=== PATIENT | female | born 1940 | race Caucasian/White ===

== ENCOUNTER → 2016-10-03 | Outpatient (CLI) | payer MEDICARE, OTHER ==
--- NOTE | 2016-10-03 11:47 | Diagnostic Imaging Report ---
INDICATION: Right knee pain 3 views of the right knee show no fracture, dislocation or pathologic effusion. IMPRESSION: Negative right knee. Dictated by: Dictated on workstation # [id number]
== END ==
LOC: RAD 11:24
PROVIDERS: ATTEND Nurse Practitioner Family
DX: M25.561 Pain in right knee (principal)
CPT/HCPCS: 73562

== ENCOUNTER → 2018-07-02 | Outpatient (CLI) | payer MEDICARE, OTHER ==
[~2018-07-02] MED LIST: BARIUM SUSPENSION 105% (LIQUID POLIBAR PLUS) 240 ML/DOSE PO ONE; BARIUM SUSPENSION 60% (LIQUID EZ PAQUE) 240 ML DOSE PO ONE
--- NOTE | 2018-07-02 18:10 | Diagnostic Imaging Report ---
EXAMINATION: Barium swallow. INDICATION: Difficulty swallowing. FINDINGS: There are no prior barium swallow studies available for comparison. The preliminary film of the chest fails to show any sign of an acute abnormality. There is S-type scoliosis of the spine with levoscoliosis of the lower thoracic spine and dextroscoliosis of the thoracolumbar junction. The lungs are clear but may be somewhat hyperexpanded. The heart size is within normal limits. Double contrast exam was performed. The patient swallowed the contrast material without difficulty. There was no delay or obstruction to the passage of barium through the esophagus. There is no evidence for a hiatal hernia or for gastroesophageal reflux. The stomach shows good distensibility and motility. There is no mass or ulceration evident. The duodenal bulb and proximal small bowel are unremarkable. IMPRESSION: 1. There is no evidence for obstruction of the esophagus. 2. There is no sign of a hiatal hernia nor is there any evidence for gastroesophageal reflux. 3. A cursory examination of the stomach, duodenum, and proximal small bowel is unremarkable for an acute abnormality. Dictated by: Dictated on workstation # [id number]
== END ==
LOC: RAD 09:26
PROVIDERS: ATTEND Nurse Practitioner Family
DX: R13.12 Dysphagia, oropharyngeal phase (principal)
CPT/HCPCS: 74220

== ENCOUNTER → 2019-11-03 | Outpatient (CLI) | payer MEDICARE, OTHER ==
--- NOTE | 2019-11-03 10:51 | Diagnostic Imaging Report ---
PROCEDURE: US right lower extremity venous. TECHNIQUE: Multiple real-time grayscale images were obtained over the right lower extremity in various projections. Additional spectral analysis and color Doppler duplex images were also obtained. INDICATION: Right leg pain behind the knee. There is no evidence of right lower extremity DVT. Right lower extremity deep venous system shows normal compressibility with normal response to augmentation and Valsalva. 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 IMPRESSION: 1. No evidence of right lower extremity DVT. 2. Bedolla's cyst. Dictated by: Dictated on workstation # [id number]
== END ==
LOC: RAD 08:43
PROVIDERS: ATTEND Nurse Practitioner Family
DX: M79.604 Pain in right leg (principal); M79.89 Other specified soft tissue disorders; M71.21 Synovial cyst of popliteal space [Baker], right knee

== ENCOUNTER 2019-11-17 21:17 | Emergency (ER) | payer MEDICARE, OTHER ==
[~2019-11-17] VITALS: Ht 157.4 cm; Wt 51.4 kg
[2019-11-17] MEDS ORDERED: NS IV 500 ML 500 ML IV ONE (21:49)
[2019-11-17 21:55] LABS: CLARITY,URINE SL CLOUDY; COLOR,URINE ORANGE; GLUCOSE, URINE (UA) TRACE (NEGATIVE); KETONES,URINE NEGATIVE (NEGATIVE); LEUKOCYTE ESTERASE ,URINE NEGATIVE (NEGATIVE); PROTEIN,URINE 2+ (NEGATIVE)
--- NOTE | 2019-11-17 21:56 | ED GU-Female ---
General Chief Complaint: Abdominal/GI Problems Stated Complaint: N/V, ABD PAIN Source: patient Exam Limitations: no limitations History of Present Illness Date Seen by Provider: Nov 17, 2019 Time Seen by Provider: 21:39 Initial Comments Patient arrives ER by private conveyance from home with chief complaint the past 6 days she's been having some discomfort in her lower pelvis, dysuria and pain with defecation and urinating feeling like a cramping sensation. She rates as a 5 out of 10 presently. She says is worse intermittently. She started taking cranberry caplets, AZO and some leftover Bactrim for 2 days and has not felt any significant relief. No fevers but she has had nausea without vomiting. A week ago she completed a week of antibiotics for inflammation in her right knee and has follow-up appointments with the orthopedic surgeon. She has osteoarthritis. She follows with Dr. Dalal. She's not having any malodor or discharge. Patient states she did not want come in but her children were insistent. Allergies and Home Medications Allergies Coded Allergies: codeine (Verified Adverse Reaction, Unknown, Vomiting, 11/17/19) Patient Home Medication List Home Medication List Reviewed: Yes Review of Systems Review of Systems Constitutional: No chills, No diaphoresis EENTM: No ear discharge, No ear pain Respiratory: No cough, No short of breath Cardiovascular: No edema Gastrointestinal: abdominal pain; No constipation, No diarrhea; nausea; No vomiting Genitourinary: denies discharge, denies dysuria Musculoskeletal: No back pain, No joint pain Skin: No pruritus, No rash Past Chnmrbu-Qkjvcc-Qtpquq Hx Patient Social History Alcohol Use: Rarely Uses Recreational Drug Use: No Smoking Status: Never a Smoker Recent Foreign Travel: No Contact w/Someone Who Travel: No Recent Hopitalizations: No Seasonal Allergies Seasonal Allergies: No Past Medical History Surgeries: Yes Orthopedic Respiratory: No Cardiac: No Neurological: No Genitourinary: No Gastrointestinal: No Musculoskeletal: No Endocrine: No HEENT: No Cancer: No Psychosocial: No Integumentary: No Physical Exam Vital Signs Vital Signs - First Documented 11/17/19 21:32 Temp 37.6 Pulse 109 Resp 18 B/P (MAP) 133/111 (118) O2 Delivery Room Air Capillary Refill : Height, Weight, BMI Height: '" Weight: lbs. oz. kg; BMI Method: General Appearance: WD/WN, mild distress HEENT: PERRL/EOMI, pharynx normal Neck: full range of motion, normal inspection Cardiovascular: normal peripheral pulses, regular rate, rhythm Respiratory: no respiratory distress, no accessory muscle use Gastrointestinal: normal bowel sounds (active), soft, tenderness (suprapubic but negative for pain over McBurney's point, right upper quadrant Martinez sign or psoas sign.) Back: normal inspection, no CVA tenderness, no vertebral tenderness Extremities: normal range of motion, non-tender, normal capillary refill Neurologic/Psychiatric: alert, normal mood/affect, oriented x 3 Skin: normal color, warm/dry Progress/Results/Core Measures Suspected Sepsis SIRS Temperature: Pulse: Respiratory Rate: Laboratory Tests 11/17/19 22:00: White Blood Count 11.7H Blood Pressure / Mean: Laboratory Tests 11/17/19 22:00: Creatinine 1.19, Platelet Count 286, Total Bilirubin 0.5 Results/Orders Lab Results Laboratory Tests Test 11/17/19 21:40 11/17/19 22:00 Range/Units Urine Color ORANGE Urine Clarity SL CLOUDY Urine pH 6.0 5-9 Urine Specific [place] 1.020 1.016-1.022 Urine Protein 2+ H NEGATIVE Urine Glucose (UA) TRACE H NEGATIVE Urine Ketones NEGATIVE NEGATIVE Urine Nitrite NEGATIVE NEGATIVE Urine Bilirubin 1+ H NEGATIVE Urine Urobilinogen 4.0 < = 1.0 MG/DL Urine Leukocyte Esterase NEGATIVE NEGATIVE Urine RBC (Auto) NEGATIVE NEGATIVE Urine RBC NONE /HPF Urine WBC NONE /HPF Urine Squamous Epithelial Cells 2-5 /HPF Urine Crystals PRESENT H /LPF Urine Calcium Oxalate Crystals RARE H /LPF Urine Bacteria TRACE /HPF Urine Casts PRESENT /LPF Urine Hyaline Casts 2-5 H /LPF Urine Mucus NEGATIVE /LPF Urine Culture Indicated NO White Blood Count 11.7 H 4.3-11.0 10^3/uL Red Blood Count 4.13 L 4.35-5.85 10^6/uL Hemoglobin 12.5 11.5-16.0 G/DL Hematocrit 37 35-52 % Mean Corpuscular Volume 90 80-99 FL Mean Corpuscular Hemoglobin 30 25-34 PG Mean Corpuscular Hemoglobin Concent 34 32-36 G/DL Red Cell Distribution Width 12.6 10.0-14.5 % Platelet Count 286 130-400 10^3/uL Mean Platelet Volume 10.0 7.4-10.4 FL Neutrophils (%) (Auto) 78 H 42-75 % Lymphocytes (%) (Auto) 10 L 12-44 % Monocytes (%) (Auto) 12 0-12 % Eosinophils (%) (Auto) 1 0-10 % Basophils (%) (Auto) 0 0-10 % Neutrophils # (Auto) 9.1 H 1.8-7.8 X 10^3 Lymphocytes # (Auto) 1.1 1.0-4.0 X 10^3 Monocytes # (Auto) 1.3 H 0.0-1.0 X 10^3 Eosinophils # (Auto) 0.1 0.0-0.3 10^3/uL Basophils # (Auto) 0.0 0.0-0.1 10^3/uL Sodium Level 137 135-145 MMOL/L Potassium Level 3.4 L 3.6-5.0 MMOL/L Chloride Level 104 98-107 MMOL/L Carbon Dioxide Level 19 L 21-32 MMOL/L Anion Gap 14 5-14 MMOL/L Blood Urea Nitrogen 14 7-18 MG/DL Creatinine 1.19 0.60-1.30 MG/DL Estimat Glomerular Filtration Rate 44 BUN/Creatinine Ratio 12 Glucose Level 127 H 70-105 MG/DL Calcium Level 9.6 8.5-10.1 MG/DL Corrected Calcium 9.5 8.5-10.1 MG/DL Total Bilirubin 0.5 0.1-1.0 MG/DL Aspartate Amino Transf (AST/SGOT) 25 5-34 U/L Alanine Aminotransferase (ALT/SGPT) 20 0-55 U/L Alkaline Phosphatase 78 40-136 U/L Total Protein 7.2 6.4-8.2 GM/DL Albumin 4.1 3.2-4.5 GM/DL My Orders Orders - BRADLEY PAN Ua Culture If Indicated (11/17/19 21:44) Cbc With Automated Diff (11/17/19 21:49) Comprehensive Metabolic Panel (11/17/19 21:49) Ed Iv/Invasive Line Start (11/17/19 21:49) Ns Iv 500 Ml (Sodium Chloride 0.9%) (11/17/19 21:49) Ketorolac Injection (Toradol Injection) (7/15/20 22:00) Medications Given in ED Current Medications Medications Dose Ordered Sig/Smita Route Start Time Stop Time Status Last Admin Dose Admin Ketorolac Tromethamine 30 mg ONCE ONCE IVP 11/17/19 22:00 11/17/19 22:01 DC 11/17/19 21:58 30 MG Sodium Chloride 500 ml @ 0 mls/hr Q0M ONCE IV 11/17/19 21:49 11/17/19 21:50 DC 11/17/19 21:58 0 MLS/HR Vital Signs/I&O 11/17/19 21:32 Temp 37.6 Pulse 109 Resp 18 B/P (MAP) 133/111 (118) O2 Delivery Room Air Capillary Refill : Progress Note #1: Time: 21:57 Progress Note Patient's heart rate is 110 -115. Anxiety versus infection? Plan to give her 500 cc of fluid, Toradol and check some basic labs and urinalysis. Otherwise aseptic vital signs and a very benign abdominal exam but could be consistent with a UTI. Progress Note #2: Time: 22:42 Progress Note Patient's abdominal pain is significantly improved after the Toradol. She says ibuprofen was working at home as well. We have suggested perhaps there was ur inary tract infection since her symptoms are coming from and we'll put her on ciprofloxacin for another 5 days. If she is not getting some improvement in her pain in the next 1-2 days she is to follow-up with primary care. If her pain becomes intractable or she has intractable nausea and vomiting, fever or other worrisome symptoms she is to return to the ER. Patient is in agreement with this plan. Labs are unremarkable. Urine is unrevealing after 2 days of antibiotics. Departure Impression Primary Impression: Urinary tract infection Qualified Codes: N30.00 - Acute cystitis without hematuria Disposition: HOME, SELF-CARE Condition: Stable Departure-Patient Inst. Decision time for Depature: 22:37 Referrals: MEL DALAL MD (PCP/Family) Primary Care Physician Patient Instructions: Urinary Tract Infection, Adult (DC) Add. Discharge Instructions: It's difficult to be certain what exactly is causing your discomfort however your symptoms seem to be consistent with urinary tract infection. Start ciprofloxacin one capsule twice a day for the next 5 days. If you're not having significant improvement in your pain over the next 1-2 days then you should call and follow-up with your primary care provider. If you have nausea take one tablet of Zofran under the tongue every 6 hours as necessary. If you develop fever above 100.4 or intractable pain and/or nausea then please do not hesitate to return to the ER for further evaluation. All discharge instructions reviewed with patient and/or family. Voiced understanding. Scripts Ciprofloxacin HCl (Ciprofloxacin HCl) 500 Mg Tablet 500 MG PO BID for 5 Days, #10 TAB 0 Refills Prov: BRADLEY PAN 11/17/19 Ondansetron (Ondansetron Odt) 4 Mg Tab.rapdis 4 MG PO Q6H PRN for NAUSEA/VOMITING, #8 TAB 0 Refills Prov: BRADLEY PAN 11/17/19 Copy Copies To 1: MEL DALAL MD, TITUS J Nov 17, 2019 21:56
[2019-11-17] MEDS ORDERED: KETOROLAC 30 MG/ML VIAL IVP ONE (22:00)
[2019-11-17 22:02] LABS: BILIRUBIN,URINE 1+ (NEGATIVE)
[2019-11-17 22:04] LABS: BACTERIA,URINE TRACE /HPF; CALCIUM OXALATE CRYSTALS,UR RARE /LPF
[2019-11-17 22:05] LABS: NITRITE,URINE NEGATIVE (NEGATIVE)
[2019-11-17 22:07] LABS: BASOPHILS % (AUTO) 0 % (0-10); EOSINOPHILS # (AUTO) 0.1 10^3/uL (0.0-0.3); EOSINOPHILS % (AUTO) 1 % (0-10); HEMATOCRIT 37 % (35-52); HEMOGLOBIN 12.5 G/DL (11.5-16.0); LYMPHOCYTES # (AUTO) 1.1 X 10^3 (1.0-4.0); LYMPHOCYTES % (AUTO) 10 % (12-44); MEAN CORPUSCULAR HEMOGLOBIN 30 PG (25-34); MEAN CORPUSCULAR HGB CONC 34 G/DL (32-36); MEAN CORPUSCULAR VOLUME 90 FL (80-99); MONOCYTES # (AUTO) 1.3 X 10^3 (0.0-1.0); MONOCYTES % (AUTO) 12 % (0-12); NEUTROPHILS # (AUTO) 9.1 X 10^3 (1.8-7.8); NEUTROPHILS % (AUTO) 78 % (42-75); PLATELET COUNT 286 10^3/uL (130-400); RED CELL DISTRIBUTION WIDTH 12.6 % (10.0-14.5); WHITE BLOOD COUNT 11.7 10^3/uL (4.3-11.0)
[2019-11-17 22:29] LABS: ALBUMIN 4.1 GM/DL (3.2-4.5); BILIRUBIN,TOTAL 0.5 MG/DL (0.1-1.0); CALCIUM 9.6 MG/DL (8.5-10.1); CREATININE SERUM 1.19 MG/DL (0.60-1.30); POTASSIUM 3.4 MMOL/L (3.6-5.0); TOTAL PROTEIN 7.2 GM/DL (6.4-8.2)
[2019-11-17] MEDS ORDERED: CIPR500T4 PO (22:48)
[2019-11-17] MEDS ORDERED: ONDA4TAB11 PO (22:48)
[2019-11-17 22:55] VITALS: BP 132/74
--- OUTSIDE RECORDS SUMMARY | 2019-11-18 01:25 | XMS REPORT ---
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 Stringer Assembler Name Role Phone Unavailable Unavailable [facility] PP Unavailable [facility] CCM Unavailable HEAVEN MARSHALL Unavailable Unavailable NICOLAS ALCANTARA DC Unavailable Unavailable JENNIFER ENG RAILWAY SIGNALLING ENGINEER Unavailable Unavailable JULISA CORDON APRN Unavailable Unavailable BRADLEY PAN MD Unavailable Unavailable HEAVEN DORADO Unavailable Unavailable NICOLAS ALCANTARA DC Unavailable Unavailable Unavailable Unavailable Unavailable Unavailable Unavailable Unavailable Unavailable Unavailable Unavailable Unavailable Allergies The data below is from unstructured sourcesAllergies, Adverse Reactions, Alerts data not foundAllergies, Adverse Reactions, Alerts data not foundAllergies, Adverse Reactions, Alerts data not foundAllergies, Adverse Reactions, Alerts data not foundAllergies, Adverse Reactions, Alerts data not foundAllergies, Adverse Reactions, Alerts data not foundAllergies, Adv erse Reactions, Alerts data not foundAllergies, Adverse Reactions, Alerts data n ot foundAllergies, Adverse Reactions, Alerts data not found Encounters Encounter Date Encounter Type Encounter Diagnosis Care Provider Facility Start: Emergency department BRADLEY PAN MD [facility] V ia [facility], [place] 11-17-2019 patient visit [facility] End: 11-17-2019 Start: Patient encounter JULISA CORDON APRN [facility] Vi a [facility], [place] 11-03-2019 procedure [facility] Start: Encounter for general Encounter for general NA YASMINE Dalal MD [facility] 07-02-2019 adult medical adult medical ([id number]) examination without examination without abnormal findings abnormal findings Start: Patient encounter NA YASMINE narvaez MD [facility] 06-15-2019 procedure Start: Patient encounter NA YASMINE narvaez MD [facility] 05-27-2019 procedure Start: Office outpatient Low back pain Julisa Dalal MD, 12-25-2018 [facility] Start: Office outpatient Essential (primary) Heaven Dalal MD, 11-26-2018 visit [facility] Start: Office outpatient Essential (primary) Heaven Dalal MD, 08-27-2018 visit [facility] Start: Office outpatient Essential (primary) Heaven Dalal MD, 07-23-2018 visit [facility] Start: Patient encounter HEAVEN MARSHALL Not Avail able ([id number]) 07-02-2018 procedure Start: Patient encounter HEAVEN MARSHALL VC Via [facility] [place] 07-02-2018 procedure [facility] Start: Office outpatient Essential (primary) Heaven Dalal MD, 06-25-2018 visit [facility] Start: Patient encounter HEAVEN MARSHALL Not Avail able ([id number]) 10-03-2016 procedure Start: Patient encounter HEAVEN MARSHALL VC Via [facility] [place] 10-03-2016 procedure [facility] Start: Patient encounter NICOLAS ALCANTARA DC Not Availab le ([id number]) 11-08-2015 procedure Start: Patient encounter NICOLAS ALCANTARA DC VC Via [facility] 11-08-2015 procedure [facility] Start: Patient encounter JENNIFER ENG Not Availab le ([id number]) 01-05-2014 procedure Start: Patient encounter JENNIFER ENG Not Availab le ([id number]) 07-22-2012 procedure Patient encounter NA YASMINE Dalal MD L procedure Medical Equipment No Information Goals No Information Immunizations The data below is from unstructured sourcesNo Immunization dataNo Immunization dataNo Immunization dataNo Immunization dataNo Immunization dataNo Immunization dataNo Immunization dataNo Immunization dataNo Immunization data Interventions No Information Medications Medication Drug Dates Sig Sig (Original) Class(es) (Normalized) carvedilol 12.5 mg oral alpha-Adre Start: take 2 tablets Coreg 12.5 mg tablet RxNorm: 128427 2 tablet nergic 06-25-2018 by mouth twice Tablet(s) P O BID TABLET(S) 1 TABLET(S) (20 sources) Adilene, daily, then PO BID 06/25/2018 9 Inactive beta-Adren End: take 1 tablet ergic 06-24-2018 by mouth twice Adilene daily Start: 06-25-2018 take 1 Coreg 12.5 mg End: 03-21-2019 tablet by tablet RxNorm: mouth once 072835 2 in the Tablet(s) PO morning, UD 06/25/2018 then take 07/22/2018 2 tablets Inactive 1 q by mouth am an 2 q pm once in the evening Start: 06-25-2018 take 2 Coreg 12.5 mg End: 06-24-2018 tablets by tablet RxNorm: mouth 618744 2 twice Tablet(s) PO daily, BID TABLET(S) then take 1 TABLET(S) PO 1 tablet BID 06/25/2018 by mouth 06/24/2018 twice Inactive daily Start: 06-25-2018 take 2 Coreg 12.5 mg End: 06-24-2018 tablets by tablet RxNorm: mouth 395055 2 twice Tablet(s) PO daily, BID TABLET(S) then take 1 TABLET(S) PO 1 tablet BID 06/25/2018 by mouth 06/24/2018 twice Inactive daily Start: 06-25-2018 take 2 Coreg 12.5 mg End: 06-24-2018 tablets by tablet RxNorm: mouth 412112 2 twice Tablet(s) PO daily, BID TABLET(S) then take 1 TABLET(S) PO 1 tablet BID 06/25/2018 by mouth 06/24/2018 twice Inactive daily Start: 06-25-2018 take 2 Coreg 12.5 mg End: 06-24-2018 tablets by tablet RxNorm: mouth 070343 2 twice Tablet(s) PO daily, BID TABLET(S) then take 1 TABLET(S) PO 1 tablet BID 06/25/2018 by mouth 06/24/2018 twice Inactive daily Start: 06-25-2018 take 2 Coreg 12.5 mg End: 06-24-2018 tablets by tablet RxNorm: mouth 847961 2 twice Tablet(s) PO daily, BID TABLET(S) then take 1 TABLET(S) PO 1 tablet BID 06/25/2018 by mouth 06/24/2018 twice Inactive daily Start: 06-25-2018 take 2 Coreg 12.5 mg End: 06-24-2018 tablets by tablet RxNorm: mouth 709468 2 twice Tablet(s) PO daily, BID TABLET(S) then take 1 TABLET(S) PO 1 tablet BID 06/25/2018 by mouth 06/24/2018 twice Inactive daily Start: 06-25-2018 take 2 Coreg 12.5 mg End: 06-24-2018 tablets by tablet RxNorm: mouth 841340 2 twice Tablet(s) PO daily, BID TABLET(S) then take 1 TABLET(S) PO 1 tablet BID 06/25/2018 by mouth 06/24/2018 twice Inactive daily Start: 06-25-2018 take 2 Coreg 12.5 mg End: 06-24-2018 tablets by tablet RxNorm: mouth 745529 2 twice Tablet(s) PO daily, BID TABLET(S) then take 1 TABLET(S) PO 1 tablet BID 06/25/2018 by mouth 06/24/2018 twice Inactive daily Start: 06-25-2018 take 2 Coreg 12.5 mg End: 06-24-2018 tablets by tablet RxNorm: mouth 998618 2 twice Tablet(s) PO daily, BID TABLET(S) then take 1 TABLET(S) PO 1 tablet BID 06/25/2018 by mouth 06/24/2018 twice Inactive daily Start: 01-23-2017 Coreg 12.5 mg End: 07-22-2018 tablet RxNorm: 223205 Tablet(s) 1 TABLET(S) PO BID 04/16/2017 04/16/2017 Inactive Replacing atenolol due to availability Start: 01-21-2017 take 1 Coreg 12.5 mg End: 01-20-2017 tablet by tablet RxNorm: mouth 230226 1 twice Tablet(s) PO daily BID 01/21/2017 01/20/2017 Inactive Replacing atenolol due to availability Start: 01-21-2017 take 1 Coreg 12.5 mg End: 02-18-2019 tablet by tablet RxNorm: mouth 394684 1 twice Tablet(s) PO daily BID 01/21/2017 01/22/2017 Inactive Replacing atenolol due to availability Co Q-10 oral Co Q-10 oral RxNorm: 54150 oral No Start (7 sources) Date Active cyclobenzaprine Muscle Start: take 0.5 tablet cyclob enzaprine 5 mg tablet RxNorm: hydrochloride 5 mg oral Relaxant 12-25-2018 by mouth three 294462 1/2 Tablet(s) PO TID as needed tablet times daily as muscle spasms 12/25/2018 (3 sources) End: needed for Inactive 12-29-2018 muscle spasms Fish Oil oral Fish Oil oral RxNorm: 46265 73 oral No (6 sources) Start Date Active 24 hr metoprolol beta-Adren Start: take 1 tablet metopro lol succinate ER 100 mg succinate 100 mg ergic 10-09-2018 by mouth once tablet, extended release 24 hr RxNorm: extended release oral Adilene daily 375332 TAKE ONE TABLET BY M OUTH DAILY tablet End: 01/11/2019 10/07/19 20 Active (9 sources) 10-07-2019 One A Day Vitamin oral One A Day Vitamin oral RxN orm: 88059 (3 sources) oral No Start Date Active nebivolol 10 mg oral Start: take 1 tablet Bystolic 10 mg tablet RxNorm: 573803 1 tablet 07-23-2018 by mouth once Tablet(s) PO da hayley 07/23/2018 10/08/2018 (7 sources) daily Inactive End: 10-08-2018 pravastatin sodium 10 mg HMG-CoA Start: take 1 tablet pravastatin 10 mg tablet RxNorm: 728438 oral tablet Reductase 06-04-2018 by mouth once 1 Tablet(s) PO QHS 06/04/2018 08/26/2018 (20 sources) Inhibitor daily at Inactive End: bedtime 08-26-2018 Start: 06-04-2018 take 1 pravastatin 10 End: 10-01-2018 tablet by mg tablet mouth once RxNorm: 233074 daily at 1 Tablet(s) PO bedtime QHS 06/04/2018 08/26/2018 Inactive Payers No Information Plan of Treatment Date Care Activity Detail Author Start: Patient referral Notes: Referral - Provider: Morena Dalal MD, MARILUZ 01-13-2019 VIA [facility] ([id number]) - Address:, , , Work Phone: Start: Development of care plan Low back pain- the pa tient Morena Dalal MD[facility] 12-25-2018 was instructed in (29307) appropriate posture. The pt Work Phone: is to use prn antiinflammatories to manage acute pain. The patient is to call the office if the pain is worsening or does not improve. Start: Development of care plan Hypertension - well Morena Dalal MD[facility] 11-26-2018 controlled - continue with (62680) current medications, Work Phone: continue with no added salt diet. Pt has been encouraged to exercise daily.The pt has been advised to call the office if there are any acute concerns about change in blood pressure readings at home.Left wrist pain -arthritis -recommend wrist brace to see if that helps with discomfort Start: Development of care plan Hypertension - well Morena Dalal MD[facility] 08-27-2018 controlled - continue with (38068) current medications, Work Phone: continue with no added salt diet. Pt has been encouraged to exercise daily.The pt has been advised to call the office if there are any acute concerns about change in blood pressure readings at home.WXSD-[id number]-bfbus dexilant- refer for EGD if symptoms persist Start: Development of care plan HTN-stop coreg- start Morena Dalal MD[facility] 07-23-2018 bystolic 10mg daily -monitor (36353) blood pressure and pulse and Work Phone: call in 1 week with readings -may need to increase to 20mg daily -continue amlodipine 10mg q am and take bystolic in the morning -follow up in the office in 1 month, sooner if needed .GERD-samples of dexilant provided and instructed on use Start: Development of care plan Hypertension - uncont rolled Morena Dalal MD[facility] 06-25-2018 - the patient's medications (34307) have been modified as Work Phone: documented in the visit note. The patient has been counseled to cut back on salt in diet for a no added salt diet, low fat diet, start an exercise program with low weight bearing exercises and higher aerobic activity for heart health. The patient is to check blood pressure readings as an outpatient and either fax, call, or email the readings to the office next week for practitioner to review.The pt is to call for acute concerns.Dysphagia-schedule swallow study Start: Development of care plan Morena hernández MD, LLC 05-25-2018 ([id number]) Work Phone: Patient referral Notes: Referral - Provider: Morena orozco MD, LLC [facility] ([id number]) - Address:, , , Work Phone: Referral Order Goal: Referral Order Notes: Morena orozco MD[facility] ([id number]) Work Phone: Problems Active Problems Problem Problem Date Last Documented Episodic/Chr Provider Classificati Recorded Date onic on Esophageal Gastro-esophageal reflux disease Chronic Julisa Cordon disorders without esophagitis ; Translations: Work Phone: (20 sources) [Gastro-esophageal reflux disease 1 [phone] without esophagitis] 81 Essential Essential (primary) hypertension ; Chronic Julisa Cordon hypertension Translations: [Hypertensive Work Ph one: (20 sources) disorder] Genitourinar Dysuria 11-16-2019 Episodic NA NA y symptoms and ill-defined conditions (2 sources) Other 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 disease (2 sources) Other Abnormal posture 11-17-2019 Episodic NICOLAS RIG GS connective DC tissue disease (3 sources) Other Pain in right leg 11-08-2019 Episodic JULISA LUCIO RRIS connective SEAFOOD SPECIALIST tissue disease (1 source) Other Other specified soft tissue 11-08-2019 Episodic JULISA CORDON connective disorders SEAFOOD SPECIALIST tissue disease (1 source) Other Synovial cyst of popliteal space 11-08-2019 Episod ic JULISA CORDON connective [Bedolla], right knee SEAFOOD SPECIALIST tissue disease (1 source) Other Pain in right lower leg 11-03-2019 Episodic NA NA connective tissue disease (2 sources) Other skin Localized swelling, mass and lump, 11-03-2019 Epis odic JULISA CORDON disorders lower limb, bilateral SEAFOOD SPECIALIST (3 sources) Spondylosis; Low back pain ; Translations: 11-17-2019 Episodic NICOLAS ALCANTARA intervertebr [Radiculopathy, thoracolumbar DC al disc region] disorders; other back problems (15 sources) Past or Other Problems Problem Problem Date Last Documented Episodic/Chr Provider Classificati Recorded Date onic on Nonspecific Chest pain, unspecified Episodic HEAT HER chest pain BAIMA (2 sources) Other Long-term (current) use of other Episodic JENNIFER aftercare medications BAIMA (1 source) Other Dysphagia, unspecified Episodic PATRIC ER gastrointest BAIMA inal disorders (2 sources) Other Pain in left wrist ; Translations: Episodic Julisa Cordon non-traumati [Pain in left wrist] Work Phone: c joint [phone] disorders 81 (9 sources) Procedures The data below is from unstructured sourcesNo Procedures dataNo Procedures dataNo Procedures data Results Test Name Value Interpreta Reference Facilit Date tion Range y Time laboratory on 2019-11-17 Albumin [Mass/Vol] 4.1 g/dL Negative 3.2-4.5 PENDING 07-1 5-2 g/dL [facility] N [facility] 18:00-0 (08538) 400 ALP [Catalytic 78 U/L Negative 40-136 U/L PENDING activity/Vol] [facility] N [facility] 18:00-0 (78456) 400 ALT [Catalytic 20 U/L Negative 0-55 U/L PENDING activity/Vol] [facility] N [facility] 18:00-0 (41545) 400 Anion gap 14 mmol/L Negative 5-14 PENDING [Moles/Vol] mmol/L [facility] 0[facility] N [facility] 18:00-0 (30536) 400 AST [Catalytic 25 U/L Negative 5-34 U/L PENDING activity/Vol] [facility] N [facility] 18:00-0 (37287) 400 Bacteria LM Ql TRACE Invalid PENDING (Urine sed) Interpreta [facility] 020 tion Code N [facility] 17:40-0 (09713) 400 Basophils (Bld) 0.0 10*3/uL Negative 0.0-0.1 PENDING 11-16 [#/Vol] 10*3/uL [facility] N [facility] 18:00-0 (44988) 400 Basophils/100 WBC 0 % Negative 0-10 % PENDING 11-16 (Bld) [facility] 18:00-0 (15689) 400 Bilirubin [Mass/Vol] 0.5 mg/dL Negative 0.1-1.0 PENDING - mg/dL [facility] 0[facility] N [facility] 18:00-0 (17999) 400 Bilirubin Ql (U) 1+ Abnormal NEGATIVE PENDING [facility] 17:40-0 (43199) 400 Calcium [Mass/Vol] 9.6 mg/dL Negative 8.5-10.1 PENDING - 5-2 mg/dL [facility] 0[facility] N [facility] 18:00-0 (98065) 400 Calcium [Mass/Vol] 9.5 mg/dL Negative 8.5-10.1 PENDING -1 5-2 mg/dL [facility] 020 N [facility] 18:00-0 (66522) 400 Calcium oxalate RARE Abnormal PENDING crystals LM Ql [facility] 020 (Urine sed) N S 17:40-0 (90840) 400 Casts LM Ql (Urine PRESENT Invalid PENDING sed) Interpreta [facility] 020 tion Code N [facility] 17:40-0 (55758) 400 Chloride [Moles/Vol] 104 mmol/L Negative 98-107 PENDING 0 --2 mmol/L [facility] 020 N S 18:00-0 (96351) 400 Clarity (U) SL CLOUDY Invalid PENDING Interpreta [facility] 020 tion Code N [facility] 17:40-0 (81300) 400 CO2 [Moles/Vol] 19 mmol/L Low 21-32 PENDING mmol/L [facility] 020 N S 18:00-0 (39595) 400 Color (U) ORANGE Invalid PENDING Interpreta [facility] 020 tion Code N [facility] 17:40-0 (99534) 400 Creatinine 1.19 mg/dL Negative 0.60-1.30 PENDING [Mass/Vol] mg/dL [facility] 020 N S 18:00-0 (32860) 400 Creatinine and 44 Invalid PENDING Glomerular Interpreta [facility] 020 filtration tion Code N [facility] 18:00-0 rate.predicted panel (99232) 400 - Serum, Plasma or Blood Crystals LM Ql PRESENT Abnormal PENDING (Urine sed) [facility] 020 N S 17:40-0 (36841) 400 Eosinophils (Bld) 0.1 10*3/uL Negative 0.0-0.3 PENDING [#/Vol] 10*3/uL [facility] 020 N [facility] 18:00-0 (97362) 400 Eosinophils/100 WBC 1 % Negative 0-10 % PENDING (Bld) [facility] 020 N [facility] 18:00-0 (78248) 400 Epithelial 2-5 Invalid PENDING cells.squamous LM Ql Interpreta [facility] 020 (Urine sed) tion Code N [facility] 17:40-0 (19351) 400 Erythrocyte 12.6 % Negative 10.0-14.5 PENDING distribution width % [facility] 020 (RBC) [Ratio] N [facility] 18:00-0 (55307) 400 Glucose [Mass/Vol] 127 mg/dL High 70-105 PENDING 11-02 5-2 mg/dL [facility] 020 N S 18:00-0 (34531) 400 Glucose Auto test TRACE Abnormal NEGATIVE PENDING 11-16 strip Ql (U) [facility] 020 N S 17:40-0 (39969) 400 Hematocrit (Bld) 37 % Negative 35-52 % PENDING [Volume fraction] [facility] 020 N S 18:00-0 (60583) 400 Hemoglobin (Bld) 12.5 g/dL Negative 11.5-16.0 PENDING [Mass/Vol] g/dL [facility] 020 N S 18:00-0 (48809) 400 Hyaline casts LM Ql 2-5 Abnormal PENDING (Urine sed) [facility] 020 N [facility] 17:40-0 (60970) 400 Ketones Auto test Negative Invalid NEGATIVE PENDING 11-16 strip Ql (U) Interpreta [facility] 020 tion Code N [facility] 17:40-0 (75064) 400 Leukocyte esterase Negative Invalid NEGATIVE PENDING 11-02 Test strip Ql (U) Interpreta [facility] 020 tion Code N [facility] 17:40-0 (21556) 400 Lymphocytes (Bld) 1.1 10*3/uL Negative 1.0-4.0 PENDING [#/Vol] 10*3 [facility] 0[facility] N [facility] 18:00-0 (75617) 400 Lymphocytes/100 WBC 10 % Low 12-44 % PENDING (Bld) [facility] 0[facility] N [facility] 18:00-0 (21112) 400 MCH (RBC) [Entitic 30 pg Negative 25-34 pg PENDING 07-1 5-2 mass] [facility] 020 N S 18:00-0 (42379) 400 MCHC (RBC) 34 g/dL Negative 32-36 g/dL PENDING [Mass/Vol] [facility] 020 N [facility] 18:00-0 (60403) 400 MCV (RBC) [Entitic 90 Negative 80-99 PENDING 11-02 5-2 vol] [foz_us] [facility] 020 N S 18:00-0 (63976) 400 Monocytes (Bld) 1.3 10*3/uL High 0.0-1.0 PENDING 11-16 [#/Vol] 10*3 [facility] 020 N S 18:00-0 (36083) 400 Monocytes/100 WBC 12 % Negative 0-12 % PENDING 11-16 (Bld) [facility] 020 N S 18:00-0 (86062) 400 Mucus Ql (Urine sed) Negative Invalid PENDING 11-16 Interpreta [facility] 020 tion Code N [facility] 17:40-0 (39171) 400 Neutrophils (Bld) 9.1 10*3/uL High 1.8-7.8 PENDING [#/Vol] 10*3 [facility] 020 N S 18:00-0 (65557) 400 Neutrophils/100 WBC 78 % High 42-75 % PENDING (Bld) [facility] 020 N [facility] 18:00-0 (48738) 400 Nitrite Ql (U) Negative Invalid NEGATIVE PENDING Interpreta [facility] 020 tion Code N [facility] 17:40-0 (10202) 400 pH (U) 6.0 [pH] Invalid 5-9 PENDING Interpreta [facility] 020 tion Code N [facility] 17:40-0 (37965) 400 Platelet mean volume 10.0 Negative 7.4-10.4 PENDING (Bld) [Entitic vol] [foz_us] [facility] 020 N S 18:00-0 (89588) 400 Platelets (Bld) 286 10*3/uL Negative 130-400 PENDING 11-16 [#/Vol] 10*3/uL [facility] 020 N S 18:00-0 (58711) 400 Potassium 3.4 mmol/L Low 3.6-5.0 PENDING [Moles/Vol] mmol/L [facility] 020 N S 18:00-0 (74463) 400 Protein [Mass/Vol] 7.2 g/dL Negative 6.4-8.2 PENDING - 5-2 g/dL [facility] 020 N S 18:00-0 (06302) 400 Protein Ql (U) 2+ Abnormal NEGATIVE PENDING [facility] 020 N S 17:40-0 (33074) 400 RBC (Bld) [#/Vol] 4.13 10*6/uL Low 4.35-5.85 PENDING 10*6/uL [facility] 020 N S 18:00-0 (96522) 400 RBC LM.HPF (Urine NONE Invalid PENDING sed) [#/Area] Interpreta [facility] 020 tion Code N [facility] 17:40-0 (97358) 400 RBC Ql (U) Negative Invalid NEGATIVE PENDING Interpreta [facility] 020 tion Code N [facility] 17:40-0 (82666) 400 Sodium [Moles/Vol] 137 mmol/L Negative 135-145 PENDING mmol/L [facility] 020 N [facility] 18:00-0 (27322) 400 Specific gravity (U) 1.020 Invalid 1.016-1.02 PENDING 0 [Rel density] Interpreta 2 [facility] 020 tion Code N [facility] 17:40-0 (66507) 400 Urea nitrogen 14 mg/dL Negative 7-18 mg/dL PENDING [Mass/Vol] [facility] 020 N S 18:00-0 (64539) 400 Urea 12 mg/mg Invalid PENDING nitrogen/Creatinine Interpreta [facility] 020 [Mass ratio] tion Code N [facility] 18:00-0 (94489) 400 Urinalysis complete NO Invalid PENDING W Reflex Culture Interpreta [facility] 020 panel - Urine tion Code N [facility] 17:40-0 (11837) 400 Urobilinogen (U) 4.0 mg/dL Invalid < = 1.0 PENDING [Mass/Vol] Interpreta mg/dL [facility] 020 tion Code N [facility] 17:40-0 (75694) 400 WBC (Bld) [#/Vol] 11.7 10*3/uL High 4.3-11.0 PENDING 10*3/uL [facility] 020 N S 18:00-0 (36416) 400 WBC LM.HPF (Urine NONE Invalid PENDING sed) [#/Area] Interpreta [facility] 020 tion Code N [facility] 17:40-0 (94106) 400 tsh on 2018-06-01 TSH Qn 3.50 uIU/mL Normal 0.45uIU/mL Lucas 06-01-2 -5.33uIU/m [facility] 019 L susy GUNDERSON, 13:00-0 [facility] 500 (52435) Work Phone: [phone] lipid on 2018-06-01 C/HDL 3.4 Ratio Normal 0.0Ratio-4 Lucas 06-01-2 .4Ratio [facility] Brissa jain MD, 13:00-0 [facility] 500 (91678) Work Phone: [phone] Cholesterol 245 mg/dL Normal 130mg/dL-2 Lucas [Mass/Vol] 00mg/dL [facility] 019 susy GUNDERSON, 13:00-0 [facility] 500 (12201) Work Phone: [phone] Cholesterol in HDL 73.0 mg/dL Normal 30.0mg/dl- Lucas [Mass/Vol] 90.0mg/dl [facility] 019 susy GUNDERSON, 13:00-0 [facility] 500 (75071) Work Phone: Cholesterol in LDL 156 mg/dL Normal 60mg/dL-13 Lucas [Mass/Vol] 0mg/dL [facility] 019 susy GUNDERSON, 13:00-0 [facility] 500 (54640) Work Phone: Triglyceride 79 mg/dL Normal 35mg/dL-20 Lucas [Mass/Vol] 0mg/dL [facility] Brissa jain MD, 13:00-0 [facility] 500 (22579) Work Phone: comp metabolic on 2018-06-01 Albumin [Mass/Vol] 4.3 g/dL Normal 3.5g/dL-4. Lucas 8g/dL [facility] Brissa jain MD, 13:00-0 [facility] 500 (50734) Work Phone: Albumin/Globulin 1.6 {ratio} Normal 1.1Ratio-2 Lucas [Mass ratio] .5Ratio Oksana jain MD, 13:00-0 [facility] 500 (34560) Work Phone: ALK PHOS 97 U/L Normal 30U/L-115U Lucas 2 /L Oksana jain MD, 13:00-0 [facility] 500 (34013) Work Phone: ALT [Catalytic 17 U/L Normal 9U/L-28U/L Lucas activity/Vol] Oksana jain MD, 13:00-0 [facility] 500 (20162) Work Phone: Anion gap 14 mmol/L Normal 6-14 Lucas [Moles/Vol] Reyesstbetito jain MD, 13:00-0 [facility] 500 (33818) Work Phone: AST [Catalytic 24 U/L Normal 0U/L-40U/L Lucas activity/Vol] Reyesstbetito jain MD, 13:00-0 [facility] 500 (72930) Work Phone: B/C Ratio 15.9 Ratio Normal 12.0Ratio- Lucas 20.0Ratio Oksana jain MD, 13:00-0 [facility] 500 (52993) Work Phone: BILI T 0.6 mg/dL Normal 0.1mg/dL-1 Morena 06-01-2 .4mg/dL Oksana jain MD, 13:00-0 [facility] 500 (36334) Work Phone: [phone] Calcium [Mass/Vol] 9.9 mg/dL Normal 8.5mg/dL-1 - 0.8mg/dL [facility] 019 susy GUNDERSON, 13:00-0 [facility] 500 (43230) Work Phone: [phone] Chloride [Moles/Vol] 105 mmol/L Normal 95mEq/L-11 06-01- 0mEq/L [facility] 019 susy GUNDERSON, 13:00-0 [facility] 500 (67988) Work Phone: [phone] CO2 [Moles/Vol] 27.0 mmol/L Normal 24.0mEq/L- 05-06 8-2 34.0mEq/L [facility] 019 susy GUNDERSON, 13:00-0 [facility] 500 (28449) Work Phone: [phone] Creatinine 0.9 mg/dL Normal 0.6mg/dL-1 [Mass/Vol] .5mg/dL [facility] 019 susy GUNDERSON, 13:00-0 [facility] 500 (65842) Work Phone: [phone] GFR/1.73 sq 66 mL/min/{1.73_m2} Normal >59ml/min/ Morena M.predicted among 1.73m2->59 [facility] 019 non-blacks MDRD ml/min/1.7 n , 13:00-0 (S/P/Bld) [Vol 3m2 LLC 500 rate/Area] (33348) Work Phone: [phone] Globulin (S) 2.7 g/dL Normal 1.5g/dL-4. Morena [Mass/Vol] 5g/dL [facility] 019 susy GUNDERSON, 13:00-0 LLC 500 (74149) Work Phone: [phone] Glucose [Mass/Vol] 102 mg/dL Normal 60mg/dL-12 Morena 5mg/dL [facility] 019 susy GUNDERSON, 13:00-0 LLC 500 (24756) Work Phone: Osmolality 284 mOsmo Normal 270mOsmo-3 Morena 06-01- [Osmolality] 05mOsmo Oksana jain MD, 13:00-0 LLC 500 (90149) Work Phone: Potassium 4.3 mmol/L Normal 3.5mEq/L-5 Morena 06-01- [Moles/Vol] .5mEq/L Oksana jain MD, 13:00-0 LLC 500 (93910) Work Phone: Sodium [Moles/Vol] 142 mmol/L Normal 132mEq/L-1 Morena - 45mEq/L Oksana jain MD, 13:00-0 [facility] 500 (44724) Work Phone: TPRO 7.0 g/dL Normal 6.0g/dL-8. Morena 0g/dL Oksana jain MD, 13:00-0 [facility] 500 (55854) Work Phone: Urea nitrogen 14 mg/dL Normal 9mg/dL-27m Morena [Mass/Vol] g/dL Oksana jain MD, 13:00-0 [facility] 500 (17577) Work Phone: cbc with differential on 2018-06-01 Baso ABS# 0.0 K/ul Normal 0.0K/ul-0. Morena 2K/ul Oksana jain MD, 13:00-0 [facility] 500 (81956) Work Phone: Basophils/100 WBC 0.5 % Normal 0.0%-2.5% Lucas 06-01 - (Bld) Oksana jain MD, [facility] 500 ([id number]) Work Phone: Eos ABS# 0.2 K/ul Normal 0.0K/ul-0. Morena 06-01- 7K/ul Oksana jain MD, [facility] 500 ([id number]) Work Phone: Eosinophils/100 WBC 2.4 % Normal 0.0%-7.0% Lucas (Bld) [facility] 019 susy GUNDERSON, [facility] 500 ([id number]) Work Phone: [phone] Erythrocyte 13.6 % Normal 11.6%-14.8 Lucas distribution width % [facility] 019 (RBC) [Ratio] n , [facility] 500 ([id number]) Work Phone: [phone] Hematocrit (Bld) 42.5 % Normal 36.0%-46.0 Lucas 06-01 [Volume fraction] % [facility] 019 susy GUNDERSON, [facility] 500 ([id number]) Work Phone: [phone] Hemoglobin (Bld) 13.7 g/dL Normal 13.0g/dl-1 Lucas 06-01 [Mass/Vol] 5.0g/dl [facility] 019 susy GUNDERSON, [facility] 500 ([id number]) Work Phone: [phone] Lymphocytes (Bld) 0.91 10*3/uL Normal 0.60K/ul-3 [place] [address] [#/Vol] .40K/ul [facility] 019 susy GUNDERSON, [facility] 500 ([id number]) Work Phone: Lymphocytes/100 WBC 11.3 % Normal 10.0%-50.0 Lucas (Bld) % [facility] 019 ssuy GUNDERSON, [facility] 500 ([id number]) Work Phone: [phone] MCH (RBC) [Entitic 30.2 pg Normal 27.0pg-31. Lucas mass] 0pg [facility] 019 susy GUNDERSON, [facility] 500 ([id number]) Work Phone: MCHC 32.2 pg Normal 32.0pg-36. Lucas 0pg [facility] 019 susy GUNDERSON, [facility] 500 ([id number]) Work Phone: [phone] MCV (RBC) [Entitic 93.8 fL Normal 80.0fl-97. Morena -2 vol] 0fl Oksana jain MD, [facility] 500 ([id number]) Work Phone: [place] ABS# 0.8 K/ul Normal 0.0K/ul-0. Morena 06-01-2 9K/ul Oksana jain MD, [facility] 500 ([id number]) Work Phone: Monocytes/100 WBC 9.3 % Normal 0.0%-12.0% Lucas - 8-2 (Bld) Oksana jain MD, [facility] 500 ([id number]) Work Phone: Neut ABS# 6.17 K/ul Normal 2.00K/ul-6 Morena 06-01-2 .90K/ul Oksana jain MD, [facility] 500 ([id number]) Work Phone: Neutrophils/100 WBC 76.5 % Normal 37.0%-80.0 Lucas -2 (Bld) % Oksana jain MD, [facility] 500 ([id number]) Work Phone: Platelets (Bld) 291 10*3/uL Normal 150K/ul-40 Lucas 05-06 8-2 [#/Vol] 0K/ul Oksana jain MD, [facility] 500 ([id number]) Work Phone: RBC (Bld) [#/Vol] 4.53 10*6/uL Normal 3.60M/ul-5 Morena 0 28-2 .00M/ul Oksana jain MD, [facility] 500 ([id number]) Work Phone: [phone] WBC (Bld) [#/Vol] 8.06 10*3/uL Normal 5.00K/ul-1 Morena 0 06-01-2 0.00K/ul Oksana jain MD, [facility] 500 ([id number]) Work Phone: Social History No Information Vital Signs Date Time Vital Sign Value Performing Clinician Facil ity 12-25-2018 Body height NaN cm Julisa jain MD, 02:00-0400 Work Phone: [facility] ([id number]) Work Phone: 12-25-2018 Body weight NaN kg Julisa jain MD, 02:00-0400 Work Phone: [facility] ([id number]) Work Phone: 12-25-2018 Heart rate 86 /min Julisa jain MD, 02:00-0400 Work Phone: [facility] ([id number]) Work Phone: 12-25-2018 SaO2% (BldA) [Mass 98 % Julisa Dalal MD, 02:00-0400 fraction] Work Phone: [facility] ([id number]) Work Phone: 11-26-2018 Body height 155 cm Julisa jain MD, 02:00-0400 Work Phone: [facility] ([id number]) Work Phone: 11-26-2018 Body mass index 20 kg/m2 Julisa lew MD, 02:00-0400 (BMI) [Ratio] Work Phone: [facility] ([id number]) Work Phone: 11-26-2018 Body weight 48 kg Julisa jain MD, 02:00-0400 Work Phone: [facility] ([id number]) Work Phone: 11-26-2018 Diastolic blood 80 mm[Hg] Julisa lew MD, 02:00-0400 pressure Work Phone: [facility] ([id number]) Work Phone: 11-26-2018 Diastolic blood 78 mm[Hg] Julisa lew MD, 02:00-0400 pressure Work Phone: [facility] ([id number]) Work Phone: 11-26-2018 Heart rate 81 /min Julisa jain MD, 02:00-0400 Work Phone: [facility] ([id number]) Work Phone: 11-26-2018 SaO2% (BldA) [Mass 98 % Julisa Dalal MD, 02:00-0400 fraction] Work Phone: [facility] ([id number]) Work Phone: 11-26-2018 Systolic blood 132 mm[Hg] Julisa orozco MD, 02:00-0400 pressure Work Phone: [facility] ([id number]) Work Phone: 11-26-2018 Systolic blood 150 mm[Hg] Julisa orozco MD, 02:00-0400 pressure Work Phone: [facility] ([id number]) Work Phone: 08-27-2018 Body height 155 cm Julisa jain MD, 02:000400 Work Phone: [facility] ([id number]) Work Phone: 08-27-2018 Body mass index 20.2 kg/m2 Julisa lew MD, 02:000400 (BMI) [Ratio] Work Phone: [facility] ([id number]) Work Phone: 08-27-2018 Body weight 49 kg Julisa jain MD, 02:000400 Work Phone: [facility] ([id number]) Work Phone: 08-27-2018 Blood Pressure 148/ Julisa orozco MD, 02:00-0400 74mm[Hg] Work Phone: [facility] ([id number]) Work Phone: 08-27-2018 Heart rate 77 /min Julisa jain MD, 02:00-0400 Work Phone: [facility] ([id number]) Work Phone: 08-27-2018 SaO2% (BldA) [Mass 94 % Julisa Dalal MD, 02:00-0400 fraction] Work Phone: [facility] ([id number]) Work Phone: 07-23-2018 Body height 155 cm Julisa jain MD, 02:000400 Work Phone: [facility] ([id number]) Work Phone: 07-23-2018 Body mass index 20.2 kg/m2 Julisa lew MD, 02:000400 (BMI) [Ratio] Work Phone: [facility] ([id number]) Work Phone: 07-23-2018 Body weight 49 kg Julisa jain MD, 02:000400 Work Phone: [facility] ([id number]) Work Phone: 07-23-2018 Blood Pressure 142/ Julisa orozco MD, 02:00-0400 80mm[Hg] Work Phone: [facility] ([id number]) Work Phone: 07-23-2018 Heart rate 70 /min Julisa jain MD, 02:000400 Work Phone: [facility] ([id number]) Work Phone: 07-23-2018 SaO2% (BldA) [Mass 96 % Julisa Dalal MD, 02:00-0400 fraction] Work Phone: [facility] ([id number]) Work Phone: 06-25-2018 Body height 155 cm Julisa jain MD, 13:00-0500 Work Phone: [facility] ([id number]) Work Phone: 06-25-2018 Body mass index 20.2 kg/m2 Julisa lew MD, 13:00-0500 (BMI) [Ratio] Work Phone: [facility] ([id number]) Work Phone: 06-25-2018 Body weight 49 kg Julisa jain MD, 13:00-0500 Work Phone: [facility] ([id number]) Work Phone: 06-25-2018 Blood Pressure 150/ Julisa orozco MD, 13:00-0500 80mm[Hg] Work Phone: [facility] ([id number]) Work Phone: 06-25-2018 Heart rate 84 /min Julisa jain MD, 13:00-0500 Work Phone: [facility] ([id number]) Work Phone: 06-25-2018 SaO2% (BldA) [Mass 98 % Julisa Dalal MD, 13:00-0500 fraction] Work Phone: [facility] ([id number]) Work Phone: Functional Status The data below is from unstructured sourcesNo Functional Status dataNo Functional Status dataNo Functional Status dataNo Functional Status dataNo Functional Status dataNo Functional Status dataNo Functional Status dataNo Functional Status dataNo Functional Status dataNo Functional S tatus dataNo Functional Status dataNo Functional Status dataNo Functional Status dataNo Functional Status dataNo Functional Status dataNo Functional Status data No Functional Status dataNo Functional Status dataNo Functional Status dataNo Fu nctional Status dataNo Functional Status dataNo Functional Status dataNo Functio nal Status dataNo Functional Status dataNo Functional Status dataNo Functional S tatus dataNo Functional Status dataNo Functional Status dataNo Functional Status dataNo Functional Status dataNo Functional Status dataNo Functional Status data No Functional Status dataNo Functional Status dataNo Functional Status data Mental Status No Information Clinical Notes 2018-06-25 to 2019-11-18 Note Date & Note Facility Type 11-18-2019 Evaluation note Condition Dysphagia, ICD-10: R13.12 06/25/2018 oropharyngeal ICD-9: 787.22 phase Essential ICD-10: I10 06/25/2018 (primary) ICD-9: 401.1 hypertension Mixed ICD-10: E78.2 05/25/2018 hyperlipidemia ICD-9: 272.2 Encounter for ICD-10: Z00.00 07/11/2017 general adult ICD-9: V70.0 medical examination without abnormal findings Essential ICD-10: I10 04/08/2017 (primary) ICD-9: 401.9 hypertension Otalgia, left ICD-10: H92.02 12/25/2016 ear ICD-9: 388.70 Pain in right ICD-10: M25.561 10/31/2016 knee ICD-9: 719.46 Varicose veins ICD-10: I83.813 10/03/2016 of bilateral ICD-9: 454.8 lower extremities with pain Morena Dalal MD, [facility] ([id number]) Work Phone: 11-18-2019 Evaluation note Condition Codes Effective Dates Essential (primary) hypertension ICD-10: I10 ICD-9: 401.1 06/25/2018 Dysphagia, oropharyngeal phase ICD-10: R13.12 ICD-9: 787.22 06/25/2018 Mixed hyperlipidemia ICD-1 0: E78.2 ICD-9: 272.2 05/25/2018 Encounter for general adult medical exam ination without abnormal findings ICD-10: Z00.00 ICD-9: V70.0 07/11/2017 Essential (primary) hypertension ICD-10: I10 ICD-9: 401.9 04/08/2017 Otalgia, left ear ICD-10: H92.02 ICD-9: 388.70 12/25/2016 Pain in right knee ICD-10: M25.561 ICD-9: 719.46 10/31/2016 Varicose veins of bilateral lower extrem ities with pain ICD-10: I83.813 ICD-9: 454.8 10/03/2016 Morena Dalal MD, [facility] ([id number]) Work Phone: 12-25-2018 Review of systems Narrative - Reported System Result Effective Dates Constitutional No recent i llness 12/25/2018 Constitutional No chills 12/25/2018 Constitutional No fever 12/25/2018 Eyes No eye erythema 12/25/2018 Ears/Nose/Throat/Neck No n tiana discharge 12/25/2018 Cardiovascular No chest pa in/pressure 12/25/2018 Cardiovascular No dyspnea 12/25/2018 Respiratory No cough 12/25/2018 Respiratory No dyspnea 12/25/2018 Neurologic No alteration o f consciousness 12/25/2018 Neurologic No mental statu s change 12/25/2018 Musculoskeletal back pain 12/25/2018 Genitourinary/Nephrology N o dysuria 12/25/2018 Constitutional No recent i llness 11/26/2018 Constitutional No night sw eats 11/26/2018 Constitutional No chills 11/26/2018 Eyes No eyelid pain 11/26/2018 Eyes No eye discharge 11/26/2018 Ears/Nose/Throat/Neck ceru men 11/26/2018 Ears/Nose/Throat/Neck No d izziness 11/26/2018 Ears/Nose/Throat/Neck No d ysphagia 11/26/2018 Cardiovascular No chest pa in/pressure 11/26/2018 Cardiovascular No dyspnea 11/26/2018 Respiratory No cigarette s moking 11/26/2018 Respiratory No cough 11/26/2018 Respiratory No chest conge stion 11/26/2018 Respiratory No chest tight ness 11/26/2018 Gastrointestinal No abdomi nal pain 11/26/2018 Genitourinary/Nephrology N o dysuria 11/26/2018 Genitourinary/Nephrology n octuria 11/26/2018 Musculoskeletal No swellin g 11/26/2018 Musculoskeletal No stiffne ss 11/26/2018 Musculoskeletal back pain 11/26/2018 Dermatologic No rash 11/26/2018 Dermatologic No sores 11/26/2018 Neurologic No dizziness 11/26/2018 Neurologic No headache 11/26/2018 Psychiatric No anxiety 11/26/2018 Psychiatric No depression 11/26/2018 Endocrine No polydipsia 11/26/2018 Endocrine No polyuria 11/26/2018 Endocrine No sweating 11/26/2018 Hematologic/Lymphatic No a bnormal ecchymoses 11/26/2018 Hematologic/Lymphatic No p etechiae 11/26/2018 Allergy/Immunology No food allergy 11/26/2018 Musculoskeletal arthralgia (s) 11/26/2018 Constitutional No recent i llness 08/27/2018 Constitutional No anorexia 08/27/2018 Constitutional No night sw eats 08/27/2018 Constitutional No chills 08/27/2018 Constitutional No diaphore sis 08/27/2018 Constitutional No fatigue 08/27/2018 Constitutional No fever 08/27/2018 Constitutional No insomnia 08/27/2018 Constitutional No malaise 08/27/2018 Constitutional No weight l oss 08/27/2018 Constitutional No weight g ain 08/27/2018 Eyes No eye discharge 08/27/2018 Eyes No eye erythema 08/27/2018 Ears/Nose/Throat/Neck No d izziness 08/27/2018 Ears/Nose/Throat/Neck No h eadache 08/27/2018 Cardiovascular No chest pa in/pressure 08/27/2018 Cardiovascular No dyspnea 08/27/2018 Cardiovascular No edema 08/27/2018 Respiratory No cough 08/27/2018 Gastrointestinal No abdomi nal pain 08/27/2018 Gastrointestinal No consti pation 08/27/2018 Gastrointestinal No diarrh ea 08/27/2018 Gastrointestinal dysphagia 08/27/2018 Gastrointestinal gastroeso phageal reflux 08/27/2018 Genitourinary/Nephrology N o dysuria 08/27/2018 Dermatologic No rash 08/27/2018 Neurologic No alteration o f consciousness 08/27/2018 Psychiatric No anxiety 08/27/2018 Endocrine No dry or coarse skin 08/27/2018 Musculoskeletal No joint c omplaint 08/27/2018 Constitutional No recent i llness 07/23/2018 Constitutional No anorexia 07/23/2018 Constitutional No night sw eats 07/23/2018 Constitutional No chills 07/23/2018 Constitutional No diaphore sis 07/23/2018 Constitutional No fatigue 07/23/2018 Constitutional No fever 07/23/2018 Constitutional No insomnia 07/23/2018 Constitutional No malaise 07/23/2018 Constitutional No weight l oss 07/23/2018 Constitutional No weight g ain 07/23/2018 Eyes No eye discharge 07/23/2018 Eyes No eye erythema 07/23/2018 Ears/Nose/Throat/Neck No d izziness 07/23/2018 Ears/Nose/Throat/Neck No h eadache 07/23/2018 Cardiovascular No chest pa in/pressure 07/23/2018 Cardiovascular No dyspnea 07/23/2018 Cardiovascular No edema 07/23/2018 Respiratory No cough 07/23/2018 Gastrointestinal No abdomi nal pain 07/23/2018 Gastrointestinal No consti pation 07/23/2018 Gastrointestinal No diarrh ea 07/23/2018 Gastrointestinal dysphagia 07/23/2018 Gastrointestinal gastroeso phageal reflux 07/23/2018 Genitourinary/Nephrology N o dysuria 07/23/2018 Musculoskeletal joint comp laint 07/23/2018 Dermatologic No rash 07/23/2018 Neurologic No alteration o f consciousness 07/23/2018 Psychiatric No anxiety 07/23/2018 Endocrine No dry or coarse skin 07/23/2018 Constitutional No recent i llness 06/25/2018 Constitutional No anorexia 06/25/2018 Constitutional No night sw eats 06/25/2018 Constitutional No chills 06/25/2018 Constitutional No diaphore sis 06/25/2018 Constitutional No fatigue 06/25/2018 Constitutional No fever 06/25/2018 Constitutional No insomnia 06/25/2018 Constitutional No malaise 06/25/2018 Constitutional No weight l oss 06/25/2018 Constitutional No weight g ain 06/25/2018 Eyes No eye discharge 06/25/2018 Eyes No eye erythema 06/25/2018 Ears/Nose/Throat/Neck No d izziness 06/25/2018 Ears/Nose/Throat/Neck No h eadache 06/25/2018 Cardiovascular No chest pa in/pressure 06/25/2018 Cardiovascular No dyspnea 06/25/2018 Cardiovascular No edema 06/25/2018 Respiratory No cough 06/25/2018 Gastrointestinal No abdomi nal pain 06/25/2018 Gastrointestinal No consti pation 06/25/2018 Gastrointestinal No diarrh ea 06/25/2018 Gastrointestinal dysphagia 06/25/2018 Gastrointestinal gastroeso phageal reflux 06/25/2018 Genitourinary/Nephrology N o dysuria 06/25/2018 Musculoskeletal joint comp laint 06/25/2018 Dermatologic No rash 06/25/2018 Neurologic No alteration o f consciousness 06/25/2018 Psychiatric No anxiety 06/25/2018 Endocrine No dry or coarse skin 06/25/2018 Constitutional No recent i llness 05/25/2018 Constitutional No anorexia 05/25/2018 Constitutional No night sw eats 05/25/2018 Constitutional No chills 05/25/2018 Constitutional No diaphore sis 05/25/2018 Constitutional No fatigue 05/25/2018 Constitutional No fever 05/25/2018 Constitutional No insomnia 05/25/2018 Constitutional No malaise 05/25/2018 Constitutional No weight l oss 05/25/2018 Constitutional No weight g ain 05/25/2018 Eyes No eye erythema 05/25/2018 Eyes No eye discharge 05/25/2018 Ears/Nose/Throat/Neck No d izziness 05/25/2018 Ears/Nose/Throat/Neck No h eadache 05/25/2018 Cardiovascular No chest pa in/pressure 05/25/2018 Cardiovascular No dyspnea 05/25/2018 Cardiovascular No edema 05/25/2018 Respiratory No cough 05/25/2018 Gastrointestinal No abdomi nal pain 05/25/2018 Gastrointestinal No consti pation 05/25/2018 Gastrointestinal No diarrh ea 05/25/2018 Gastrointestinal gastroeso phageal reflux 05/25/2018 Gastrointestinal dysphagia 05/25/2018 Genitourinary/Nephrology N o dysuria 05/25/2018 Musculoskeletal joint comp laint 05/25/2018 Dermatologic No rash 05/25/2018 Neurologic No alteration o f consciousness 05/25/2018 Psychiatric No anxiety 05/25/2018 Endocrine No dry or coarse skin 05/25/2018 Constitutional No recent i llness 07/11/2017 Constitutional No chills 07/11/2017 Constitutional No diaphore sis 07/11/2017 Constitutional No fever 07/11/2017 Eyes No blindness 07/11/2017 Ears/Nose/Throat/Neck No n tiana allergies 07/11/2017 Ears/Nose/Throat/Neck No n tiana discharge 07/11/2017 Cardiovascular No chest pa in/pressure 07/11/2017 Cardiovascular No dyspnea 07/11/2017 Respiratory No chest conge stion 07/11/2017 Respiratory No cough 07/11/2017 Respiratory No dyspnea 07/11/2017 Gastrointestinal No abdomi nal pain 07/11/2017 Gastrointestinal No consti pation 07/11/2017 Gastrointestinal No diarrh ea 07/11/2017 Gastrointestinal No nausea 07/11/2017 Gastrointestinal No vomiti ng 07/11/2017 Dermatologic No rash 07/11/2017 Neurologic No alteration o f consciousness 07/11/2017 Neurologic No mental statu s change 07/11/2017 Psychiatric No anxiety 07/11/2017 Psychiatric No depression 07/11/2017 Genitourinary/Nephrology N o dysuria 07/11/2017 Musculoskeletal arthralgia (s) 07/11/2017 Constitutional No recent i llness 04/08/2017 Constitutional No chills 04/08/2017 Constitutional No diaphore sis 04/08/2017 Constitutional No fever 04/08/2017 Eyes No blindness 04/08/2017 Ears/Nose/Throat/Neck No n tiana allergies 04/08/2017 Ears/Nose/Throat/Neck No n tiana discharge 04/08/2017 Cardiovascular No chest pa in/pressure 04/08/2017 Cardiovascular No dyspnea 04/08/2017 Respiratory No chest conge stion 04/08/2017 Respiratory No cough 04/08/2017 Respiratory No dyspnea 04/08/2017 Gastrointestinal No abdomi nal pain 04/08/2017 Gastrointestinal No consti pation 04/08/2017 Gastrointestinal No diarrh ea 04/08/2017 Gastrointestinal No nausea 04/08/2017 Gastrointestinal No vomiti ng 04/08/2017 Musculoskeletal joint comp laint 04/08/2017 Dermatologic No rash 04/08/2017 Neurologic No alteration o f consciousness 04/08/2017 Neurologic No mental statu s change 04/08/2017 Psychiatric No anxiety 04/08/2017 Psychiatric No depression 04/08/2017 Constitutional No recent i llness 12/25/2016 Constitutional No chills 12/25/2016 Constitutional No diaphore sis 12/25/2016 Constitutional No fever 12/25/2016 Eyes No blindness 12/25/2016 Ears/Nose/Throat/Neck No n tiana allergies 12/25/2016 Ears/Nose/Throat/Neck No n tiana discharge 12/25/2016 Cardiovascular No chest pa in/pressure 12/25/2016 Cardiovascular No dyspnea 12/25/2016 Respiratory No chest conge stion 12/25/2016 Respiratory No cough 12/25/2016 Respiratory No dyspnea 12/25/2016 Gastrointestinal No abdomi nal pain 12/25/2016 Gastrointestinal No consti pation 12/25/2016 Gastrointestinal No diarrh ea 12/25/2016 Gastrointestinal No nausea 12/25/2016 Gastrointestinal No vomiti ng 12/25/2016 Musculoskeletal joint comp laint 12/25/2016 Neurologic No alteration o f consciousness 12/25/2016 Neurologic No mental statu s change 12/25/2016 Psychiatric No anxiety 12/25/2016 Psychiatric No depression 12/25/2016 Ears/Nose/Throat/Neck otal jennyfer 12/25/2016 Constitutional No recent i llness 10/31/2016 Constitutional No chills 10/31/2016 Constitutional No diaphore sis 10/31/2016 Constitutional No fever 10/31/2016 Eyes No blindness 10/31/2016 Ears/Nose/Throat/Neck No n tiana allergies 10/31/2016 Ears/Nose/Throat/Neck No n tiana discharge 10/31/2016 Cardiovascular No chest pa in/pressure 10/31/2016 Cardiovascular No dyspnea 10/31/2016 Respiratory No chest conge stion 10/31/2016 Respiratory No cough 10/31/2016 Respiratory No dyspnea 10/31/2016 Gastrointestinal No abdomi nal pain 10/31/2016 Gastrointestinal No consti pation 10/31/2016 Gastrointestinal No diarrh ea 10/31/2016 Gastrointestinal No nausea 10/31/2016 Gastrointestinal No vomiti ng 10/31/2016 Musculoskeletal joint comp laint 10/31/2016 Dermatologic No rash 10/31/2016 Neurologic No alteration o f consciousness 10/31/2016 Neurologic No mental statu s change 10/31/2016 Musculoskeletal joint comp laint 10/11/2016 Constitutional No recent i llness 10/11/2016 Constitutional No anorexia 10/11/2016 Constitutional No night sw eats 10/11/2016 Constitutional No chills 10/11/2016 Constitutional No diaphore sis 10/11/2016 Constitutional No insomnia 10/11/2016 Constitutional No fever 10/11/2016 Constitutional No fatigue 10/11/2016 Constitutional No malaise 10/11/2016 Constitutional No weight l oss 10/11/2016 Constitutional No weight g ain 10/11/2016 Constitutional No recent i llness 10/03/2016 Constitutional No chills 10/03/2016 Constitutional No diaphore sis 10/03/2016 Constitutional No fever 10/03/2016 Eyes No blindness 10/03/2016 Ears/Nose/Throat/Neck No n tiana allergies 10/03/2016 Ears/Nose/Throat/Neck No n tiana discharge 10/03/2016 Cardiovascular No chest pa in/pressure 10/03/2016 Cardiovascular No dyspnea 10/03/2016 Respiratory No chest conge stion 10/03/2016 Respiratory No cough 10/03/2016 Respiratory No dyspnea 10/03/2016 Gastrointestinal No abdomi nal pain 10/03/2016 Gastrointestinal No consti pation 10/03/2016 Gastrointestinal No diarrh ea 10/03/2016 Gastrointestinal No nausea 10/03/2016 Gastrointestinal No vomiti ng 10/03/2016 Musculoskeletal joint comp laint 10/03/2016 Dermatologic No rash 10/03/2016 Neurologic No alteration o f consciousness 10/03/2016 Neurologic No mental statu s change 10/03/2016 Constitutional No recent i llness 06/12/2016 Constitutional No diaphore sis 06/12/2016 Constitutional No chills 06/12/2016 Constitutional No fever 06/12/2016 Eyes No eye erythema 06/12/2016 Ears/Nose/Throat/Neck No n tiana discharge 06/12/2016 Ears/Nose/Throat/Neck No n tiana allergies 06/12/2016 Cardiovascular No chest pa in/pressure 06/12/2016 Cardiovascular No dyspnea 06/12/2016 Respiratory No cough 06/12/2016 Respiratory No dyspnea 06/12/2016 Respiratory No chest conge stion 06/12/2016 Gastrointestinal No abdomi nal pain 06/12/2016 Gastrointestinal No consti pation 06/12/2016 Gastrointestinal No diarrh ea 06/12/2016 Gastrointestinal No vomiti ng 06/12/2016 Gastrointestinal No nausea 06/12/2016 Musculoskeletal joint comp laint 06/12/2016 Dermatologic No rash 06/12/2016 Neurologic No alteration o f consciousness 06/12/2016 Neurologic No mental statu s change 06/12/2016 Morena Dalal MD, [facility] ([id number]) Work Phone: 08-27-2018 Review of systems Narrative - Reported System Result Effective Dates Constitutional No recent i llness 08/27/2018 Constitutional No anorexia 08/27/2018 Constitutional No night sw eats 08/27/2018 Constitutional No chills 08/27/2018 Constitutional No diaphore sis 08/27/2018 Constitutional No fatigue 08/27/2018 Constitutional No fever 08/27/2018 Constitutional No insomnia 08/27/2018 Constitutional No malaise 08/27/2018 Constitutional No weight l oss 08/27/2018 Constitutional No weight g ain 08/27/2018 Eyes No eye discharge 08/27/2018 Eyes No eye erythema 08/27/2018 Ears/Nose/Throat/Neck No d izziness 08/27/2018 Ears/Nose/Throat/Neck No h eadache 08/27/2018 Cardiovascular No chest pa in/pressure 08/27/2018 Cardiovascular No dyspnea 08/27/2018 Cardiovascular No edema 08/27/2018 Respiratory No cough 08/27/2018 Gastrointestinal No abdomi nal pain 08/27/2018 Gastrointestinal No consti pation 08/27/2018 Gastrointestinal No diarrh ea 08/27/2018 Gastrointestinal dysphagia 08/27/2018 Gastrointestinal gastroeso phageal reflux 08/27/2018 Genitourinary/Nephrology N o dysuria 08/27/2018 Dermatologic No rash 08/27/2018 Neurologic No alteration o f consciousness 08/27/2018 Psychiatric No anxiety 08/27/2018 Endocrine No dry or coarse skin 08/27/2018 Musculoskeletal No joint c omplaint 08/27/2018 Constitutional No recent i llness 07/23/2018 Constitutional No anorexia 07/23/2018 Constitutional No night sw eats 07/23/2018 Constitutional No chills 07/23/2018 Constitutional No diaphore sis 07/23/2018 Constitutional No fatigue 07/23/2018 Constitutional No fever 07/23/2018 Constitutional No insomnia 07/23/2018 Constitutional No malaise 07/23/2018 Constitutional No weight l oss 07/23/2018 Constitutional No weight g ain 07/23/2018 Eyes No eye discharge 07/23/2018 Eyes No eye erythema 07/23/2018 Ears/Nose/Throat/Neck No d izziness 07/23/2018 Ears/Nose/Throat/Neck No h eadache 07/23/2018 Cardiovascular No chest pa in/pressure 07/23/2018 Cardiovascular No dyspnea 07/23/2018 Cardiovascular No edema 07/23/2018 Respiratory No cough 07/23/2018 Gastrointestinal No abdomi nal pain 07/23/2018 Gastrointestinal No consti pation 07/23/2018 Gastrointestinal No diarrh ea 07/23/2018 Gastrointestinal dysphagia 07/23/2018 Gastrointestinal gastroeso phageal reflux 07/23/2018 Genitourinary/Nephrology N o dysuria 07/23/2018 Musculoskeletal joint comp laint 07/23/2018 Dermatologic No rash 07/23/2018 Neurologic No alteration o f consciousness 07/23/2018 Psychiatric No anxiety 07/23/2018 Endocrine No dry or coarse skin 07/23/2018 Constitutional No recent i llness 06/25/2018 Constitutional No anorexia 06/25/2018 Constitutional No night sw eats 06/25/2018 Constitutional No chills 06/25/2018 Constitutional No diaphore sis 06/25/2018 Constitutional No fatigue 06/25/2018 Constitutional No fever 06/25/2018 Constitutional No insomnia 06/25/2018 Constitutional No malaise 06/25/2018 Constitutional No weight l oss 06/25/2018 Constitutional No weight g ain 06/25/2018 Eyes No eye discharge 06/25/2018 Eyes No eye erythema 06/25/2018 Ears/Nose/Throat/Neck No d izziness 06/25/2018 Ears/Nose/Throat/Neck No h eadache 06/25/2018 Cardiovascular No chest pa in/pressure 06/25/2018 Cardiovascular No dyspnea 06/25/2018 Cardiovascular No edema 06/25/2018 Respiratory No cough 06/25/2018 Gastrointestinal No abdomi nal pain 06/25/2018 Gastrointestinal No consti pation 06/25/2018 Gastrointestinal No diarrh ea 06/25/2018 Gastrointestinal dysphagia 06/25/2018 Gastrointestinal gastroeso phageal reflux 06/25/2018 Genitourinary/Nephrology N o dysuria 06/25/2018 Musculoskeletal joint comp laint 06/25/2018 Dermatologic No rash 06/25/2018 Neurologic No alteration o f consciousness 06/25/2018 Psychiatric No anxiety 06/25/2018 Endocrine No dry or coarse skin 06/25/2018 Constitutional No recent i llness 05/25/2018 Constitutional No anorexia 05/25/2018 Constitutional No night sw eats 05/25/2018 Constitutional No chills 05/25/2018 Constitutional No diaphore sis 05/25/2018 Constitutional No fatigue 05/25/2018 Constitutional No fever 05/25/2018 Constitutional No insomnia 05/25/2018 Constitutional No malaise 05/25/2018 Constitutional No weight l oss 05/25/2018 Constitutional No weight g ain 05/25/2018 Eyes No eye erythema 05/25/2018 Eyes No eye discharge 05/25/2018 Ears/Nose/Throat/Neck No d izziness 05/25/2018 Ears/Nose/Throat/Neck No h eadache 05/25/2018 Cardiovascular No chest pa in/pressure 05/25/2018 Cardiovascular No dyspnea 05/25/2018 Cardiovascular No edema 05/25/2018 Respiratory No cough 05/25/2018 Gastrointestinal No abdomi nal pain 05/25/2018 Gastrointestinal No consti pation 05/25/2018 Gastrointestinal No diarrh ea 05/25/2018 Gastrointestinal gastroeso phageal reflux 05/25/2018 Gastrointestinal dysphagia 05/25/2018 Genitourinary/Nephrology N o dysuria 05/25/2018 Musculoskeletal joint comp laint 05/25/2018 Dermatologic No rash 05/25/2018 Neurologic No alteration o f consciousness 05/25/2018 Psychiatric No anxiety 05/25/2018 Endocrine No dry or coarse skin 05/25/2018 Constitutional No recent i llness 07/11/2017 Constitutional No chills 07/11/2017 Constitutional No diaphore sis 07/11/2017 Constitutional No fever 07/11/2017 Eyes No blindness 07/11/2017 Ears/Nose/Throat/Neck No n tiana allergies 07/11/2017 Ears/Nose/Throat/Neck No n tiana discharge 07/11/2017 Cardiovascular No chest pa in/pressure 07/11/2017 Cardiovascular No dyspnea 07/11/2017 Respiratory No chest conge stion 07/11/2017 Respiratory No cough 07/11/2017 Respiratory No dyspnea 07/11/2017 Gastrointestinal No abdomi nal pain 07/11/2017 Gastrointestinal No consti pation 07/11/2017 Gastrointestinal No diarrh ea 07/11/2017 Gastrointestinal No nausea 07/11/2017 Gastrointestinal No vomiti ng 07/11/2017 Dermatologic No rash 07/11/2017 Neurologic No alteration o f consciousness 07/11/2017 Neurologic No mental statu s change 07/11/2017 Psychiatric No anxiety 07/11/2017 Psychiatric No depression 07/11/2017 Genitourinary/Nephrology N o dysuria 07/11/2017 Musculoskeletal arthralgia (s) 07/11/2017 Constitutional No recent i llness 04/08/2017 Constitutional No chills 04/08/2017 Constitutional No diaphore sis 04/08/2017 Constitutional No fever 04/08/2017 Eyes No blindness 04/08/2017 Ears/Nose/Throat/Neck No n tiana allergies 04/08/2017 Ears/Nose/Throat/Neck No n tiana discharge 04/08/2017 Cardiovascular No chest pa in/pressure 04/08/2017 Cardiovascular No dyspnea 04/08/2017 Respiratory No chest conge stion 04/08/2017 Respiratory No cough 04/08/2017 Respiratory No dyspnea 04/08/2017 Gastrointestinal No abdomi nal pain 04/08/2017 Gastrointestinal No consti pation 04/08/2017 Gastrointestinal No diarrh ea 04/08/2017 Gastrointestinal No nausea 04/08/2017 Gastrointestinal No vomiti ng 04/08/2017 Musculoskeletal joint comp laint 04/08/2017 Dermatologic No rash 04/08/2017 Neurologic No alteration o f consciousness 04/08/2017 Neurologic No mental statu s change 04/08/2017 Psychiatric No anxiety 04/08/2017 Psychiatric No depression 04/08/2017 Constitutional No recent i llness 12/25/2016 Constitutional No chills 12/25/2016 Constitutional No diaphore sis 12/25/2016 Constitutional No fever 12/25/2016 Eyes No blindness 12/25/2016 Ears/Nose/Throat/Neck No n tiana allergies 12/25/2016 Ears/Nose/Throat/Neck No n tiana discharge 12/25/2016 Cardiovascular No chest pa in/pressure 12/25/2016 Cardiovascular No dyspnea 12/25/2016 Respiratory No chest conge stion 12/25/2016 Respiratory No cough 12/25/2016 Respiratory No dyspnea 12/25/2016 Gastrointestinal No abdomi nal pain 12/25/2016 Gastrointestinal No consti pation 12/25/2016 Gastrointestinal No diarrh ea 12/25/2016 Gastrointestinal No nausea 12/25/2016 Gastrointestinal No vomiti ng 12/25/2016 Musculoskeletal joint comp laint 12/25/2016 Neurologic No alteration o f consciousness 12/25/2016 Neurologic No mental statu s change 12/25/2016 Psychiatric No anxiety 12/25/2016 Psychiatric No depression 12/25/2016 Ears/Nose/Throat/Neck otal jennyfer 12/25/2016 Constitutional No recent i llness 10/31/2016 Constitutional No chills 10/31/2016 Constitutional No diaphore sis 10/31/2016 Constitutional No fever 10/31/2016 Eyes No blindness 10/31/2016 Ears/Nose/Throat/Neck No n tiana allergies 10/31/2016 Ears/Nose/Throat/Neck No n tiana discharge 10/31/2016 Cardiovascular No chest pa in/pressure 10/31/2016 Cardiovascular No dyspnea 10/31/2016 Respiratory No chest conge stion 10/31/2016 Respiratory No cough 10/31/2016 Respiratory No dyspnea 10/31/2016 Gastrointestinal No abdomi nal pain 10/31/2016 Gastrointestinal No consti pation 10/31/2016 Gastrointestinal No diarrh ea 10/31/2016 Gastrointestinal No nausea 10/31/2016 Gastrointestinal No vomiti ng 10/31/2016 Musculoskeletal joint comp laint 10/31/2016 Dermatologic No rash 10/31/2016 Neurologic No alteration o f consciousness 10/31/2016 Neurologic No mental statu s change 10/31/2016 Musculoskeletal joint comp laint 10/11/2016 Constitutional No recent i llness 10/11/2016 Constitutional No anorexia 10/11/2016 Constitutional No night sw eats 10/11/2016 Constitutional No chills 10/11/2016 Constitutional No diaphore sis 10/11/2016 Constitutional No insomnia 10/11/2016 Constitutional No fever 10/11/2016 Constitutional No fatigue 10/11/2016 Constitutional No malaise 10/11/2016 Constitutional No weight l oss 10/11/2016 Constitutional No weight g ain 10/11/2016 Constitutional No recent i llness 10/03/2016 Constitutional No chills 10/03/2016 Constitutional No diaphore sis 10/03/2016 Constitutional No fever 10/03/2016 Eyes No blindness 10/03/2016 Ears/Nose/Throat/Neck No n tiana allergies 10/03/2016 Ears/Nose/Throat/Neck No n tiana discharge 10/03/2016 Cardiovascular No chest pa in/pressure 10/03/2016 Cardiovascular No dyspnea 10/03/2016 Respiratory No chest conge stion 10/03/2016 Respiratory No cough 10/03/2016 Respiratory No dyspnea 10/03/2016 Gastrointestinal No abdomi nal pain 10/03/2016 Gastrointestinal No consti pation 10/03/2016 Gastrointestinal No diarrh ea 10/03/2016 Gastrointestinal No nausea 10/03/2016 Gastrointestinal No vomiti ng 10/03/2016 Musculoskeletal joint comp laint 10/03/2016 Dermatologic No rash 10/03/2016 Neurologic No alteration o f consciousness 10/03/2016 Neurologic No mental statu s change 10/03/2016 Constitutional No recent i llness 06/12/2016 Constitutional No diaphore sis 06/12/2016 Constitutional No chills 06/12/2016 Constitutional No fever 06/12/2016 Eyes No eye erythema 06/12/2016 Ears/Nose/Throat/Neck No n tiana discharge 06/12/2016 Ears/Nose/Throat/Neck No n tiana allergies 06/12/2016 Cardiovascular No chest pa in/pressure 06/12/2016 Cardiovascular No dyspnea 06/12/2016 Respiratory No cough 06/12/2016 Respiratory No dyspnea 06/12/2016 Respiratory No chest conge stion 06/12/2016 Gastrointestinal No abdomi nal pain 06/12/2016 Gastrointestinal No consti pation 06/12/2016 Gastrointestinal No diarrh ea 06/12/2016 Gastrointestinal No vomiti ng 06/12/2016 Gastrointestinal No nausea 06/12/2016 Musculoskeletal joint comp laint 06/12/2016 Dermatologic No rash 06/12/2016 Neurologic No alteration o f consciousness 06/12/2016 Neurologic No mental statu s change 06/12/2016 Morena Dalal MD, [employer] ([id number]) Work Phone: 07-23-2018 Review of systems Narrative - Reported System Result Effective Dates Constitutional No recent i llness 07/23/2018 Constitutional No anorexia 07/23/2018 Constitutional No night sw eats 07/23/2018 Constitutional No chills 07/23/2018 Constitutional No diaphore sis 07/23/2018 Constitutional No fatigue 07/23/2018 Constitutional No fever 07/23/2018 Constitutional No insomnia 07/23/2018 Constitutional No malaise 07/23/2018 Constitutional No weight l oss 07/23/2018 Constitutional No weight g ain 07/23/2018 Eyes No eye discharge 07/23/2018 Eyes No eye erythema 07/23/2018 Ears/Nose/Throat/Neck No d izziness 07/23/2018 Ears/Nose/Throat/Neck No h eadache 07/23/2018 Cardiovascular No chest pa in/pressure 07/23/2018 Cardiovascular No dyspnea 07/23/2018 Cardiovascular No edema 07/23/2018 Respiratory No cough 07/23/2018 Gastrointestinal No abdomi nal pain 07/23/2018 Gastrointestinal No consti pation 07/23/2018 Gastrointestinal No diarrh ea 07/23/2018 Gastrointestinal dysphagia 07/23/2018 Gastrointestinal gastroeso phageal reflux 07/23/2018 Genitourinary/Nephrology N o dysuria 07/23/2018 Musculoskeletal joint comp laint 07/23/2018 Dermatologic No rash 07/23/2018 Neurologic No alteration o f consciousness 07/23/2018 Psychiatric No anxiety 07/23/2018 Endocrine No dry or coarse skin 07/23/2018 Constitutional No recent i llness 06/25/2018 Constitutional No anorexia 06/25/2018 Constitutional No night sw eats 06/25/2018 Constitutional No chills 06/25/2018 Constitutional No diaphore sis 06/25/2018 Constitutional No fatigue 06/25/2018 Constitutional No fever 06/25/2018 Constitutional No insomnia 06/25/2018 Constitutional No malaise 06/25/2018 Constitutional No weight l oss 06/25/2018 Constitutional No weight g ain 06/25/2018 Eyes No eye discharge 06/25/2018 Eyes No eye erythema 06/25/2018 Ears/Nose/Throat/Neck No d izziness 06/25/2018 Ears/Nose/Throat/Neck No h eadache 06/25/2018 Cardiovascular No chest pa in/pressure 06/25/2018 Cardiovascular No dyspnea 06/25/2018 Cardiovascular No edema 06/25/2018 Respiratory No cough 06/25/2018 Gastrointestinal No abdomi nal pain 06/25/2018 Gastrointestinal No consti pation 06/25/2018 Gastrointestinal No diarrh ea 06/25/2018 Gastrointestinal dysphagia 06/25/2018 Gastrointestinal gastroeso phageal reflux 06/25/2018 Genitourinary/Nephrology N o dysuria 06/25/2018 Musculoskeletal joint comp laint 06/25/2018 Dermatologic No rash 06/25/2018 Neurologic No alteration o f consciousness 06/25/2018 Psychiatric No anxiety 06/25/2018 Endocrine No dry or coarse skin 06/25/2018 Constitutional No recent i llness 05/25/2018 Constitutional No anorexia 05/25/2018 Constitutional No night sw eats 05/25/2018 Constitutional No chills 05/25/2018 Constitutional No diaphore sis 05/25/2018 Constitutional No fatigue 05/25/2018 Constitutional No fever 05/25/2018 Constitutional No insomnia 05/25/2018 Constitutional No malaise 05/25/2018 Constitutional No weight l oss 05/25/2018 Constitutional No weight g ain 05/25/2018 Eyes No eye erythema 05/25/2018 Eyes No eye discharge 05/25/2018 Ears/Nose/Throat/Neck No d izziness 05/25/2018 Ears/Nose/Throat/Neck No h eadache 05/25/2018 Cardiovascular No chest pa in/pressure 05/25/2018 Cardiovascular No dyspnea 05/25/2018 Cardiovascular No edema 05/25/2018 Respiratory No cough 05/25/2018 Gastrointestinal No abdomi nal pain 05/25/2018 Gastrointestinal No consti pation 05/25/2018 Gastrointestinal No diarrh ea 05/25/2018 Gastrointestinal gastroeso phageal reflux 05/25/2018 Gastrointestinal dysphagia 05/25/2018 Genitourinary/Nephrology N o dysuria 05/25/2018 Musculoskeletal joint comp laint 05/25/2018 Dermatologic No rash 05/25/2018 Neurologic No alteration o f consciousness 05/25/2018 Psychiatric No anxiety 05/25/2018 Endocrine No dry or coarse skin 05/25/2018 Constitutional No recent i llness 07/11/2017 Constitutional No chills 07/11/2017 Constitutional No diaphore sis 07/11/2017 Constitutional No fever 07/11/2017 Eyes No blindness 07/11/2017 Ears/Nose/Throat/Neck No n tiana allergies 07/11/2017 Ears/Nose/Throat/Neck No n tiana discharge 07/11/2017 Cardiovascular No chest pa in/pressure 07/11/2017 Cardiovascular No dyspnea 07/11/2017 Respiratory No chest conge stion 07/11/2017 Respiratory No cough 07/11/2017 Respiratory No dyspnea 07/11/2017 Gastrointestinal No abdomi nal pain 07/11/2017 Gastrointestinal No consti pation 07/11/2017 Gastrointestinal No diarrh ea 07/11/2017 Gastrointestinal No nausea 07/11/2017 Gastrointestinal No vomiti ng 07/11/2017 Dermatologic No rash 07/11/2017 Neurologic No alteration o f consciousness 07/11/2017 Neurologic No mental statu s change 07/11/2017 Psychiatric No anxiety 07/11/2017 Psychiatric No depression 07/11/2017 Genitourinary/Nephrology N o dysuria 07/11/2017 Musculoskeletal arthralgia (s) 07/11/2017 Constitutional No recent i llness 04/08/2017 Constitutional No chills 04/08/2017 Constitutional No diaphore sis 04/08/2017 Constitutional No fever 04/08/2017 Eyes No blindness 04/08/2017 Ears/Nose/Throat/Neck No n tiana allergies 04/08/2017 Ears/Nose/Throat/Neck No n tiana discharge 04/08/2017 Cardiovascular No chest pa in/pressure 04/08/2017 Cardiovascular No dyspnea 04/08/2017 Respiratory No chest conge stion 04/08/2017 Respiratory No cough 04/08/2017 Respiratory No dyspnea 04/08/2017 Gastrointestinal No abdomi nal pain 04/08/2017 Gastrointestinal No consti pation 04/08/2017 Gastrointestinal No diarrh ea 04/08/2017 Gastrointestinal No nausea 04/08/2017 Gastrointestinal No vomiti ng 04/08/2017 Musculoskeletal joint comp laint 04/08/2017 Dermatologic No rash 04/08/2017 Neurologic No alteration o f consciousness 04/08/2017 Neurologic No mental statu s change 04/08/2017 Psychiatric No anxiety 04/08/2017 Psychiatric No depression 04/08/2017 Constitutional No recent i llness 12/25/2016 Constitutional No chills 12/25/2016 Constitutional No diaphore sis 12/25/2016 Constitutional No fever 12/25/2016 Eyes No blindness 12/25/2016 Ears/Nose/Throat/Neck No n tiana allergies 12/25/2016 Ears/Nose/Throat/Neck No n tiana discharge 12/25/2016 Cardiovascular No chest pa in/pressure 12/25/2016 Cardiovascular No dyspnea 12/25/2016 Respiratory No chest conge stion 12/25/2016 Respiratory No cough 12/25/2016 Respiratory No dyspnea 12/25/2016 Gastrointestinal No abdomi nal pain 12/25/2016 Gastrointestinal No consti pation 12/25/2016 Gastrointestinal No diarrh ea 12/25/2016 Gastrointestinal No nausea 12/25/2016 Gastrointestinal No vomiti ng 12/25/2016 Musculoskeletal joint comp laint 12/25/2016 Neurologic No alteration o f consciousness 12/25/2016 Neurologic No mental statu s change 12/25/2016 Psychiatric No anxiety 12/25/2016 Psychiatric No depression 12/25/2016 Ears/Nose/Throat/Neck otal jennyfer 12/25/2016 Constitutional No recent i llness 10/31/2016 Constitutional No chills 10/31/2016 Constitutional No diaphore sis 10/31/2016 Constitutional No fever 10/31/2016 Eyes No blindness 10/31/2016 Ears/Nose/Throat/Neck No n tiana allergies 10/31/2016 Ears/Nose/Throat/Neck No n tiana discharge 10/31/2016 Cardiovascular No chest pa in/pressure 10/31/2016 Cardiovascular No dyspnea 10/31/2016 Respiratory No chest conge stion 10/31/2016 Respiratory No cough 10/31/2016 Respiratory No dyspnea 10/31/2016 Gastrointestinal No abdomi nal pain 10/31/2016 Gastrointestinal No consti pation 10/31/2016 Gastrointestinal No diarrh ea 10/31/2016 Gastrointestinal No nausea 10/31/2016 Gastrointestinal No vomiti ng 10/31/2016 Musculoskeletal joint comp laint 10/31/2016 Dermatologic No rash 10/31/2016 Neurologic No alteration o f consciousness 10/31/2016 Neurologic No mental statu s change 10/31/2016 Musculoskeletal joint comp laint 10/11/2016 Constitutional No recent i llness 10/11/2016 Constitutional No anorexia 10/11/2016 Constitutional No night sw eats 10/11/2016 Constitutional No chills 10/11/2016 Constitutional No diaphore sis 10/11/2016 Constitutional No insomnia 10/11/2016 Constitutional No fever 10/11/2016 Constitutional No fatigue 10/11/2016 Constitutional No malaise 10/11/2016 Constitutional No weight l oss 10/11/2016 Constitutional No weight g ain 10/11/2016 Constitutional No recent i llness 10/03/2016 Constitutional No chills 10/03/2016 Constitutional No diaphore sis 10/03/2016 Constitutional No fever 10/03/2016 Eyes No blindness 10/03/2016 Ears/Nose/Throat/Neck No n tiana allergies 10/03/2016 Ears/Nose/Throat/Neck No n tiana discharge 10/03/2016 Cardiovascular No chest pa in/pressure 10/03/2016 Cardiovascular No dyspnea 10/03/2016 Respiratory No chest conge stion 10/03/2016 Respiratory No cough 10/03/2016 Respiratory No dyspnea 10/03/2016 Gastrointestinal No abdomi nal pain 10/03/2016 Gastrointestinal No consti pation 10/03/2016 Gastrointestinal No diarrh ea 10/03/2016 Gastrointestinal No nausea 10/03/2016 Gastrointestinal No vomiti ng 10/03/2016 Musculoskeletal joint comp laint 10/03/2016 Dermatologic No rash 10/03/2016 Neurologic No alteration o f consciousness 10/03/2016 Neurologic No mental statu s change 10/03/2016 Constitutional No recent i llness 06/12/2016 Constitutional No diaphore sis 06/12/2016 Constitutional No chills 06/12/2016 Constitutional No fever 06/12/2016 Eyes No eye erythema 06/12/2016 Ears/Nose/Throat/Neck No n tiana discharge 06/12/2016 Ears/Nose/Throat/Neck No n tiana allergies 06/12/2016 Cardiovascular No chest pa in/pressure 06/12/2016 Cardiovascular No dyspnea 06/12/2016 Respiratory No cough 06/12/2016 Respiratory No dyspnea 06/12/2016 Respiratory No chest conge stion 06/12/2016 Gastrointestinal No abdomi nal pain 06/12/2016 Gastrointestinal No consti pation 06/12/2016 Gastrointestinal No diarrh ea 06/12/2016 Gastrointestinal No vomiti ng 06/12/2016 Gastrointestinal No nausea 06/12/2016 Musculoskeletal joint comp laint 06/12/2016 Dermatologic No rash 06/12/2016 Neurologic No alteration o f consciousness 06/12/2016 Neurologic No mental statu s change 06/12/2016 Morena Dalal MD, [employer] ([id number]) Work Phone: 06-25-2018 Review of systems Narrative - Reported System Result Effective Dates Constitutional No recent i llness 06/25/2018 Constitutional No anorexia 06/25/2018 Constitutional No night sw eats 06/25/2018 Constitutional No chills 06/25/2018 Constitutional No diaphore sis 06/25/2018 Constitutional No fatigue 06/25/2018 Constitutional No fever 06/25/2018 Constitutional No insomnia 06/25/2018 Constitutional No malaise 06/25/2018 Constitutional No weight l oss 06/25/2018 Constitutional No weight g ain 06/25/2018 Eyes No eye discharge 06/25/2018 Eyes No eye erythema 06/25/2018 Ears/Nose/Throat/Neck No d izziness 06/25/2018 Ears/Nose/Throat/Neck No h eadache 06/25/2018 Cardiovascular No chest pa in/pressure 06/25/2018 Cardiovascular No dyspnea 06/25/2018 Cardiovascular No edema 06/25/2018 Respiratory No cough 06/25/2018 Gastrointestinal No abdomi nal pain 06/25/2018 Gastrointestinal No consti pation 06/25/2018 Gastrointestinal No diarrh ea 06/25/2018 Gastrointestinal dysphagia 06/25/2018 Gastrointestinal gastroeso phageal reflux 06/25/2018 Genitourinary/Nephrology N o dysuria 06/25/2018 Musculoskeletal joint comp laint 06/25/2018 Dermatologic No rash 06/25/2018 Neurologic No alteration o f consciousness 06/25/2018 Psychiatric No anxiety 06/25/2018 Endocrine No dry or coarse skin 06/25/2018 Constitutional No recent i llness 05/25/2018 Constitutional No anorexia 05/25/2018 Constitutional No night sw eats 05/25/2018 Constitutional No chills 05/25/2018 Constitutional No diaphore sis 05/25/2018 Constitutional No fatigue 05/25/2018 Constitutional No fever 05/25/2018 Constitutional No insomnia 05/25/2018 Constitutional No malaise 05/25/2018 Constitutional No weight l oss 05/25/2018 Constitutional No weight g ain 05/25/2018 Eyes No eye erythema 05/25/2018 Eyes No eye discharge 05/25/2018 Ears/Nose/Throat/Neck No d izziness 05/25/2018 Ears/Nose/Throat/Neck No h eadache 05/25/2018 Cardiovascular No chest pa in/pressure 05/25/2018 Cardiovascular No dyspnea 05/25/2018 Cardiovascular No edema 05/25/2018 Respiratory No cough 05/25/2018 Gastrointestinal No abdomi nal pain 05/25/2018 Gastrointestinal No consti pation 05/25/2018 Gastrointestinal No diarrh ea 05/25/2018 Gastrointestinal gastroeso phageal reflux 05/25/2018 Gastrointestinal dysphagia 05/25/2018 Genitourinary/Nephrology N o dysuria 05/25/2018 Musculoskeletal joint comp laint 05/25/2018 Dermatologic No rash 05/25/2018 Neurologic No alteration o f consciousness 05/25/2018 Psychiatric No anxiety 05/25/2018 Endocrine No dry or coarse skin 05/25/2018 Constitutional No recent i llness 07/11/2017 Constitutional No chills 07/11/2017 Constitutional No diaphore sis 07/11/2017 Constitutional No fever 07/11/2017 Eyes No blindness 07/11/2017 Ears/Nose/Throat/Neck No n tiana allergies 07/11/2017 Ears/Nose/Throat/Neck No n tiana discharge 07/11/2017 Cardiovascular No chest pa in/pressure 07/11/2017 Cardiovascular No dyspnea 07/11/2017 Respiratory No chest conge stion 07/11/2017 Respiratory No cough 07/11/2017 Respiratory No dyspnea 07/11/2017 Gastrointestinal No abdomi nal pain 07/11/2017 Gastrointestinal No consti pation 07/11/2017 Gastrointestinal No diarrh ea 07/11/2017 Gastrointestinal No nausea 07/11/2017 Gastrointestinal No vomiti ng 07/11/2017 Dermatologic No rash 07/11/2017 Neurologic No alteration o f consciousness 07/11/2017 Neurologic No mental statu s change 07/11/2017 Psychiatric No anxiety 07/11/2017 Psychiatric No depression 07/11/2017 Genitourinary/Nephrology N o dysuria 07/11/2017 Musculoskeletal arthralgia (s) 07/11/2017 Constitutional No recent i llness 04/08/2017 Constitutional No chills 04/08/2017 Constitutional No diaphore sis 04/08/2017 Constitutional No fever 04/08/2017 Eyes No blindness 04/08/2017 Ears/Nose/Throat/Neck No n tiana allergies 04/08/2017 Ears/Nose/Throat/Neck No n tiana discharge 04/08/2017 Cardiovascular No chest pa in/pressure 04/08/2017 Cardiovascular No dyspnea 04/08/2017 Respiratory No chest conge stion 04/08/2017 Respiratory No cough 04/08/2017 Respiratory No dyspnea 04/08/2017 Gastrointestinal No abdomi nal pain 04/08/2017 Gastrointestinal No consti pation 04/08/2017 Gastrointestinal No diarrh ea 04/08/2017 Gastrointestinal No nausea 04/08/2017 Gastrointestinal No vomiti ng 04/08/2017 Musculoskeletal joint comp laint 04/08/2017 Dermatologic No rash 04/08/2017 Neurologic No alteration o f consciousness 04/08/2017 Neurologic No mental statu s change 04/08/2017 Psychiatric No anxiety 04/08/2017 Psychiatric No depression 04/08/2017 Constitutional No recent i llness 12/25/2016 Constitutional No chills 12/25/2016 Constitutional No diaphore sis 12/25/2016 Constitutional No fever 12/25/2016 Eyes No blindness 12/25/2016 Ears/Nose/Throat/Neck No n tiana allergies 12/25/2016 Ears/Nose/Throat/Neck No n tiana discharge 12/25/2016 Cardiovascular No chest pa in/pressure 12/25/2016 Cardiovascular No dyspnea 12/25/2016 Respiratory No chest conge stion 12/25/2016 Respiratory No cough 12/25/2016 Respiratory No dyspnea 12/25/2016 Gastrointestinal No abdomi nal pain 12/25/2016 Gastrointestinal No consti pation 12/25/2016 Gastrointestinal No diarrh ea 12/25/2016 Gastrointestinal No nausea 12/25/2016 Gastrointestinal No vomiti ng 12/25/2016 Musculoskeletal joint comp laint 12/25/2016 Neurologic No alteration o f consciousness 12/25/2016 Neurologic No mental statu s change 12/25/2016 Psychiatric No anxiety 12/25/2016 Psychiatric No depression 12/25/2016 Ears/Nose/Throat/Neck otal jennyfer 12/25/2016 Constitutional No recent i llness 10/31/2016 Constitutional No chills 10/31/2016 Constitutional No diaphore sis 10/31/2016 Constitutional No fever 10/31/2016 Eyes No blindness 10/31/2016 Ears/Nose/Throat/Neck No n tiana allergies 10/31/2016 Ears/Nose/Throat/Neck No n tiana discharge 10/31/2016 Cardiovascular No chest pa in/pressure 10/31/2016 Cardiovascular No dyspnea 10/31/2016 Respiratory No chest conge stion 10/31/2016 Respiratory No cough 10/31/2016 Respiratory No dyspnea 10/31/2016 Gastrointestinal No abdomi nal pain 10/31/2016 Gastrointestinal No consti pation 10/31/2016 Gastrointestinal No diarrh ea 10/31/2016 Gastrointestinal No nausea 10/31/2016 Gastrointestinal No vomiti ng 10/31/2016 Musculoskeletal joint comp laint 10/31/2016 Dermatologic No rash 10/31/2016 Neurologic No alteration o f consciousness 10/31/2016 Neurologic No mental statu s change 10/31/2016 Musculoskeletal joint comp laint 10/11/2016 Constitutional No recent i llness 10/11/2016 Constitutional No anorexia 10/11/2016 Constitutional No night sw eats 10/11/2016 Constitutional No chills 10/11/2016 Constitutional No diaphore sis 10/11/2016 Constitutional No insomnia 10/11/2016 Constitutional No fever 10/11/2016 Constitutional No fatigue 10/11/2016 Constitutional No malaise 10/11/2016 Constitutional No weight l oss 10/11/2016 Constitutional No weight g ain 10/11/2016 Constitutional No recent i llness 10/03/2016 Constitutional No chills 10/03/2016 Constitutional No diaphore sis 10/03/2016 Constitutional No fever 10/03/2016 Eyes No blindness 10/03/2016 Ears/Nose/Throat/Neck No n tiana allergies 10/03/2016 Ears/Nose/Throat/Neck No n tiana discharge 10/03/2016 Cardiovascular No chest pa in/pressure 10/03/2016 Cardiovascular No dyspnea 10/03/2016 Respiratory No chest conge stion 10/03/2016 Respiratory No cough 10/03/2016 Respiratory No dyspnea 10/03/2016 Gastrointestinal No abdomi nal pain 10/03/2016 Gastrointestinal No consti pation 10/03/2016 Gastrointestinal No diarrh ea 10/03/2016 Gastrointestinal No nausea 10/03/2016 Gastrointestinal No vomiti ng 10/03/2016 Musculoskeletal joint comp laint 10/03/2016 Dermatologic No rash 10/03/2016 Neurologic No alteration o f consciousness 10/03/2016 Neurologic No mental statu s change 10/03/2016 Constitutional No recent i llness 06/12/2016 Constitutional No diaphore sis 06/12/2016 Constitutional No chills 06/12/2016 Constitutional No fever 06/12/2016 Eyes No eye erythema 06/12/2016 Ears/Nose/Throat/Neck No n tiana discharge 06/12/2016 Ears/Nose/Throat/Neck No n tiana allergies 06/12/2016 Cardiovascular No chest pa in/pressure 06/12/2016 Cardiovascular No dyspnea 06/12/2016 Respiratory No cough 06/12/2016 Respiratory No dyspnea 06/12/2016 Respiratory No chest conge stion 06/12/2016 Gastrointestinal No abdomi nal pain 06/12/2016 Gastrointestinal No consti pation 06/12/2016 Gastrointestinal No diarrh ea 06/12/2016 Gastrointestinal No vomiti ng 06/12/2016 Gastrointestinal No nausea 06/12/2016 Musculoskeletal joint comp laint 06/12/2016 Dermatologic No rash 06/12/2016 Neurologic No alteration o f consciousness 06/12/2016 Neurologic No mental statu s change 06/12/2016 [facility] ([id number]) Work Phone: Evaluation note Condition Codes Effective Dates Gastro-esophageal reflux disease without esophagitis ICD-10: K21.9 ICD-9: 530.81 07/23/2018 Essential (primary) hypertension ICD-10: I10 ICD-9: 401.9 07/23/2018 Dysphagia, oropharyngeal phase ICD-10: R13.12 ICD-9: 787.22 06/25/2018 Essential (primary) hypertension ICD-10: I10 ICD-9: 401.1 06/25/2018 Mixed hyperlipidemia ICD-1 0: E78.2 ICD-9: 272.2 05/25/2018 Encounter for general adult medical exam ination without abnormal findings ICD-10: Z00.00 ICD-9: V70.0 07/11/2017 Otalgia, left ear ICD-10: H92.02 ICD-9: 388.70 12/25/2016 Pain in right knee ICD-10: M25.561 ICD-9: 719.46 10/31/2016 Varicose veins of bilateral lower extrem ities with pain ICD-10: I83.813 ICD-9: 454.8 10/03/2016 [facility] ([id number]) Work Phone: Evaluation note Condition Codes Effective Dates Gastro-esophageal reflux disease without esophagitis ICD-10: K21.9 ICD-9: 530.81 08/27/2018 Essential (primary) hypertension ICD-10: I10 ICD-9: 401.1 08/27/2018 Essential (primary) hypertension ICD-10: I10 ICD-9: 401.9 07/23/2018 Dysphagia, oropharyngeal phase ICD-10: R13.12 ICD-9: 787.22 06/25/2018 Mixed hyperlipidemia ICD-1 0: E78.2 ICD-9: 272.2 05/25/2018 Encounter for general adult medical exam ination without abnormal findings ICD-10: Z00.00 ICD-9: V70.0 07/11/2017 Otalgia, left ear ICD-10: H92.02 ICD-9: 388.70 12/25/2016 Pain in right knee ICD-10: M25.561 ICD-9: 719.46 10/31/2016 Varicose veins of bilateral lower extrem ities with pain ICD-10: I83.813 ICD-9: 454.8 10/03/2016 [facility] ([id number]) Work Phone: Evaluation note Condition Codes Effective Dates Low back pain ICD-10: M54. 5 ICD-9: 724.2 12/25/2018 Pain in left wrist ICD-10: M25.532 ICD-9: 719.43 11/26/2018 Essential (primary) hypertension ICD-10: I10 ICD-9: 401.1 11/26/2018 Gastro-esophageal reflux disease without esophagitis ICD-10: K21.9 ICD-9: 530.81 08/27/2018 Essential (primary) hypertension ICD-10: I10 ICD-9: 401.9 07/23/2018 Dysphagia, oropharyngeal phase ICD-10: R13.12 ICD-9: 787.22 06/25/2018 Mixed hyperlipidemia ICD-1 0: E78.2 ICD-9: 272.2 05/25/2018 Encounter for general adult medical exam ination without abnormal findings ICD-10: Z00.00 ICD-9: V70.0 07/11/2017 Otalgia, left ear ICD-10: H92.02 ICD-9: 388.70 12/25/2016 Pain in right knee ICD-10: M25.561 ICD-9: 719.46 10/31/2016 Varicose veins of bilateral lower extrem ities with pain ICD-10: I83.813 ICD-9: 454.8 10/03/2016 Morena Dalal MD, [employer] ([id number]) Work Phone: History of Present illness Narrative Symptom Name Status Result Effective Date Notes Location in the oropharyngeal area 06/25/2018 None Quality difficulty with hard solids 06/25/2018 None Quality difficulty with thin liquids 06/25/2018 None Onset and Resolution ongoing 06/25/2018 None Onset of Symptom months ago 06/25/2018 None Severity moderate 06/25/2018 None Significant Medical Cond itions acid reflux 06/25/2018 None Triggers no known associated factors 06/25/2018 None Pertinent Findings heartburn 06/25/2018 None Quality chronic 06/25/2018 None Quality primary hypertension 06/25/2018 None Onset and Resolution ongoing 06/25/2018 None Onset of Symptom during adulthood 06/25/2018 None Alleviating Factors medication 06/25/2018 None Blood Pressure Values not checking blood pressure at home 06/25/2018 None Pertinent Findings Denies dizziness 06/25/2018 None Pertinent Findings Denies dyspnea 06/25/2018 None Pertinent Findings Denies edema 06/25/2018 None Frequency of Episodes unchanged 06/25/2018 None Severity not consistently severe symptoms, the symptoms fluctuate from no symptoms to anxiety and headaches 06/25/2018 None Frequency of Episodes unchanged 06/25/2018 None Triggers no known associated factors 06/25/2018 None Additional Comments medication use 05/25/2018 None Location oral intake 05/25/2018 None Location in the oropharyngeal area 05/25/2018 None Quality difficulty with hard solids 05/25/2018 None Quality difficulty with thin liquids 05/25/2018 None Quality worsening 05/25/2018 None Onset and Resolution ongoing 05/25/2018 None Onset of Symptom _ months ago 05/25/2018 None Limitation on Activities does not limit oral intake 05/25/2018 None Severity moderate 05/25/2018 None Significant Medical Cond itions acid reflux 05/25/2018 None Triggers no known associated factors 05/25/2018 None Pertinent Findings Denies dyspnea 05/25/2018 None Pertinent Findings Denies cough 05/25/2018 None Pertinent Findings Denies edema 05/25/2018 None Pertinent Findings Denies facial pain 05/25/2018 None Pertinent Findings Denies fever 05/25/2018 None Pertinent Findings heartburn 05/25/2018 None Annual Medicare Wellness Exam Alcohol Use drinks 7 days per week 01/2018 one every night Annual Medicare Wellness Exam Aspirin Use yes 07/11/2017 None Annual Medicare Wellness Exam Blood Glucose (self reported) desireable (below 100) 07/11/2017 None Annual Medicare Wellness Exam Blood Pressure (self reported) borderline (120/80 - 139/89) 07/11/2017 None Annual Medicare Wellness Exam Cholesterol (self reported) borderline high (200-239) 07/11/2017 None Annual Medicare Wellness Exam Depression (last 6 months) almost never 07/11/2017 None Annual Medicare Wellness Exam Depression or Hopelessness almost never 07/11/2017 None Annual Medicare Wellness Exam Describe Your Health good 07/11/2017 None Annual Medicare Wellness Exam Exercise Habits exercises 7 days per week 07/11/2017 None Annual Medicare Wellness Exam Exercise Habits exercises 10 minutes per day 07/11/2017 None Annual Medicare Wellness Exam Handling Stress usually johanny effectively 07/11/2017 None Annual Medicare Wellness Exam Hemaglobin A-1C (self reported) don't know 07/11/2017 None Annual Medicare Wellness Exam Hours of Sleep 6 07/11/2017 None Annual Medicare Wellness Exam Interaction with Friends yes 07/11/2017 None Annual Medicare Wellness Exam Interests & Pleasure daily 07/11/2017 None Annual Medicare Wellness Exam Life Satisfaction very satisfied 07/11/2017 None Annual Medicare Wellness Exam Motor Vehicle Safety always fastens seat belt: y 07/11/2017 None Annual Medicare Wellness Exam Motor Vehicle Safety drives after drinking: n 07/11/2017 None Annual Medicare Wellness Exam Motor Vehicle Safety rides with someone who has been drinking : n 07/11/2017 None Annual Medicare Wellness Exam Nutrition servings of fried food / high fat foods per day: 1 07/11/2017 None Annual Medicare Wellness Exam Nutrition servings of high fiber / whole grain per day: 2 07/11/2017 None Annual Medicare Wellness Exam Nutrition servings of vegetables / fruit per day: 3 07/11/2017 None Annual Medicare Wellness Exam Smoking and Tobacco Use non smoker 07/11/2017 None Annual Medicare Wellness Exam Social & Emotional Support always 07/11/2017 None Annual Medicare Wellness Exam Stress some of the time 8 None Annual Medicare Wellness Exam Sun Exposure protects skin when outdoors: y 07/11/2017 None hypertension Onset of Symp rome during adulthood 7 None hypertension Onset and Res olution ongoing 04/08/2017 None hypertension Triggers no known associated factors 04/08/2017 None hypertension Alleviating F actors medication 04/08/2017 None hypertension Pertinent Fin dings Denies dizziness 7 None hypertension Pertinent Fin dings Denies edema 04/08/2017 None hypertension Quality chronic 04/08/2017 None hypertension Severity mild 04/08/2017 None earache Location left ear 12/25/2016 None earache Onset and Resoluti on sudden in onset 12/25/2016 None earache Onset of Symptom 1 months ago 12/25/2016 None earache Frequency of Episo marlon daily 12/25/2016 None knee pain Location on the right 12/25/2016 None knee pain Quality dull pain 12/25/2016 None knee pain Quality worsening 12/25/2016 None knee pain Location on the right 10/31/2016 None knee pain Onset of Symptom _ months ago 10/31/2016 None knee pain Pertinent Findin gs pain with movement 017 None knee pain Pertinent Findin gs Denies limping 10/31/2016 None knee pain Pertinent Findin gs Denies sensation of buckling 10/31/2016 None knee pain Pertinent Findin gs Denies inability to extend 10/31/2016 None knee pain Location on the right 10/11/2016 None knee pain Location at the medial pole 10/11/2016 None knee pain Quality dull pain 10/11/2016 None knee pain Quality throbbing 10/11/2016 None knee pain Quality constant 10/11/2016 None knee pain Onset and Resolu tion sudden in onset 10/11/2016 None knee pain Onset of Symptom 1 months ago 10/11/2016 None knee pain Frequency of Epi sodes daily 10/11/2016 None knee pain Pertinent Findin gs limping 10/11/2016 None knee pain Pertinent Findin gs pain with movement 017 None knee pain Severity mild 10/11/2016 None knee pain Location on the right 10/03/2016 None knee pain Location at the medial pole 10/03/2016 None knee pain Quality dull pain 10/03/2016 None knee pain Quality throbbing 10/03/2016 None knee pain Quality constant 10/03/2016 None knee pain Onset and Resolu tion sudden in onset 10/03/2016 None knee pain Onset of Symptom 1 months ago 10/03/2016 None knee pain Frequency of Epi sodes daily 10/03/2016 None knee pain Pertinent Findin gs limping 10/03/2016 None knee pain Pertinent Findin gs pain with movement 017 None hypertension Onset and Res olution ongoing 10/03/2016 None hypertension Onset of Symp rome during adulthood 7 None hypertension Pertinent Fin dings Denies dizziness 7 None hypertension Pertinent Fin dings Denies dyspnea 10/03/2016 None hypertension Pertinent Fin dings Denies edema 10/03/2016 None hypertension Triggers no known associated factors 10/03/2016 None hypertension Alleviating F actors medication 10/03/2016 None knee pain Location on the right 06/12/2016 None knee pain Location at the medial pole 06/12/2016 None knee pain Quality dull pain 06/12/2016 None knee pain Quality throbbing 06/12/2016 None knee pain Quality constant 06/12/2016 None knee pain Onset and Resolu tion sudden in onset 06/12/2016 None knee pain Onset of Symptom 1 months ago 06/12/2016 None knee pain Frequency of Epi sodes daily 06/12/2016 None knee pain Pertinent Findin gs pain with movement 017 None knee pain Pertinent Findin gs limping 06/12/2016 None [facility] ([id number]) Work Phone: History of Present illness Narrative Symptom Name Status Result Effective Date Notes Location in the oropharyngeal area 07/23/2018 None Quality difficulty with hard solids 07/23/2018 None Quality difficulty with thin liquids 07/23/2018 None Onset and Resolution ongoing 07/23/2018 None Onset of Symptom months ago 07/23/2018 None Severity moderate 07/23/2018 None Frequency of Episodes unchanged 07/23/2018 None Significant Medical Cond itions acid reflux 07/23/2018 None Triggers no known associated factors 07/23/2018 None Pertinent Findings heartburn 07/23/2018 None Quality chronic 07/23/2018 None Quality primary hypertension 07/23/2018 None Onset and Resolution ongoing 07/23/2018 None Onset of Symptom during adulthood 07/23/2018 None Blood Pressure Values not checking blood pressure at home 07/23/2018 None Severity not consistently severe symptoms, the symptoms fluctuate from no symptoms to anxiety and headaches 07/23/2018 None Triggers no known associated factors 07/23/2018 None Alleviating Factors medication 07/23/2018 None Pertinent Findings dizziness 07/23/2018 after she takes coreg Pertinent Findings Denies dyspnea 07/23/2018 None Pertinent Findings Denies edema 07/23/2018 None Location in the oropharyngeal area 06/25/2018 None Quality difficulty with hard solids 06/25/2018 None Quality difficulty with thin liquids 06/25/2018 None Onset and Resolution ongoing 06/25/2018 None Onset of Symptom months ago 06/25/2018 None Severity moderate 06/25/2018 None Significant Medical Cond itions acid reflux 06/25/2018 None Triggers no known associated factors 06/25/2018 None Pertinent Findings heartburn 06/25/2018 None Quality chronic 06/25/2018 None Quality primary hypertension 06/25/2018 None Onset and Resolution ongoing 06/25/2018 None Onset of Symptom during adulthood 06/25/2018 None Alleviating Factors medication 06/25/2018 None Blood Pressure Values not checking blood pressure at home 06/25/2018 None Pertinent Findings Denies dizziness 06/25/2018 None Pertinent Findings Denies dyspnea 06/25/2018 None Pertinent Findings Denies edema 06/25/2018 None Frequency of Episodes unchanged 06/25/2018 None Severity not consistently severe symptoms, the symptoms fluctuate from no symptoms to anxiety and headaches 06/25/2018 None Frequency of Episodes unchanged 06/25/2018 None Triggers no known associated factors 06/25/2018 None Additional Comments medication use 05/25/2018 None Location oral intake 05/25/2018 None Location in the oropharyngeal area 05/25/2018 None Quality difficulty with hard solids 05/25/2018 None Quality difficulty with thin liquids 05/25/2018 None Quality worsening 05/25/2018 None Onset and Resolution ongoing 05/25/2018 None Onset of Symptom _ months ago 05/25/2018 None Limitation on Activities does not limit oral intake 05/25/2018 None Severity moderate 05/25/2018 None Significant Medical Cond itions acid reflux 05/25/2018 None Triggers no known associated factors 05/25/2018 None Pertinent Findings Denies dyspnea 05/25/2018 None Pertinent Findings Denies cough 05/25/2018 None Pertinent Findings Denies edema 05/25/2018 None Pertinent Findings Denies facial pain 05/25/2018 None Pertinent Findings Denies fever 05/25/2018 None Pertinent Findings heartburn 05/25/2018 None Annual Medicare Wellness Exam Alcohol Use drinks 7 days per week 01/2018 one every night Annual Medicare Wellness Exam Aspirin Use yes 07/11/2017 None Annual Medicare Wellness Exam Blood Glucose (self reported) desireable (below 100) 07/11/2017 None Annual Medicare Wellness Exam Blood Pressure (self reported) borderline (120/80 - 139/89) 07/11/2017 None Annual Medicare Wellness Exam Cholesterol (self reported) borderline high (200-239) 07/11/2017 None Annual Medicare Wellness Exam Depression (last 6 months) almost never 07/11/2017 None Annual Medicare Wellness Exam Depression or Hopelessness almost never 07/11/2017 None Annual Medicare Wellness Exam Describe Your Health good 07/11/2017 None Annual Medicare Wellness Exam Exercise Habits exercises 7 days per week 07/11/2017 None Annual Medicare Wellness Exam Exercise Habits exercises 10 minutes per day 07/11/2017 None Annual Medicare Wellness Exam Handling Stress usually johanny effectively 07/11/2017 None Annual Medicare Wellness Exam Hemaglobin A-1C (self reported) don't know 07/11/2017 None Annual Medicare Wellness Exam Hours of Sleep 6 07/11/2017 None Annual Medicare Wellness Exam Interaction with Friends yes 07/11/2017 None Annual Medicare Wellness Exam Interests & Pleasure daily 07/11/2017 None Annual Medicare Wellness Exam Life Satisfaction very satisfied 07/11/2017 None Annual Medicare Wellness Exam Motor Vehicle Safety always fastens seat belt: y 07/11/2017 None Annual Medicare Wellness Exam Motor Vehicle Safety drives after drinking: n 07/11/2017 None Annual Medicare Wellness Exam Motor Vehicle Safety rides with someone who has been drinking : n 07/11/2017 None Annual Medicare Wellness Exam Nutrition servings of fried food / high fat foods per day: 1 07/11/2017 None Annual Medicare Wellness Exam Nutrition servings of high fiber / whole grain per day: 2 07/11/2017 None Annual Medicare Wellness Exam Nutrition servings of vegetables / fruit per day: 3 07/11/2017 None Annual Medicare Wellness Exam Smoking and Tobacco Use non smoker 07/11/2017 None Annual Medicare Wellness Exam Social & Emotional Support always 07/11/2017 None Annual Medicare Wellness Exam Stress some of the time 8 None Annual Medicare Wellness Exam Sun Exposure protects skin when outdoors: y 07/11/2017 None hypertension Onset of Symp rome during adulthood 7 None hypertension Onset and Res olution ongoing 04/08/2017 None hypertension Triggers no known associated factors 04/08/2017 None hypertension Alleviating F actors medication 04/08/2017 None hypertension Pertinent Fin dings Denies dizziness 7 None hypertension Pertinent Fin dings Denies edema 04/08/2017 None hypertension Quality chronic 04/08/2017 None hypertension Severity mild 04/08/2017 None earache Location left ear 12/25/2016 None earache Onset and Resoluti on sudden in onset 12/25/2016 None earache Onset of Symptom 1 months ago 12/25/2016 None earache Frequency of Episo marlon daily 12/25/2016 None knee pain Location on the right 12/25/2016 None knee pain Quality dull pain 12/25/2016 None knee pain Quality worsening 12/25/2016 None knee pain Location on the right 10/31/2016 None knee pain Onset of Symptom _ months ago 10/31/2016 None knee pain Pertinent Findin gs pain with movement 017 None knee pain Pertinent Findin gs Denies limping 10/31/2016 None knee pain Pertinent Findin gs Denies sensation of buckling 10/31/2016 None knee pain Pertinent Findin gs Denies inability to extend 10/31/2016 None knee pain Location on the right 10/11/2016 None knee pain Location at the medial pole 10/11/2016 None knee pain Quality dull pain 10/11/2016 None knee pain Quality throbbing 10/11/2016 None knee pain Quality constant 10/11/2016 None knee pain Onset and Resolu tion sudden in onset 10/11/2016 None knee pain Onset of Symptom 1 months ago 10/11/2016 None knee pain Frequency of Epi sodes daily 10/11/2016 None knee pain Pertinent Findin gs limping 10/11/2016 None knee pain Pertinent Findin gs pain with movement 017 None knee pain Severity mild 10/11/2016 None knee pain Location on the right 10/03/2016 None knee pain Location at the medial pole 10/03/2016 None knee pain Quality dull pain 10/03/2016 None knee pain Quality throbbing 10/03/2016 None knee pain Quality constant 10/03/2016 None knee pain Onset and Resolu tion sudden in onset 10/03/2016 None knee pain Onset of Symptom 1 months ago 10/03/2016 None knee pain Frequency of Epi sodes daily 10/03/2016 None knee pain Pertinent Findin gs limping 10/03/2016 None knee pain Pertinent Findin gs pain with movement 017 None hypertension Onset and Res olution ongoing 10/03/2016 None hypertension Onset of Symp rome during adulthood 7 None hypertension Pertinent Fin dings Denies dizziness 7 None hypertension Pertinent Fin dings Denies dyspnea 10/03/2016 None hypertension Pertinent Fin dings Denies edema 10/03/2016 None hypertension Triggers no known associated factors 10/03/2016 None hypertension Alleviating F actors medication 10/03/2016 None knee pain Location on the right 06/12/2016 None knee pain Location at the medial pole 06/12/2016 None knee pain Quality dull pain 06/12/2016 None knee pain Quality throbbing 06/12/2016 None knee pain Quality constant 06/12/2016 None knee pain Onset and Resolu tion sudden in onset 06/12/2016 None knee pain Onset of Symptom 1 months ago 06/12/2016 None knee pain Frequency of Epi sodes daily 06/12/2016 None knee pain Pertinent Findin gs pain with movement 017 None knee pain Pertinent Findin gs limping 06/12/2016 None [facility] ([id number]) Work Phone: History of Present illness Narrative Symptom Name Status Result Effective Date Notes Location in the oropharyngeal area 08/27/2018 None Quality difficulty with hard solids 08/27/2018 None Quality difficulty with thin liquids 08/27/2018 None Onset and Resolution ongoing 08/27/2018 None Onset of Symptom months ago 08/27/2018 None Severity moderate 08/27/2018 None Frequency of Episodes unchanged 08/27/2018 None Triggers no known associated factors 08/27/2018 None Quality chronic 08/27/2018 None Quality primary hypertension 08/27/2018 None Onset and Resolution ongoing 08/27/2018 None Onset of Symptom during adulthood 08/27/2018 None Severity not consistently severe symptoms, the symptoms fluctuate from no symptoms to anxiety and headaches 08/27/2018 None Triggers no known associated factors 08/27/2018 None Alleviating Factors medication 08/27/2018 None Pertinent Findings Denies dizziness 08/27/2018 None Pertinent Findings Denies dyspnea 08/27/2018 None Pertinent Findings Denies edema 08/27/2018 None Blood Pressure Values pt checking blood pressure - see scanned document 08/27/2018 None Pertinent Findings Denies heartburn 08/27/2018 None Location in the oropharyngeal area 07/23/2018 None Quality difficulty with hard solids 07/23/2018 None Quality difficulty with thin liquids 07/23/2018 None Onset and Resolution ongoing 07/23/2018 None Onset of Symptom months ago 07/23/2018 None Severity moderate 07/23/2018 None Frequency of Episodes unchanged 07/23/2018 None Significant Medical Cond itions acid reflux 07/23/2018 None Triggers no known associated factors 07/23/2018 None Pertinent Findings heartburn 07/23/2018 None Quality chronic 07/23/2018 None Quality primary hypertension 07/23/2018 None Onset and Resolution ongoing 07/23/2018 None Onset of Symptom during adulthood 07/23/2018 None Blood Pressure Values not checking blood pressure at home 07/23/2018 None Severity not consistently severe symptoms, the symptoms fluctuate from no symptoms to anxiety and headaches 07/23/2018 None Triggers no known associated factors 07/23/2018 None Alleviating Factors medication 07/23/2018 None Pertinent Findings dizziness 07/23/2018 after she takes coreg Pertinent Findings Denies dyspnea 07/23/2018 None Pertinent Findings Denies edema 07/23/2018 None Location in the oropharyngeal area 06/25/2018 None Quality difficulty with hard solids 06/25/2018 None Quality difficulty with thin liquids 06/25/2018 None Onset and Resolution ongoing 06/25/2018 None Onset of Symptom months ago 06/25/2018 None Severity moderate 06/25/2018 None Significant Medical Cond itions acid reflux 06/25/2018 None Triggers no known associated factors 06/25/2018 None Pertinent Findings heartburn 06/25/2018 None Quality chronic 06/25/2018 None Quality primary hypertension 06/25/2018 None Onset and Resolution ongoing 06/25/2018 None Onset of Symptom during adulthood 06/25/2018 None Alleviating Factors medication 06/25/2018 None Blood Pressure Values not checking blood pressure at home 06/25/2018 None Pertinent Findings Denies dizziness 06/25/2018 None Pertinent Findings Denies dyspnea 06/25/2018 None Pertinent Findings Denies edema 06/25/2018 None Frequency of Episodes unchanged 06/25/2018 None Severity not consistently severe symptoms, the symptoms fluctuate from no symptoms to anxiety and headaches 06/25/2018 None Frequency of Episodes unchanged 06/25/2018 None Triggers no known associated factors 06/25/2018 None Additional Comments medication use 05/25/2018 None Location oral intake 05/25/2018 None Location in the oropharyngeal area 05/25/2018 None Quality difficulty with hard solids 05/25/2018 None Quality difficulty with thin liquids 05/25/2018 None Quality worsening 05/25/2018 None Onset and Resolution ongoing 05/25/2018 None Onset of Symptom _ months ago 05/25/2018 None Limitation on Activities does not limit oral intake 05/25/2018 None Severity moderate 05/25/2018 None Significant Medical Cond itions acid reflux 05/25/2018 None Triggers no known associated factors 05/25/2018 None Pertinent Findings Denies dyspnea 05/25/2018 None Pertinent Findings Denies cough 05/25/2018 None Pertinent Findings Denies edema 05/25/2018 None Pertinent Findings Denies facial pain 05/25/2018 None Pertinent Findings Denies fever 05/25/2018 None Pertinent Findings heartburn 05/25/2018 None Annual Medicare Wellness Exam Alcohol Use drinks 7 days per week 01/2018 one every night Annual Medicare Wellness Exam Aspirin Use yes 07/11/2017 None Annual Medicare Wellness Exam Blood Glucose (self reported) desireable (below 100) 07/11/2017 None Annual Medicare Wellness Exam Blood Pressure (self reported) borderline (120/80 - 139/89) 07/11/2017 None Annual Medicare Wellness Exam Cholesterol (self reported) borderline high (200-239) 07/11/2017 None Annual Medicare Wellness Exam Depression (last 6 months) almost never 07/11/2017 None Annual Medicare Wellness Exam Depression or Hopelessness almost never 07/11/2017 None Annual Medicare Wellness Exam Describe Your Health good 07/11/2017 None Annual Medicare Wellness Exam Exercise Habits exercises 7 days per week 07/11/2017 None Annual Medicare Wellness Exam Exercise Habits exercises 10 minutes per day 07/11/2017 None Annual Medicare Wellness Exam Handling Stress usually johanny effectively 07/11/2017 None Annual Medicare Wellness Exam Hemaglobin A-1C (self reported) don't know 07/11/2017 None Annual Medicare Wellness Exam Hours of Sleep 6 07/11/2017 None Annual Medicare Wellness Exam Interaction with Friends yes 07/11/2017 None Annual Medicare Wellness Exam Interests & Pleasure daily 07/11/2017 None Annual Medicare Wellness Exam Life Satisfaction very satisfied 07/11/2017 None Annual Medicare Wellness Exam Motor Vehicle Safety always fastens seat belt: y 07/11/2017 None Annual Medicare Wellness Exam Motor Vehicle Safety drives after drinking: n 07/11/2017 None Annual Medicare Wellness Exam Motor Vehicle Safety rides with someone who has been drinking : n 07/11/2017 None Annual Medicare Wellness Exam Nutrition servings of fried food / high fat foods per day: 1 07/11/2017 None Annual Medicare Wellness Exam Nutrition servings of high fiber / whole grain per day: 2 07/11/2017 None Annual Medicare Wellness Exam Nutrition servings of vegetables / fruit per day: 3 07/11/2017 None Annual Medicare Wellness Exam Smoking and Tobacco Use non smoker 07/11/2017 None Annual Medicare Wellness Exam Social & Emotional Support always 07/11/2017 None Annual Medicare Wellness Exam Stress some of the time 8 None Annual Medicare Wellness Exam Sun Exposure protects skin when outdoors: y 07/11/2017 None hypertension Onset of Symp rome during adulthood 7 None hypertension Onset and Res olution ongoing 04/08/2017 None hypertension Triggers no known associated factors 04/08/2017 None hypertension Alleviating F actors medication 04/08/2017 None hypertension Pertinent Suman hercules Denies dizziness 7 None hypertension Pertinent Fin dings Denies edema 04/08/2017 None hypertension Quality chronic 04/08/2017 None hypertension Severity mild 04/08/2017 None earache Location left ear 12/25/2016 None earache Onset and Resoluti on sudden in onset 12/25/2016 None earache Onset of Symptom 1 months ago 12/25/2016 None earache Frequency of Episo marlon daily 12/25/2016 None knee pain Location on the right 12/25/2016 None knee pain Quality dull pain 12/25/2016 None knee pain Quality worsening 12/25/2016 None knee pain Location on the right 10/31/2016 None knee pain Onset of Symptom _ months ago 10/31/2016 None knee pain Pertinent Findin gs pain with movement 017 None knee pain Pertinent Findin gs Denies limping 10/31/2016 None knee pain Pertinent Findin gs Denies sensation of buckling 10/31/2016 None knee pain Pertinent Findin gs Denies inability to extend 10/31/2016 None knee pain Location on the right 10/11/2016 None knee pain Location at the medial pole 10/11/2016 None knee pain Quality dull pain 10/11/2016 None knee pain Quality throbbing 10/11/2016 None knee pain Quality constant 10/11/2016 None knee pain Onset and Resolu tion sudden in onset 10/11/2016 None knee pain Onset of Symptom 1 months ago 10/11/2016 None knee pain Frequency of Epi sodes daily 10/11/2016 None knee pain Pertinent Findin gs limping 10/11/2016 None knee pain Pertinent Findin gs pain with movement 017 None knee pain Severity mild 10/11/2016 None knee pain Location on the right 10/03/2016 None knee pain Location at the medial pole 10/03/2016 None knee pain Quality dull pain 10/03/2016 None knee pain Quality throbbing 10/03/2016 None knee pain Quality constant 10/03/2016 None knee pain Onset and Resolu tion sudden in onset 10/03/2016 None knee pain Onset of Symptom 1 months ago 10/03/2016 None knee pain Frequency of Epi sodes daily 10/03/2016 None knee pain Pertinent Findin gs limping 10/03/2016 None knee pain Pertinent Findin gs pain with movement 017 None hypertension Onset and Res olution ongoing 10/03/2016 None hypertension Onset of Symp rome during adulthood 7 None hypertension Pertinent Fin dings Denies dizziness 7 None hypertension Pertinent Fin dings Denies dyspnea 10/03/2016 None hypertension Pertinent Suman dings Denies edema 10/03/2016 None hypertension Triggers no known associated factors 10/03/2016 None hypertension Alleviating F actors medication 10/03/2016 None knee pain Location on the right 06/12/2016 None knee pain Location at the medial pole 06/12/2016 None knee pain Quality dull pain 06/12/2016 None knee pain Quality throbbing 06/12/2016 None knee pain Quality constant 06/12/2016 None knee pain Onset and Resolu tion sudden in onset 06/12/2016 None knee pain Onset of Symptom 1 months ago 06/12/2016 None knee pain Frequency of Epi sodes daily 06/12/2016 None knee pain Pertinent Findin gs pain with movement 017 None knee pain Pertinent Findin gs limping 06/12/2016 None [facility] ([id number]) Work Phone: History of Present illness Narrative Symptom Name Status Result Effective Date Notes Location lumbar-sacral spine 12/25/2018 None Quality acute 12/25/2018 None Onset and Resolution gradual in onset 12/25/2018 None Pertinent Findings Denies fever 12/25/2018 None Location in the oropharyngeal area 11/26/2018 None Quality difficulty with hard solids 11/26/2018 None Quality difficulty with thin liquids 11/26/2018 None Onset and Resolution ongoing 11/26/2018 None Onset of Symptom months ago 11/26/2018 None Severity moderate 11/26/2018 None Frequency of Episodes unchanged 11/26/2018 None Triggers no known associated factors 11/26/2018 None Pertinent Findings Denies heartburn 11/26/2018 None Quality chronic 11/26/2018 None Quality primary hypertension 11/26/2018 None Onset and Resolution ongoing 11/26/2018 None Onset of Symptom during adulthood 11/26/2018 None Severity not consistently severe symptoms, the symptoms fluctuate from no symptoms to anxiety and headaches 11/26/2018 None Triggers no known associated factors 11/26/2018 None Alleviating Factors medication 11/26/2018 None Pertinent Findings dizziness 11/26/2018 "sometimes" Pertinent Findings Denies dyspnea 11/26/2018 None Pertinent Findings Denies edema 11/26/2018 None Blood Pressure Values patient checking blood pressure at home - did not bring in readings 11/26/2018 None Location in the oropharyngeal area 08/27/2018 None Quality difficulty with hard solids 08/27/2018 None Quality difficulty with thin liquids 08/27/2018 None Onset and Resolution ongoing 08/27/2018 None Onset of Symptom months ago 08/27/2018 None Severity moderate 08/27/2018 None Frequency of Episodes unchanged 08/27/2018 None Triggers no known associated factors 08/27/2018 None Quality chronic 08/27/2018 None Quality primary hypertension 08/27/2018 None Onset and Resolution ongoing 08/27/2018 None Onset of Symptom during adulthood 08/27/2018 None Severity not consistently severe symptoms, the symptoms fluctuate from no symptoms to anxiety and headaches 08/27/2018 None Triggers no known associated factors 08/27/2018 None Alleviating Factors medication 08/27/2018 None Pertinent Findings Denies dizziness 08/27/2018 None Pertinent Findings Denies dyspnea 08/27/2018 None Pertinent Findings Denies edema 08/27/2018 None Blood Pressure Values pt checking blood pressure - see scanned document 08/27/2018 None Pertinent Findings Denies heartburn 08/27/2018 None Location in the oropharyngeal area 07/23/2018 None Quality difficulty with hard solids 07/23/2018 None Quality difficulty with thin liquids 07/23/2018 None Onset and Resolution ongoing 07/23/2018 None Onset of Symptom months ago 07/23/2018 None Severity moderate 07/23/2018 None Frequency of Episodes unchanged 07/23/2018 None Significant Medical Cond itions acid reflux 07/23/2018 None Triggers no known associated factors 07/23/2018 None Pertinent Findings heartburn 07/23/2018 None Quality chronic 07/23/2018 None Quality primary hypertension 07/23/2018 None Onset and Resolution ongoing 07/23/2018 None Onset of Symptom during adulthood 07/23/2018 None Blood Pressure Values not checking blood pressure at home 07/23/2018 None Severity not consistently severe symptoms, the symptoms fluctuate from no symptoms to anxiety and headaches 07/23/2018 None Triggers no known associated factors 07/23/2018 None Alleviating Factors medication 07/23/2018 None Pertinent Findings dizziness 07/23/2018 after she takes coreg Pertinent Findings Denies dyspnea 07/23/2018 None Pertinent Findings Denies edema 07/23/2018 None Location in the oropharyngeal area 06/25/2018 None Quality difficulty with hard solids 06/25/2018 None Quality difficulty with thin liquids 06/25/2018 None Onset and Resolution ongoing 06/25/2018 None Onset of Symptom months ago 06/25/2018 None Severity moderate 06/25/2018 None Significant Medical Cond itions acid reflux 06/25/2018 None Triggers no known associated factors 06/25/2018 None Pertinent Findings heartburn 06/25/2018 None Quality chronic 06/25/2018 None Quality primary hypertension 06/25/2018 None Onset and Resolution ongoing 06/25/2018 None Onset of Symptom during adulthood 06/25/2018 None Alleviating Factors medication 06/25/2018 None Blood Pressure Values not checking blood pressure at home 06/25/2018 None Pertinent Findings Denies dizziness 06/25/2018 None Pertinent Findings Denies dyspnea 06/25/2018 None Pertinent Findings Denies edema 06/25/2018 None Frequency of Episodes unchanged 06/25/2018 None Severity not consistently severe symptoms, the symptoms fluctuate from no symptoms to anxiety and headaches 06/25/2018 None Frequency of Episodes unchanged 06/25/2018 None Triggers no known associated factors 06/25/2018 None Additional Comments medication use 05/25/2018 None Location oral intake 05/25/2018 None Location in the oropharyngeal area 05/25/2018 None Quality difficulty with hard solids 05/25/2018 None Quality difficulty with thin liquids 05/25/2018 None Quality worsening 05/25/2018 None Onset and Resolution ongoing 05/25/2018 None Onset of Symptom _ months ago 05/25/2018 None Limitation on Activities does not limit oral intake 05/25/2018 None Severity moderate 05/25/2018 None Significant Medical Cond itions acid reflux 05/25/2018 None Triggers no known associated factors 05/25/2018 None Pertinent Findings Denies dyspnea 05/25/2018 None Pertinent Findings Denies cough 05/25/2018 None Pertinent Findings Denies edema 05/25/2018 None Pertinent Findings Denies facial pain 05/25/2018 None Pertinent Findings Denies fever 05/25/2018 None Pertinent Findings heartburn 05/25/2018 None Annual Medicare Wellness Exam Alcohol Use drinks 7 days per week 01/2018 one every night Annual Medicare Wellness Exam Aspirin Use yes 07/11/2017 None Annual Medicare Wellness Exam Blood Glucose (self reported) desireable (below 100) 07/11/2017 None Annual Medicare Wellness Exam Blood Pressure (self reported) borderline (120/80 - 139/89) 07/11/2017 None Annual Medicare Wellness Exam Cholesterol (self reported) borderline high (200-239) 07/11/2017 None Annual Medicare Wellness Exam Depression (last 6 months) almost never 07/11/2017 None Annual Medicare Wellness Exam Depression or Hopelessness almost never 07/11/2017 None Annual Medicare Wellness Exam Describe Your Health good 07/11/2017 None Annual Medicare Wellness Exam Exercise Habits exercises 7 days per week 07/11/2017 None Annual Medicare Wellness Exam Exercise Habits exercises 10 minutes per day 07/11/2017 None Annual Medicare Wellness Exam Handling Stress usually johanny effectively 07/11/2017 None Annual Medicare Wellness Exam Hemaglobin A-1C (self reported) don't know 07/11/2017 None Annual Medicare Wellness Exam Hours of Sleep 6 07/11/2017 None Annual Medicare Wellness Exam Interaction with Friends yes 07/11/2017 None Annual Medicare Wellness Exam Interests & Pleasure daily 07/11/2017 None Annual Medicare Wellness Exam Life Satisfaction very satisfied 07/11/2017 None Annual Medicare Wellness Exam Motor Vehicle Safety always fastens seat belt: y 07/11/2017 None Annual Medicare Wellness Exam Motor Vehicle Safety drives after drinking: n 07/11/2017 None Annual Medicare Wellness Exam Motor Vehicle Safety rides with someone who has been drinking : n 07/11/2017 None Annual Medicare Wellness Exam Nutrition servings of fried food / high fat foods per day: 1 07/11/2017 None Annual Medicare Wellness Exam Nutrition servings of high fiber / whole grain per day: 2 07/11/2017 None Annual Medicare Wellness Exam Nutrition servings of vegetables / fruit per day: 3 07/11/2017 None Annual Medicare Wellness Exam Smoking and Tobacco Use non smoker 07/11/2017 None Annual Medicare Wellness Exam Social & Emotional Support always 07/11/2017 None Annual Medicare Wellness Exam Stress some of the time 8 None Annual Medicare Wellness Exam Sun Exposure protects skin when outdoors: y 07/11/2017 None hypertension Onset of Symp rome during adulthood 7 None hypertension Onset and Res olution ongoing 04/08/2017 None hypertension Triggers no known associated factors 04/08/2017 None hypertension Alleviating F actors medication 04/08/2017 None hypertension Pertinent Fin dings Denies dizziness 7 None hypertension Pertinent Fin dings Denies edema 04/08/2017 None hypertension Quality chronic 04/08/2017 None hypertension Severity mild 04/08/2017 None earache Location left ear 12/25/2016 None earache Onset and Resoluti on sudden in onset 12/25/2016 None earache Onset of Symptom 1 months ago 12/25/2016 None earache Frequency of Episo marlon daily 12/25/2016 None knee pain Location on the right 12/25/2016 None knee pain Quality dull pain 12/25/2016 None knee pain Quality worsening 12/25/2016 None knee pain Location on the right 10/31/2016 None knee pain Onset of Symptom _ months ago 10/31/2016 None knee pain Pertinent Findin gs pain with movement 017 None knee pain Pertinent Findin gs Denies limping 10/31/2016 None knee pain Pertinent Findin gs Denies sensation of buckling 10/31/2016 None knee pain Pertinent Findin gs Denies inability to extend 10/31/2016 None knee pain Location on the right 10/11/2016 None knee pain Location at the medial pole 10/11/2016 None knee pain Quality dull pain 10/11/2016 None knee pain Quality throbbing 10/11/2016 None knee pain Quality constant 10/11/2016 None knee pain Onset and Resolu tion sudden in onset 10/11/2016 None knee pain Onset of Symptom 1 months ago 10/11/2016 None knee pain Frequency of Epi sodes daily 10/11/2016 None knee pain Pertinent Findin gs limping 10/11/2016 None knee pain Pertinent Findin gs pain with movement 017 None knee pain Severity mild 10/11/2016 None knee pain Location on the right 10/03/2016 None knee pain Location at the medial pole 10/03/2016 None knee pain Quality dull pain 10/03/2016 None knee pain Quality throbbing 10/03/2016 None knee pain Quality constant 10/03/2016 None knee pain Onset and Resolu tion sudden in onset 10/03/2016 None knee pain Onset of Symptom 1 months ago 10/03/2016 None knee pain Frequency of Epi sodes daily 10/03/2016 None knee pain Pertinent Findin gs limping 10/03/2016 None knee pain Pertinent Findin gs pain with movement 017 None hypertension Onset and Res olution ongoing 10/03/2016 None hypertension Onset of Symp rome during adulthood 10/03/ 7 None hypertension Pertinent Fin dings Denies dizziness 7 None hypertension Pertinent Fin dings Denies dyspnea 10/03/2016 None hypertension Pertinent Fin dings Denies edema 10/03/2016 None hypertension Triggers no known associated factors 10/03/2016 None hypertension Alleviating F actors medication 10/03/2016 None knee pain Location on the right 06/12/2016 None knee pain Location at the medial pole 06/12/2016 None knee pain Quality dull pain 06/12/2016 None knee pain Quality throbbing 06/12/2016 None knee pain Quality constant 06/12/2016 None knee pain Onset and Resolu tion sudden in onset 06/12/2016 None knee pain Onset of Symptom 1 months ago 06/12/2016 None knee pain Frequency of Epi sodes daily 06/12/2016 None knee pain Pertinent Findin gs pain with movement 017 None knee pain Pertinent Findin gs limping 06/12/2016 None [facility] ([id number]) Work Phone: Summary Purpose Interface ExchangeInterface ExchangeInterface ExchangeInterface ExchangeInterface ExchangeInterface ExchangeInterface ExchangeInterface ExchangeInterface ExchangeInterface ExchangeInterface ExchangeInterface ExchangeInterface ExchangeInterface ExchangeInterface ExchangeInterface ExchangeInterface ExchangeInterface Exchange Family History Diagnosis Age At Onset Cancer Unknown Diagnosis Age At Onset Depression Unknown Arthritis Unknown Alcoholism Unknown Hyperlipidemia Unknown Hypertension Unknown Liver Failure Unknown Chief Complaint Reason For Visit Effective Dates Notes medication follow up 05/25/2018 Annual Medicare Wellness Exam 07/11/2017 hypertension 04/08/2017 earache 12/25/2016 knee pain 10/31/2016 knee pain 10/11/2016 knee pain 10/03/2016 knee pain 06/12/2016 Reason For Visit Effective Dates Notes dysphagia 06/25/2018 medication follow up 05/25/2018 Annual Medicare Wellness Exam 07/11/2017 hypertension 04/08/2017 earache 12/25/2016 knee pain 10/31/2016 knee pain 10/11/2016 knee pain 10/03/2016 knee pain 06/12/2016 Reason For Visit Effective Dates Notes dysphagia 07/23/2018 dysphagia 06/25/2018 medication follow up 05/25/2018 Annual Medicare Wellness Exam 07/11/2017 hypertension 04/08/2017 earache 12/25/2016 knee pain 10/31/2016 knee pain 10/11/2016 knee pain 10/03/2016 knee pain 06/12/2016 Reason For Visit Effective Dates Notes dysphagia 08/27/2018 dysphagia 07/23/2018 dysphagia 06/25/2018 medication follow up 05/25/2018 Annual Medicare Wellness Exam 07/11/2017 hypertension 04/08/2017 earache 12/25/2016 knee pain 10/31/2016 knee pain 10/11/2016 knee pain 10/03/2016 knee pain 06/12/2016 Reason For Visit Effective Dates Notes knee pain 10/03/2016 knee pain 06/12/2016 Reason For Visit Effective Dates Notes knee pain 10/11/2016 knee pain 10/03/2016 knee pain 06/12/2016 Reason For Visit Effective Dates Notes knee pain 10/31/2016 knee pain 10/11/2016 knee pain 10/03/2016 knee pain 06/12/2016 Reason For Visit Effective Dates Notes back pain 12/25/2018 dysphagia 11/26/2018 dysphagia 08/27/2018 dysphagia 07/23/2018 dysphagia 06/25/2018 medication follow up 05/25/2018 Annual Medicare Wellness Exam 07/11/2017 hypertension 04/08/2017 earache 12/25/2016 knee pain 10/31/2016 knee pain 10/11/2016 knee pain 10/03/2016 knee pain 06/12/2016 Physical Exam Exam Name System Name It em Name Status Result Effective Dates Notes Full Exam - General 1994 Constitutional general appearance Overall: well developed 05/25/2018 None Full Exam - General 1994 Constitutional general appearance Overall: in no acute distress 05/25/2018 None Full Exam - General 1994 Constitutional general appearance Overall: well nourished 05/25/2018 None Full Exam - General 1994 Eyes conjunctiva/eyelids Overall: conjunctiva clear 05/25/2018 None Full Exam - General 1994 Eyes conjunctiva/eyelids Overall: eyelids normal 05/25/2018 None Full Exam - General 1994 Eyes pupils and irises Overall: pupils equal, round, reactive to light and accomodation 05/25/2018 None Full Exam - General 1994 Ears/Nose/Throat otoscopic exam Overall: external auditory canals clear 05/25/2018 None Full Exam - General 1994 Ears/Nose/Throat otoscopic exam Overall: tympanic membranes clear 05/25/2018 None Full Exam - General 1994 Ears/Nose/Throat lips/teeth/gingiva Overall: benign lips 05/25/2018 None Full Exam - General 1994 Ears/Nose/Throat oral cavity/pharynx/larynx Overall: oral mucosa clear 05/25/2018 None Full Exam - General 1994 Ears/Nose/Throat oral cavity/pharynx/larynx Overall: oropharyngeal mucosa clear 05/25/2018 None Full Exam - General 1994 Ears/Nose/Throat oral cavity/pharynx/larynx Overall: no masses 05/25/2018 None Full Exam - General 1994 Respiratory auscultation Overall: breath sounds clear bilaterally 05/25/2018 None Full Exam - General 1994 Respiratory respiratory effort/rhythm Overall: no retractions 05/25/2018 None Full Exam - General 1994 Respiratory respiratory effort/rhythm Overall: normal rate 05/25/2018 None Full Exam - General 1994 Cardiovascular extremities Other findings: varicose veins 05/25/2018 None Full Exam - General 1994 Cardiovascular auscultation of heart Overall: regular rate 05/25/2018 None Full Exam - General 1994 Cardiovascular auscultation of heart Overall: normal heart sounds 05/25/2018 None Full Exam - General 1994 Abdomen abdominal exam Overall: no tenderness 05/25/2018 None Full Exam - General 1994 Abdomen abdominal exam Overall: normal bowel sounds 05/25/2018 None Full Exam - General 1994 Lymphatic neck nodes Overall: anterior cervical chain benign 05/25/2018 None Full Exam - General 1994 Lymphatic neck nodes Overall: posterior cervical chain benign 05/25/2018 None Full Exam - General 1994 Musculoskeletal head and neck Overall: head atraumatic 05/25/2018 None Full Exam - General 1994 Neurologic cranial nerves Overall: crainial nerves 2 - 12 grossly intact 05/25/2018 None Full Exam - General 1994 Psychiatric orientation/consciousness Overall: oriented to person, place and time 05/25/2018 None Full Exam - General 1994 Psychiatric mood and affect Overall: normal mood and affect 05/25/2018 None Full Exam - General 1994 Psychiatric appearance Overall: well-groomed, good eye contact 05/25/2018 None Full Exam - Cardiology Abdomen abdominal exam Epigastric: tender to palpation 05/25/2018 None Full Exam - General 1994 Constitutional general appearance Overall: well developed 07/11/2017 None Full Exam - General 1994 Constitutional general appearance Overall: in no acute distress 07/11/2017 None Full Exam - General 1994 Constitutional general appearance Overall: well nourished 07/11/2017 None Full Exam - General 1994 Eyes conjunctiva/eyelids Overall: conjunctiva clear 07/11/2017 None Full Exam - General 1994 Eyes conjunctiva/eyelids Overall: eyelids normal 07/11/2017 None Full Exam - General 1994 Eyes pupils and irises Overall: pupils equal, round, reactive to light and accomodation 07/11/2017 None Full Exam - General 1995 Ears/Nose/Throat otoscopic exam Overall: external auditory canals clear 07/11/2017 None Full Exam - General 1994 Ears/Nose/Throat otoscopic exam Overall: tympanic membranes clear 07/11/2017 None Full Exam - General 1994 Ears/Nose/Throat lips/teeth/gingiva Overall: benign lips 07/11/2017 None Full Exam - General 1994 Ears/Nose/Throat oral cavity/pharynx/larynx Overall: oral mucosa clear 07/11/2017 None Full Exam - General 1994 Ears/Nose/Throat oral cavity/pharynx/larynx Overall: oropharyngeal mucosa clear 07/11/2017 None Full Exam - General 1994 Ears/Nose/Throat oral cavity/pharynx/larynx Overall: no masses 07/11/2017 None Full Exam - General 1994 Respiratory auscultation Overall: breath sounds clear bilaterally 07/11/2017 None Full Exam - General 1994 Respiratory respiratory effort/rhythm Overall: no retractions 07/11/2017 None Full Exam - General 1994 Respiratory respiratory effort/rhythm Overall: normal rate 07/11/2017 None Full Exam - General 1994 Cardiovascular extremities Other findings: varicose veins 07/11/2017 None Full Exam - General 1994 Cardiovascular auscultation of heart Overall: regular rate 07/11/2017 None Full Exam - General 1994 Cardiovascular auscultation of heart Overall: normal heart sounds 07/11/2017 None Full Exam - General 1994 Abdomen abdominal exam Overall: no tenderness 07/11/2017 None Full Exam - General 1994 Abdomen abdominal exam Overall: normal bowel sounds 07/11/2017 None Full Exam - General 1994 Lymphatic neck nodes Overall: anterior cervical chain benign 07/11/2017 None Full Exam - General 1994 Lymphatic neck nodes Overall: posterior cervical chain benign 07/11/2017 None Full Exam - General 1994 Musculoskeletal head and neck Overall: head atraumatic 07/11/2017 None Full Exam - General 1994 Neurologic cranial nerves Overall: crainial nerves 2 - 12 grossly intact 07/11/2017 None Full Exam - General 1994 Psychiatric orientation/consciousness Overall: oriented to person, place and time 07/11/2017 None Full Exam - General 1994 Psychiatric mood and affect Overall: normal mood and affect 07/11/2017 None Full Exam - General 1994 Psychiatric appearance Overall: well-groomed, good eye contact 07/11/2017 None Full Exam - General 1994 Constitutional general appearance Overall: well developed 04/08/2017 None Full Exam - General 1994 Constitutional general appearance Overall: in no acute distress 04/08/2017 None Full Exam - General 1994 Constitutional general appearance Overall: well nourished 04/08/2017 None Full Exam - General 1994 Eyes conjunctiva/eyelids Overall: conjunctiva clear 04/08/2017 None Full Exam - General 1994 Eyes conjunctiva/eyelids Overall: eyelids normal 04/08/2017 None Full Exam - General 1994 Eyes pupils and irises Overall: pupils equal, round, reactive to light and accomodation 04/08/2017 None Full Exam - General 1994 Ears/Nose/Throat otoscopic exam Overall: external auditory canals clear 04/08/2017 None Full Exam - General 1994 Ears/Nose/Throat otoscopic exam Overall: tympanic membranes clear 04/08/2017 None Full Exam - General 1994 Ears/Nose/Throat lips/teeth/gingiva Overall: benign lips 04/08/2017 None Full Exam - General 1994 Ears/Nose/Throat oral cavity/pharynx/larynx Overall: oral mucosa clear 04/08/2017 None Full Exam - General 1994 Ears/Nose/Throat oral cavity/pharynx/larynx Overall: oropharyngeal mucosa clear 04/08/2017 None Full Exam - General 1994 Ears/Nose/Throat oral cavity/pharynx/larynx Overall: no masses 04/08/2017 None Full Exam - General 1994 Respiratory auscultation Overall: breath sounds clear bilaterally 04/08/2017 None Full Exam - General 1994 Respiratory respiratory effort/rhythm Overall: no retractions 04/08/2017 None Full Exam - General 1994 Respiratory respiratory effort/rhythm Overall: normal rate 04/08/2017 None Full Exam - General 1994 Cardiovascular extremities Other findings: varicose veins 04/08/2017 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 Full Exam - General 1994 Cardiovascular auscultation of heart Overall: regular rate 04/08/2017 None Full Exam - General 1994 Cardiovascular auscultation of heart Overall: normal heart sounds 04/08/2017 None Full Exam - General 1994 Abdomen abdominal exam Overall: no tenderness 04/08/2017 None Full Exam - General 1994 Abdomen abdominal exam Overall: normal bowel sounds 04/08/2017 None Full Exam - General 1994 Lymphatic neck nodes Overall: anterior cervical chain benign 04/08/2017 None Full Exam - General 1994 Lymphatic neck nodes Overall: posterior cervical chain benign 04/08/2017 None Full Exam - General 1994 Musculoskeletal lower extremity Palpation - knee: bedolla's cyst 04/08/2017 None Full Exam - General 1994 Musculoskeletal lower extremity Palpation - knee: tender joint line 04/08/2017 None Full Exam - General 1994 Musculoskeletal lower extremity ROM - knee: pain with flexion 04/08/2017 None Full Exam - General 1994 Musculoskeletal head and neck Overall: head atraumatic 04/08/2017 None Full Exam - General 1994 Neurologic cranial nerves Overall: crainial nerves 2 - 12 grossly intact 04/08/2017 None Full Exam - General 1994 Psychiatric orientation/consciousness Overall: oriented to person, place and time 04/08/2017 None Full Exam - General 1994 Psychiatric mood and affect Overall: normal mood and affect 04/08/2017 None Full Exam - General 1994 Psychiatric appearance Overall: well-groomed, good eye contact 04/08/2017 None Full Exam - General 1994 Constitutional general appearance Overall: well developed 12/25/2016 None Full Exam - General 1994 Constitutional general appearance Overall: in no acute distress 12/25/2016 None Full Exam - General 1994 Constitutional general appearance Overall: well nourished 12/25/2016 None Full Exam - General 1994 Eyes conjunctiva/eyelids Overall: conjunctiva clear 12/25/2016 None Full Exam - General 1994 Eyes conjunctiva/eyelids Overall: eyelids normal 12/25/2016 None Full Exam - General 1994 Eyes pupils and irises Overall: pupils equal, round, reactive to light and accomodation 12/25/2016 None Full Exam - General 1994 Ears/Nose/Throat otoscopic exam Overall: tympanic membranes clear 12/25/2016 None Full Exam - General 1994 Ears/Nose/Throat lips/teeth/gingiva Overall: benign lips 12/25/2016 None Full Exam - General 1994 Ears/Nose/Throat oral cavity/pharynx/larynx Overall: oral mucosa clear 12/25/2016 None Full Exam - General 1994 Ears/Nose/Throat oral cavity/pharynx/larynx Overall: oropharyngeal mucosa clear 12/25/2016 None Full Exam - General 1994 Ears/Nose/Throat oral cavity/pharynx/larynx Overall: no masses 12/25/2016 None Full Exam - General 1994 Respiratory auscultation Overall: breath sounds clear bilaterally 12/25/2016 None Full Exam - General 1994 Respiratory respiratory effort/rhythm Overall: no retractions 12/25/2016 None Full Exam - General 1994 Respiratory respiratory effort/rhythm Overall: normal rate 12/25/2016 None Full Exam - General 1994 Cardiovascular extremities Other findings: varicose veins 12/25/2016 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 Full Exam - General 1994 Cardiovascular auscultation of heart Overall: regular rate 12/25/2016 None Full Exam - General 1994 Cardiovascular auscultation of heart Overall: normal heart sounds 12/25/2016 None Full Exam - General 1994 Lymphatic neck nodes Overall: anterior cervical chain benign 12/25/2016 None Full Exam - General 1994 Lymphatic neck nodes Overall: posterior cervical chain benign 12/25/2016 None Full Exam - General 1994 Musculoskeletal lower extremity Palpation - knee: bedolla's cyst 12/25/2016 None Full Exam - General 1994 Musculoskeletal lower extremity Palpation - knee: tender joint line 12/25/2016 None Full Exam - General 1994 Musculoskeletal lower extremity ROM - knee: pain with flexion 12/25/2016 None Full Exam - General 1994 Musculoskeletal head and neck Overall: head atraumatic 12/25/2016 None Full Exam - General 1994 Psychiatric orientation/consciousness Overall: oriented to person, place and time 12/25/2016 None Full Exam - General 1994 Psychiatric mood and affect Overall: normal mood and affect 12/25/2016 None Full Exam - General 1994 Psychiatric appearance Overall: well-groomed, good eye contact 12/25/2016 None Full Exam - General 1994 Ears/Nose/Throat otoscopic exam External auditory canal: tender 12/25/2016 None Full Exam - General 1994 Ears/Nose/Throat otoscopic exam External auditory canal: erythematous 12/25/2016 around irritated skin lesion in lower part of ear canal Full Exam - General 1994 Constitutional general appearance Overall: well developed 10/31/2016 None Full Exam - General 1994 Constitutional general appearance Overall: in no acute distress 10/31/2016 None Full Exam - General 1994 Constitutional general appearance Overall: well nourished 10/31/2016 None Full Exam - General 1994 Eyes conjunctiva/eyelids Overall: conjunctiva clear 10/31/2016 None Full Exam - General 1994 Eyes conjunctiva/eyelids Overall: eyelids normal 10/31/2016 None Full Exam - General 1994 Eyes pupils and irises Overall: pupils equal, round, reactive to light and accomodation 10/31/2016 None Full Exam - General 1994 Ears/Nose/Throat otoscopic exam Overall: external auditory canals clear 10/31/2016 None Full Exam - General 1994 Ears/Nose/Throat otoscopic exam Overall: tympanic membranes clear 10/31/2016 None Full Exam - General 1994 Ears/Nose/Throat lips/teeth/gingiva Overall: benign lips 10/31/2016 None Full Exam - General 1994 Ears/Nose/Throat oral cavity/pharynx/larynx Overall: oral mucosa clear 10/31/2016 None Full Exam - General 1994 Ears/Nose/Throat oral cavity/pharynx/larynx Overall: oropharyngeal mucosa clear 10/31/2016 None Full Exam - General 1994 Ears/Nose/Throat oral cavity/pharynx/larynx Overall: no masses 10/31/2016 None Full Exam - General 1994 Respiratory auscultation Overall: breath sounds clear bilaterally 10/31/2016 None Full Exam - General 1994 Respiratory respiratory effort/rhythm Overall: no retractions 10/31/2016 None Full Exam - General 1994 Respiratory respiratory effort/rhythm Overall: normal rate 10/31/2016 None Full Exam - General 1994 Cardiovascular auscultation of heart Overall: regular rate 10/31/2016 None Full Exam - General 1994 Cardiovascular auscultation of heart Overall: normal heart sounds 10/31/2016 None Full Exam - General 1994 Musculoskeletal lower extremity ROM - knee: pain with flexion 10/31/2016 None Full Exam - General 1994 Musculoskeletal head and neck Overall: head atraumatic 10/31/2016 None Full Exam - General 1994 Psychiatric orientation/consciousness Overall: oriented to person, place and time 10/31/2016 None Full Exam - General 1994 Psychiatric mood and affect Overall: normal mood and affect 10/31/2016 None Full Exam - General 1994 Psychiatric appearance Overall: well-groomed, good eye contact 10/31/2016 None Full Exam - General 1994 Cardiovascular extremities Other findings: varicose veins 10/11/2016 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 Full Exam - General 1994 Musculoskeletal lower extremity Palpation - knee: bedolla's cyst 10/11/2016 None Full Exam - General 1994 Musculoskeletal lower extremity Palpation - knee: tender joint line 10/11/2016 None Full Exam - General 1994 Musculoskeletal lower extremity ROM - knee: pain with flexion 10/11/2016 None Full Exam - General 1994 Constitutional general appearance Overall: well developed 10/11/2016 None Full Exam - General 1994 Constitutional general appearance Overall: in no acute distress 10/11/2016 None Full Exam - General 1994 Constitutional general appearance Overall: well nourished 10/11/2016 None Full Exam - General 1994 Psychiatric orientation/consciousness Overall: oriented to person, place and time 10/11/2016 None Full Exam - General 1994 Constitutional general appearance Overall: well developed 10/03/2016 None Full Exam - General 1994 Constitutional general appearance Overall: in no acute distress 10/03/2016 None Full Exam - General 1994 Constitutional general appearance Overall: well nourished 10/03/2016 None Full Exam - General 1994 Eyes conjunctiva/eyelids Overall: conjunctiva clear 10/03/2016 None Full Exam - General 1994 Eyes conjunctiva/eyelids Overall: eyelids normal 10/03/2016 None Full Exam - General 1994 Eyes pupils and irises Overall: pupils equal, round, reactive to light and accomodation 10/03/2016 None Full Exam - General 1994 Ears/Nose/Throat otoscopic exam Overall: external auditory canals clear 10/03/2016 None Full Exam - General 1994 Ears/Nose/Throat otoscopic exam Overall: tympanic membranes clear 10/03/2016 None Full Exam - General 1994 Ears/Nose/Throat lips/teeth/gingiva Overall: benign lips 10/03/2016 None Full Exam - General 1994 Ears/Nose/Throat oral cavity/pharynx/larynx Overall: oral mucosa clear 10/03/2016 None Full Exam - General 1994 Ears/Nose/Throat oral cavity/pharynx/larynx Overall: oropharyngeal mucosa clear 10/03/2016 None Full Exam - General 1994 Ears/Nose/Throat oral cavity/pharynx/larynx Overall: no masses 10/03/2016 None Full Exam - General 1994 Respiratory auscultation Overall: breath sounds clear bilaterally 10/03/2016 None Full Exam - General 1994 Respiratory respiratory effort/rhythm Overall: no retractions 10/03/2016 None Full Exam - General 1994 Respiratory respiratory effort/rhythm Overall: normal rate 10/03/2016 None Full Exam - General 1994 Cardiovascular auscultation of heart Overall: regular rate 10/03/2016 None Full Exam - General 1994 Cardiovascular auscultation of heart Overall: normal heart sounds 10/03/2016 None Full Exam - General 1994 Abdomen abdominal exam Overall: no tenderness 10/03/2016 None Full Exam - General 1995 Abdomen abdominal exam Overall: normal bowel sounds 10/03/2016 None Full Exam - General 1995 Lymphatic neck nodes Overall: anterior cervical chain benign 10/03/2016 None Full Exam - General 1995 Lymphatic neck nodes Overall: posterior cervical chain benign 10/03/2016 None Full Exam - General 1995 Musculoskeletal lower extremity ROM - knee: pain with flexion 10/03/2016 None Full Exam - General 1994 Musculoskeletal head and neck Overall: head atraumatic 10/03/2016 None Full Exam - General 1994 Neurologic cranial nerves Overall: crainial nerves 2 - 12 grossly intact 10/03/2016 None Full Exam - General 1994 Psychiatric orientation/consciousness Overall: oriented to person, place and time 10/03/2016 None Full Exam - General 1994 Psychiatric mood and affect Overall: normal mood and affect 10/03/2016 None Full Exam - General 1994 Psychiatric appearance Overall: well-groomed, good eye contact 10/03/2016 None Full Exam - General 1994 Musculoskeletal lower extremity Palpation - knee: bedolla's cyst 10/03/2016 None Full Exam - General 1994 Musculoskeletal lower extremity Palpation - knee: tender joint line 10/03/2016 None Full Exam - General 1994 Cardiovascular extremities Other findings: varicose veins 10/03/2016 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 Full Exam - General 1994 Constitutional general appearance Overall: well developed 06/12/2016 None Full Exam - General 1994 Constitutional general appearance Overall: in no acute distress 06/12/2016 None Full Exam - General 1994 Constitutional general appearance Overall: well nourished 06/12/2016 None Full Exam - General 1994 Eyes conjunctiva/eyelids Overall: conjunctiva clear 06/12/2016 None Full Exam - General 1994 Eyes conjunctiva/eyelids Overall: eyelids normal 06/12/2016 None Full Exam - General 1994 Eyes pupils and irises Overall: pupils equal, round, reactive to light and accomodation 06/12/2016 None Full Exam - General 1994 Ears/Nose/Throat otoscopic exam Overall: tympanic membranes clear 06/12/2016 None Full Exam - General 1994 Ears/Nose/Throat otoscopic exam Overall: external auditory canals clear 06/12/2016 None Full Exam - General 1994 Ears/Nose/Throat lips/teeth/gingiva Overall: benign lips 06/12/2016 None Full Exam - General 1994 Ears/Nose/Throat oral cavity/pharynx/larynx Overall: oral mucosa clear 06/12/2016 None Full Exam - General 1994 Ears/Nose/Throat oral cavity/pharynx/larynx Overall: oropharyngeal mucosa clear 06/12/2016 None Full Exam - General 1994 Ears/Nose/Throat oral cavity/pharynx/larynx Overall: no masses 06/12/2016 None Full Exam - General 1994 Respiratory auscultation Overall: breath sounds clear bilaterally 06/12/2016 None Full Exam - General 1994 Respiratory respiratory effort/rhythm Overall: no retractions 06/12/2016 None Full Exam - General 1994 Respiratory respiratory effort/rhythm Overall: normal rate 06/12/2016 None Full Exam - General 1994 Cardiovascular auscultation of heart Overall: regular rate 06/12/2016 None Full Exam - General 1994 Cardiovascular auscultation of heart Overall: normal heart sounds 06/12/2016 None Full Exam - General 1994 Abdomen abdominal exam Overall: no tenderness 06/12/2016 None Full Exam - General 1994 Abdomen abdominal exam Overall: normal bowel sounds 06/12/2016 None Full Exam - General 1994 Lymphatic neck nodes Overall: anterior cervical chain benign 06/12/2016 None Full Exam - General 1994 Lymphatic neck nodes Overall: posterior cervical chain benign 06/12/2016 None Full Exam - General 1994 Musculoskeletal head and neck Overall: head atraumatic 06/12/2016 None Full Exam - General 1994 Neurologic cranial nerves Overall: crainial nerves 2 - 12 grossly intact 06/12/2016 None Full Exam - General 1994 Psychiatric orientation/consciousness Overall: oriented to person, place and time 06/12/2016 None Full Exam - General 1994 Psychiatric mood and affect Overall: normal mood and affect 06/12/2016 None Full Exam - General 1994 Psychiatric appearance Overall: well-groomed, good eye contact 06/12/2016 None Full Exam - General 1994 Musculoskeletal lower extremity ROM - knee: pain with flexion 06/12/2016 None Exam Name System Name It em Name Status Result Effective Dates Notes Full Exam - General 1994 Constitutional general appearance Overall: well developed 06/25/2018 None Full Exam - General 1994 Constitutional general appearance Overall: in no acute distress 06/25/2018 None Full Exam - General 1994 Constitutional general appearance Overall: well nourished 06/25/2018 None Full Exam - General 1994 Eyes conjunctiva/eyelids Overall: conjunctiva clear 06/25/2018 None Full Exam - General 1994 Eyes conjunctiva/eyelids Overall: eyelids normal 06/25/2018 None Full Exam - General 1994 Eyes pupils and irises Overall: pupils equal, round, reactive to light and accomodation 06/25/2018 None Full Exam - General 1994 Ears/Nose/Throat otoscopic exam Overall: external auditory canals clear 06/25/2018 None Full Exam - General 1994 Ears/Nose/Throat otoscopic exam Overall: tympanic membranes clear 06/25/2018 None Full Exam - General 1994 Ears/Nose/Throat lips/teeth/gingiva Overall: benign lips 06/25/2018 None Full Exam - General 1994 Ears/Nose/Throat oral cavity/pharynx/larynx Overall: oral mucosa clear 06/25/2018 None Full Exam - General 1994 Ears/Nose/Throat oral cavity/pharynx/larynx Overall: oropharyngeal mucosa clear 06/25/2018 None Full Exam - General 1994 Ears/Nose/Throat oral cavity/pharynx/larynx Overall: no masses 06/25/2018 None Full Exam - General 1994 Respiratory auscultation Overall: breath sounds clear bilaterally 06/25/2018 None Full Exam - General 1994 Respiratory respiratory effort/rhythm Overall: no retractions 06/25/2018 None Full Exam - General 1994 Respiratory respiratory effort/rhythm Overall: normal rate 06/25/2018 None Full Exam - Cardiology Abdomen abdominal exam Epigastric: tender to palpation 06/25/2018 None Full Exam - General 1994 Cardiovascular extremities Other findings: varicose veins 06/25/2018 None Full Exam - General 1994 Cardiovascular auscultation of heart Overall: regular rate 06/25/2018 None Full Exam - General 1994 Cardiovascular auscultation of heart Overall: normal heart sounds 06/25/2018 None Full Exam - General 1994 Abdomen abdominal exam Overall: no tenderness 06/25/2018 None Full Exam - General 1994 Abdomen abdominal exam Overall: normal bowel sounds 06/25/2018 None Full Exam - General 1994 Lymphatic neck nodes Overall: anterior cervical chain benign 06/25/2018 None Full Exam - General 1994 Lymphatic neck nodes Overall: posterior cervical chain benign 06/25/2018 None Full Exam - General 1994 Musculoskeletal head and neck Overall: head atraumatic 06/25/2018 None Full Exam - General 1994 Neurologic cranial nerves Overall: crainial nerves 2 - 12 grossly intact 06/25/2018 None Full Exam - General 1994 Psychiatric orientation/consciousness Overall: oriented to person, place and time 06/25/2018 None Full Exam - General 1994 Psychiatric mood and affect Overall: normal mood and affect 06/25/2018 None Full Exam - General 1994 Psychiatric appearance Overall: well-groomed, good eye contact 06/25/2018 None Full Exam - General 1994 Constitutional general appearance Overall: well developed 05/25/2018 None Full Exam - General 1994 Constitutional general appearance Overall: in no acute distress 05/25/2018 None Full Exam - General 1994 Constitutional general appearance Overall: well nourished 05/25/2018 None Full Exam - General 1994 Eyes conjunctiva/eyelids Overall: conjunctiva clear 05/25/2018 None Full Exam - General 1994 Eyes conjunctiva/eyelids Overall: eyelids normal 05/25/2018 None Full Exam - General 1994 Eyes pupils and irises Overall: pupils equal, round, reactive to light and accomodation 05/25/2018 None Full Exam - General 1994 Ears/Nose/Throat otoscopic exam Overall: external auditory canals clear 05/25/2018 None Full Exam - General 1994 Ears/Nose/Throat otoscopic exam Overall: tympanic membranes clear 05/25/2018 None Full Exam - General 1994 Ears/Nose/Throat lips/teeth/gingiva Overall: benign lips 05/25/2018 None Full Exam - General 1994 Ears/Nose/Throat oral cavity/pharynx/larynx Overall: oral mucosa clear 05/25/2018 None Full Exam - General 1994 Ears/Nose/Throat oral cavity/pharynx/larynx Overall: oropharyngeal mucosa clear 05/25/2018 None Full Exam - General 1994 Ears/Nose/Throat oral cavity/pharynx/larynx Overall: no masses 05/25/2018 None Full Exam - General 1994 Respiratory auscultation Overall: breath sounds clear bilaterally 05/25/2018 None Full Exam - General 1994 Respiratory respiratory effort/rhythm Overall: no retractions 05/25/2018 None Full Exam - General 1994 Respiratory respiratory effort/rhythm Overall: normal rate 05/25/2018 None Full Exam - General 1994 Cardiovascular extremities Other findings: varicose veins 05/25/2018 None Full Exam - General 1994 Cardiovascular auscultation of heart Overall: regular rate 05/25/2018 None Full Exam - General 1994 Cardiovascular auscultation of heart Overall: normal heart sounds 05/25/2018 None Full Exam - General 1994 Abdomen abdominal exam Overall: no tenderness 05/25/2018 None Full Exam - General 1994 Abdomen abdominal exam Overall: normal bowel sounds 05/25/2018 None Full Exam - General 1994 Lymphatic neck nodes Overall: anterior cervical chain benign 05/25/2018 None Full Exam - General 1994 Lymphatic neck nodes Overall: posterior cervical chain benign 05/25/2018 None Full Exam - General 1994 Musculoskeletal head and neck Overall: head atraumatic 05/25/2018 None Full Exam - General 1994 Neurologic cranial nerves Overall: crainial nerves 2 - 12 grossly intact 05/25/2018 None Full Exam - General 1994 Psychiatric orientation/consciousness Overall: oriented to person, place and time 05/25/2018 None Full Exam - General 1994 Psychiatric mood and affect Overall: normal mood and affect 05/25/2018 None Full Exam - General 1994 Psychiatric appearance Overall: well-groomed, good eye contact 05/25/2018 None Full Exam - Cardiology Abdomen abdominal exam Epigastric: tender to palpation 05/25/2018 None Full Exam - General 1994 Constitutional general appearance Overall: well developed 07/11/2017 None Full Exam - General 1994 Constitutional general appearance Overall: in no acute distress 07/11/2017 None Full Exam - General 1994 Constitutional general appearance Overall: well nourished 07/11/2017 None Full Exam - General 1994 Eyes conjunctiva/eyelids Overall: conjunctiva clear 07/11/2017 None Full Exam - General 1994 Eyes conjunctiva/eyelids Overall: eyelids normal 07/11/2017 None Full Exam - General 1994 Eyes pupils and irises Overall: pupils equal, round, reactive to light and accomodation 07/11/2017 None Full Exam - General 1994 Ears/Nose/Throat otoscopic exam Overall: external auditory canals clear 07/11/2017 None Full Exam - General 1994 Ears/Nose/Throat otoscopic exam Overall: tympanic membranes clear 07/11/2017 None Full Exam - General 1994 Ears/Nose/Throat lips/teeth/gingiva Overall: benign lips 07/11/2017 None Full Exam - General 1994 Ears/Nose/Throat oral cavity/pharynx/larynx Overall: oral mucosa clear 07/11/2017 None Full Exam - General 1995 Ears/Nose/Throat oral cavity/pharynx/larynx Overall: oropharyngeal mucosa clear 07/11/2017 None Full Exam - General 1994 Ears/Nose/Throat oral cavity/pharynx/larynx Overall: no masses 07/11/2017 None Full Exam - General 1994 Respiratory auscultation Overall: breath sounds clear bilaterally 07/11/2017 None Full Exam - General 1994 Respiratory respiratory effort/rhythm Overall: no retractions 07/11/2017 None Full Exam - General 1994 Respiratory respiratory effort/rhythm Overall: normal rate 07/11/2017 None Full Exam - General 1994 Cardiovascular extremities Other findings: varicose veins 07/11/2017 None Full Exam - General 1994 Cardiovascular auscultation of heart Overall: regular rate 07/11/2017 None Full Exam - General 1994 Cardiovascular auscultation of heart Overall: normal heart sounds 07/11/2017 None Full Exam - General 1994 Abdomen abdominal exam Overall: no tenderness 07/11/2017 None Full Exam - General 1994 Abdomen abdominal exam Overall: normal bowel sounds 07/11/2017 None Full Exam - General 1994 Lymphatic neck nodes Overall: anterior cervical chain benign 07/11/2017 None Full Exam - General 1994 Lymphatic neck nodes Overall: posterior cervical chain benign 07/11/2017 None Full Exam - General 1994 Musculoskeletal head and neck Overall: head atraumatic 07/11/2017 None Full Exam - General 1994 Neurologic cranial nerves Overall: crainial nerves 2 - 12 grossly intact 07/11/2017 None Full Exam - General 1994 Psychiatric orientation/consciousness Overall: oriented to person, place and time 07/11/2017 None Full Exam - General 1994 Psychiatric mood and affect Overall: normal mood and affect 07/11/2017 None Full Exam - General 1994 Psychiatric appearance Overall: well-groomed, good eye contact 07/11/2017 None Full Exam - General 1994 Constitutional general appearance Overall: well developed 04/08/2017 None Full Exam - General 1994 Constitutional general appearance Overall: in no acute distress 04/08/2017 None Full Exam - General 1994 Constitutional general appearance Overall: well nourished 04/08/2017 None Full Exam - General 1994 Eyes conjunctiva/eyelids Overall: conjunctiva clear 04/08/2017 None Full Exam - General 1994 Eyes conjunctiva/eyelids Overall: eyelids normal 04/08/2017 None Full Exam - General 1994 Eyes pupils and irises Overall: pupils equal, round, reactive to light and accomodation 04/08/2017 None Full Exam - General 1994 Ears/Nose/Throat otoscopic exam Overall: external auditory canals clear 04/08/2017 None Full Exam - General 1994 Ears/Nose/Throat otoscopic exam Overall: tympanic membranes clear 04/08/2017 None Full Exam - General 1994 Ears/Nose/Throat lips/teeth/gingiva Overall: benign lips 04/08/2017 None Full Exam - General 1994 Ears/Nose/Throat oral cavity/pharynx/larynx Overall: oral mucosa clear 04/08/2017 None Full Exam - General 1994 Ears/Nose/Throat oral cavity/pharynx/larynx Overall: oropharyngeal mucosa clear 04/08/2017 None Full Exam - General 1994 Ears/Nose/Throat oral cavity/pharynx/larynx Overall: no masses 04/08/2017 None Full Exam - General 1994 Respiratory auscultation Overall: breath sounds clear bilaterally 04/08/2017 None Full Exam - General 1994 Respiratory respiratory effort/rhythm Overall: no retractions 04/08/2017 None Full Exam - General 1994 Respiratory respiratory effort/rhythm Overall: normal rate 04/08/2017 None Full Exam - General 1994 Cardiovascular extremities Other findings: varicose veins 04/08/2017 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 Full Exam - General 1994 Cardiovascular auscultation of heart Overall: regular rate 04/08/2017 None Full Exam - General 1994 Cardiovascular auscultation of heart Overall: normal heart sounds 04/08/2017 None Full Exam - General 1994 Abdomen abdominal exam Overall: no tenderness 04/08/2017 None Full Exam - General 1994 Abdomen abdominal exam Overall: normal bowel sounds 04/08/2017 None Full Exam - General 1994 Lymphatic neck nodes Overall: anterior cervical chain benign 04/08/2017 None Full Exam - General 1994 Lymphatic neck nodes Overall: posterior cervical chain benign 04/08/2017 None Full Exam - General 1994 Musculoskeletal lower extremity Palpation - knee: bedolla's cyst 04/08/2017 None Full Exam - General 1994 Musculoskeletal lower extremity Palpation - knee: tender joint line 04/08/2017 None Full Exam - General 1994 Musculoskeletal lower extremity ROM - knee: pain with flexion 04/08/2017 None Full Exam - General 1994 Musculoskeletal head and neck Overall: head atraumatic 04/08/2017 None Full Exam - General 1994 Neurologic cranial nerves Overall: crainial nerves 2 - 12 grossly intact 04/08/2017 None Full Exam - General 1994 Psychiatric orientation/consciousness Overall: oriented to person, place and time 04/08/2017 None Full Exam - General 1994 Psychiatric mood and affect Overall: normal mood and affect 04/08/2017 None Full Exam - General 1994 Psychiatric appearance Overall: well-groomed, good eye contact 04/08/2017 None Full Exam - General 1994 Constitutional general appearance Overall: well developed 12/25/2016 None Full Exam - General 1994 Constitutional general appearance Overall: in no acute distress 12/25/2016 None Full Exam - General 1994 Constitutional general appearance Overall: well nourished 12/25/2016 None Full Exam - General 1994 Eyes conjunctiva/eyelids Overall: conjunctiva clear 12/25/2016 None Full Exam - General 1994 Eyes conjunctiva/eyelids Overall: eyelids normal 12/25/2016 None Full Exam - General 1994 Eyes pupils and irises Overall: pupils equal, round, reactive to light and accomodation 12/25/2016 None Full Exam - General 1994 Ears/Nose/Throat otoscopic exam Overall: tympanic membranes clear 12/25/2016 None Full Exam - General 1994 Ears/Nose/Throat lips/teeth/gingiva Overall: benign lips 12/25/2016 None Full Exam - General 1994 Ears/Nose/Throat oral cavity/pharynx/larynx Overall: oral mucosa clear 12/25/2016 None Full Exam - General 1994 Ears/Nose/Throat oral cavity/pharynx/larynx Overall: oropharyngeal mucosa clear 12/25/2016 None Full Exam - General 1994 Ears/Nose/Throat oral cavity/pharynx/larynx Overall: no masses 12/25/2016 None Full Exam - General 1994 Respiratory auscultation Overall: breath sounds clear bilaterally 12/25/2016 None Full Exam - General 1994 Respiratory respiratory effort/rhythm Overall: no retractions 12/25/2016 None Full Exam - General 1994 Respiratory respiratory effort/rhythm Overall: normal rate 12/25/2016 None Full Exam - General 1994 Cardiovascular extremities Other findings: varicose veins 12/25/2016 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 Full Exam - General 1994 Cardiovascular auscultation of heart Overall: regular rate 12/25/2016 None Full Exam - General 1994 Cardiovascular auscultation of heart Overall: normal heart sounds 12/25/2016 None Full Exam - General 1994 Lymphatic neck nodes Overall: anterior cervical chain benign 12/25/2016 None Full Exam - General 1994 Lymphatic neck nodes Overall: posterior cervical chain benign 12/25/2016 None Full Exam - General 1994 Musculoskeletal lower extremity Palpation - knee: bedolla's cyst 12/25/2016 None Full Exam - General 1994 Musculoskeletal lower extremity Palpation - knee: tender joint line 12/25/2016 None Full Exam - General 1994 Musculoskeletal lower extremity ROM - knee: pain with flexion 12/25/2016 None Full Exam - General 1994 Musculoskeletal head and neck Overall: head atraumatic 12/25/2016 None Full Exam - General 1994 Psychiatric orientation/consciousness Overall: oriented to person, place and time 12/25/2016 None Full Exam - General 1994 Psychiatric mood and affect Overall: normal mood and affect 12/25/2016 None Full Exam - General 1994 Psychiatric appearance Overall: well-groomed, good eye contact 12/25/2016 None Full Exam - General 1994 Ears/Nose/Throat otoscopic exam External auditory canal: tender 12/25/2016 None Full Exam - General 1994 Ears/Nose/Throat otoscopic exam External auditory canal: erythematous 12/25/2016 around irritated skin lesion in lower part of ear canal Full Exam - General 1994 Constitutional general appearance Overall: well developed 10/31/2016 None Full Exam - General 1994 Constitutional general appearance Overall: in no acute distress 10/31/2016 None Full Exam - General 1994 Constitutional general appearance Overall: well nourished 10/31/2016 None Full Exam - General 1994 Eyes conjunctiva/eyelids Overall: conjunctiva clear 10/31/2016 None Full Exam - General 1994 Eyes conjunctiva/eyelids Overall: eyelids normal 10/31/2016 None Full Exam - General 1994 Eyes pupils and irises Overall: pupils equal, round, reactive to light and accomodation 10/31/2016 None Full Exam - General 1994 Ears/Nose/Throat otoscopic exam Overall: external auditory canals clear 10/31/2016 None Full Exam - General 1994 Ears/Nose/Throat otoscopic exam Overall: tympanic membranes clear 10/31/2016 None Full Exam - General 1994 Ears/Nose/Throat lips/teeth/gingiva Overall: benign lips 10/31/2016 None Full Exam - General 1994 Ears/Nose/Throat oral cavity/pharynx/larynx Overall: oral mucosa clear 10/31/2016 None Full Exam - General 1994 Ears/Nose/Throat oral cavity/pharynx/larynx Overall: oropharyngeal mucosa clear 10/31/2016 None Full Exam - General 1994 Ears/Nose/Throat oral cavity/pharynx/larynx Overall: no masses 10/31/2016 None Full Exam - General 1994 Respiratory auscultation Overall: breath sounds clear bilaterally 10/31/2016 None Full Exam - General 1994 Respiratory respiratory effort/rhythm Overall: no retractions 10/31/2016 None Full Exam - General 1994 Respiratory respiratory effort/rhythm Overall: normal rate 10/31/2016 None Full Exam - General 1994 Cardiovascular auscultation of heart Overall: regular rate 10/31/2016 None Full Exam - General 1994 Cardiovascular auscultation of heart Overall: normal heart sounds 10/31/2016 None Full Exam - General 1994 Musculoskeletal lower extremity ROM - knee: pain with flexion 10/31/2016 None Full Exam - General 1994 Musculoskeletal head and neck Overall: head atraumatic 10/31/2016 None Full Exam - General 1994 Psychiatric orientation/consciousness Overall: oriented to person, place and time 10/31/2016 None Full Exam - General 1994 Psychiatric mood and affect Overall: normal mood and affect 10/31/2016 None Full Exam - General 1994 Psychiatric appearance Overall: well-groomed, good eye contact 10/31/2016 None Full Exam - General 1994 Cardiovascular extremities Other findings: varicose veins 10/11/2016 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 Full Exam - General 1994 Musculoskeletal lower extremity Palpation - knee: bedolla's cyst 10/11/2016 None Full Exam - General 1994 Musculoskeletal lower extremity Palpation - knee: tender joint line 10/11/2016 None Full Exam - General 1994 Musculoskeletal lower extremity ROM - knee: pain with flexion 10/11/2016 None Full Exam - General 1994 Constitutional general appearance Overall: well developed 10/11/2016 None Full Exam - General 1994 Constitutional general appearance Overall: in no acute distress 10/11/2016 None Full Exam - General 1994 Constitutional general appearance Overall: well nourished 10/11/2016 None Full Exam - General 1994 Psychiatric orientation/consciousness Overall: oriented to person, place and time 10/11/2016 None Full Exam - General 1994 Constitutional general appearance Overall: well developed 10/03/2016 None Full Exam - General 1994 Constitutional general appearance Overall: in no acute distress 10/03/2016 None Full Exam - General 1994 Constitutional general appearance Overall: well nourished 10/03/2016 None Full Exam - General 1994 Eyes conjunctiva/eyelids Overall: conjunctiva clear 10/03/2016 None Full Exam - General 1994 Eyes conjunctiva/eyelids Overall: eyelids normal 10/03/2016 None Full Exam - General 1994 Eyes pupils and irises Overall: pupils equal, round, reactive to light and accomodation 10/03/2016 None Full Exam - General 1994 Ears/Nose/Throat otoscopic exam Overall: external auditory canals clear 10/03/2016 None Full Exam - General 1994 Ears/Nose/Throat otoscopic exam Overall: tympanic membranes clear 10/03/2016 None Full Exam - General 1994 Ears/Nose/Throat lips/teeth/gingiva Overall: benign lips 10/03/2016 None Full Exam - General 1994 Ears/Nose/Throat oral cavity/pharynx/larynx Overall: oral mucosa clear 10/03/2016 None Full Exam - General 1994 Ears/Nose/Throat oral cavity/pharynx/larynx Overall: oropharyngeal mucosa clear 10/03/2016 None Full Exam - General 1994 Ears/Nose/Throat oral cavity/pharynx/larynx Overall: no masses 10/03/2016 None Full Exam - General 1994 Respiratory auscultation Overall: breath sounds clear bilaterally 10/03/2016 None Full Exam - General 1994 Respiratory respiratory effort/rhythm Overall: no retractions 10/03/2016 None Full Exam - General 1994 Respiratory respiratory effort/rhythm Overall: normal rate 10/03/2016 None Full Exam - General 1994 Cardiovascular auscultation of heart Overall: regular rate 10/03/2016 None Full Exam - General 1994 Cardiovascular auscultation of heart Overall: normal heart sounds 10/03/2016 None Full Exam - General 1994 Abdomen abdominal exam Overall: no tenderness 10/03/2016 None Full Exam - General 1994 Abdomen abdominal exam Overall: normal bowel sounds 10/03/2016 None Full Exam - General 1994 Lymphatic neck nodes Overall: anterior cervical chain benign 10/03/2016 None Full Exam - General 1994 Lymphatic neck nodes Overall: posterior cervical chain benign 10/03/2016 None Full Exam - General 1994 Musculoskeletal lower extremity ROM - knee: pain with flexion 10/03/2016 None Full Exam - General 1994 Musculoskeletal head and neck Overall: head atraumatic 10/03/2016 None Full Exam - General 1994 Neurologic cranial nerves Overall: crainial nerves 2 - 12 grossly intact 10/03/2016 None Full Exam - General 1994 Psychiatric orientation/consciousness Overall: oriented to person, place and time 10/03/2016 None Full Exam - General 1994 Psychiatric mood and affect Overall: normal mood and affect 10/03/2016 None Full Exam - General 1994 Psychiatric appearance Overall: well-groomed, good eye contact 10/03/2016 None Full Exam - General 1994 Musculoskeletal lower extremity Palpation - knee: bedolla's cyst 10/03/2016 None Full Exam - General 1994 Musculoskeletal lower extremity Palpation - knee: tender joint line 10/03/2016 None Full Exam - General 1994 Cardiovascular extremities Other findings: varicose veins 10/03/2016 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 Full Exam - General 1994 Constitutional general appearance Overall: well developed 06/12/2016 None Full Exam - General 1994 Constitutional general appearance Overall: in no acute distress 06/12/2016 None Full Exam - General 1994 Constitutional general appearance Overall: well nourished 06/12/2016 None Full Exam - General 1994 Eyes conjunctiva/eyelids Overall: conjunctiva clear 06/12/2016 None Full Exam - General 1994 Eyes conjunctiva/eyelids Overall: eyelids normal 06/12/2016 None Full Exam - General 1994 Eyes pupils and irises Overall: pupils equal, round, reactive to light and accomodation 06/12/2016 None Full Exam - General 1994 Ears/Nose/Throat otoscopic exam Overall: tympanic membranes clear 06/12/2016 None Full Exam - General 1994 Ears/Nose/Throat otoscopic exam Overall: external auditory canals clear 06/12/2016 None Full Exam - General 1994 Ears/Nose/Throat lips/teeth/gingiva Overall: benign lips 06/12/2016 None Full Exam - General 1994 Ears/Nose/Throat oral cavity/pharynx/larynx Overall: oral mucosa clear 06/12/2016 None Full Exam - General 1994 Ears/Nose/Throat oral cavity/pharynx/larynx Overall: oropharyngeal mucosa clear 06/12/2016 None Full Exam - General 1994 Ears/Nose/Throat oral cavity/pharynx/larynx Overall: no masses 06/12/2016 None Full Exam - General 1994 Respiratory auscultation Overall: breath sounds clear bilaterally 06/12/2016 None Full Exam - General 1994 Respiratory respiratory effort/rhythm Overall: no retractions 06/12/2016 None Full Exam - General 1994 Respiratory respiratory effort/rhythm Overall: normal rate 06/12/2016 None Full Exam - General 1994 Cardiovascular auscultation of heart Overall: regular rate 06/12/2016 None Full Exam - General 1994 Cardiovascular auscultation of heart Overall: normal heart sounds 06/12/2016 None Full Exam - General 1994 Abdomen abdominal exam Overall: no tenderness 06/12/2016 None Full Exam - General 1994 Abdomen abdominal exam Overall: normal bowel sounds 06/12/2016 None Full Exam - General 1994 Lymphatic neck nodes Overall: anterior cervical chain benign 06/12/2016 None Full Exam - General 1994 Lymphatic neck nodes Overall: posterior cervical chain benign 06/12/2016 None Full Exam - General 1994 Musculoskeletal head and neck Overall: head atraumatic 06/12/2016 None Full Exam - General 1994 Neurologic cranial nerves Overall: crainial nerves 2 - 12 grossly intact 06/12/2016 None Full Exam - General 1994 Psychiatric orientation/consciousness Overall: oriented to person, place and time 06/12/2016 None Full Exam - General 1994 Psychiatric mood and affect Overall: normal mood and affect 06/12/2016 None Full Exam - General 1994 Psychiatric appearance Overall: well-groomed, good eye contact 06/12/2016 None Full Exam - General 1994 Musculoskeletal lower extremity ROM - knee: pain with flexion 06/12/2016 None Exam Name System Name It em Name Status Result Effective Dates Notes Full Exam - General 1994 Constitutional general appearance Overall: well developed 07/23/2018 None Full Exam - General 1994 Constitutional general appearance Overall: in no acute distress 07/23/2018 None Full Exam - General 1994 Constitutional general appearance Overall: well nourished 07/23/2018 None Full Exam - General 1994 Eyes conjunctiva/eyelids Overall: conjunctiva clear 07/23/2018 None Full Exam - General 1994 Eyes conjunctiva/eyelids Overall: eyelids normal 07/23/2018 None Full Exam - General 1994 Eyes pupils and irises Overall: pupils equal, round, reactive to light and accomodation 07/23/2018 None Full Exam - General 1994 Ears/Nose/Throat otoscopic exam Overall: external auditory canals clear 07/23/2018 None Full Exam - General 1994 Ears/Nose/Throat otoscopic exam Overall: tympanic membranes clear 07/23/2018 None Full Exam - General 1994 Ears/Nose/Throat lips/teeth/gingiva Overall: benign lips 07/23/2018 None Full Exam - General 1994 Ears/Nose/Throat oral cavity/pharynx/larynx Overall: oral mucosa clear 07/23/2018 None Full Exam - General 1994 Ears/Nose/Throat oral cavity/pharynx/larynx Overall: oropharyngeal mucosa clear 07/23/2018 None Full Exam - General 1994 Ears/Nose/Throat oral cavity/pharynx/larynx Overall: no masses 07/23/2018 None Full Exam - General 1994 Respiratory auscultation Overall: breath sounds clear bilaterally 07/23/2018 None Full Exam - General 1994 Respiratory respiratory effort/rhythm Overall: no retractions 07/23/2018 None Full Exam - General 1994 Respiratory respiratory effort/rhythm Overall: normal rate 07/23/2018 None Full Exam - Cardiology Abdomen abdominal exam Epigastric: tender to palpation 07/23/2018 None Full Exam - General 1994 Cardiovascular extremities Other findings: varicose veins 07/23/2018 None Full Exam - General 1994 Cardiovascular auscultation of heart Overall: regular rate 07/23/2018 None Full Exam - General 1994 Cardiovascular auscultation of heart Overall: normal heart sounds 07/23/2018 None Full Exam - General 1994 Abdomen abdominal exam Overall: no tenderness 07/23/2018 None Full Exam - General 1994 Abdomen abdominal exam Overall: normal bowel sounds 07/23/2018 None Full Exam - General 1994 Lymphatic neck nodes Overall: anterior cervical chain benign 07/23/2018 None Full Exam - General 1994 Lymphatic neck nodes Overall: posterior cervical chain benign 07/23/2018 None Full Exam - General 1994 Musculoskeletal head and neck Overall: head atraumatic 07/23/2018 None Full Exam - General 1994 Neurologic cranial nerves Overall: crainial nerves 2 - 12 grossly intact 07/23/2018 None Full Exam - General 1994 Psychiatric orientation/consciousness Overall: oriented to person, place and time 07/23/2018 None Full Exam - General 1994 Psychiatric mood and affect Overall: normal mood and affect 07/23/2018 None Full Exam - General 1994 Psychiatric appearance Overall: well-groomed, good eye contact 07/23/2018 None Full Exam - General 1994 Constitutional general appearance Overall: well developed 06/25/2018 None Full Exam - General 1994 Constitutional general appearance Overall: in no acute distress 06/25/2018 None Full Exam - General 1994 Constitutional general appearance Overall: well nourished 06/25/2018 None Full Exam - General 1994 Eyes conjunctiva/eyelids Overall: conjunctiva clear 06/25/2018 None Full Exam - General 1994 Eyes conjunctiva/eyelids Overall: eyelids normal 06/25/2018 None Full Exam - General 1994 Eyes pupils and irises Overall: pupils equal, round, reactive to light and accomodation 06/25/2018 None Full Exam - General 1994 Ears/Nose/Throat otoscopic exam Overall: external auditory canals clear 06/25/2018 None Full Exam - General 1994 Ears/Nose/Throat otoscopic exam Overall: tympanic membranes clear 06/25/2018 None Full Exam - General 1994 Ears/Nose/Throat lips/teeth/gingiva Overall: benign lips 06/25/2018 None Full Exam - General 1994 Ears/Nose/Throat oral cavity/pharynx/larynx Overall: oral mucosa clear 06/25/2018 None Full Exam - General 1994 Ears/Nose/Throat oral cavity/pharynx/larynx Overall: oropharyngeal mucosa clear 06/25/2018 None Full Exam - General 1995 Ears/Nose/Throat oral cavity/pharynx/larynx Overall: no masses 06/25/2018 None Full Exam - General 1994 Respiratory auscultation Overall: breath sounds clear bilaterally 06/25/2018 None Full Exam - General 1994 Respiratory respiratory effort/rhythm Overall: no retractions 06/25/2018 None Full Exam - General 1994 Respiratory respiratory effort/rhythm Overall: normal rate 06/25/2018 None Full Exam - Cardiology Abdomen abdominal exam Epigastric: tender to palpation 06/25/2018 None Full Exam - General 1994 Cardiovascular extremities Other findings: varicose veins 06/25/2018 None Full Exam - General 1994 Cardiovascular auscultation of heart Overall: regular rate 06/25/2018 None Full Exam - General 1994 Cardiovascular auscultation of heart Overall: normal heart sounds 06/25/2018 None Full Exam - General 1994 Abdomen abdominal exam Overall: no tenderness 06/25/2018 None Full Exam - General 1994 Abdomen abdominal exam Overall: normal bowel sounds 06/25/2018 None Full Exam - General 1994 Lymphatic neck nodes Overall: anterior cervical chain benign 06/25/2018 None Full Exam - General 1994 Lymphatic neck nodes Overall: posterior cervical chain benign 06/25/2018 None Full Exam - General 1994 Musculoskeletal head and neck Overall: head atraumatic 06/25/2018 None Full Exam - General 1994 Neurologic cranial nerves Overall: crainial nerves 2 - 12 grossly intact 06/25/2018 None Full Exam - General 1994 Psychiatric orientation/consciousness Overall: oriented to person, place and time 06/25/2018 None Full Exam - General 1994 Psychiatric mood and affect Overall: normal mood and affect 06/25/2018 None Full Exam - General 1994 Psychiatric appearance Overall: well-groomed, good eye contact 06/25/2018 None Full Exam - General 1994 Constitutional general appearance Overall: well developed 05/25/2018 None Full Exam - General 1994 Constitutional general appearance Overall: in no acute distress 05/25/2018 None Full Exam - General 1994 Constitutional general appearance Overall: well nourished 05/25/2018 None Full Exam - General 1994 Eyes conjunctiva/eyelids Overall: conjunctiva clear 05/25/2018 None Full Exam - General 1994 Eyes conjunctiva/eyelids Overall: eyelids normal 05/25/2018 None Full Exam - General 1994 Eyes pupils and irises Overall: pupils equal, round, reactive to light and accomodation 05/25/2018 None Full Exam - General 1995 Ears/Nose/Throat otoscopic exam Overall: external auditory canals clear 05/25/2018 None Full Exam - General 1994 Ears/Nose/Throat otoscopic exam Overall: tympanic membranes clear 05/25/2018 None Full Exam - General 1994 Ears/Nose/Throat lips/teeth/gingiva Overall: benign lips 05/25/2018 None Full Exam - General 1994 Ears/Nose/Throat oral cavity/pharynx/larynx Overall: oral mucosa clear 05/25/2018 None Full Exam - General 1994 Ears/Nose/Throat oral cavity/pharynx/larynx Overall: oropharyngeal mucosa clear 05/25/2018 None Full Exam - General 1995 Ears/Nose/Throat oral cavity/pharynx/larynx Overall: no masses 05/25/2018 None Full Exam - General 1994 Respiratory auscultation Overall: breath sounds clear bilaterally 05/25/2018 None Full Exam - General 1994 Respiratory respiratory effort/rhythm Overall: no retractions 05/25/2018 None Full Exam - General 1994 Respiratory respiratory effort/rhythm Overall: normal rate 05/25/2018 None Full Exam - General 1994 Cardiovascular extremities Other findings: varicose veins 05/25/2018 None Full Exam - General 1994 Cardiovascular auscultation of heart Overall: regular rate 05/25/2018 None Full Exam - General 1994 Cardiovascular auscultation of heart Overall: normal heart sounds 05/25/2018 None Full Exam - General 1994 Abdomen abdominal exam Overall: no tenderness 05/25/2018 None Full Exam - General 1994 Abdomen abdominal exam Overall: normal bowel sounds 05/25/2018 None Full Exam - General 1994 Lymphatic neck nodes Overall: anterior cervical chain benign 05/25/2018 None Full Exam - General 1994 Lymphatic neck nodes Overall: posterior cervical chain benign 05/25/2018 None Full Exam - General 1994 Musculoskeletal head and neck Overall: head atraumatic 05/25/2018 None Full Exam - General 1994 Neurologic cranial nerves Overall: crainial nerves 2 - 12 grossly intact 05/25/2018 None Full Exam - General 1994 Psychiatric orientation/consciousness Overall: oriented to person, place and time 05/25/2018 None Full Exam - General 1994 Psychiatric mood and affect Overall: normal mood and affect 05/25/2018 None Full Exam - General 1994 Psychiatric appearance Overall: well-groomed, good eye contact 05/25/2018 None Full Exam - Cardiology Abdomen abdominal exam Epigastric: tender to palpation 05/25/2018 None Full Exam - General 1994 Constitutional general appearance Overall: well developed 07/11/2017 None Full Exam - General 1994 Constitutional general appearance Overall: in no acute distress 07/11/2017 None Full Exam - General 1994 Constitutional general appearance Overall: well nourished 07/11/2017 None Full Exam - General 1994 Eyes conjunctiva/eyelids Overall: conjunctiva clear 07/11/2017 None Full Exam - General 1994 Eyes conjunctiva/eyelids Overall: eyelids normal 07/11/2017 None Full Exam - General 1994 Eyes pupils and irises Overall: pupils equal, round, reactive to light and accomodation 07/11/2017 None Full Exam - General 1994 Ears/Nose/Throat otoscopic exam Overall: external auditory canals clear 07/11/2017 None Full Exam - General 1994 Ears/Nose/Throat otoscopic exam Overall: tympanic membranes clear 07/11/2017 None Full Exam - General 1994 Ears/Nose/Throat lips/teeth/gingiva Overall: benign lips 07/11/2017 None Full Exam - General 1994 Ears/Nose/Throat oral cavity/pharynx/larynx Overall: oral mucosa clear 07/11/2017 None Full Exam - General 1995 Ears/Nose/Throat oral cavity/pharynx/larynx Overall: oropharyngeal mucosa clear 07/11/2017 None Full Exam - General 1994 Ears/Nose/Throat oral cavity/pharynx/larynx Overall: no masses 07/11/2017 None Full Exam - General 1994 Respiratory auscultation Overall: breath sounds clear bilaterally 07/11/2017 None Full Exam - General 1994 Respiratory respiratory effort/rhythm Overall: no retractions 07/11/2017 None Full Exam - General 1994 Respiratory respiratory effort/rhythm Overall: normal rate 07/11/2017 None Full Exam - General 1994 Cardiovascular extremities Other findings: varicose veins 07/11/2017 None Full Exam - General 1994 Cardiovascular auscultation of heart Overall: regular rate 07/11/2017 None Full Exam - General 1994 Cardiovascular auscultation of heart Overall: normal heart sounds 07/11/2017 None Full Exam - General 1994 Abdomen abdominal exam Overall: no tenderness 07/11/2017 None Full Exam - General 1994 Abdomen abdominal exam Overall: normal bowel sounds 07/11/2017 None Full Exam - General 1994 Lymphatic neck nodes Overall: anterior cervical chain benign 07/11/2017 None Full Exam - General 1994 Lymphatic neck nodes Overall: posterior cervical chain benign 07/11/2017 None Full Exam - General 1994 Musculoskeletal head and neck Overall: head atraumatic 07/11/2017 None Full Exam - General 1994 Neurologic cranial nerves Overall: crainial nerves 2 - 12 grossly intact 07/11/2017 None Full Exam - General 1994 Psychiatric orientation/consciousness Overall: oriented to person, place and time 07/11/2017 None Full Exam - General 1994 Psychiatric mood and affect Overall: normal mood and affect 07/11/2017 None Full Exam - General 1994 Psychiatric appearance Overall: well-groomed, good eye contact 07/11/2017 None Full Exam - General 1994 Constitutional general appearance Overall: well developed 04/08/2017 None Full Exam - General 1994 Constitutional general appearance Overall: in no acute distress 04/08/2017 None Full Exam - General 1994 Constitutional general appearance Overall: well nourished 04/08/2017 None Full Exam - General 1994 Eyes conjunctiva/eyelids Overall: conjunctiva clear 04/08/2017 None Full Exam - General 1994 Eyes conjunctiva/eyelids Overall: eyelids normal 04/08/2017 None Full Exam - General 1994 Eyes pupils and irises Overall: pupils equal, round, reactive to light and accomodation 04/08/2017 None Full Exam - General 1994 Ears/Nose/Throat otoscopic exam Overall: external auditory canals clear 04/08/2017 None Full Exam - General 1994 Ears/Nose/Throat otoscopic exam Overall: tympanic membranes clear 04/08/2017 None Full Exam - General 1994 Ears/Nose/Throat lips/teeth/gingiva Overall: benign lips 04/08/2017 None Full Exam - General 1994 Ears/Nose/Throat oral cavity/pharynx/larynx Overall: oral mucosa clear 04/08/2017 None Full Exam - General 1994 Ears/Nose/Throat oral cavity/pharynx/larynx Overall: oropharyngeal mucosa clear 04/08/2017 None Full Exam - General 1994 Ears/Nose/Throat oral cavity/pharynx/larynx Overall: no masses 04/08/2017 None Full Exam - General 1994 Respiratory auscultation Overall: breath sounds clear bilaterally 04/08/2017 None Full Exam - General 1994 Respiratory respiratory effort/rhythm Overall: no retractions 04/08/2017 None Full Exam - General 1994 Respiratory respiratory effort/rhythm Overall: normal rate 04/08/2017 None Full Exam - General 1994 Cardiovascular extremities Other findings: varicose veins 04/08/2017 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 Full Exam - General 1994 Cardiovascular auscultation of heart Overall: regular rate 04/08/2017 None Full Exam - General 1994 Cardiovascular auscultation of heart Overall: normal heart sounds 04/08/2017 None Full Exam - General 1994 Abdomen abdominal exam Overall: no tenderness 04/08/2017 None Full Exam - General 1994 Abdomen abdominal exam Overall: normal bowel sounds 04/08/2017 None Full Exam - General 1994 Lymphatic neck nodes Overall: anterior cervical chain benign 04/08/2017 None Full Exam - General 1994 Lymphatic neck nodes Overall: posterior cervical chain benign 04/08/2017 None Full Exam - General 1994 Musculoskeletal lower extremity Palpation - knee: bedolla's cyst 04/08/2017 None Full Exam - General 1994 Musculoskeletal lower extremity Palpation - knee: tender joint line 04/08/2017 None Full Exam - General 1994 Musculoskeletal lower extremity ROM - knee: pain with flexion 04/08/2017 None Full Exam - General 1994 Musculoskeletal head and neck Overall: head atraumatic 04/08/2017 None Full Exam - General 1994 Neurologic cranial nerves Overall: crainial nerves 2 - 12 grossly intact 04/08/2017 None Full Exam - General 1994 Psychiatric orientation/consciousness Overall: oriented to person, place and time 04/08/2017 None Full Exam - General 1994 Psychiatric mood and affect Overall: normal mood and affect 04/08/2017 None Full Exam - General 1994 Psychiatric appearance Overall: well-groomed, good eye contact 04/08/2017 None Full Exam - General 1994 Constitutional general appearance Overall: well developed 12/25/2016 None Full Exam - General 1994 Constitutional general appearance Overall: in no acute distress 12/25/2016 None Full Exam - General 1994 Constitutional general appearance Overall: well nourished 12/25/2016 None Full Exam - General 1994 Eyes conjunctiva/eyelids Overall: conjunctiva clear 12/25/2016 None Full Exam - General 1994 Eyes conjunctiva/eyelids Overall: eyelids normal 12/25/2016 None Full Exam - General 1994 Eyes pupils and irises Overall: pupils equal, round, reactive to light and accomodation 12/25/2016 None Full Exam - General 1994 Ears/Nose/Throat otoscopic exam Overall: tympanic membranes clear 12/25/2016 None Full Exam - General 1994 Ears/Nose/Throat lips/teeth/gingiva Overall: benign lips 12/25/2016 None Full Exam - General 1994 Ears/Nose/Throat oral cavity/pharynx/larynx Overall: oral mucosa clear 12/25/2016 None Full Exam - General 1994 Ears/Nose/Throat oral cavity/pharynx/larynx Overall: oropharyngeal mucosa clear 12/25/2016 None Full Exam - General 1994 Ears/Nose/Throat oral cavity/pharynx/larynx Overall: no masses 12/25/2016 None Full Exam - General 1994 Respiratory auscultation Overall: breath sounds clear bilaterally 12/25/2016 None Full Exam - General 1994 Respiratory respiratory effort/rhythm Overall: no retractions 12/25/2016 None Full Exam - General 1994 Respiratory respiratory effort/rhythm Overall: normal rate 12/25/2016 None Full Exam - General 1994 Cardiovascular extremities Other findings: varicose veins 12/25/2016 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 Full Exam - General 1994 Cardiovascular auscultation of heart Overall: regular rate 12/25/2016 None Full Exam - General 1994 Cardiovascular auscultation of heart Overall: normal heart sounds 12/25/2016 None Full Exam - General 1994 Lymphatic neck nodes Overall: anterior cervical chain benign 12/25/2016 None Full Exam - General 1994 Lymphatic neck nodes Overall: posterior cervical chain benign 12/25/2016 None Full Exam - General 1994 Musculoskeletal lower extremity Palpation - knee: bedolla's cyst 12/25/2016 None Full Exam - General 1994 Musculoskeletal lower extremity Palpation - knee: tender joint line 12/25/2016 None Full Exam - General 1994 Musculoskeletal lower extremity ROM - knee: pain with flexion 12/25/2016 None Full Exam - General 1994 Musculoskeletal head and neck Overall: head atraumatic 12/25/2016 None Full Exam - General 1994 Psychiatric orientation/consciousness Overall: oriented to person, place and time 12/25/2016 None Full Exam - General 1994 Psychiatric mood and affect Overall: normal mood and affect 12/25/2016 None Full Exam - General 1994 Psychiatric appearance Overall: well-groomed, good eye contact 12/25/2016 None Full Exam - General 1994 Ears/Nose/Throat otoscopic exam External auditory canal: tender 12/25/2016 None Full Exam - General 1994 Ears/Nose/Throat otoscopic exam External auditory canal: erythematous 12/25/2016 around irritated skin lesion in lower part of ear canal Full Exam - General 1994 Constitutional general appearance Overall: well developed 10/31/2016 None Full Exam - General 1994 Constitutional general appearance Overall: in no acute distress 10/31/2016 None Full Exam - General 1994 Constitutional general appearance Overall: well nourished 10/31/2016 None Full Exam - General 1994 Eyes conjunctiva/eyelids Overall: conjunctiva clear 10/31/2016 None Full Exam - General 1994 Eyes conjunctiva/eyelids Overall: eyelids normal 10/31/2016 None Full Exam - General 1994 Eyes pupils and irises Overall: pupils equal, round, reactive to light and accomodation 10/31/2016 None Full Exam - General 1994 Ears/Nose/Throat otoscopic exam Overall: external auditory canals clear 10/31/2016 None Full Exam - General 1994 Ears/Nose/Throat otoscopic exam Overall: tympanic membranes clear 10/31/2016 None Full Exam - General 1994 Ears/Nose/Throat lips/teeth/gingiva Overall: benign lips 10/31/2016 None Full Exam - General 1994 Ears/Nose/Throat oral cavity/pharynx/larynx Overall: oral mucosa clear 10/31/2016 None Full Exam - General 1994 Ears/Nose/Throat oral cavity/pharynx/larynx Overall: oropharyngeal mucosa clear 10/31/2016 None Full Exam - General 1994 Ears/Nose/Throat oral cavity/pharynx/larynx Overall: no masses 10/31/2016 None Full Exam - General 1994 Respiratory auscultation Overall: breath sounds clear bilaterally 10/31/2016 None Full Exam - General 1994 Respiratory respiratory effort/rhythm Overall: no retractions 10/31/2016 None Full Exam - General 1994 Respiratory respiratory effort/rhythm Overall: normal rate 10/31/2016 None Full Exam - General 1994 Cardiovascular auscultation of heart Overall: regular rate 10/31/2016 None Full Exam - General 1994 Cardiovascular auscultation of heart Overall: normal heart sounds 10/31/2016 None Full Exam - General 1994 Musculoskeletal lower extremity ROM - knee: pain with flexion 10/31/2016 None Full Exam - General 1994 Musculoskeletal head and neck Overall: head atraumatic 10/31/2016 None Full Exam - General 1994 Psychiatric orientation/consciousness Overall: oriented to person, place and time 10/31/2016 None Full Exam - General 1994 Psychiatric mood and affect Overall: normal mood and affect 10/31/2016 None Full Exam - General 1994 Psychiatric appearance Overall: well-groomed, good eye contact 10/31/2016 None Full Exam - General 1994 Cardiovascular extremities Other findings: varicose veins 10/11/2016 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 Full Exam - General 1994 Musculoskeletal lower extremity Palpation - knee: bedolla's cyst 10/11/2016 None Full Exam - General 1994 Musculoskeletal lower extremity Palpation - knee: tender joint line 10/11/2016 None Full Exam - General 1994 Musculoskeletal lower extremity ROM - knee: pain with flexion 10/11/2016 None Full Exam - General 1994 Constitutional general appearance Overall: well developed 10/11/2016 None Full Exam - General 1994 Constitutional general appearance Overall: in no acute distress 10/11/2016 None Full Exam - General 1994 Constitutional general appearance Overall: well nourished 10/11/2016 None Full Exam - General 1994 Psychiatric orientation/consciousness Overall: oriented to person, place and time 10/11/2016 None Full Exam - General 1994 Constitutional general appearance Overall: well developed 10/03/2016 None Full Exam - General 1994 Constitutional general appearance Overall: in no acute distress 10/03/2016 None Full Exam - General 1994 Constitutional general appearance Overall: well nourished 10/03/2016 None Full Exam - General 1994 Eyes conjunctiva/eyelids Overall: conjunctiva clear 10/03/2016 None Full Exam - General 1994 Eyes conjunctiva/eyelids Overall: eyelids normal 10/03/2016 None Full Exam - General 1994 Eyes pupils and irises Overall: pupils equal, round, reactive to light and accomodation 10/03/2016 None Full Exam - General 1994 Ears/Nose/Throat otoscopic exam Overall: external auditory canals clear 10/03/2016 None Full Exam - General 1994 Ears/Nose/Throat otoscopic exam Overall: tympanic membranes clear 10/03/2016 None Full Exam - General 1994 Ears/Nose/Throat lips/teeth/gingiva Overall: benign lips 10/03/2016 None Full Exam - General 1995 Ears/Nose/Throat oral cavity/pharynx/larynx Overall: oral mucosa clear 10/03/2016 None Full Exam - General 1995 Ears/Nose/Throat oral cavity/pharynx/larynx Overall: oropharyngeal mucosa clear 10/03/2016 None Full Exam - General 1994 Ears/Nose/Throat oral cavity/pharynx/larynx Overall: no masses 10/03/2016 None Full Exam - General 1994 Respiratory auscultation Overall: breath sounds clear bilaterally 10/03/2016 None Full Exam - General 1994 Respiratory respiratory effort/rhythm Overall: no retractions 10/03/2016 None Full Exam - General 1994 Respiratory respiratory effort/rhythm Overall: normal rate 10/03/2016 None Full Exam - General 1994 Cardiovascular auscultation of heart Overall: regular rate 10/03/2016 None Full Exam - General 1994 Cardiovascular auscultation of heart Overall: normal heart sounds 10/03/2016 None Full Exam - General 1994 Abdomen abdominal exam Overall: no tenderness 10/03/2016 None Full Exam - General 1994 Abdomen abdominal exam Overall: normal bowel sounds 10/03/2016 None Full Exam - General 1994 Lymphatic neck nodes Overall: anterior cervical chain benign 10/03/2016 None Full Exam - General 1994 Lymphatic neck nodes Overall: posterior cervical chain benign 10/03/2016 None Full Exam - General 1994 Musculoskeletal lower extremity ROM - knee: pain with flexion 10/03/2016 None Full Exam - General 1994 Musculoskeletal head and neck Overall: head atraumatic 10/03/2016 None Full Exam - General 1994 Neurologic cranial nerves Overall: crainial nerves 2 - 12 grossly intact 10/03/2016 None Full Exam - General 1994 Psychiatric orientation/consciousness Overall: oriented to person, place and time 10/03/2016 None Full Exam - General 1994 Psychiatric mood and affect Overall: normal mood and affect 10/03/2016 None Full Exam - General 1994 Psychiatric appearance Overall: well-groomed, good eye contact 10/03/2016 None Full Exam - General 1994 Musculoskeletal lower extremity Palpation - knee: bedolla's cyst 10/03/2016 None Full Exam - General 1994 Musculoskeletal lower extremity Palpation - knee: tender joint line 10/03/2016 None Full Exam - General 1994 Cardiovascular extremities Other findings: varicose veins 10/03/2016 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 Full Exam - General 1994 Constitutional general appearance Overall: well developed 06/12/2016 None Full Exam - General 1994 Constitutional general appearance Overall: in no acute distress 06/12/2016 None Full Exam - General 1994 Constitutional general appearance Overall: well nourished 06/12/2016 None Full Exam - General 1994 Eyes conjunctiva/eyelids Overall: conjunctiva clear 06/12/2016 None Full Exam - General 1994 Eyes conjunctiva/eyelids Overall: eyelids normal 06/12/2016 None Full Exam - General 1994 Eyes pupils and irises Overall: pupils equal, round, reactive to light and accomodation 06/12/2016 None Full Exam - General 1994 Ears/Nose/Throat otoscopic exam Overall: tympanic membranes clear 06/12/2016 None Full Exam - General 1994 Ears/Nose/Throat otoscopic exam Overall: external auditory canals clear 06/12/2016 None Full Exam - General 1994 Ears/Nose/Throat lips/teeth/gingiva Overall: benign lips 06/12/2016 None Full Exam - General 1994 Ears/Nose/Throat oral cavity/pharynx/larynx Overall: oral mucosa clear 06/12/2016 None Full Exam - General 1994 Ears/Nose/Throat oral cavity/pharynx/larynx Overall: oropharyngeal mucosa clear 06/12/2016 None Full Exam - General 1995 Ears/Nose/Throat oral cavity/pharynx/larynx Overall: no masses 06/12/2016 None Full Exam - General 1994 Respiratory auscultation Overall: breath sounds clear bilaterally 06/12/2016 None Full Exam - General 1994 Respiratory respiratory effort/rhythm Overall: no retractions 06/12/2016 None Full Exam - General 1994 Respiratory respiratory effort/rhythm Overall: normal rate 06/12/2016 None Full Exam - General 1994 Cardiovascular auscultation of heart Overall: regular rate 06/12/2016 None Full Exam - General 1994 Cardiovascular auscultation of heart Overall: normal heart sounds 06/12/2016 None Full Exam - General 1994 Abdomen abdominal exam Overall: no tenderness 06/12/2016 None Full Exam - General 1994 Abdomen abdominal exam Overall: normal bowel sounds 06/12/2016 None Full Exam - General 1994 Lymphatic neck nodes Overall: anterior cervical chain benign 06/12/2016 None Full Exam - General 1994 Lymphatic neck nodes Overall: posterior cervical chain benign 06/12/2016 None Full Exam - General 1994 Musculoskeletal head and neck Overall: head atraumatic 06/12/2016 None Full Exam - General 1994 Neurologic cranial nerves Overall: crainial nerves 2 - 12 grossly intact 06/12/2016 None Full Exam - General 1994 Psychiatric orientation/consciousness Overall: oriented to person, place and time 06/12/2016 None Full Exam - General 1994 Psychiatric mood and affect Overall: normal mood and affect 06/12/2016 None Full Exam - General 1994 Psychiatric appearance Overall: well-groomed, good eye contact 06/12/2016 None Full Exam - General 1994 Musculoskeletal lower extremity ROM - knee: pain with flexion 06/12/2016 None Exam Name System Name It em Name Status Result Effective Dates Notes Full Exam - General 1994 Constitutional general appearance Overall: well developed 08/27/2018 None Full Exam - General 1994 Constitutional general appearance Overall: in no acute distress 08/27/2018 None Full Exam - General 1994 Constitutional general appearance Overall: well nourished 08/27/2018 None Full Exam - General 1994 Eyes conjunctiva/eyelids Overall: conjunctiva clear 08/27/2018 None Full Exam - General 1994 Eyes conjunctiva/eyelids Overall: eyelids normal 08/27/2018 None Full Exam - General 1994 Eyes pupils and irises Overall: pupils equal, round, reactive to light and accomodation 08/27/2018 None Full Exam - General 1994 Ears/Nose/Throat otoscopic exam Overall: external auditory canals clear 08/27/2018 None Full Exam - General 1994 Ears/Nose/Throat otoscopic exam Overall: tympanic membranes clear 08/27/2018 None Full Exam - General 1994 Ears/Nose/Throat lips/teeth/gingiva Overall: benign lips 08/27/2018 None Full Exam - General 1994 Ears/Nose/Throat oral cavity/pharynx/larynx Overall: oral mucosa clear 08/27/2018 None Full Exam - General 1994 Ears/Nose/Throat oral cavity/pharynx/larynx Overall: oropharyngeal mucosa clear 08/27/2018 None Full Exam - General 1994 Ears/Nose/Throat oral cavity/pharynx/larynx Overall: no masses 08/27/2018 None Full Exam - General 1994 Respiratory auscultation Overall: breath sounds clear bilaterally 08/27/2018 None Full Exam - General 1994 Respiratory respiratory effort/rhythm Overall: no retractions 08/27/2018 None Full Exam - General 1994 Respiratory respiratory effort/rhythm Overall: normal rate 08/27/2018 None Full Exam - Cardiology Abdomen abdominal exam Epigastric: tender to palpation 08/27/2018 None Full Exam - General 1994 Cardiovascular extremities Other findings: varicose veins 08/27/2018 None Full Exam - General 1994 Cardiovascular auscultation of heart Overall: regular rate 08/27/2018 None Full Exam - General 1994 Cardiovascular auscultation of heart Overall: normal heart sounds 08/27/2018 None Full Exam - General 1994 Abdomen abdominal exam Overall: no tenderness 08/27/2018 None Full Exam - General 1994 Abdomen abdominal exam Overall: normal bowel sounds 08/27/2018 None Full Exam - General 1994 Lymphatic neck nodes Overall: anterior cervical chain benign 08/27/2018 None Full Exam - General 1994 Lymphatic neck nodes Overall: posterior cervical chain benign 08/27/2018 None Full Exam - General 1994 Musculoskeletal head and neck Overall: head atraumatic 08/27/2018 None Full Exam - General 1994 Neurologic cranial nerves Overall: crainial nerves 2 - 12 grossly intact 08/27/2018 None Full Exam - General 1994 Psychiatric orientation/consciousness Overall: oriented to person, place and time 08/27/2018 None Full Exam - General 1994 Psychiatric mood and affect Overall: normal mood and affect 08/27/2018 None Full Exam - General 1994 Psychiatric appearance Overall: well-groomed, good eye contact 08/27/2018 None Full Exam - General 1994 Constitutional general appearance Overall: well developed 07/23/2018 None Full Exam - General 1994 Constitutional general appearance Overall: in no acute distress 07/23/2018 None Full Exam - General 1994 Constitutional general appearance Overall: well nourished 07/23/2018 None Full Exam - General 1994 Eyes conjunctiva/eyelids Overall: conjunctiva clear 07/23/2018 None Full Exam - General 1994 Eyes conjunctiva/eyelids Overall: eyelids normal 07/23/2018 None Full Exam - General 1994 Eyes pupils and irises Overall: pupils equal, round, reactive to light and accomodation 07/23/2018 None Full Exam - General 1994 Ears/Nose/Throat otoscopic exam Overall: external auditory canals clear 07/23/2018 None Full Exam - General 1994 Ears/Nose/Throat otoscopic exam Overall: tympanic membranes clear 07/23/2018 None Full Exam - General 1994 Ears/Nose/Throat lips/teeth/gingiva Overall: benign lips 07/23/2018 None Full Exam - General 1994 Ears/Nose/Throat oral cavity/pharynx/larynx Overall: oral mucosa clear 07/23/2018 None Full Exam - General 1995 Ears/Nose/Throat oral cavity/pharynx/larynx Overall: oropharyngeal mucosa clear 07/23/2018 None Full Exam - General 1995 Ears/Nose/Throat oral cavity/pharynx/larynx Overall: no masses 07/23/2018 None Full Exam - General 1994 Respiratory auscultation Overall: breath sounds clear bilaterally 07/23/2018 None Full Exam - General 1994 Respiratory respiratory effort/rhythm Overall: no retractions 07/23/2018 None Full Exam - General 1994 Respiratory respiratory effort/rhythm Overall: normal rate 07/23/2018 None Full Exam - Cardiology Abdomen abdominal exam Epigastric: tender to palpation 07/23/2018 None Full Exam - General 1994 Cardiovascular extremities Other findings: varicose veins 07/23/2018 None Full Exam - General 1994 Cardiovascular auscultation of heart Overall: regular rate 07/23/2018 None Full Exam - General 1994 Cardiovascular auscultation of heart Overall: normal heart sounds 07/23/2018 None Full Exam - General 1994 Abdomen abdominal exam Overall: no tenderness 07/23/2018 None Full Exam - General 1994 Abdomen abdominal exam Overall: normal bowel sounds 07/23/2018 None Full Exam - General 1994 Lymphatic neck nodes Overall: anterior cervical chain benign 07/23/2018 None Full Exam - General 1994 Lymphatic neck nodes Overall: posterior cervical chain benign 07/23/2018 None Full Exam - General 1994 Musculoskeletal head and neck Overall: head atraumatic 07/23/2018 None Full Exam - General 1994 Neurologic cranial nerves Overall: crainial nerves 2 - 12 grossly intact 07/23/2018 None Full Exam - General 1994 Psychiatric orientation/consciousness Overall: oriented to person, place and time 07/23/2018 None Full Exam - General 1994 Psychiatric mood and affect Overall: normal mood and affect 07/23/2018 None Full Exam - General 1994 Psychiatric appearance Overall: well-groomed, good eye contact 07/23/2018 None Full Exam - General 1994 Constitutional general appearance Overall: well developed 06/25/2018 None Full Exam - General 1994 Constitutional general appearance Overall: in no acute distress 06/25/2018 None Full Exam - General 1994 Constitutional general appearance Overall: well nourished 06/25/2018 None Full Exam - General 1994 Eyes conjunctiva/eyelids Overall: conjunctiva clear 06/25/2018 None Full Exam - General 1994 Eyes conjunctiva/eyelids Overall: eyelids normal 06/25/2018 None Full Exam - General 1994 Eyes pupils and irises Overall: pupils equal, round, reactive to light and accomodation 06/25/2018 None Full Exam - General 1994 Ears/Nose/Throat otoscopic exam Overall: external auditory canals clear 06/25/2018 None Full Exam - General 1994 Ears/Nose/Throat otoscopic exam Overall: tympanic membranes clear 06/25/2018 None Full Exam - General 1994 Ears/Nose/Throat lips/teeth/gingiva Overall: benign lips 06/25/2018 None Full Exam - General 1994 Ears/Nose/Throat oral cavity/pharynx/larynx Overall: oral mucosa clear 06/25/2018 None Full Exam - General 1994 Ears/Nose/Throat oral cavity/pharynx/larynx Overall: oropharyngeal mucosa clear 06/25/2018 None Full Exam - General 1994 Ears/Nose/Throat oral cavity/pharynx/larynx Overall: no masses 06/25/2018 None Full Exam - General 1994 Respiratory auscultation Overall: breath sounds clear bilaterally 06/25/2018 None Full Exam - General 1994 Respiratory respiratory effort/rhythm Overall: no retractions 06/25/2018 None Full Exam - General 1994 Respiratory respiratory effort/rhythm Overall: normal rate 06/25/2018 None Full Exam - Cardiology Abdomen abdominal exam Epigastric: tender to palpation 06/25/2018 None Full Exam - General 1994 Cardiovascular extremities Other findings: varicose veins 06/25/2018 None Full Exam - General 1994 Cardiovascular auscultation of heart Overall: regular rate 06/25/2018 None Full Exam - General 1994 Cardiovascular auscultation of heart Overall: normal heart sounds 06/25/2018 None Full Exam - General 1994 Abdomen abdominal exam Overall: no tenderness 06/25/2018 None Full Exam - General 1994 Abdomen abdominal exam Overall: normal bowel sounds 06/25/2018 None Full Exam - General 1994 Lymphatic neck nodes Overall: anterior cervical chain benign 06/25/2018 None Full Exam - General 1994 Lymphatic neck nodes Overall: posterior cervical chain benign 06/25/2018 None Full Exam - General 1994 Musculoskeletal head and neck Overall: head atraumatic 06/25/2018 None Full Exam - General 1994 Neurologic cranial nerves Overall: crainial nerves 2 - 12 grossly intact 06/25/2018 None Full Exam - General 1994 Psychiatric orientation/consciousness Overall: oriented to person, place and time 06/25/2018 None Full Exam - General 1994 Psychiatric mood and affect Overall: normal mood and affect 06/25/2018 None Full Exam - General 1994 Psychiatric appearance Overall: well-groomed, good eye contact 06/25/2018 None Full Exam - General 1994 Constitutional general appearance Overall: well developed 05/25/2018 None Full Exam - General 1994 Constitutional general appearance Overall: in no acute distress 05/25/2018 None Full Exam - General 1994 Constitutional general appearance Overall: well nourished 05/25/2018 None Full Exam - General 1994 Eyes conjunctiva/eyelids Overall: conjunctiva clear 05/25/2018 None Full Exam - General 1994 Eyes conjunctiva/eyelids Overall: eyelids normal 05/25/2018 None Full Exam - General 1994 Eyes pupils and irises Overall: pupils equal, round, reactive to light and accomodation 05/25/2018 None Full Exam - General 1994 Ears/Nose/Throat otoscopic exam Overall: external auditory canals clear 05/25/2018 None Full Exam - General 1994 Ears/Nose/Throat otoscopic exam Overall: tympanic membranes clear 05/25/2018 None Full Exam - General 1994 Ears/Nose/Throat lips/teeth/gingiva Overall: benign lips 05/25/2018 None Full Exam - General 1994 Ears/Nose/Throat oral cavity/pharynx/larynx Overall: oral mucosa clear 05/25/2018 None Full Exam - General 1994 Ears/Nose/Throat oral cavity/pharynx/larynx Overall: oropharyngeal mucosa clear 05/25/2018 None Full Exam - General 1994 Ears/Nose/Throat oral cavity/pharynx/larynx Overall: no masses 05/25/2018 None Full Exam - General 1994 Respiratory auscultation Overall: breath sounds clear bilaterally 05/25/2018 None Full Exam - General 1994 Respiratory respiratory effort/rhythm Overall: no retractions 05/25/2018 None Full Exam - General 1994 Respiratory respiratory effort/rhythm Overall: normal rate 05/25/2018 None Full Exam - General 1994 Cardiovascular extremities Other findings: varicose veins 05/25/2018 None Full Exam - General 1994 Cardiovascular auscultation of heart Overall: regular rate 05/25/2018 None Full Exam - General 1994 Cardiovascular auscultation of heart Overall: normal heart sounds 05/25/2018 None Full Exam - General 1994 Abdomen abdominal exam Overall: no tenderness 05/25/2018 None Full Exam - General 1994 Abdomen abdominal exam Overall: normal bowel sounds 05/25/2018 None Full Exam - General 1994 Lymphatic neck nodes Overall: anterior cervical chain benign 05/25/2018 None Full Exam - General 1994 Lymphatic neck nodes Overall: posterior cervical chain benign 05/25/2018 None Full Exam - General 1994 Musculoskeletal head and neck Overall: head atraumatic 05/25/2018 None Full Exam - General 1994 Neurologic cranial nerves Overall: crainial nerves 2 - 12 grossly intact 05/25/2018 None Full Exam - General 1994 Psychiatric orientation/consciousness Overall: oriented to person, place and time 05/25/2018 None Full Exam - General 1994 Psychiatric mood and affect Overall: normal mood and affect 05/25/2018 None Full Exam - General 1994 Psychiatric appearance Overall: well-groomed, good eye contact 05/25/2018 None Full Exam - Cardiology Abdomen abdominal exam Epigastric: tender to palpation 05/25/2018 None Full Exam - General 1994 Constitutional general appearance Overall: well developed 07/11/2017 None Full Exam - General 1994 Constitutional general appearance Overall: in no acute distress 07/11/2017 None Full Exam - General 1994 Constitutional general appearance Overall: well nourished 07/11/2017 None Full Exam - General 1994 Eyes conjunctiva/eyelids Overall: conjunctiva clear 07/11/2017 None Full Exam - General 1994 Eyes conjunctiva/eyelids Overall: eyelids normal 07/11/2017 None Full Exam - General 1994 Eyes pupils and irises Overall: pupils equal, round, reactive to light and accomodation 07/11/2017 None Full Exam - General 1994 Ears/Nose/Throat otoscopic exam Overall: external auditory canals clear 07/11/2017 None Full Exam - General 1994 Ears/Nose/Throat otoscopic exam Overall: tympanic membranes clear 07/11/2017 None Full Exam - General 1994 Ears/Nose/Throat lips/teeth/gingiva Overall: benign lips 07/11/2017 None Full Exam - General 1994 Ears/Nose/Throat oral cavity/pharynx/larynx Overall: oral mucosa clear 07/11/2017 None Full Exam - General 1994 Ears/Nose/Throat oral cavity/pharynx/larynx Overall: oropharyngeal mucosa clear 07/11/2017 None Full Exam - General 1994 Ears/Nose/Throat oral cavity/pharynx/larynx Overall: no masses 07/11/2017 None Full Exam - General 1994 Respiratory auscultation Overall: breath sounds clear bilaterally 07/11/2017 None Full Exam - General 1994 Respiratory respiratory effort/rhythm Overall: no retractions 07/11/2017 None Full Exam - General 1994 Respiratory respiratory effort/rhythm Overall: normal rate 07/11/2017 None Full Exam - General 1994 Cardiovascular extremities Other findings: varicose veins 07/11/2017 None Full Exam - General 1994 Cardiovascular auscultation of heart Overall: regular rate 07/11/2017 None Full Exam - General 1994 Cardiovascular auscultation of heart Overall: normal heart sounds 07/11/2017 None Full Exam - General 1994 Abdomen abdominal exam Overall: no tenderness 07/11/2017 None Full Exam - General 1994 Abdomen abdominal exam Overall: normal bowel sounds 07/11/2017 None Full Exam - General 1994 Lymphatic neck nodes Overall: anterior cervical chain benign 07/11/2017 None Full Exam - General 1994 Lymphatic neck nodes Overall: posterior cervical chain benign 07/11/2017 None Full Exam - General 1994 Musculoskeletal head and neck Overall: head atraumatic 07/11/2017 None Full Exam - General 1994 Neurologic cranial nerves Overall: crainial nerves 2 - 12 grossly intact 07/11/2017 None Full Exam - General 1994 Psychiatric orientation/consciousness Overall: oriented to person, place and time 07/11/2017 None Full Exam - General 1994 Psychiatric mood and affect Overall: normal mood and affect 07/11/2017 None Full Exam - General 1994 Psychiatric appearance Overall: well-groomed, good eye contact 07/11/2017 None Full Exam - General 1994 Constitutional general appearance Overall: well developed 04/08/2017 None Full Exam - General 1994 Constitutional general appearance Overall: in no acute distress 04/08/2017 None Full Exam - General 1994 Constitutional general appearance Overall: well nourished 04/08/2017 None Full Exam - General 1994 Eyes conjunctiva/eyelids Overall: conjunctiva clear 04/08/2017 None Full Exam - General 1994 Eyes conjunctiva/eyelids Overall: eyelids normal 04/08/2017 None Full Exam - General 1994 Eyes pupils and irises Overall: pupils equal, round, reactive to light and accomodation 04/08/2017 None Full Exam - General 1994 Ears/Nose/Throat otoscopic exam Overall: external auditory canals clear 04/08/2017 None Full Exam - General 1994 Ears/Nose/Throat otoscopic exam Overall: tympanic membranes clear 04/08/2017 None Full Exam - General 1994 Ears/Nose/Throat lips/teeth/gingiva Overall: benign lips 04/08/2017 None Full Exam - General 1994 Ears/Nose/Throat oral cavity/pharynx/larynx Overall: oral mucosa clear 04/08/2017 None Full Exam - General 1994 Ears/Nose/Throat oral cavity/pharynx/larynx Overall: oropharyngeal mucosa clear 04/08/2017 None Full Exam - General 1994 Ears/Nose/Throat oral cavity/pharynx/larynx Overall: no masses 04/08/2017 None Full Exam - General 1994 Respiratory auscultation Overall: breath sounds clear bilaterally 04/08/2017 None Full Exam - General 1994 Respiratory respiratory effort/rhythm Overall: no retractions 04/08/2017 None Full Exam - General 1994 Respiratory respiratory effort/rhythm Overall: normal rate 04/08/2017 None Full Exam - General 1994 Cardiovascular extremities Other findings: varicose veins 04/08/2017 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 Full Exam - General 1994 Cardiovascular auscultation of heart Overall: regular rate 04/08/2017 None Full Exam - General 1994 Cardiovascular auscultation of heart Overall: normal heart sounds 04/08/2017 None Full Exam - General 1994 Abdomen abdominal exam Overall: no tenderness 04/08/2017 None Full Exam - General 1994 Abdomen abdominal exam Overall: normal bowel sounds 04/08/2017 None Full Exam - General 1994 Lymphatic neck nodes Overall: anterior cervical chain benign 04/08/2017 None Full Exam - General 1994 Lymphatic neck nodes Overall: posterior cervical chain benign 04/08/2017 None Full Exam - General 1994 Musculoskeletal lower extremity Palpation - knee: bedolla's cyst 04/08/2017 None Full Exam - General 1994 Musculoskeletal lower extremity Palpation - knee: tender joint line 04/08/2017 None Full Exam - General 1994 Musculoskeletal lower extremity ROM - knee: pain with flexion 04/08/2017 None Full Exam - General 1994 Musculoskeletal head and neck Overall: head atraumatic 04/08/2017 None Full Exam - General 1994 Neurologic cranial nerves Overall: crainial nerves 2 - 12 grossly intact 04/08/2017 None Full Exam - General 1994 Psychiatric orientation/consciousness Overall: oriented to person, place and time 04/08/2017 None Full Exam - General 1994 Psychiatric mood and affect Overall: normal mood and affect 04/08/2017 None Full Exam - General 1994 Psychiatric appearance Overall: well-groomed, good eye contact 04/08/2017 None Full Exam - General 1994 Constitutional general appearance Overall: well developed 12/25/2016 None Full Exam - General 1994 Constitutional general appearance Overall: in no acute distress 12/25/2016 None Full Exam - General 1994 Constitutional general appearance Overall: well nourished 12/25/2016 None Full Exam - General 1994 Eyes conjunctiva/eyelids Overall: conjunctiva clear 12/25/2016 None Full Exam - General 1994 Eyes conjunctiva/eyelids Overall: eyelids normal 12/25/2016 None Full Exam - General 1994 Eyes pupils and irises Overall: pupils equal, round, reactive to light and accomodation 12/25/2016 None Full Exam - General 1994 Ears/Nose/Throat otoscopic exam Overall: tympanic membranes clear 12/25/2016 None Full Exam - General 1994 Ears/Nose/Throat lips/teeth/gingiva Overall: benign lips 12/25/2016 None Full Exam - General 1994 Ears/Nose/Throat oral cavity/pharynx/larynx Overall: oral mucosa clear 12/25/2016 None Full Exam - General 1994 Ears/Nose/Throat oral cavity/pharynx/larynx Overall: oropharyngeal mucosa clear 12/25/2016 None Full Exam - General 1994 Ears/Nose/Throat oral cavity/pharynx/larynx Overall: no masses 12/25/2016 None Full Exam - General 1994 Respiratory auscultation Overall: breath sounds clear bilaterally 12/25/2016 None Full Exam - General 1994 Respiratory respiratory effort/rhythm Overall: no retractions 12/25/2016 None Full Exam - General 1994 Respiratory respiratory effort/rhythm Overall: normal rate 12/25/2016 None Full Exam - General 1994 Cardiovascular extremities Other findings: varicose veins 12/25/2016 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 Full Exam - General 1994 Cardiovascular auscultation of heart Overall: regular rate 12/25/2016 None Full Exam - General 1994 Cardiovascular auscultation of heart Overall: normal heart sounds 12/25/2016 None Full Exam - General 1994 Lymphatic neck nodes Overall: anterior cervical chain benign 12/25/2016 None Full Exam - General 1994 Lymphatic neck nodes Overall: posterior cervical chain benign 12/25/2016 None Full Exam - General 1994 Musculoskeletal lower extremity Palpation - knee: bedolla's cyst 12/25/2016 None Full Exam - General 1994 Musculoskeletal lower extremity Palpation - knee: tender joint line 12/25/2016 None Full Exam - General 1994 Musculoskeletal lower extremity ROM - knee: pain with flexion 12/25/2016 None Full Exam - General 1994 Musculoskeletal head and neck Overall: head atraumatic 12/25/2016 None Full Exam - General 1994 Psychiatric orientation/consciousness Overall: oriented to person, place and time 12/25/2016 None Full Exam - General 1994 Psychiatric mood and affect Overall: normal mood and affect 12/25/2016 None Full Exam - General 1994 Psychiatric appearance Overall: well-groomed, good eye contact 12/25/2016 None Full Exam - General 1994 Ears/Nose/Throat otoscopic exam External auditory canal: tender 12/25/2016 None Full Exam - General 1994 Ears/Nose/Throat otoscopic exam External auditory canal: erythematous 12/25/2016 around irritated skin lesion in lower part of ear canal Full Exam - General 1994 Constitutional general appearance Overall: well developed 10/31/2016 None Full Exam - General 1994 Constitutional general appearance Overall: in no acute distress 10/31/2016 None Full Exam - General 1994 Constitutional general appearance Overall: well nourished 10/31/2016 None Full Exam - General 1994 Eyes conjunctiva/eyelids Overall: conjunctiva clear 10/31/2016 None Full Exam - General 1994 Eyes conjunctiva/eyelids Overall: eyelids normal 10/31/2016 None Full Exam - General 1994 Eyes pupils and irises Overall: pupils equal, round, reactive to light and accomodation 10/31/2016 None Full Exam - General 1994 Ears/Nose/Throat otoscopic exam Overall: external auditory canals clear 10/31/2016 None Full Exam - General 1994 Ears/Nose/Throat otoscopic exam Overall: tympanic membranes clear 10/31/2016 None Full Exam - General 1994 Ears/Nose/Throat lips/teeth/gingiva Overall: benign lips 10/31/2016 None Full Exam - General 1994 Ears/Nose/Throat oral cavity/pharynx/larynx Overall: oral mucosa clear 10/31/2016 None Full Exam - General 1994 Ears/Nose/Throat oral cavity/pharynx/larynx Overall: oropharyngeal mucosa clear 10/31/2016 None Full Exam - General 1994 Ears/Nose/Throat oral cavity/pharynx/larynx Overall: no masses 10/31/2016 None Full Exam - General 1994 Respiratory auscultation Overall: breath sounds clear bilaterally 10/31/2016 None Full Exam - General 1994 Respiratory respiratory effort/rhythm Overall: no retractions 10/31/2016 None Full Exam - General 1994 Respiratory respiratory effort/rhythm Overall: normal rate 10/31/2016 None Full Exam - General 1994 Cardiovascular auscultation of heart Overall: regular rate 10/31/2016 None Full Exam - General 1994 Cardiovascular auscultation of heart Overall: normal heart sounds 10/31/2016 None Full Exam - General 1994 Musculoskeletal lower extremity ROM - knee: pain with flexion 10/31/2016 None Full Exam - General 1994 Musculoskeletal head and neck Overall: head atraumatic 10/31/2016 None Full Exam - General 1994 Psychiatric orientation/consciousness Overall: oriented to person, place and time 10/31/2016 None Full Exam - General 1994 Psychiatric mood and affect Overall: normal mood and affect 10/31/2016 None Full Exam - General 1994 Psychiatric appearance Overall: well-groomed, good eye contact 10/31/2016 None Full Exam - General 1994 Cardiovascular extremities Other findings: varicose veins 10/11/2016 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 Full Exam - General 1994 Musculoskeletal lower extremity Palpation - knee: bedolla's cyst 10/11/2016 None Full Exam - General 1994 Musculoskeletal lower extremity Palpation - knee: tender joint line 10/11/2016 None Full Exam - General 1994 Musculoskeletal lower extremity ROM - knee: pain with flexion 10/11/2016 None Full Exam - General 1994 Constitutional general appearance Overall: well developed 10/11/2016 None Full Exam - General 1994 Constitutional general appearance Overall: in no acute distress 10/11/2016 None Full Exam - General 1994 Constitutional general appearance Overall: well nourished 10/11/2016 None Full Exam - General 1994 Psychiatric orientation/consciousness Overall: oriented to person, place and time 10/11/2016 None Full Exam - General 1994 Constitutional general appearance Overall: well developed 10/03/2016 None Full Exam - General 1994 Constitutional general appearance Overall: in no acute distress 10/03/2016 None Full Exam - General 1994 Constitutional general appearance Overall: well nourished 10/03/2016 None Full Exam - General 1994 Eyes conjunctiva/eyelids Overall: conjunctiva clear 10/03/2016 None Full Exam - General 1994 Eyes conjunctiva/eyelids Overall: eyelids normal 10/03/2016 None Full Exam - General 1994 Eyes pupils and irises Overall: pupils equal, round, reactive to light and accomodation 10/03/2016 None Full Exam - General 1994 Ears/Nose/Throat otoscopic exam Overall: external auditory canals clear 10/03/2016 None Full Exam - General 1994 Ears/Nose/Throat otoscopic exam Overall: tympanic membranes clear 10/03/2016 None Full Exam - General 1994 Ears/Nose/Throat lips/teeth/gingiva Overall: benign lips 10/03/2016 None Full Exam - General 1994 Ears/Nose/Throat oral cavity/pharynx/larynx Overall: oral mucosa clear 10/03/2016 None Full Exam - General 1994 Ears/Nose/Throat oral cavity/pharynx/larynx Overall: oropharyngeal mucosa clear 10/03/2016 None Full Exam - General 1994 Ears/Nose/Throat oral cavity/pharynx/larynx Overall: no masses 10/03/2016 None Full Exam - General 1994 Respiratory auscultation Overall: breath sounds clear bilaterally 10/03/2016 None Full Exam - General 1994 Respiratory respiratory effort/rhythm Overall: no retractions 10/03/2016 None Full Exam - General 1994 Respiratory respiratory effort/rhythm Overall: normal rate 10/03/2016 None Full Exam - General 1994 Cardiovascular auscultation of heart Overall: regular rate 10/03/2016 None Full Exam - General 1994 Cardiovascular auscultation of heart Overall: normal heart sounds 10/03/2016 None Full Exam - General 1994 Abdomen abdominal exam Overall: no tenderness 10/03/2016 None Full Exam - General 1994 Abdomen abdominal exam Overall: normal bowel sounds 10/03/2016 None Full Exam - General 1994 Lymphatic neck nodes Overall: anterior cervical chain benign 10/03/2016 None Full Exam - General 1994 Lymphatic neck nodes Overall: posterior cervical chain benign 10/03/2016 None Full Exam - General 1994 Musculoskeletal lower extremity ROM - knee: pain with flexion 10/03/2016 None Full Exam - General 1994 Musculoskeletal head and neck Overall: head atraumatic 10/03/2016 None Full Exam - General 1994 Neurologic cranial nerves Overall: crainial nerves 2 - 12 grossly intact 10/03/2016 None Full Exam - General 1994 Psychiatric orientation/consciousness Overall: oriented to person, place and time 10/03/2016 None Full Exam - General 1994 Psychiatric mood and affect Overall: normal mood and affect 10/03/2016 None Full Exam - General 1994 Psychiatric appearance Overall: well-groomed, good eye contact 10/03/2016 None Full Exam - General 1994 Musculoskeletal lower extremity Palpation - knee: bedolla's cyst 10/03/2016 None Full Exam - General 1994 Musculoskeletal lower extremity Palpation - knee: tender joint line 10/03/2016 None Full Exam - General 1994 Cardiovascular extremities Other findings: varicose veins 10/03/2016 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 Full Exam - General 1994 Constitutional general appearance Overall: well developed 06/12/2016 None Full Exam - General 1994 Constitutional general appearance Overall: in no acute distress 06/12/2016 None Full Exam - General 1994 Constitutional general appearance Overall: well nourished 06/12/2016 None Full Exam - General 1994 Eyes conjunctiva/eyelids Overall: conjunctiva clear 06/12/2016 None Full Exam - General 1994 Eyes conjunctiva/eyelids Overall: eyelids normal 06/12/2016 None Full Exam - General 1994 Eyes pupils and irises Overall: pupils equal, round, reactive to light and accomodation 06/12/2016 None Full Exam - General 1994 Ears/Nose/Throat otoscopic exam Overall: tympanic membranes clear 06/12/2016 None Full Exam - General 1994 Ears/Nose/Throat otoscopic exam Overall: external auditory canals clear 06/12/2016 None Full Exam - General 1994 Ears/Nose/Throat lips/teeth/gingiva Overall: benign lips 06/12/2016 None Full Exam - General 1994 Ears/Nose/Throat oral cavity/pharynx/larynx Overall: oral mucosa clear 06/12/2016 None Full Exam - General 1994 Ears/Nose/Throat oral cavity/pharynx/larynx Overall: oropharyngeal mucosa clear 06/12/2016 None Full Exam - General 1994 Ears/Nose/Throat oral cavity/pharynx/larynx Overall: no masses 06/12/2016 None Full Exam - General 1994 Respiratory auscultation Overall: breath sounds clear bilaterally 06/12/2016 None Full Exam - General 1994 Respiratory respiratory effort/rhythm Overall: no retractions 06/12/2016 None Full Exam - General 1994 Respiratory respiratory effort/rhythm Overall: normal rate 06/12/2016 None Full Exam - General 1994 Cardiovascular auscultation of heart Overall: regular rate 06/12/2016 None Full Exam - General 1994 Cardiovascular auscultation of heart Overall: normal heart sounds 06/12/2016 None Full Exam - General 1994 Abdomen abdominal exam Overall: no tenderness 06/12/2016 None Full Exam - General 1994 Abdomen abdominal exam Overall: normal bowel sounds 06/12/2016 None Full Exam - General 1994 Lymphatic neck nodes Overall: anterior cervical chain benign 06/12/2016 None Full Exam - General 1994 Lymphatic neck nodes Overall: posterior cervical chain benign 06/12/2016 None Full Exam - General 1994 Musculoskeletal head and neck Overall: head atraumatic 06/12/2016 None Full Exam - General 1994 Neurologic cranial nerves Overall: crainial nerves 2 - 12 grossly intact 06/12/2016 None Full Exam - General 1994 Psychiatric orientation/consciousness Overall: oriented to person, place and time 06/12/2016 None Full Exam - General 1994 Psychiatric mood and affect Overall: normal mood and affect 06/12/2016 None Full Exam - General 1994 Psychiatric appearance Overall: well-groomed, good eye contact 06/12/2016 None Full Exam - General 1994 Musculoskeletal lower extremity ROM - knee: pain with flexion 06/12/2016 None Exam Name System Name It em Name Status Result Effective Dates Notes Full Exam - General 1994 Constitutional general appearance Overall: well developed 10/03/2016 None Full Exam - General 1994 Constitutional general appearance Overall: in no acute distress 10/03/2016 None Full Exam - General 1994 Constitutional general appearance Overall: well nourished 10/03/2016 None Full Exam - General 1994 Eyes conjunctiva/eyelids Overall: conjunctiva clear 10/03/2016 None Full Exam - General 1994 Eyes conjunctiva/eyelids Overall: eyelids normal 10/03/2016 None Full Exam - General 1994 Eyes pupils and irises Overall: pupils equal, round, reactive to light and accomodation 10/03/2016 None Full Exam - General 1994 Ears/Nose/Throat otoscopic exam Overall: external auditory canals clear 10/03/2016 None Full Exam - General 1994 Ears/Nose/Throat otoscopic exam Overall: tympanic membranes clear 10/03/2016 None Full Exam - General 1994 Ears/Nose/Throat lips/teeth/gingiva Overall: benign lips 10/03/2016 None Full Exam - General 1994 Ears/Nose/Throat oral cavity/pharynx/larynx Overall: oral mucosa clear 10/03/2016 None Full Exam - General 1994 Ears/Nose/Throat oral cavity/pharynx/larynx Overall: oropharyngeal mucosa clear 10/03/2016 None Full Exam - General 1994 Ears/Nose/Throat oral cavity/pharynx/larynx Overall: no masses 10/03/2016 None Full Exam - General 1994 Respiratory auscultation Overall: breath sounds clear bilaterally 10/03/2016 None Full Exam - General 1994 Respiratory respiratory effort/rhythm Overall: no retractions 10/03/2016 None Full Exam - General 1995 Respiratory respiratory effort/rhythm Overall: normal rate 10/03/2016 None Full Exam - General 1994 Cardiovascular auscultation of heart Overall: regular rate 10/03/2016 None Full Exam - General 1994 Cardiovascular auscultation of heart Overall: normal heart sounds 10/03/2016 None Full Exam - General 1995 Abdomen abdominal exam Overall: no tenderness 10/03/2016 None Full Exam - General 1994 Abdomen abdominal exam Overall: normal bowel sounds 10/03/2016 None Full Exam - General 1995 Lymphatic neck nodes Overall: anterior cervical chain benign 10/03/2016 None Full Exam - General 1995 Lymphatic neck nodes Overall: posterior cervical chain benign 10/03/2016 None Full Exam - General 1994 Musculoskeletal lower extremity ROM - knee: pain with flexion 10/03/2016 None Full Exam - General 1994 Musculoskeletal head and neck Overall: head atraumatic 10/03/2016 None Full Exam - General 1994 Neurologic cranial nerves Overall: crainial nerves 2 - 12 grossly intact 10/03/2016 None Full Exam - General 1994 Psychiatric orientation/consciousness Overall: oriented to person, place and time 10/03/2016 None Full Exam - General 1994 Psychiatric mood and affect Overall: normal mood and affect 10/03/2016 None Full Exam - General 1994 Psychiatric appearance Overall: well-groomed, good eye contact 10/03/2016 None Full Exam - General 1994 Musculoskeletal lower extremity Palpation - knee: bedolla's cyst 10/03/2016 None Full Exam - General 1994 Musculoskeletal lower extremity Palpation - knee: tender joint line 10/03/2016 None Full Exam - General 1994 Cardiovascular extremities Other findings: varicose veins 10/03/2016 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 Full Exam - General 1994 Constitutional general appearance Overall: well developed 06/12/2016 None Full Exam - General 1994 Constitutional general appearance Overall: in no acute distress 06/12/2016 None Full Exam - General 1994 Constitutional general appearance Overall: well nourished 06/12/2016 None Full Exam - General 1994 Eyes conjunctiva/eyelids Overall: conjunctiva clear 06/12/2016 None Full Exam - General 1994 Eyes conjunctiva/eyelids Overall: eyelids normal 06/12/2016 None Full Exam - General 1994 Eyes pupils and irises Overall: pupils equal, round, reactive to light and accomodation 06/12/2016 None Full Exam - General 1994 Ears/Nose/Throat otoscopic exam Overall: tympanic membranes clear 06/12/2016 None Full Exam - General 1994 Ears/Nose/Throat otoscopic exam Overall: external auditory canals clear 06/12/2016 None Full Exam - General 1994 Ears/Nose/Throat lips/teeth/gingiva Overall: benign lips 06/12/2016 None Full Exam - General 1994 Ears/Nose/Throat oral cavity/pharynx/larynx Overall: oral mucosa clear 06/12/2016 None Full Exam - General 1994 Ears/Nose/Throat oral cavity/pharynx/larynx Overall: oropharyngeal mucosa clear 06/12/2016 None Full Exam - General 1994 Ears/Nose/Throat oral cavity/pharynx/larynx Overall: no masses 06/12/2016 None Full Exam - General 1994 Respiratory auscultation Overall: breath sounds clear bilaterally 06/12/2016 None Full Exam - General 1994 Respiratory respiratory effort/rhythm Overall: no retractions 06/12/2016 None Full Exam - General 1994 Respiratory respiratory effort/rhythm Overall: normal rate 06/12/2016 None Full Exam - General 1994 Cardiovascular auscultation of heart Overall: regular rate 06/12/2016 None Full Exam - General 1994 Cardiovascular auscultation of heart Overall: normal heart sounds 06/12/2016 None Full Exam - General 1994 Abdomen abdominal exam Overall: no tenderness 06/12/2016 None Full Exam - General 1994 Abdomen abdominal exam Overall: normal bowel sounds 06/12/2016 None Full Exam - General 1994 Lymphatic neck nodes Overall: anterior cervical chain benign 06/12/2016 None Full Exam - General 1994 Lymphatic neck nodes Overall: posterior cervical chain benign 06/12/2016 None Full Exam - General 1994 Musculoskeletal head and neck Overall: head atraumatic 06/12/2016 None Full Exam - General 1994 Neurologic cranial nerves Overall: crainial nerves 2 - 12 grossly intact 06/12/2016 None Full Exam - General 1994 Psychiatric orientation/consciousness Overall: oriented to person, place and time 06/12/2016 None Full Exam - General 1994 Psychiatric mood and affect Overall: normal mood and affect 06/12/2016 None Full Exam - General 1994 Psychiatric appearance Overall: well-groomed, good eye contact 06/12/2016 None Full Exam - General 1994 Musculoskeletal lower extremity ROM - knee: pain with flexion 06/12/2016 None Exam Name System Name It em Name Status Result Effective Dates Notes Full Exam - General 1994 Cardiovascular extremities Other findings: varicose veins 10/11/2016 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 Full Exam - General 1994 Musculoskeletal lower extremity Palpation - knee: bedolla's cyst 10/11/2016 None Full Exam - General 1994 Musculoskeletal lower extremity Palpation - knee: tender joint line 10/11/2016 None Full Exam - General 1994 Musculoskeletal lower extremity ROM - knee: pain with flexion 10/11/2016 None Full Exam - General 1994 Constitutional general appearance Overall: well developed 10/11/2016 None Full Exam - General 1994 Constitutional general appearance Overall: in no acute distress 10/11/2016 None Full Exam - General 1994 Constitutional general appearance Overall: well nourished 10/11/2016 None Full Exam - General 1994 Psychiatric orientation/consciousness Overall: oriented to person, place and time 10/11/2016 None Full Exam - General 1994 Constitutional general appearance Overall: well developed 10/03/2016 None Full Exam - General 1994 Constitutional general appearance Overall: in no acute distress 10/03/2016 None Full Exam - General 1994 Constitutional general appearance Overall: well nourished 10/03/2016 None Full Exam - General 1994 Eyes conjunctiva/eyelids Overall: conjunctiva clear 10/03/2016 None Full Exam - General 1994 Eyes conjunctiva/eyelids Overall: eyelids normal 10/03/2016 None Full Exam - General 1994 Eyes pupils and irises Overall: pupils equal, round, reactive to light and accomodation 10/03/2016 None Full Exam - General 1994 Ears/Nose/Throat otoscopic exam Overall: external auditory canals clear 10/03/2016 None Full Exam - General 1994 Ears/Nose/Throat otoscopic exam Overall: tympanic membranes clear 10/03/2016 None Full Exam - General 1994 Ears/Nose/Throat lips/teeth/gingiva Overall: benign lips 10/03/2016 None Full Exam - General 1994 Ears/Nose/Throat oral cavity/pharynx/larynx Overall: oral mucosa clear 10/03/2016 None Full Exam - General 1994 Ears/Nose/Throat oral cavity/pharynx/larynx Overall: oropharyngeal mucosa clear 10/03/2016 None Full Exam - General 1994 Ears/Nose/Throat oral cavity/pharynx/larynx Overall: no masses 10/03/2016 None Full Exam - General 1994 Respiratory auscultation Overall: breath sounds clear bilaterally 10/03/2016 None Full Exam - General 1995 Respiratory respiratory effort/rhythm Overall: no retractions 10/03/2016 None Full Exam - General 1994 Respiratory respiratory effort/rhythm Overall: normal rate 10/03/2016 None Full Exam - General 1994 Cardiovascular auscultation of heart Overall: regular rate 10/03/2016 None Full Exam - General 1994 Cardiovascular auscultation of heart Overall: normal heart sounds 10/03/2016 None Full Exam - General 1994 Abdomen abdominal exam Overall: no tenderness 10/03/2016 None Full Exam - General 1994 Abdomen abdominal exam Overall: normal bowel sounds 10/03/2016 None Full Exam - General 1995 Lymphatic neck nodes Overall: anterior cervical chain benign 10/03/2016 None Full Exam - General 1994 Lymphatic neck nodes Overall: posterior cervical chain benign 10/03/2016 None Full Exam - General 1994 Musculoskeletal lower extremity ROM - knee: pain with flexion 10/03/2016 None Full Exam - General 1994 Musculoskeletal head and neck Overall: head atraumatic 10/03/2016 None Full Exam - General 1994 Neurologic cranial nerves Overall: crainial nerves 2 - 12 grossly intact 10/03/2016 None Full Exam - General 1994 Psychiatric orientation/consciousness Overall: oriented to person, place and time 10/03/2016 None Full Exam - General 1994 Psychiatric mood and affect Overall: normal mood and affect 10/03/2016 None Full Exam - General 1994 Psychiatric appearance Overall: well-groomed, good eye contact 10/03/2016 None Full Exam - General 1994 Musculoskeletal lower extremity Palpation - knee: bedolla's cyst 10/03/2016 None Full Exam - General 1994 Musculoskeletal lower extremity Palpation - knee: tender joint line 10/03/2016 None Full Exam - General 1994 Cardiovascular extremities Other findings: varicose veins 10/03/2016 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 Full Exam - General 1994 Constitutional general appearance Overall: well developed 06/12/2016 None Full Exam - General 1994 Constitutional general appearance Overall: in no acute distress 06/12/2016 None Full Exam - General 1994 Constitutional general appearance Overall: well nourished 06/12/2016 None Full Exam - General 1994 Eyes conjunctiva/eyelids Overall: conjunctiva clear 06/12/2016 None Full Exam - General 1994 Eyes conjunctiva/eyelids Overall: eyelids normal 06/12/2016 None Full Exam - General 1994 Eyes pupils and irises Overall: pupils equal, round, reactive to light and accomodation 06/12/2016 None Full Exam - General 1994 Ears/Nose/Throat otoscopic exam Overall: tympanic membranes clear 06/12/2016 None Full Exam - General 1994 Ears/Nose/Throat otoscopic exam Overall: external auditory canals clear 06/12/2016 None Full Exam - General 1994 Ears/Nose/Throat lips/teeth/gingiva Overall: benign lips 06/12/2016 None Full Exam - General 1994 Ears/Nose/Throat oral cavity/pharynx/larynx Overall: oral mucosa clear 06/12/2016 None Full Exam - General 1994 Ears/Nose/Throat oral cavity/pharynx/larynx Overall: oropharyngeal mucosa clear 06/12/2016 None Full Exam - General 1994 Ears/Nose/Throat oral cavity/pharynx/larynx Overall: no masses 06/12/2016 None Full Exam - General 1994 Respiratory auscultation Overall: breath sounds clear bilaterally 06/12/2016 None Full Exam - General 1994 Respiratory respiratory effort/rhythm Overall: no retractions 06/12/2016 None Full Exam - General 1994 Respiratory respiratory effort/rhythm Overall: normal rate 06/12/2016 None Full Exam - General 1994 Cardiovascular auscultation of heart Overall: regular rate 06/12/2016 None Full Exam - General 1994 Cardiovascular auscultation of heart Overall: normal heart sounds 06/12/2016 None Full Exam - General 1994 Abdomen abdominal exam Overall: no tenderness 06/12/2016 None Full Exam - General 1994 Abdomen abdominal exam Overall: normal bowel sounds 06/12/2016 None Full Exam - General 1994 Lymphatic neck nodes Overall: anterior cervical chain benign 06/12/2016 None Full Exam - General 1994 Lymphatic neck nodes Overall: posterior cervical chain benign 06/12/2016 None Full Exam - General 1994 Musculoskeletal head and neck Overall: head atraumatic 06/12/2016 None Full Exam - General 1994 Neurologic cranial nerves Overall: crainial nerves 2 - 12 grossly intact 06/12/2016 None Full Exam - General 1994 Psychiatric orientation/consciousness Overall: oriented to person, place and time 06/12/2016 None Full Exam - General 1994 Psychiatric mood and affect Overall: normal mood and affect 06/12/2016 None Full Exam - General 1994 Psychiatric appearance Overall: well-groomed, good eye contact 06/12/2016 None Full Exam - General 1994 Musculoskeletal lower extremity ROM - knee: pain with flexion 06/12/2016 None Exam Name System Name It em Name Status Result Effective Dates Notes Full Exam - General 1994 Constitutional general appearance Overall: well developed 10/31/2016 None Full Exam - General 1994 Constitutional general appearance Overall: in no acute distress 10/31/2016 None Full Exam - General 1994 Constitutional general appearance Overall: well nourished 10/31/2016 None Full Exam - General 1994 Eyes conjunctiva/eyelids Overall: conjunctiva clear 10/31/2016 None Full Exam - General 1994 Eyes conjunctiva/eyelids Overall: eyelids normal 10/31/2016 None Full Exam - General 1994 Eyes pupils and irises Overall: pupils equal, round, reactive to light and accomodation 10/31/2016 None Full Exam - General 1994 Ears/Nose/Throat otoscopic exam Overall: external auditory canals clear 10/31/2016 None Full Exam - General 1994 Ears/Nose/Throat otoscopic exam Overall: tympanic membranes clear 10/31/2016 None Full Exam - General 1994 Ears/Nose/Throat lips/teeth/gingiva Overall: benign lips 10/31/2016 None Full Exam - General 1994 Ears/Nose/Throat oral cavity/pharynx/larynx Overall: oral mucosa clear 10/31/2016 None Full Exam - General 1994 Ears/Nose/Throat oral cavity/pharynx/larynx Overall: oropharyngeal mucosa clear 10/31/2016 None Full Exam - General 1994 Ears/Nose/Throat oral cavity/pharynx/larynx Overall: no masses 10/31/2016 None Full Exam - General 1994 Respiratory auscultation Overall: breath sounds clear bilaterally 10/31/2016 None Full Exam - General 1994 Respiratory respiratory effort/rhythm Overall: no retractions 10/31/2016 None Full Exam - General 1994 Respiratory respiratory effort/rhythm Overall: normal rate 10/31/2016 None Full Exam - General 1994 Cardiovascular auscultation of heart Overall: regular rate 10/31/2016 None Full Exam - General 1994 Cardiovascular auscultation of heart Overall: normal heart sounds 10/31/2016 None Full Exam - General 1994 Musculoskeletal lower extremity ROM - knee: pain with flexion 10/31/2016 None Full Exam - General 1994 Musculoskeletal head and neck Overall: head atraumatic 10/31/2016 None Full Exam - General 1994 Psychiatric orientation/consciousness Overall: oriented to person, place and time 10/31/2016 None Full Exam - General 1994 Psychiatric mood and affect Overall: normal mood and affect 10/31/2016 None Full Exam - General 1994 Psychiatric appearance Overall: well-groomed, good eye contact 10/31/2016 None Full Exam - General 1994 Cardiovascular extremities Other findings: varicose veins 10/11/2016 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 Full Exam - General 1994 Musculoskeletal lower extremity Palpation - knee: bedolla's cyst 10/11/2016 None Full Exam - General 1994 Musculoskeletal lower extremity Palpation - knee: tender joint line 10/11/2016 None Full Exam - General 1994 Musculoskeletal lower extremity ROM - knee: pain with flexion 10/11/2016 None Full Exam - General 1994 Constitutional general appearance Overall: well developed 10/11/2016 None Full Exam - General 1994 Constitutional general appearance Overall: in no acute distress 10/11/2016 None Full Exam - General 1994 Constitutional general appearance Overall: well nourished 10/11/2016 None Full Exam - General 1994 Psychiatric orientation/consciousness Overall: oriented to person, place and time 10/11/2016 None Full Exam - General 1994 Constitutional general appearance Overall: well developed 10/03/2016 None Full Exam - General 1994 Constitutional general appearance Overall: in no acute distress 10/03/2016 None Full Exam - General 1994 Constitutional general appearance Overall: well nourished 10/03/2016 None Full Exam - General 1994 Eyes conjunctiva/eyelids Overall: conjunctiva clear 10/03/2016 None Full Exam - General 1994 Eyes conjunctiva/eyelids Overall: eyelids normal 10/03/2016 None Full Exam - General 1994 Eyes pupils and irises Overall: pupils equal, round, reactive to light and accomodation 10/03/2016 None Full Exam - General 1994 Ears/Nose/Throat otoscopic exam Overall: external auditory canals clear 10/03/2016 None Full Exam - General 1994 Ears/Nose/Throat otoscopic exam Overall: tympanic membranes clear 10/03/2016 None Full Exam - General 1994 Ears/Nose/Throat lips/teeth/gingiva Overall: benign lips 10/03/2016 None Full Exam - General 1994 Ears/Nose/Throat oral cavity/pharynx/larynx Overall: oral mucosa clear 10/03/2016 None Full Exam - General 1994 Ears/Nose/Throat oral cavity/pharynx/larynx Overall: oropharyngeal mucosa clear 10/03/2016 None Full Exam - General 1994 Ears/Nose/Throat oral cavity/pharynx/larynx Overall: no masses 10/03/2016 None Full Exam - General 1994 Respiratory auscultation Overall: breath sounds clear bilaterally 10/03/2016 None Full Exam - General 1994 Respiratory respiratory effort/rhythm Overall: no retractions 10/03/2016 None Full Exam - General 1994 Respiratory respiratory effort/rhythm Overall: normal rate 10/03/2016 None Full Exam - General 1994 Cardiovascular auscultation of heart Overall: regular rate 10/03/2016 None Full Exam - General 1994 Cardiovascular auscultation of heart Overall: normal heart sounds 10/03/2016 None Full Exam - General 1994 Abdomen abdominal exam Overall: no tenderness 10/03/2016 None Full Exam - General 1994 Abdomen abdominal exam Overall: normal bowel sounds 10/03/2016 None Full Exam - General 1994 Lymphatic neck nodes Overall: anterior cervical chain benign 10/03/2016 None Full Exam - General 1994 Lymphatic neck nodes Overall: posterior cervical chain benign 10/03/2016 None Full Exam - General 1994 Musculoskeletal lower extremity ROM - knee: pain with flexion 10/03/2016 None Full Exam - General 1994 Musculoskeletal head and neck Overall: head atraumatic 10/03/2016 None Full Exam - General 1994 Neurologic cranial nerves Overall: crainial nerves 2 - 12 grossly intact 10/03/2016 None Full Exam - General 1994 Psychiatric orientation/consciousness Overall: oriented to person, place and time 10/03/2016 None Full Exam - General 1994 Psychiatric mood and affect Overall: normal mood and affect 10/03/2016 None Full Exam - General 1994 Psychiatric appearance Overall: well-groomed, good eye contact 10/03/2016 None Full Exam - General 1994 Musculoskeletal lower extremity Palpation - knee: bedolla's cyst 10/03/2016 None Full Exam - General 1994 Musculoskeletal lower extremity Palpation - knee: tender joint line 10/03/2016 None Full Exam - General 1994 Cardiovascular extremities Other findings: varicose veins 10/03/2016 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 Full Exam - General 1994 Constitutional general appearance Overall: well developed 06/12/2016 None Full Exam - General 1994 Constitutional general appearance Overall: in no acute distress 06/12/2016 None Full Exam - General 1994 Constitutional general appearance Overall: well nourished 06/12/2016 None Full Exam - General 1994 Eyes conjunctiva/eyelids Overall: conjunctiva clear 06/12/2016 None Full Exam - General 1994 Eyes conjunctiva/eyelids Overall: eyelids normal 06/12/2016 None Full Exam - General 1994 Eyes pupils and irises Overall: pupils equal, round, reactive to light and accomodation 06/12/2016 None Full Exam - General 1994 Ears/Nose/Throat otoscopic exam Overall: tympanic membranes clear 06/12/2016 None Full Exam - General 1994 Ears/Nose/Throat otoscopic exam Overall: external auditory canals clear 06/12/2016 None Full Exam - General 1994 Ears/Nose/Throat lips/teeth/gingiva Overall: benign lips 06/12/2016 None Full Exam - General 1994 Ears/Nose/Throat oral cavity/pharynx/larynx Overall: oral mucosa clear 06/12/2016 None Full Exam - General 1994 Ears/Nose/Throat oral cavity/pharynx/larynx Overall: oropharyngeal mucosa clear 06/12/2016 None Full Exam - General 1994 Ears/Nose/Throat oral cavity/pharynx/larynx Overall: no masses 06/12/2016 None Full Exam - General 1994 Respiratory auscultation Overall: breath sounds clear bilaterally 06/12/2016 None Full Exam - General 1994 Respiratory respiratory effort/rhythm Overall: no retractions 06/12/2016 None Full Exam - General 1994 Respiratory respiratory effort/rhythm Overall: normal rate 06/12/2016 None Full Exam - General 1994 Cardiovascular auscultation of heart Overall: regular rate 06/12/2016 None Full Exam - General 1994 Cardiovascular auscultation of heart Overall: normal heart sounds 06/12/2016 None Full Exam - General 1994 Abdomen abdominal exam Overall: no tenderness 06/12/2016 None Full Exam - General 1994 Abdomen abdominal exam Overall: normal bowel sounds 06/12/2016 None Full Exam - General 1994 Lymphatic neck nodes Overall: anterior cervical chain benign 06/12/2016 None Full Exam - General 1994 Lymphatic neck nodes Overall: posterior cervical chain benign 06/12/2016 None Full Exam - General 1994 Musculoskeletal head and neck Overall: head atraumatic 06/12/2016 None Full Exam - General 1994 Neurologic cranial nerves Overall: crainial nerves 2 - 12 grossly intact 06/12/2016 None Full Exam - General 1994 Psychiatric orientation/consciousness Overall: oriented to person, place and time 06/12/2016 None Full Exam - General 1994 Psychiatric mood and affect Overall: normal mood and affect 06/12/2016 None Full Exam - General 1994 Psychiatric appearance Overall: well-groomed, good eye contact 06/12/2016 None Full Exam - General 1994 Musculoskeletal lower extremity ROM - knee: pain with flexion 06/12/2016 None Exam Name System Name It em Name Status Result Effective Dates Notes Full Exam - Orthopedics Constitutional general appearance Overall: well nourished 12/25/2018 None Full Exam - Orthopedics Constitutional general appearance Overall: well developed 12/25/2018 None Full Exam - Orthopedics Constitutional general appearance Overall: in no acute distress 12/25/2018 None Full Exam - Orthopedics Eyes conjunctiva/eyelids Overall: conjunctiva clear 12/25/2018 None Full Exam - Orthopedics Eyes conjunctiva/eyelids Overall: eyelids normal 12/25/2018 None Full Exam - Orthopedics Ears/Nose/Throat lips/teeth/gingiva Overall: benign lips 12/25/2018 None Full Exam - Orthopedics Ears/Nose/Throat oral cavity/pharynx/larynx Overall: oral mucosa clear 12/25/2018 None Full Exam - Orthopedics Respiratory respiratory effort/rhythm Overall: no retractions 12/25/2018 None Full Exam - Orthopedics Respiratory respiratory effort/rhythm Overall: normal rate 12/25/2018 None Full Exam - Orthopedics Psychiatric orientation/consciousness Overall: oriented to person, place and time 12/25/2018 None Full Exam - Orthopedics Psychiatric mood and affect Overall: normal mood and affect 12/25/2018 None Full Exam - Orthopedics Psychiatric appearance Overall: well-groomed, good eye contact 12/25/2018 None Full Exam - Orthopedics MS: head/neck insp & palp - H/N Overall: head atraumatic 12/25/2018 None Full Exam - Orthopedics MS: spine/ri b/pelvis insp & palp - S/R/P Thoracic spine p alpation: tender thoracic spinous processes None Full Exam - Orthopedics MS: spine/ri b/pelvis insp & palp - S/R/P Lumbar spine palpation : tender lumbar spinous processes 12/25/2018 None Full Exam - Orthopedics MS: spine/ri b/pelvis insp & palp - S/R/P Sacroiliac palpation: left sacroiliac joint tenderness 12/25/2018 None Full Exam - Orthopedics MS: spine/ri b/pelvis insp & palp - S/R/P Sacroiliac palpation: right sacroiliac joint tenderness 12/25/2018 None Full Exam - Orthopedics MS: spine/ri b/pelvis insp & palp - S/R/P Thoracic/lumbar muscles palpation: tender left parathoracic 12/25/2018 None Full Exam - Orthopedics MS: spine/ri b/pelvis insp & palp - S/R/P Thoracic/lumbar muscles palpation: tender right parathoracic 12/25/2018 None Full Exam - Orthopedics MS: spine/ri b/pelvis insp & palp - S/R/P Thoracic/lumbar muscles palpation: tender left paralumbar 12/25/2018 None Full Exam - Orthopedics MS: spine/ri b/pelvis insp & palp - S/R/P Thoracic/lumbar muscles palpation: tender right paralumbar 12/25/2018 None Full Exam - General 1994 Constitutional general appearance Overall: well developed 11/26/2018 None Full Exam - General 1994 Constitutional general appearance Overall: in no acute distress 11/26/2018 None Full Exam - General 1994 Constitutional general appearance Overall: well nourished 11/26/2018 None Full Exam - General 1994 Eyes conjunctiva/eyelids Overall: conjunctiva clear 11/26/2018 None Full Exam - General 1994 Eyes conjunctiva/eyelids Overall: eyelids normal 11/26/2018 None Full Exam - General 1994 Eyes pupils and irises Overall: pupils equal, round, reactive to light and accomodation 11/26/2018 None Full Exam - General 1994 Ears/Nose/Throat otoscopic exam Overall: external auditory canals clear 11/26/2018 None Full Exam - General 1994 Ears/Nose/Throat otoscopic exam Overall: tympanic membranes clear 11/26/2018 None Full Exam - General 1994 Ears/Nose/Throat lips/teeth/gingiva Overall: benign lips 11/26/2018 None Full Exam - General 1994 Ears/Nose/Throat oral cavity/pharynx/larynx Overall: oral mucosa clear 11/26/2018 None Full Exam - General 1994 Ears/Nose/Throat oral cavity/pharynx/larynx Overall: oropharyngeal mucosa clear 11/26/2018 None Full Exam - General 1994 Ears/Nose/Throat oral cavity/pharynx/larynx Overall: no masses 11/26/2018 None Full Exam - General 1994 Respiratory auscultation Overall: breath sounds clear bilaterally 11/26/2018 None Full Exam - General 1994 Respiratory respiratory effort/rhythm Overall: no retractions 11/26/2018 None Full Exam - General 1994 Respiratory respiratory effort/rhythm Overall: normal rate 11/26/2018 None Full Exam - Cardiology Abdomen abdominal exam Epigastric: tender to palpation 11/26/2018 None Full Exam - General 1994 Cardiovascular extremities Other findings: varicose veins 11/26/2018 None Full Exam - General 1994 Cardiovascular auscultation of heart Overall: regular rate 11/26/2018 None Full Exam - General 1994 Cardiovascular auscultation of heart Overall: normal heart sounds 11/26/2018 None Full Exam - General 1994 Abdomen abdominal exam Overall: no tenderness 11/26/2018 None Full Exam - General 1994 Abdomen abdominal exam Overall: normal bowel sounds 11/26/2018 None Full Exam - General 1994 Lymphatic neck nodes Overall: anterior cervical chain benign 11/26/2018 None Full Exam - General 1994 Lymphatic neck nodes Overall: posterior cervical chain benign 11/26/2018 None Full Exam - General 1994 Musculoskeletal head and neck Overall: head atraumatic 11/26/2018 None Full Exam - General 1994 Neurologic cranial nerves Overall: crainial nerves 2 - 12 grossly intact 11/26/2018 None Full Exam - General 1994 Psychiatric orientation/consciousness Overall: oriented to person, place and time 11/26/2018 None Full Exam - General 1994 Psychiatric mood and affect Overall: normal mood and affect 11/26/2018 None Full Exam - General 1994 Psychiatric appearance Overall: well-groomed, good eye contact 11/26/2018 None Full Exam - General 1994 Constitutional general appearance Overall: well developed 08/27/2018 None Full Exam - General 1994 Constitutional general appearance Overall: in no acute distress 08/27/2018 None Full Exam - General 1994 Constitutional general appearance Overall: well nourished 08/27/2018 None Full Exam - General 1994 Eyes conjunctiva/eyelids Overall: conjunctiva clear 08/27/2018 None Full Exam - General 1994 Eyes conjunctiva/eyelids Overall: eyelids normal 08/27/2018 None Full Exam - General 1994 Eyes pupils and irises Overall: pupils equal, round, reactive to light and accomodation 08/27/2018 None Full Exam - General 1994 Ears/Nose/Throat otoscopic exam Overall: external auditory canals clear 08/27/2018 None Full Exam - General 1994 Ears/Nose/Throat otoscopic exam Overall: tympanic membranes clear 08/27/2018 None Full Exam - General 1994 Ears/Nose/Throat lips/teeth/gingiva Overall: benign lips 08/27/2018 None Full Exam - General 1994 Ears/Nose/Throat oral cavity/pharynx/larynx Overall: oral mucosa clear 08/27/2018 None Full Exam - General 1994 Ears/Nose/Throat oral cavity/pharynx/larynx Overall: oropharyngeal mucosa clear 08/27/2018 None Full Exam - General 1994 Ears/Nose/Throat oral cavity/pharynx/larynx Overall: no masses 08/27/2018 None Full Exam - General 1994 Respiratory auscultation Overall: breath sounds clear bilaterally 08/27/2018 None Full Exam - General 1994 Respiratory respiratory effort/rhythm Overall: no retractions 08/27/2018 None Full Exam - General 1994 Respiratory respiratory effort/rhythm Overall: normal rate 08/27/2018 None Full Exam - Cardiology Abdomen abdominal exam Epigastric: tender to palpation 08/27/2018 None Full Exam - General 1994 Cardiovascular extremities Other findings: varicose veins 08/27/2018 None Full Exam - General 1994 Cardiovascular auscultation of heart Overall: regular rate 08/27/2018 None Full Exam - General 1994 Cardiovascular auscultation of heart Overall: normal heart sounds 08/27/2018 None Full Exam - General 1994 Abdomen abdominal exam Overall: no tenderness 08/27/2018 None Full Exam - General 1994 Abdomen abdominal exam Overall: normal bowel sounds 08/27/2018 None Full Exam - General 1994 Lymphatic neck nodes Overall: anterior cervical chain benign 08/27/2018 None Full Exam - General 1994 Lymphatic neck nodes Overall: posterior cervical chain benign 08/27/2018 None Full Exam - General 1994 Musculoskeletal head and neck Overall: head atraumatic 08/27/2018 None Full Exam - General 1994 Neurologic cranial nerves Overall: crainial nerves 2 - 12 grossly intact 08/27/2018 None Full Exam - General 1994 Psychiatric orientation/consciousness Overall: oriented to person, place and time 08/27/2018 None Full Exam - General 1994 Psychiatric mood and affect Overall: normal mood and affect 08/27/2018 None Full Exam - General 1994 Psychiatric appearance Overall: well-groomed, good eye contact 08/27/2018 None Full Exam - General 1994 Constitutional general appearance Overall: well developed 07/23/2018 None Full Exam - General 1994 Constitutional general appearance Overall: in no acute distress 07/23/2018 None Full Exam - General 1994 Constitutional general appearance Overall: well nourished 07/23/2018 None Full Exam - General 1994 Eyes conjunctiva/eyelids Overall: conjunctiva clear 07/23/2018 None Full Exam - General 1994 Eyes conjunctiva/eyelids Overall: eyelids normal 07/23/2018 None Full Exam - General 1994 Eyes pupils and irises Overall: pupils equal, round, reactive to light and accomodation 07/23/2018 None Full Exam - General 1994 Ears/Nose/Throat otoscopic exam Overall: external auditory canals clear 07/23/2018 None Full Exam - General 1994 Ears/Nose/Throat otoscopic exam Overall: tympanic membranes clear 07/23/2018 None Full Exam - General 1994 Ears/Nose/Throat lips/teeth/gingiva Overall: benign lips 07/23/2018 None Full Exam - General 1994 Ears/Nose/Throat oral cavity/pharynx/larynx Overall: oral mucosa clear 07/23/2018 None Full Exam - General 1994 Ears/Nose/Throat oral cavity/pharynx/larynx Overall: oropharyngeal mucosa clear 07/23/2018 None Full Exam - General 1994 Ears/Nose/Throat oral cavity/pharynx/larynx Overall: no masses 07/23/2018 None Full Exam - General 1994 Respiratory auscultation Overall: breath sounds clear bilaterally 07/23/2018 None Full Exam - General 1994 Respiratory respiratory effort/rhythm Overall: no retractions 07/23/2018 None Full Exam - General 1994 Respiratory respiratory effort/rhythm Overall: normal rate 07/23/2018 None Full Exam - Cardiology Abdomen abdominal exam Epigastric: tender to palpation 07/23/2018 None Full Exam - General 1994 Cardiovascular extremities Other findings: varicose veins 07/23/2018 None Full Exam - General 1994 Cardiovascular auscultation of heart Overall: regular rate 07/23/2018 None Full Exam - General 1994 Cardiovascular auscultation of heart Overall: normal heart sounds 07/23/2018 None Full Exam - General 1994 Abdomen abdominal exam Overall: no tenderness 07/23/2018 None Full Exam - General 1994 Abdomen abdominal exam Overall: normal bowel sounds 07/23/2018 None Full Exam - General 1994 Lymphatic neck nodes Overall: anterior cervical chain benign 07/23/2018 None Full Exam - General 1994 Lymphatic neck nodes Overall: posterior cervical chain benign 07/23/2018 None Full Exam - General 1994 Musculoskeletal head and neck Overall: head atraumatic 07/23/2018 None Full Exam - General 1994 Neurologic cranial nerves Overall: crainial nerves 2 - 12 grossly intact 07/23/2018 None Full Exam - General 1994 Psychiatric orientation/consciousness Overall: oriented to person, place and time 07/23/2018 None Full Exam - General 1994 Psychiatric mood and affect Overall: normal mood and affect 07/23/2018 None Full Exam - General 1994 Psychiatric appearance Overall: well-groomed, good eye contact 07/23/2018 None Full Exam - General 1994 Constitutional general appearance Overall: well developed 06/25/2018 None Full Exam - General 1994 Constitutional general appearance Overall: in no acute distress 06/25/2018 None Full Exam - General 1994 Constitutional general appearance Overall: well nourished 06/25/2018 None Full Exam - General 1994 Eyes conjunctiva/eyelids Overall: conjunctiva clear 06/25/2018 None Full Exam - General 1994 Eyes conjunctiva/eyelids Overall: eyelids normal 06/25/2018 None Full Exam - General 1994 Eyes pupils and irises Overall: pupils equal, round, reactive to light and accomodation 06/25/2018 None Full Exam - General 1994 Ears/Nose/Throat otoscopic exam Overall: external auditory canals clear 06/25/2018 None Full Exam - General 1994 Ears/Nose/Throat otoscopic exam Overall: tympanic membranes clear 06/25/2018 None Full Exam - General 1994 Ears/Nose/Throat lips/teeth/gingiva Overall: benign lips 06/25/2018 None Full Exam - General 1994 Ears/Nose/Throat oral cavity/pharynx/larynx Overall: oral mucosa clear 06/25/2018 None Full Exam - General 1994 Ears/Nose/Throat oral cavity/pharynx/larynx Overall: oropharyngeal mucosa clear 06/25/2018 None Full Exam - General 1994 Ears/Nose/Throat oral cavity/pharynx/larynx Overall: no masses 06/25/2018 None Full Exam - General 1994 Respiratory auscultation Overall: breath sounds clear bilaterally 06/25/2018 None Full Exam - General 1994 Respiratory respiratory effort/rhythm Overall: no retractions 06/25/2018 None Full Exam - General 1994 Respiratory respiratory effort/rhythm Overall: normal rate 06/25/2018 None Full Exam - Cardiology Abdomen abdominal exam Epigastric: tender to palpation 06/25/2018 None Full Exam - General 1994 Cardiovascular extremities Other findings: varicose veins 06/25/2018 None Full Exam - General 1994 Cardiovascular auscultation of heart Overall: regular rate 06/25/2018 None Full Exam - General 1994 Cardiovascular auscultation of heart Overall: normal heart sounds 06/25/2018 None Full Exam - General 1994 Abdomen abdominal exam Overall: no tenderness 06/25/2018 None Full Exam - General 1994 Abdomen abdominal exam Overall: normal bowel sounds 06/25/2018 None Full Exam - General 1994 Lymphatic neck nodes Overall: anterior cervical chain benign 06/25/2018 None Full Exam - General 1994 Lymphatic neck nodes Overall: posterior cervical chain benign 06/25/2018 None Full Exam - General 1994 Musculoskeletal head and neck Overall: head atraumatic 06/25/2018 None Full Exam - General 1994 Neurologic cranial nerves Overall: crainial nerves 2 - 12 grossly intact 06/25/2018 None Full Exam - General 1994 Psychiatric orientation/consciousness Overall: oriented to person, place and time 06/25/2018 None Full Exam - General 1994 Psychiatric mood and affect Overall: normal mood and affect 06/25/2018 None Full Exam - General 1994 Psychiatric appearance Overall: well-groomed, good eye contact 06/25/2018 None Full Exam - General 1994 Constitutional general appearance Overall: well developed 05/25/2018 None Full Exam - General 1994 Constitutional general appearance Overall: in no acute distress 05/25/2018 None Full Exam - General 1994 Constitutional general appearance Overall: well nourished 05/25/2018 None Full Exam - General 1994 Eyes conjunctiva/eyelids Overall: conjunctiva clear 05/25/2018 None Full Exam - General 1994 Eyes conjunctiva/eyelids Overall: eyelids normal 05/25/2018 None Full Exam - General 1994 Eyes pupils and irises Overall: pupils equal, round, reactive to light and accomodation 05/25/2018 None Full Exam - General 1994 Ears/Nose/Throat otoscopic exam Overall: external auditory canals clear 05/25/2018 None Full Exam - General 1994 Ears/Nose/Throat otoscopic exam Overall: tympanic membranes clear 05/25/2018 None Full Exam - General 1994 Ears/Nose/Throat lips/teeth/gingiva Overall: benign lips 05/25/2018 None Full Exam - General 1994 Ears/Nose/Throat oral cavity/pharynx/larynx Overall: oral mucosa clear 05/25/2018 None Full Exam - General 1994 Ears/Nose/Throat oral cavity/pharynx/larynx Overall: oropharyngeal mucosa clear 05/25/2018 None Full Exam - General 1994 Ears/Nose/Throat oral cavity/pharynx/larynx Overall: no masses 05/25/2018 None Full Exam - General 1994 Respiratory auscultation Overall: breath sounds clear bilaterally 05/25/2018 None Full Exam - General 1994 Respiratory respiratory effort/rhythm Overall: no retractions 05/25/2018 None Full Exam - General 1994 Respiratory respiratory effort/rhythm Overall: normal rate 05/25/2018 None Full Exam - General 1994 Cardiovascular extremities Other findings: varicose veins 05/25/2018 None Full Exam - General 1994 Cardiovascular auscultation of heart Overall: regular rate 05/25/2018 None Full Exam - General 1994 Cardiovascular auscultation of heart Overall: normal heart sounds 05/25/2018 None Full Exam - General 1994 Abdomen abdominal exam Overall: no tenderness 05/25/2018 None Full Exam - General 1994 Abdomen abdominal exam Overall: normal bowel sounds 05/25/2018 None Full Exam - General 1994 Lymphatic neck nodes Overall: anterior cervical chain benign 05/25/2018 None Full Exam - General 1994 Lymphatic neck nodes Overall: posterior cervical chain benign 05/25/2018 None Full Exam - General 1994 Musculoskeletal head and neck Overall: head atraumatic 05/25/2018 None Full Exam - General 1994 Neurologic cranial nerves Overall: crainial nerves 2 - 12 grossly intact 05/25/2018 None Full Exam - General 1994 Psychiatric orientation/consciousness Overall: oriented to person, place and time 05/25/2018 None Full Exam - General 1994 Psychiatric mood and affect Overall: normal mood and affect 05/25/2018 None Full Exam - General 1994 Psychiatric appearance Overall: well-groomed, good eye contact 05/25/2018 None Full Exam - Cardiology Abdomen abdominal exam Epigastric: tender to palpation 05/25/2018 None Full Exam - General 1994 Constitutional general appearance Overall: well developed 07/11/2017 None Full Exam - General 1994 Constitutional general appearance Overall: in no acute distress 07/11/2017 None Full Exam - General 1994 Constitutional general appearance Overall: well nourished 07/11/2017 None Full Exam - General 1994 Eyes conjunctiva/eyelids Overall: conjunctiva clear 07/11/2017 None Full Exam - General 1994 Eyes conjunctiva/eyelids Overall: eyelids normal 07/11/2017 None Full Exam - General 1994 Eyes pupils and irises Overall: pupils equal, round, reactive to light and accomodation 07/11/2017 None Full Exam - General 1994 Ears/Nose/Throat otoscopic exam Overall: external auditory canals clear 07/11/2017 None Full Exam - General 1994 Ears/Nose/Throat otoscopic exam Overall: tympanic membranes clear 07/11/2017 None Full Exam - General 1995 Ears/Nose/Throat lips/teeth/gingiva Overall: benign lips 07/11/2017 None Full Exam - General 1994 Ears/Nose/Throat oral cavity/pharynx/larynx Overall: oral mucosa clear 07/11/2017 None Full Exam - General 1995 Ears/Nose/Throat oral cavity/pharynx/larynx Overall: oropharyngeal mucosa clear 07/11/2017 None Full Exam - General 1994 Ears/Nose/Throat oral cavity/pharynx/larynx Overall: no masses 07/11/2017 None Full Exam - General 1994 Respiratory auscultation Overall: breath sounds clear bilaterally 07/11/2017 None Full Exam - General 1994 Respiratory respiratory effort/rhythm Overall: no retractions 07/11/2017 None Full Exam - General 1994 Respiratory respiratory effort/rhythm Overall: normal rate 07/11/2017 None Full Exam - General 1994 Cardiovascular extremities Other findings: varicose veins 07/11/2017 None Full Exam - General 1994 Cardiovascular auscultation of heart Overall: regular rate 07/11/2017 None Full Exam - General 1994 Cardiovascular auscultation of heart Overall: normal heart sounds 07/11/2017 None Full Exam - General 1994 Abdomen abdominal exam Overall: no tenderness 07/11/2017 None Full Exam - General 1994 Abdomen abdominal exam Overall: normal bowel sounds 07/11/2017 None Full Exam - General 1994 Lymphatic neck nodes Overall: anterior cervical chain benign 07/11/2017 None Full Exam - General 1994 Lymphatic neck nodes Overall: posterior cervical chain benign 07/11/2017 None Full Exam - General 1994 Musculoskeletal head and neck Overall: head atraumatic 07/11/2017 None Full Exam - General 1994 Neurologic cranial nerves Overall: crainial nerves 2 - 12 grossly intact 07/11/2017 None Full Exam - General 1994 Psychiatric orientation/consciousness Overall: oriented to person, place and time 07/11/2017 None Full Exam - General 1994 Psychiatric mood and affect Overall: normal mood and affect 07/11/2017 None Full Exam - General 1994 Psychiatric appearance Overall: well-groomed, good eye contact 07/11/2017 None Full Exam - General 1994 Constitutional general appearance Overall: well developed 04/08/2017 None Full Exam - General 1994 Constitutional general appearance Overall: in no acute distress 04/08/2017 None Full Exam - General 1994 Constitutional general appearance Overall: well nourished 04/08/2017 None Full Exam - General 1994 Eyes conjunctiva/eyelids Overall: conjunctiva clear 04/08/2017 None Full Exam - General 1994 Eyes conjunctiva/eyelids Overall: eyelids normal 04/08/2017 None Full Exam - General 1994 Eyes pupils and irises Overall: pupils equal, round, reactive to light and accomodation 04/08/2017 None Full Exam - General 1994 Ears/Nose/Throat otoscopic exam Overall: external auditory canals clear 04/08/2017 None Full Exam - General 1994 Ears/Nose/Throat otoscopic exam Overall: tympanic membranes clear 04/08/2017 None Full Exam - General 1994 Ears/Nose/Throat lips/teeth/gingiva Overall: benign lips 04/08/2017 None Full Exam - General 1994 Ears/Nose/Throat oral cavity/pharynx/larynx Overall: oral mucosa clear 04/08/2017 None Full Exam - General 1994 Ears/Nose/Throat oral cavity/pharynx/larynx Overall: oropharyngeal mucosa clear 04/08/2017 None Full Exam - General 1994 Ears/Nose/Throat oral cavity/pharynx/larynx Overall: no masses 04/08/2017 None Full Exam - General 1994 Respiratory auscultation Overall: breath sounds clear bilaterally 04/08/2017 None Full Exam - General 1994 Respiratory respiratory effort/rhythm Overall: no retractions 04/08/2017 None Full Exam - General 1994 Respiratory respiratory effort/rhythm Overall: normal rate 04/08/2017 None Full Exam - General 1994 Cardiovascular extremities Other findings: varicose veins 04/08/2017 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 Full Exam - General 1994 Cardiovascular auscultation of heart Overall: regular rate 04/08/2017 None Full Exam - General 1994 Cardiovascular auscultation of heart Overall: normal heart sounds 04/08/2017 None Full Exam - General 1994 Abdomen abdominal exam Overall: no tenderness 04/08/2017 None Full Exam - General 1994 Abdomen abdominal exam Overall: normal bowel sounds 04/08/2017 None Full Exam - General 1994 Lymphatic neck nodes Overall: anterior cervical chain benign 04/08/2017 None Full Exam - General 1994 Lymphatic neck nodes Overall: posterior cervical chain benign 04/08/2017 None Full Exam - General 1994 Musculoskeletal lower extremity Palpation - knee: bedolla's cyst 04/08/2017 None Full Exam - General 1994 Musculoskeletal lower extremity Palpation - knee: tender joint line 04/08/2017 None Full Exam - General 1994 Musculoskeletal lower extremity ROM - knee: pain with flexion 04/08/2017 None Full Exam - General 1994 Musculoskeletal head and neck Overall: head atraumatic 04/08/2017 None Full Exam - General 1994 Neurologic cranial nerves Overall: crainial nerves 2 - 12 grossly intact 04/08/2017 None Full Exam - General 1994 Psychiatric orientation/consciousness Overall: oriented to person, place and time 04/08/2017 None Full Exam - General 1994 Psychiatric mood and affect Overall: normal mood and affect 04/08/2017 None Full Exam - General 1994 Psychiatric appearance Overall: well-groomed, good eye contact 04/08/2017 None Full Exam - General 1994 Constitutional general appearance Overall: well developed 12/25/2016 None Full Exam - General 1994 Constitutional general appearance Overall: in no acute distress 12/25/2016 None Full Exam - General 1994 Constitutional general appearance Overall: well nourished 12/25/2016 None Full Exam - General 1994 Eyes conjunctiva/eyelids Overall: conjunctiva clear 12/25/2016 None Full Exam - General 1994 Eyes conjunctiva/eyelids Overall: eyelids normal 12/25/2016 None Full Exam - General 1994 Eyes pupils and irises Overall: pupils equal, round, reactive to light and accomodation 12/25/2016 None Full Exam - General 1994 Ears/Nose/Throat otoscopic exam Overall: tympanic membranes clear 12/25/2016 None Full Exam - General 1994 Ears/Nose/Throat lips/teeth/gingiva Overall: benign lips 12/25/2016 None Full Exam - General 1994 Ears/Nose/Throat oral cavity/pharynx/larynx Overall: oral mucosa clear 12/25/2016 None Full Exam - General 1994 Ears/Nose/Throat oral cavity/pharynx/larynx Overall: oropharyngeal mucosa clear 12/25/2016 None Full Exam - General 1994 Ears/Nose/Throat oral cavity/pharynx/larynx Overall: no masses 12/25/2016 None Full Exam - General 1994 Respiratory auscultation Overall: breath sounds clear bilaterally 12/25/2016 None Full Exam - General 1994 Respiratory respiratory effort/rhythm Overall: no retractions 12/25/2016 None Full Exam - General 1994 Respiratory respiratory effort/rhythm Overall: normal rate 12/25/2016 None Full Exam - General 1994 Cardiovascular extremities Other findings: varicose veins 12/25/2016 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 Full Exam - General 1994 Cardiovascular auscultation of heart Overall: regular rate 12/25/2016 None Full Exam - General 1994 Cardiovascular auscultation of heart Overall: normal heart sounds 12/25/2016 None Full Exam - General 1994 Lymphatic neck nodes Overall: anterior cervical chain benign 12/25/2016 None Full Exam - General 1994 Lymphatic neck nodes Overall: posterior cervical chain benign 12/25/2016 None Full Exam - General 1994 Musculoskeletal lower extremity Palpation - knee: bedolla's cyst 12/25/2016 None Full Exam - General 1994 Musculoskeletal lower extremity Palpation - knee: tender joint line 12/25/2016 None Full Exam - General 1994 Musculoskeletal lower extremity ROM - knee: pain with flexion 12/25/2016 None Full Exam - General 1994 Musculoskeletal head and neck Overall: head atraumatic 12/25/2016 None Full Exam - General 1994 Psychiatric orientation/consciousness Overall: oriented to person, place and time 12/25/2016 None Full Exam - General 1994 Psychiatric mood and affect Overall: normal mood and affect 12/25/2016 None Full Exam - General 1994 Psychiatric appearance Overall: well-groomed, good eye contact 12/25/2016 None Full Exam - General 1994 Ears/Nose/Throat otoscopic exam External auditory canal: tender 12/25/2016 None Full Exam - General 1994 Ears/Nose/Throat otoscopic exam External auditory canal: erythematous 12/25/2016 around irritated skin lesion in lower part of ear canal Full Exam - General 1994 Constitutional general appearance Overall: well developed 10/31/2016 None Full Exam - General 1994 Constitutional general appearance Overall: in no acute distress 10/31/2016 None Full Exam - General 1994 Constitutional general appearance Overall: well nourished 10/31/2016 None Full Exam - General 1994 Eyes conjunctiva/eyelids Overall: conjunctiva clear 10/31/2016 None Full Exam - General 1994 Eyes conjunctiva/eyelids Overall: eyelids normal 10/31/2016 None Full Exam - General 1994 Eyes pupils and irises Overall: pupils equal, round, reactive to light and accomodation 10/31/2016 None Full Exam - General 1994 Ears/Nose/Throat otoscopic exam Overall: external auditory canals clear 10/31/2016 None Full Exam - General 1994 Ears/Nose/Throat otoscopic exam Overall: tympanic membranes clear 10/31/2016 None Full Exam - General 1994 Ears/Nose/Throat lips/teeth/gingiva Overall: benign lips 10/31/2016 None Full Exam - General 1994 Ears/Nose/Throat oral cavity/pharynx/larynx Overall: oral mucosa clear 10/31/2016 None Full Exam - General 1994 Ears/Nose/Throat oral cavity/pharynx/larynx Overall: oropharyngeal mucosa clear 10/31/2016 None Full Exam - General 1994 Ears/Nose/Throat oral cavity/pharynx/larynx Overall: no masses 10/31/2016 None Full Exam - General 1994 Respiratory auscultation Overall: breath sounds clear bilaterally 10/31/2016 None Full Exam - General 1994 Respiratory respiratory effort/rhythm Overall: no retractions 10/31/2016 None Full Exam - General 1994 Respiratory respiratory effort/rhythm Overall: normal rate 10/31/2016 None Full Exam - General 1994 Cardiovascular auscultation of heart Overall: regular rate 10/31/2016 None Full Exam - General 1994 Cardiovascular auscultation of heart Overall: normal heart sounds 10/31/2016 None Full Exam - General 1994 Musculoskeletal lower extremity ROM - knee: pain with flexion 10/31/2016 None Full Exam - General 1994 Musculoskeletal head and neck Overall: head atraumatic 10/31/2016 None Full Exam - General 1994 Psychiatric orientation/consciousness Overall: oriented to person, place and time 10/31/2016 None Full Exam - General 1994 Psychiatric mood and affect Overall: normal mood and affect 10/31/2016 None Full Exam - General 1994 Psychiatric appearance Overall: well-groomed, good eye contact 10/31/2016 None Full Exam - General 1994 Cardiovascular extremities Other findings: varicose veins 10/11/2016 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 Full Exam - General 1994 Musculoskeletal lower extremity Palpation - knee: bedolla's cyst 10/11/2016 None Full Exam - General 1994 Musculoskeletal lower extremity Palpation - knee: tender joint line 10/11/2016 None Full Exam - General 1994 Musculoskeletal lower extremity ROM - knee: pain with flexion 10/11/2016 None Full Exam - General 1994 Constitutional general appearance Overall: well developed 10/11/2016 None Full Exam - General 1994 Constitutional general appearance Overall: in no acute distress 10/11/2016 None Full Exam - General 1994 Constitutional general appearance Overall: well nourished 10/11/2016 None Full Exam - General 1994 Psychiatric orientation/consciousness Overall: oriented to person, place and time 10/11/2016 None Full Exam - General 1994 Constitutional general appearance Overall: well developed 10/03/2016 None Full Exam - General 1994 Constitutional general appearance Overall: in no acute distress 10/03/2016 None Full Exam - General 1994 Constitutional general appearance Overall: well nourished 10/03/2016 None Full Exam - General 1994 Eyes conjunctiva/eyelids Overall: conjunctiva clear 10/03/2016 None Full Exam - General 1994 Eyes conjunctiva/eyelids Overall: eyelids normal 10/03/2016 None Full Exam - General 1994 Eyes pupils and irises Overall: pupils equal, round, reactive to light and accomodation 10/03/2016 None Full Exam - General 1994 Ears/Nose/Throat otoscopic exam Overall: external auditory canals clear 10/03/2016 None Full Exam - General 1994 Ears/Nose/Throat otoscopic exam Overall: tympanic membranes clear 10/03/2016 None Full Exam - General 1994 Ears/Nose/Throat lips/teeth/gingiva Overall: benign lips 10/03/2016 None Full Exam - General 1994 Ears/Nose/Throat oral cavity/pharynx/larynx Overall: oral mucosa clear 10/03/2016 None Full Exam - General 1994 Ears/Nose/Throat oral cavity/pharynx/larynx Overall: oropharyngeal mucosa clear 10/03/2016 None Full Exam - General 1994 Ears/Nose/Throat oral cavity/pharynx/larynx Overall: no masses 10/03/2016 None Full Exam - General 1994 Respiratory auscultation Overall: breath sounds clear bilaterally 10/03/2016 None Full Exam - General 1994 Respiratory respiratory effort/rhythm Overall: no retractions 10/03/2016 None Full Exam - General 1994 Respiratory respiratory effort/rhythm Overall: normal rate 10/03/2016 None Full Exam - General 1994 Cardiovascular auscultation of heart Overall: regular rate 10/03/2016 None Full Exam - General 1994 Cardiovascular auscultation of heart Overall: normal heart sounds 10/03/2016 None Full Exam - General 1994 Abdomen abdominal exam Overall: no tenderness 10/03/2016 None Full Exam - General 1994 Abdomen abdominal exam Overall: normal bowel sounds 10/03/2016 None Full Exam - General 1994 Lymphatic neck nodes Overall: anterior cervical chain benign 10/03/2016 None Full Exam - General 1994 Lymphatic neck nodes Overall: posterior cervical chain benign 10/03/2016 None Full Exam - General 1994 Musculoskeletal lower extremity ROM - knee: pain with flexion 10/03/2016 None Full Exam - General 1994 Musculoskeletal head and neck Overall: head atraumatic 10/03/2016 None Full Exam - General 1994 Neurologic cranial nerves Overall: crainial nerves 2 - 12 grossly intact 10/03/2016 None Full Exam - General 1994 Psychiatric orientation/consciousness Overall: oriented to person, place and time 10/03/2016 None Full Exam - General 1994 Psychiatric mood and affect Overall: normal mood and affect 10/03/2016 None Full Exam - General 1994 Psychiatric appearance Overall: well-groomed, good eye contact 10/03/2016 None Full Exam - General 1994 Musculoskeletal lower extremity Palpation - knee: bedolla's cyst 10/03/2016 None Full Exam - General 1994 Musculoskeletal lower extremity Palpation - knee: tender joint line 10/03/2016 None Full Exam - General 1994 Cardiovascular extremities Other findings: varicose veins 10/03/2016 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 Full Exam - General 1994 Constitutional general appearance Overall: well developed 06/12/2016 None Full Exam - General 1994 Constitutional general appearance Overall: in no acute distress 06/12/2016 None Full Exam - General 1994 Constitutional general appearance Overall: well nourished 06/12/2016 None Full Exam - General 1994 Eyes conjunctiva/eyelids Overall: conjunctiva clear 06/12/2016 None Full Exam - General 1994 Eyes conjunctiva/eyelids Overall: eyelids normal 06/12/2016 None Full Exam - General 1994 Eyes pupils and irises Overall: pupils equal, round, reactive to light and accomodation 06/12/2016 None Full Exam - General 1994 Ears/Nose/Throat otoscopic exam Overall: tympanic membranes clear 06/12/2016 None Full Exam - General 1994 Ears/Nose/Throat otoscopic exam Overall: external auditory canals clear 06/12/2016 None Full Exam - General 1994 Ears/Nose/Throat lips/teeth/gingiva Overall: benign lips 06/12/2016 None Full Exam - General 1994 Ears/Nose/Throat oral cavity/pharynx/larynx Overall: oral mucosa clear 06/12/2016 None Full Exam - General 1994 Ears/Nose/Throat oral cavity/pharynx/larynx Overall: oropharyngeal mucosa clear 06/12/2016 None Full Exam - General 1994 Ears/Nose/Throat oral cavity/pharynx/larynx Overall: no masses 06/12/2016 None Full Exam - General 1994 Respiratory auscultation Overall: breath sounds clear bilaterally 06/12/2016 None Full Exam - General 1995 Respiratory respiratory effort/rhythm Overall: no retractions 06/12/2016 None Full Exam - General 1994 Respiratory respiratory effort/rhythm Overall: normal rate 06/12/2016 None Full Exam - General 1994 Cardiovascular auscultation of heart Overall: regular rate 06/12/2016 None Full Exam - General 1994 Cardiovascular auscultation of heart Overall: normal heart sounds 06/12/2016 None Full Exam - General 1994 Abdomen abdominal exam Overall: no tenderness 06/12/2016 None Full Exam - General 1994 Abdomen abdominal exam Overall: normal bowel sounds 06/12/2016 None Full Exam - General 1994 Lymphatic neck nodes Overall: anterior cervical chain benign 06/12/2016 None Full Exam - General 1994 Lymphatic neck nodes Overall: posterior cervical chain benign 06/12/2016 None Full Exam - General 1994 Musculoskeletal head and neck Overall: head atraumatic 06/12/2016 None Full Exam - General 1994 Neurologic cranial nerves Overall: crainial nerves 2 - 12 grossly intact 06/12/2016 None Full Exam - General 1994 Psychiatric orientation/consciousness Overall: oriented to person, place and time 06/12/2016 None Full Exam - General 1994 Psychiatric mood and affect Overall: normal mood and affect 06/12/2016 None Full Exam - General 1994 Psychiatric appearance Overall: well-groomed, good eye contact 06/12/2016 None Full Exam - General 1994 Musculoskeletal lower extremity ROM - knee: pain with flexion 06/12/2016 None Advance Directives No Advance Directive dataNo Advance Directive dataNo Advance Directive dataNo Advance Directive dataNo Advance Directive dataNo Advance Directive dataNo Advance Directive dataNo Advance Directive dataNo Advance Directive dataNo Advance Directive dataNo Advance Directive dataNo Advance Directive dataNo Advance Directive dataNo Advance Directive dataNo Advance Directive dataNo Advance Directive dataNo Advance Directive dataNo Advance Directive data Instructions Comment FASTING LABS OMEPRAZOLE DAILY -CONSIDER SWALLOW STUDY IF NOT GETTING BETTER FOLLOW UP BLOOD PRESSURE IN 1 MONTH . Hypertension - not well controlled - c ontinue with current medications, continue with no added salt diet. Pt has been encouraged to exercise daily. Follow up in 1 month The pt has been advised to call the office if there are any acute concerns about change in blood pressure readings at home. Esophageal Reflux - the patient has been counseled against excessive intake of caffeine, spicy foods, peppermint, and cinnamon - all of which can exacerbate esophageal reflux. The patient is to take medications as prescribed and call the office if the symptoms are not improving. Dysphagia- start ppi -consider swallow study if symptoms do not improve . Bursitis of knee - Recommended voltaren gel on knee - RX sent to pharmacy - also recommended pt to do stretching exercise. . Well Adult - pt wa s counseled about diet, exercise, and encouraged to follow a heart healthy diet and increase activity level. The patient was instructed to RTC yearly for well adult exams and PRN for acute illnesses. The pt was also instructed to have yearly labs for check of cholesterol, thyroid, chem panel, CBC, and renal functioning. right knee pain - The pt is to use RICE - rest, ice, compression, elevation - The pt is to use prn antiinflammatories to manage acute pain. The patient is to call the office if the pain is worsening or does not improve. INCREASE AMLODIPINE TO 10MG DAILY XRAY RIGHT KNEE-CONTINUE ANTI INFLAMMATORIES CONSIDER REFERRAL TO VASCULAR SURGEON FOR EVALUATION OF VARICOSE VEINS . Hypertension - uncontrolled - the nohemy ent's medications have been modified as documented in the visit note. The patient has been counseled to cut back on salt in diet for a no added salt diet, low fat diet, start an exercise program with low weight bearing exercises and higher aerobic activity for heart health. The patient is to check blood pressure readings as an outpatient and either fax, call, or email the readings to the office next week for practitioner to review. The pt is to call for acute concerns. Right knee pain-bedolla's cyst-xray knee-consider joint injection if symptoms persist Varicose veins-recommend appt with vein specialist/vascular surgeon for evaluation-patient will consider RECOMMEND MAMMOGRAM- PATIENT WILL CONSIDER RECOMMEND COLONOSCOPY-PATIENT REFUSES -ALSO DISCUSSED COLOGUARD-PATIENT WILL CONSIDER RECOMMEND FASTING LABS-PATIENT WILL COME BACK FASTING OR CALL FOR ORDERS TO MAG LAB . Medicare Exam - today we discussed the patients past history, immunizations, preventative exams/evaluations - colonoscopy, fecal occult blood testing, routine labs for renal function, glucose, cholesterol, osteoporosis evaluations, cardiovascular testing and cancer screenings. We have also discussed mental health and the signs/symptoms of depression. The patient was advised of home safety evaluations and the need to make sure that as the aging process continues, we need to be aware of different ways to make the home a safer place to reside. The patient has also been counseled that exercise is necessary - and of utmost importance as we age to help decrease fall risk and to maintain independence in the home. Today we discussed the need for the patient to create paperwork for Advanced directives as well as for the patient to provide this office with a copy of 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 . Hypertension - wel l controlled - continue with current medications, continue with no added salt diet. Pt has been encouraged to exercise daily. The pt has been advised to call the office if there are any acute concerns about change in blood pressure readings at home. Skin lesion of ear - rx for mupirocin cream, call if not improving. Knee pain - continue with voltaren gel. . Joint Injection - Pt was given post - injection instructions. The pt has been advised to use anti-inflammatories post injection today, ice to the injected site, call if redness, warmth, or increased pain occurs at the site of injection. . Hypertension - wel l controlled - continue with current medications, continue with no added salt diet. Pt has been encouraged to exercise daily. The pt has been advised to call the office if there are any acute concerns about change in blood pressure readings at home. Comment FASTING LABS OMEPRAZOLE DAILY -CONSIDER SWALLOW STUDY IF NOT GETTING BETTER FOLLOW UP BLOOD PRESSURE IN 1 MONTH . Hypertension - not well controlled - c ontinue with current medications, continue with no added salt diet. Pt has been encouraged to exercise daily. Follow up in 1 month The pt has been advised to call the office if there are any acute concerns about change in blood pressure readings at home. Esophageal Reflux - the patient has been counseled against excessive intake of caffeine, spicy foods, peppermint, and cinnamon - all of which can exacerbate esophageal reflux. The patient is to take medications as prescribed and call the office if the symptoms are not improving. Dysphagia- start ppi -consider swallow study if symptoms do not improve . Bursitis of knee - Recommended voltaren gel on knee - RX sent to pharmacy - also recommended pt to do stretching exercise. . Well Adult - pt wa s counseled about diet, exercise, and encouraged to follow a heart healthy diet and increase activity level. The patient was instructed to RTC yearly for well adult exams and PRN for acute illnesses. The pt was also instructed to have yearly labs for check of cholesterol, thyroid, chem panel, CBC, and renal functioning. right knee pain - The pt is to use RICE - rest, ice, compression, elevation - The pt is to use prn antiinflammatories to manage acute pain. The patient is to call the office if the pain is worsening or does not improve. INCREASE AMLODIPINE TO 10MG DAILY XRAY RIGHT KNEE-CONTINUE ANTI INFLAMMATORIES CONSIDER REFERRAL TO VASCULAR SURGEON FOR EVALUATION OF VARICOSE VEINS . Hypertension - uncontrolled - the nohemy ent's medications have been modified as documented in the visit note. The patient has been counseled to cut back on salt in diet for a no added salt diet, low fat diet, start an exercise program with low weight bearing exercises and higher aerobic activity for heart health. The patient is to check blood pressure readings as an outpatient and either fax, call, or email the readings to the office next week for practitioner to review. The pt is to call for acute concerns. Right knee pain-bedolla's cyst-xray knee-consider joint injection if symptoms persist Varicose veins-recommend appt with vein specialist/vascular surgeon for evaluation-patient will consider RECOMMEND MAMMOGRAM- PATIENT WILL CONSIDER RECOMMEND COLONOSCOPY-PATIENT REFUSES -ALSO DISCUSSED COLOGUARD-PATIENT WILL CONSIDER RECOMMEND FASTING LABS-PATIENT WILL COME BACK FASTING OR CALL FOR ORDERS TO MAG LAB . Medicare Exam - today we discussed the patients past history, immunizations, preventative exams/evaluations - colonoscopy, fecal occult blood testing, routine labs for renal function, glucose, cholesterol, osteoporosis evaluations, cardiovascular testing and cancer screenings. We have also discussed mental health and the signs/symptoms of depression. The patient was advised of home safety evaluations and the need to make sure that as the aging process continues, we need to be aware of different ways to make the home a safer place to reside. The patient has also been counseled that exercise is necessary - and of utmost importance as we age to help decrease fall risk and to maintain independence in the home. Today we discussed the need for the patient to create paperwork for Advanced directives as well as for the patient to provide this office with a copy of 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 INCREASE COREG TO 2 PILLS AT NIGHT AND 1 PILL IN THE MORNING SWALLOW STUDY -THURSDAYS ARE BEST . Hypertension - uncontrolled - the nohemy ent's medications have been modified as documented in the visit note. The patient has been counseled to cut back on salt in diet for a no added salt diet, low fat diet, start an exercise program with low weight bearing exercises and higher aerobic activity for heart health. The patient is to check blood pressure readings as an outpatient and either fax, call, or email the readings to the office next week for practitioner to review. The pt is to call for acute concerns. Dysphagia-schedule swallow study . Hypertension - wel l controlled - continue with current medications, continue with no added salt diet. Pt has been encouraged to exercise daily. The pt has been advised to call the office if there are any acute concerns about change in blood pressure readings at home. Skin lesion of ear - rx for mupirocin cream, call if not improving. Knee pain - continue with voltaren gel. . Joint Injection - Pt was given post - injection instructions. The pt has been advised to use anti-inflammatories post injection today, ice to the injected site, call if redness, warmth, or increased pain occurs at the site of injection. . Hypertension - wel l controlled - continue with current medications, continue with no added salt diet. Pt has been encouraged to exercise daily. The pt has been advised to call the office if there are any acute concerns about change in blood pressure readings at home. Comment FASTING LABS OMEPRAZOLE DAILY -CONSIDER SWALLOW STUDY IF NOT GETTING BETTER FOLLOW UP BLOOD PRESSURE IN 1 MONTH . Hypertension - not well controlled - c ontinue with current medications, continue with no added salt diet. Pt has been encouraged to exercise daily. Follow up in 1 month The pt has been advised to call the office if there are any acute concerns about change in blood pressure readings at home. Esophageal Reflux - the patient has been counseled against excessive intake of caffeine, spicy foods, peppermint, and cinnamon - all of which can exacerbate esophageal reflux. The patient is to take medications as prescribed and call the office if the symptoms are not improving. Dysphagia- start ppi -consider swallow study if symptoms do not improve STOP COREG START BYSTOLIC 10MG DAILY CALL IN 1 WEEK WITH BLOOD PRESSURE . HTN-stop coreg- start bystolic 10mg da hayley -monitor blood pressure and pulse and call in 1 week with readings -may need to increase to 20mg daily -continue amlodipine 10mg q am and take bystolic in the morning -follow up in the office in 1 month, sooner if needed . GERD-samples of dexilant provided and instructed on use . Bursitis of knee - Recommended voltaren gel on knee - RX sent to pharmacy - also recommended pt to do stretching exercise. . Well Adult - pt wa s counseled about diet, exercise, and encouraged to follow a heart healthy diet and increase activity level. The patient was instructed to RTC yearly for well adult exams and PRN for acute illnesses. The pt was also instructed to have yearly labs for check of cholesterol, thyroid, chem panel, CBC, and renal functioning. right knee pain - The pt is to use RICE - rest, ice, compression, elevation - The pt is to use prn antiinflammatories to manage acute pain. The patient is to call the office if the pain is worsening or does not improve. INCREASE AMLODIPINE TO 10MG DAILY XRAY RIGHT KNEE-CONTINUE ANTI INFLAMMATORIES CONSIDER REFERRAL TO VASCULAR SURGEON FOR EVALUATION OF VARICOSE VEINS . Hypertension - uncontrolled - the nohemy ent's medications have been modified as documented in the visit note. The patient has been counseled to cut back on salt in diet for a no added salt diet, low fat diet, start an exercise program with low weight bearing exercises and higher aerobic activity for heart health. The patient is to check blood pressure readings as an outpatient and either fax, call, or email the readings to the office next week for practitioner to review. The pt is to call for acute concerns. Right knee pain-bedolla's cyst-xray knee-consider joint injection if symptoms persist Varicose veins-recommend appt with vein specialist/vascular surgeon for evaluation-patient will consider RECOMMEND MAMMOGRAM- PATIENT WILL CONSIDER RECOMMEND COLONOSCOPY-PATIENT REFUSES -ALSO DISCUSSED COLOGUARD-PATIENT WILL CONSIDER RECOMMEND FASTING LABS-PATIENT WILL COME BACK FASTING OR CALL FOR ORDERS TO MAG LAB . Medicare Exam - today we discussed the patients past history, immunizations, preventative exams/evaluations - colonoscopy, fecal occult blood testing, routine labs for renal function, glucose, cholesterol, osteoporosis evaluations, cardiovascular testing and cancer screenings. We have also discussed mental health and the signs/symptoms of depression. The patient was advised of home safety evaluations and the need to make sure that as the aging process continues, we need to be aware of different ways to make the home a safer place to reside. The patient has also been counseled that exercise is necessary - and of utmost importance as we age to help decrease fall risk and to maintain independence in the home. Today we discussed the need for the patient to create paperwork for Advanced directives as well as for the patient to provide this office with a copy of 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 INCREASE COREG TO 2 PILLS AT NIGHT AND 1 PILL IN THE MORNING SWALLOW STUDY -THURSDAYS ARE BEST . Hypertension - uncontrolled - the nohemy ent's medications have been modified as documented in the visit note. The patient has been counseled to cut back on salt in diet for a no added salt diet, low fat diet, start an exercise program with low weight bearing exercises and higher aerobic activity for heart health. The patient is to check blood pressure readings as an outpatient and either fax, call, or email the readings to the office next week for practitioner to review. The pt is to call for acute concerns. Dysphagia-schedule swallow study . Hypertension - wel l controlled - continue with current medications, continue with no added salt diet. Pt has been encouraged to exercise daily. The pt has been advised to call the office if there are any acute concerns about change in blood pressure readings at home. Skin lesion of ear - rx for mupirocin cream, call if not improving. Knee pain - continue with voltaren gel. . Joint Injection - Pt was given post - injection instructions. The pt has been advised to use anti-inflammatories post injection today, ice to the injected site, call if redness, warmth, or increased pain occurs at the site of injection. . Hypertension - wel l controlled - continue with current medications, continue with no added salt diet. Pt has been encouraged to exercise daily. The pt has been advised to call the office if there are any acute concerns about change in blood pressure readings at home. Comment CONTINUE BYSTOLIC AN D AMLODIPINE . Hypertension - well controlled - continue with current medications, continue with no added salt diet. Pt has been encouraged to exercise daily. The pt has been advised to call the office if there are any acute concerns about change in blood pressure readings at home. NYKK-gvqegpkjj-ncqca dexilant- refer for EGD if symptoms persist FASTING LABS OMEPRAZOLE DAILY -CONSIDER SWALLOW STUDY IF NOT GETTING BETTER FOLLOW UP BLOOD PRESSURE IN 1 MONTH . Hypertension - not well controlled - c ontinue with current medications, continue with no added salt diet. Pt has been encouraged to exercise daily. Follow up in 1 month The pt has been advised to call the office if there are any acute concerns about change in blood pressure readings at home. Esophageal Reflux - the patient has been counseled against excessive intake of caffeine, spicy foods, peppermint, and cinnamon - all of which can exacerbate esophageal reflux. The patient is to take medications as prescribed and call the office if the symptoms are not improving. Dysphagia- start ppi -consider swallow study if symptoms do not improve STOP COREG START BYSTOLIC 10MG DAILY CALL IN 1 WEEK WITH BLOOD PRESSURE . HTN-stop coreg- start bystolic 10mg da hayley -monitor blood pressure and pulse and call in 1 week with readings -may need to increase to 20mg daily -continue amlodipine 10mg q am and take bystolic in the morning -follow up in the office in 1 month, sooner if needed . GERD-samples of dexilant provided and instructed on use . Bursitis of knee - Recommended voltaren gel on knee - RX sent to pharmacy - also recommended pt to do stretching exercise. . Well Adult - pt wa s counseled about diet, exercise, and encouraged to follow a heart healthy diet and increase activity level. The patient was instructed to RTC yearly for well adult exams and PRN for acute illnesses. The pt was also instructed to have yearly labs for check of cholesterol, thyroid, chem panel, CBC, and renal functioning. right knee pain - The pt is to use RICE - rest, ice, compression, elevation - The pt is to use prn antiinflammatories to manage acute pain. The patient is to call the office if the pain is worsening or does not improve. INCREASE AMLODIPINE TO 10MG DAILY XRAY RIGHT KNEE-CONTINUE ANTI INFLAMMATORIES CONSIDER REFERRAL TO VASCULAR SURGEON FOR EVALUATION OF VARICOSE VEINS . Hypertension - uncontrolled - the nohemy ent's medications have been modified as documented in the visit note. The patient has been counseled to cut back on salt in diet for a no added salt diet, low fat diet, start an exercise program with low weight bearing exercises and higher aerobic activity for heart health. The patient is to check blood pressure readings as an outpatient and either fax, call, or email the readings to the office next week for practitioner to review. The pt is to call for acute concerns. Right knee pain-bedolla's cyst-xray knee-consider joint injection if symptoms persist Varicose veins-recommend appt with vein specialist/vascular surgeon for evaluation-patient will consider RECOMMEND MAMMOGRAM- PATIENT WILL CONSIDER RECOMMEND COLONOSCOPY-PATIENT REFUSES -ALSO DISCUSSED COLOGUARD-PATIENT WILL CONSIDER RECOMMEND FASTING LABS-PATIENT WILL COME BACK FASTING OR CALL FOR ORDERS TO MAG LAB . Medicare Exam - today we discussed the patients past history, immunizations, preventative exams/evaluations - colonoscopy, fecal occult blood testing, routine labs for renal function, glucose, cholesterol, osteoporosis evaluations, cardiovascular testing and cancer screenings. We have also discussed mental health and the signs/symptoms of depression. The patient was advised of home safety evaluations and the need to make sure that as the aging process continues, we need to be aware of different ways to make the home a safer place to reside. The patient has also been counseled that exercise is necessary - and of utmost importance as we age to help decrease fall risk and to maintain independence in the home. Today we discussed the need for the patient to create paperwork for Advanced directives as well as for the patient to provide this office with a copy of 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 INCREASE COREG TO 2 PILLS AT NIGHT AND 1 PILL IN THE MORNING SWALLOW STUDY -THURSDAYS ARE BEST . Hypertension - uncontrolled - the nohemy ent's medications have been modified as documented in the visit note. The patient has been counseled to cut back on salt in diet for a no added salt diet, low fat diet, start an exercise program with low weight bearing exercises and higher aerobic activity for heart health. The patient is to check blood pressure readings as an outpatient and either fax, call, or email the readings to the office next week for practitioner to review. The pt is to call for acute concerns. Dysphagia-schedule swallow study . Hypertension - wel l controlled - continue with current medications, continue with no added salt diet. Pt has been encouraged to exercise daily. The pt has been advised to call the office if there are any acute concerns about change in blood pressure readings at home. Skin lesion of ear - rx for mupirocin cream, call if not improving. Knee pain - continue with voltaren gel. . Joint Injection - Pt was given post - injection instructions. The pt has been advised to use anti-inflammatories post injection today, ice to the injected site, call if redness, warmth, or increased pain occurs at the site of injection. . Hypertension - wel l controlled - continue with current medications, continue with no added salt diet. Pt has been encouraged to exercise daily. The pt has been advised to call the office if there are any acute concerns about change in blood pressure readings at home. Comment . Well Adult - pt wa s counseled about diet, exercise, and encouraged to follow a heart healthy diet and increase activity level. The patient was instructed to RTC yearly for well adult exams and PRN for acute illnesses. The pt was also instructed to have yearly labs for check of cholesterol, thyroid, chem panel, CBC, and renal functioning. right knee pain - The pt is to use RICE - rest, ice, compression, elevation - The pt is to use prn antiinflammatories to manage acute pain. The patient is to call the office if the pain is worsening or does not improve. INCREASE AMLODIPINE TO 10MG DAILY XRAY RIGHT KNEE-CONTINUE ANTI INFLAMMATORIES CONSIDER REFERRAL TO VASCULAR SURGEON FOR EVALUATION OF VARICOSE VEINS . Hypertension - uncontrolled - the nohemy ent's medications have been modified as documented in the visit note. The patient has been counseled to cut back on salt in diet for a no added salt diet, low fat diet, start an exercise program with low weight bearing exercises and higher aerobic activity for heart health. The patient is to check blood pressure readings as an outpatient and either fax, call, or email the readings to the office next week for practitioner to review. The pt is to call for acute concerns. Right knee pain-bedolla's cyst-xray knee-consider joint injection if symptoms persist Varicose veins-recommend appt with vein specialist/vascular surgeon for evaluation-patient will consider Comment . Well Adult - pt wa s counseled about diet, exercise, and encouraged to follow a heart healthy diet and increase activity level. The patient was instructed to RTC yearly for well adult exams and PRN for acute illnesses. The pt was also instructed to have yearly labs for check of cholesterol, thyroid, chem panel, CBC, and renal functioning. right knee pain - The pt is to use RICE - rest, ice, compression, elevation - The pt is to use prn antiinflammatories to manage acute pain. The patient is to call the office if the pain is worsening or does not improve. INCREASE AMLODIPINE TO 10MG DAILY XRAY RIGHT KNEE-CONTINUE ANTI INFLAMMATORIES CONSIDER REFERRAL TO VASCULAR SURGEON FOR EVALUATION OF VARICOSE VEINS . Hypertension - uncontrolled - the nohemy ent's medications have been modified as documented in the visit note. The patient has been counseled to cut back on salt in diet for a no added salt diet, low fat diet, start an exercise program with low weight bearing exercises and higher aerobic activity for heart health. The patient is to check blood pressure readings as an outpatient and either fax, call, or email the readings to the office next week for practitioner to review. The pt is to call for acute concerns. Right knee pain-bedolla's cyst-xray knee-consider joint injection if symptoms persist Varicose veins-recommend appt with vein specialist/vascular surgeon for evaluation-patient will consider . Joint Injection - Pt was given post - injection instructions. The pt has been advised to use anti-inflammatories post injection today, ice to the injected site, call if redness, warmth, or increased pain occurs at the site of injection. Comment . Bursitis of knee - Recommended voltaren gel on knee - RX sent to pharmacy - also recommended pt to do stretching exercise. . Well Adult - pt wa s counseled about diet, exercise, and encouraged to follow a heart healthy diet and increase activity level. The patient was instructed to RTC yearly for well adult exams and PRN for acute illnesses. The pt was also instructed to have yearly labs for check of cholesterol, thyroid, chem panel, CBC, and renal functioning. right knee pain - The pt is to use RICE - rest, ice, compression, elevation - The pt is to use prn antiinflammatories to manage acute pain. The patient is to call the office if the pain is worsening or does not improve. INCREASE AMLODIPINE TO 10MG DAILY XRAY RIGHT KNEE-CONTINUE ANTI INFLAMMATORIES CONSIDER REFERRAL TO VASCULAR SURGEON FOR EVALUATION OF VARICOSE VEINS . Hypertension - uncontrolled - the nohemy ent's medications have been modified as documented in the visit note. The patient has been counseled to cut back on salt in diet for a no added salt diet, low fat diet, start an exercise program with low weight bearing exercises and higher aerobic activity for heart health. The patient is to check blood pressure readings as an outpatient and either fax, call, or email the readings to the office next week for practitioner to review. The pt is to call for acute concerns. Right knee pain-bedolla's cyst-xray knee-consider joint injection if symptoms persist Varicose veins-recommend appt with vein specialist/vascular surgeon for evaluation-patient will consider . Joint Injection - Pt was given post - injection instructions. The pt has been advised to use anti-inflammatories post injection today, ice to the injected site, call if redness, warmth, or increased pain occurs at the site of injection. Comment set her up with [facility] ibuprofen 600mg twice a day x 3 days muscle relaxer only if you need it - be careful it can make you sleepy. Low back pain- the patient was instructed in appropriate posture. The pt is to use prn antiinflammatories to manage acute pain. The patient is to call the office if the pain is worsening or does not improve. CONTINUE BYSTOLIC AN D AMLODIPINE . Hypertension - well controlled - continue with current medications, continue with no added salt diet. Pt has been encouraged to exercise daily. The pt has been advised to call the office if there are any acute concerns about change in blood pressure readings at home. AZQH-mahesqujw-vmtpm dexilant- refer for EGD if symptoms persist FASTING LABS OMEPRAZOLE DAILY -CONSIDER SWALLOW STUDY IF NOT GETTING BETTER FOLLOW UP BLOOD PRESSURE IN 1 MONTH . Hypertension - not well controlled - c ontinue with current medications, continue with no added salt diet. Pt has been encouraged to exercise daily. Follow up in 1 month The pt has been advised to call the office if there are any acute concerns about change in blood pressure readings at home. Esophageal Reflux - the patient has been counseled against excessive intake of caffeine, spicy foods, peppermint, and cinnamon - all of which can exacerbate esophageal reflux. The patient is to take medications as prescribed and call the office if the symptoms are not improving. Dysphagia- start ppi -consider swallow study if symptoms do not improve . Hypertension - wel l controlled - continue with current medications, continue with no added salt diet. Pt has been encouraged to exercise daily. The pt has been advised to call the office if there are any acute concerns about change in blood pressure readings at home. Left wrist pain -arthritis -recommend wrist brace to see if that helps with discomfort STOP COREG START BYSTOLIC 10MG DAILY CALL IN 1 WEEK WITH BLOOD PRESSURE . HTN-stop coreg- start bystolic 10mg da hayley -monitor blood pressure and pulse and call in 1 week with readings -may need to increase to 20mg daily -continue amlodipine 10mg q am and take bystolic in the morning -follow up in the office in 1 month, sooner if needed . GERD-samples of dexilant provided and instructed on use . Bursitis of knee - Recommended voltaren gel on knee - RX sent to pharmacy - also recommended pt to do stretching exercise. . Well Adult - pt wa s counseled about diet, exercise, and encouraged to follow a heart healthy diet and increase activity level. The patient was instructed to RTC yearly for well adult exams and PRN for acute illnesses. The pt was also instructed to have yearly labs for check of cholesterol, thyroid, chem panel, CBC, and renal functioning. right knee pain - The pt is to use RICE - rest, ice, compression, elevation - The pt is to use prn antiinflammatories to manage acute pain. The patient is to call the office if the pain is worsening or does not improve. INCREASE AMLODIPINE TO 10MG DAILY XRAY RIGHT KNEE-CONTINUE ANTI INFLAMMATORIES CONSIDER REFERRAL TO VASCULAR SURGEON FOR EVALUATION OF VARICOSE VEINS . Hypertension - uncontrolled - the nohemy ent's medications have been modified as documented in the visit note. The patient has been counseled to cut back on salt in diet for a no added salt diet, low fat diet, start an exercise program with low weight bearing exercises and higher aerobic activity for heart health. The patient is to check blood pressure readings as an outpatient and either fax, call, or email the readings to the office next week for practitioner to review. The pt is to call for acute concerns. Right knee pain-bedolla's cyst-xray knee-consider joint injection if symptoms persist Varicose veins-recommend appt with vein specialist/vascular surgeon for evaluation-patient will consider RECOMMEND MAMMOGRAM- PATIENT WILL CONSIDER RECOMMEND COLONOSCOPY-PATIENT REFUSES -ALSO DISCUSSED COLOGUARD-PATIENT WILL CONSIDER RECOMMEND FASTING LABS-PATIENT WILL COME BACK FASTING OR CALL FOR ORDERS TO MAG LAB . Medicare Exam - today we discussed the patients past history, immunizations, preventative exams/evaluations - colonoscopy, fecal occult blood testing, routine labs for renal function, glucose, cholesterol, osteoporosis evaluations, cardiovascular testing and cancer screenings. We have also discussed mental health and the signs/symptoms of depression. The patient was advised of home safety evaluations and the need to make sure that as the aging process continues, we need to be aware of different ways to make the home a safer place to reside. The patient has also been counseled that exercise is necessary - and of utmost importance as we age to help decrease fall risk and to maintain independence in the home. Today we discussed the need for the patient to create paperwork for Advanced directives as well as for the patient to provide this office with a copy of 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 INCREASE COREG TO 2 PILLS AT NIGHT AND 1 PILL IN THE MORNING SWALLOW STUDY -THURSDAYS ARE BEST . Hypertension - uncontrolled - the nohemy ent's medications have been modified as documented in the visit note. The patient has been counseled to cut back on salt in diet for a no added salt diet, low fat diet, start an exercise program with low weight bearing exercises and higher aerobic activity for heart health. The patient is to check blood pressure readings as an outpatient and either fax, call, or email the readings to the office next week for practitioner to review. The pt is to call for acute concerns. Dysphagia-schedule swallow study . Hypertension - wel l controlled - continue with current medications, continue with no added salt diet. Pt has been encouraged to exercise daily. The pt has been advised to call the office if there are any acute concerns about change in blood pressure readings at home. Skin lesion of ear - rx for mupirocin cream, call if not improving. Knee pain - continue with voltaren gel. . Joint Injection - Pt was given post - injection instructions. The pt has been advised to use anti-inflammatories post injection today, ice to the injected site, call if redness, warmth, or increased pain occurs at the site of injection. . Hypertension - wel l controlled - continue with current medications, continue with no added salt diet. Pt has been encouraged to exercise daily. The pt has been advised to call the office if there are any acute concerns about change in blood pressure readings at home. Additional Source Comments This clinical document has been generated using [employer] software that has been certified by the Office of the National Coordinator for Health Information Technology (ONC 15.99.04.3023.[id number]) and the National Committee for [employer] (NCQA, as an eMeasure certified technology). FOR RECORDS PERTAINING TO PATIENTS WHO ARE OR HAVE BEEN ENROLLED IN A CHEMICAL D EPENDENCY/SUBSTANCE ABUSE PROGRAM, SOME INFORMATION MAY BE OMITTED. This clinica l summary was aggregated from multiple sources. Caution should be exercised in using it in the provision of clinical care. This summary normalizes information from multiple sources, and as a consequence, information in this document may ma terially change the coding, format and clinical context of patient data. In kirsten tion, data may be omitted in some cases. CLINICAL DECISIONS SHOULD BE BASED ON T HE PRIMARY CLINICAL RECORDS. [employer] provides no warranty or guara ntee of the accuracy or completeness of information in this document.The followi ng information is based on time limited clinical information
--- OUTSIDE RECORDS SUMMARY | 2019-11-18 01:26 | XMS REPORT | CCD ---
Author Author Nelly Casillas Organization Morena Dalal MD, [facility] Address [address] [place] [address] Phone Care Team Providers Care Twist Tester Name Role Phone PP Unavailable CCM Unavailable Summary Purpose Interface Exchange Insurance Providers Payer name Policy type / Coverage type Covered alliance party ID Effective Begin Date Effective End Date WPS Medicare Part B Medicare Part B [id number] 2018 Unknown [employer] Medicare Part B [id number] 2018 Unknown Family history Father Diagnosis Age At Onset Cancer Unknown Mother Diagnosis Age At Onset Depression Unknown Arthritis Unknown Alcoholism Unknown Hyperlipidemia Unknown Hypertension Unknown Liver Failure Unknown Social History Social History Element Codes Description Effective Dates Marital status Unknown W idowed 06/12/2016 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[address]: 266433501 Never smoker 06/12/2016 Allergies, Adverse Reactions, Alerts Substance Reaction Codes Entered Date Inactivated Date Status CODEINE RxNorm: 2670 06/12/2016 No Inactive Date Active Past Medical History Illness Codes Condition Status Onset Date Resolved Date Low back pain ICD-9: 724.2 ICD-10: M54.5 Active 12/25/2018 Unknown Essential (primary) hypertension ICD-9: 401.1 ICD-10: I10 Active 01/31/2017 Unknown Pain in left wrist ICD- 9: 719.43 ICD-10: M25.532 Active 11/26/2018 Unknown Gastro-esophageal re flux disease without esophagitis ICD-9: 530.81 ICD-10: K21.9 Active 07/23/2018 Unknown Essential (primary) hypertension ICD-9: 401.9 ICD-10: I10 Active 06/12/2016 Unknown Dysphagia, oropharyn geal phase ICD-9: 787.22 ICD-10: R13.12 Active 05/25/2018 Unknown Mixed hyperlipidemia ICD-9: 272.2 ICD-10: E78.2 Active 05/25/2018 Unknown Encounter for genera l adult medical examination without abnormal findings ICD-9: V70.0 ICD-10: Z00.00 Active 07/11/2017 Unknown Otalgia, left ear ICD-9: 388.70 ICD-10: H92.02 Active 12/25/2016 Unknown Pain in right knee ICD- 9: 719.46 ICD-10: M25.561 Active 06/12/2016 Unknown Hypertension Unknown Active 10/03/2016 Unknow n 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 ICD-9: 454.8 ICD-10: I83.813 Active 10/03/2016 Unknown Problems Condition Codes Effectiv e Dates Condition Status Low back pain ICD-9: 724.2 ICD-10: M54.5 12/25/2018 Active Essential (primary) hypertension ICD-9: 401.1 ICD-10: I10 01/31/2017 Active Pain in left wrist ICD- 9: 719.43 ICD-10: M25.532 11/26/2018 Active Gastro-esophageal re flux disease without esophagitis ICD-9: 530.81 ICD-10: K21.9 07/23/2018 Active Essential (primary) hypertension ICD-9: 401.9 ICD-10: I10 06/12/2016 Active Dysphagia, oropharyn geal phase ICD-9: 787.22 ICD-10: R13.12 05/25/2018 Active Mixed hyperlipidemia ICD-9: 272.2 ICD-10: E78.2 05/25/2018 Active Encounter for genera l adult medical examination without abnormal findings ICD-9: V70.0 ICD-10: Z00.00 07/11/2017 Active Otalgia, left ear ICD-9: 388.70 ICD-10: H92.02 12/25/2016 Active Pain in right knee ICD- 9: 719.46 ICD-10: M25.561 06/12/2016 Active Hypertension Unknown 10/03/2016 Active 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 ICD-9: 454.8 ICD-10: I83.813 10/03/2016 Active Medications Medication Codes Instruc tions Start Date Stop Date Sta tus Fill Instructions metoprolol succinate ER 100 mg tablet,extended release 24 hr RxNorm: 565384 TAKE ONE TABLET BY MOUTH DAILY 01/11/2019 10/07/2019 Active cyclobenzaprine 5 mg tablet RxNorm: 858353 1/2 Tablet(s) PO TID as needed muscle spasms 12/25/2018 12/29/2018 Inactive metoprolol succinate ER 100 mg tablet,extended release 24 hr RxNorm: 660333 1 Tablet(s) PO daily 10/09/2018 10/08/2018 Inactive stop bystolic metoprolol succinate ER 100 mg tablet,extended release 24 hr RxNorm: 052908 1 Tablet(s) PO daily 10/09/2018 01/10/2019 Inactive stop bystolic Bystolic 10 mg tablet RxNorm: 154868 1 Tablet(s) PO daily 07/23/2018 10/08/2018 Inactive amlodipine 10 mg tablet RxNorm: 977671 Tablet(s) 1 TABLET(S) PO DAILY 07/03/2018 09/25/2019 Ac tive Coreg 12.5 mg tablet RxNorm: 076306 2 Tablet(s) PO BID TABLET(S) 1 TABLET(S) PO BID 06/25/2018 06/24/2018 Inactive Coreg 12.5 mg tablet RxNorm: 903637 2 Tablet(s) PO UD 06/25/2018 07/22/2018 Inactive 1 q am an 2 q pm pravastatin 10 mg ta blet RxNorm: 651585 1 Tablet(s) PO QHS 06/04/2018 08/26/2018 Inactive pravastatin 10 mg ta blet RxNorm: 249825 1 Tablet(s) PO QHS 06/04/2018 06/03/2018 Inactive Coreg 12.5 mg tablet RxNorm: 163579 1 Tablet(s) PO BID TABLET(S) 1 TABLET(S) PO BID 05/25/2018 06/24/2018 Inactive Replacing atenolol due to availability omeprazole 40 mg cap eloisa,delayed release RxNorm: 960459 1 Capsule(s) PO daily 05/25/2018 08/26/2018 In active Coreg 12.5 mg tablet RxNorm: 933772 TABLET(S) 1 TABLET(S) PO BID 02/19/2018 05/24/2018 Inactive Replacing atenolol due to availability Coreg 12.5 mg tablet RxNorm: 773579 TABLET(S) 1 TABLET(S) PO BID 11/18/2017 02/18/2018 Inactive Replacing atenolol due to availability Coreg 12.5 mg tablet RxNorm: 001794 TABLET(S) 1 TABLET(S) PO BID 08/14/2017 11/17/2017 Inactive Replacing atenolol due to availability amlodipine 10 mg tablet RxNorm: 601911 1 TABLET(S) PO DAILY 05/13/2017 07/02/2018 Inactive Coreg 12.5 mg tablet RxNorm: 351765 TABLET(S) 1 TABLET(S) PO BID 04/17/2017 07/22/2018 Inactive Replacing atenolol due to availability Patient requests 90 days supply Coreg 12.5 mg tablet RxNorm: 404263 Tablet(s) 1 TABLET(S) PO BID 04/16/2017 04/16/2017 Inactive Replacing atenolol due to availability Coreg 12.5 mg tablet RxNorm: 634417 Tablet(s) 1.5 TABLET(S) PO BID 03/17/2017 07/22/2018 In active Replacing atenolol due to availability Patient requests 90 days supply Coreg 12.5 mg tablet RxNorm: 534658 1 TABLET(S) PO BID 02/20/2017 04/15/2017 Inactive Replacing atenolol due to availability Coreg 12.5 mg tablet RxNorm: 990237 1 TABLET(S) PO BID 01/23/2017 03/16/2017 Inactive Replacing atenolol due to availabilityPatient requests 90 days supply Coreg 12.5 mg tablet RxNorm: 826067 1 Tablet(s) PO BID 01/21/2017 01/22/2017 Inactive Replacing atenolol due to availability Coreg 12.5 mg tablet RxNorm: 399703 1 Tablet(s) PO BID 01/21/2017 01/20/2017 Inactive Replacing atenolol due to availability atenolol 100 mg tablet RxNorm: 489719 TAKE 1 TABLET BY MOUTH EVERY DAY 01/20/2017 01/20/2017 In active mupirocin 2 % topica l ointment RxNorm: 940135 1 Application TOP BID 12/25/2016 12/31/2016 Inactive Voltaren 1 % topical gel RxNorm: 365316 2 TOP TID 10/31/2016 11/29/2016 Inactive amlodipine 10 mg tablet RxNorm: 894593 1 Tablet(s) PO daily 10/03/2016 03/31/2017 Inactive amlodipine 5 mg tablet RxNorm: 417105 1 Tablet(s) PO daily 06/12/2016 10/02/2016 Inactive aspirin 81 mg tablet ,delayed release RxNorm: 494371 1 Tablet(s) PO daily No Start Date Active Fish Oil oral RxNorm: 1901180 oral No Start Date Active One A Day Vitamin oral RxNorm: 41717 oral No Start Date Active Co Q-10 oral RxNorm: 80716 oral No Start Date Active atenolol 100 mg tablet RxNorm: 241371 1 Tablet(s) PO daily No Start Date 01/19/2017 Inactive amlodipine 5 mg tablet RxNorm: 271994 1 Tablet(s) PO daily No Start Date 06/11/2016 Inactive Medication Administered No Medication Administered data Immunizations Vaccine Codes Date Status Pneumococcal CVX: 133 completed Assessments Condition Codes Effectiv e Dates Low back pain ICD-10: M54.5 ICD-9: 724.2 12/25/2018 Pain in left wrist ICD-10: M25.532 ICD-9: 719.43 11/26/2018 Essential (primary) hypertension ICD -10: I10 ICD-9: 401.1 11/26/2018 Gastro-esophageal reflux disease without esophagitis ICD-10: K21.9 ICD-9: 530.81 08/27/2018 Essential (primary) hypertension ICD -10: I10 ICD-9: 401.9 07/23/2018 Dysphagia, oropharyngeal phase ICD-1 0: R13.12 ICD-9: 787.22 06/25/2018 Mixed hyperlipidemia ICD-10: E78.2 ICD-9: 272.2 05/25/2018 Encounter for general adult medical exam ination without abnormal findings ICD-10: Z00.00 ICD-9: V70.0 07/11/2017 Otalgia, left ear ICD-10: H92.02 ICD-9: 388.70 12/25/2016 Pain in right knee ICD-10: M25.561 ICD-9: 719.46 10/31/2016 Varicose veins of bilateral lower extremities with july n ICD- 10: I83.813 ICD-9: 454.8 10/03/2016 Reason For Visit Reason For Visit Effective Dates Notes back pain 12/25/2018 dysphagia 11/26/2018 dysphagia 08/27/2018 dysphagia 07/23/2018 dysphagia 06/25/2018 medication follow up 05/25/2018 Annual Medicare Wellness Exam 07/11/2017 hypertension 04/08/2017 earache 12/25/2016 knee pain 10/31/2016 knee pain 10/11/2016 knee pain 10/03/2016 knee pain 06/12/2016 Results Observation Observation Code Item Item Code Result Date Lipid Ord30 CHOL 245 mg/dL 06/01/2018 Lipid Ord30 HDL 73.0 mg/dl 06/01/2018 Lipid Ord30 TRIG 79 mg/dL 06/01/2018 Lipid Ord30 LDL 156 mg/dL 06/01/2018 Lipid Ord30 C/HDL 3.4 Ratio 06/01/2018 Cbc With Differential Ord2 WBC 8.06 K/ul 06/01/2018 Cbc With Differential Ord2 RBC 4.53 M/ul 06/01/2018 Cbc With Differential Ord2 HGB 13.7 g/dl 06/01/2018 Cbc With Differential Ord2 HCT 42.5 % 06/01/2018 Cbc With Differential Ord2 Neut% 76.5 % 06/01/2018 Cbc With Differential Ord2 MCV 93.8 fl 06/01/2018 Cbc With Differential Ord2 Lymph% 11.3 % 06/01/2018 Cbc With Differential Ord2 MCH 30.2 pg 06/01/2018 Cbc With Differential Ord2 Caroline% 9.3 % 06/01/2018 Cbc With Differential Ord2 MCHC 32.2 pg 06/01/2018 Cbc With Differential Ord2 Eos% 2.4 % 06/01/2018 Cbc With Differential Ord2 PLT 291 K/ul 06/01/2018 Cbc With Differential Ord2 Baso% 0.5 % 06/01/2018 Cbc With Differential Ord2 RDW 13.6 % 06/01/2018 Cbc With Differential Ord2 Neut ABS# 6.17 K/ul 06/01/2018 Cbc With Differential Ord2 Lymph ABS# 0.91 K/ul 06/01/2018 Cbc With Differential Ord2 Caroline ABS# 0.8 K/ul 06/01/2018 Cbc With Differential Ord2 Eos ABS# 0.2 K/ul 06/01/2018 Cbc With Differential Ord2 Baso ABS# 0.0 K/ul 06/01/2018 Tsh Ord6 TSH (3rd IS) 3.50 uIU/mL 06/01/2018 Comp Metabolic Lyf157 NA 142 mEq/L 06/01/2018 Comp Metabolic Xvs412 K 4.3 mEq/L 06/01/2018 Comp Metabolic Ead880 CL 105 mEq/L 06/01/2018 Comp Metabolic Dax469 CO2 27.0 mEq/L 06/01/2018 Comp Metabolic Jha091 AN ION GAP 14 06/01/2018 Comp Metabolic Axp887 GL UCOSE 102 mg/dL 06/01/2018 Comp Metabolic Svg322 Cr eat 0.9 mg/dL 06/01/2018 Comp Metabolic Myn887 eG FR 66 ml/min/1.73m2 06/01 Comp Metabolic Sgi561 BUN 14 mg/dL 06/01/2018 Comp Metabolic Gdd185 B/ C Ratio 15.9 Ratio 06/01/2018 Comp Metabolic Lxz765 CA LCIUM 9.9 mg/dL 06/01/2018 Comp Metabolic Pna053 AL K PHOS 97 U/L 06/01/2018 Comp Metabolic Cww698 T(SGOT) 24 U/L 06/01/2018 Comp Metabolic Dsi947 AL T(SGPT) 17 U/L 06/01/2018 Comp Metabolic Jyl224 BI LI T 0.6 mg/dL 06/01/2018 Comp Metabolic Pxx318 AL BUMIN 4.3 g/dL 06/01/2018 Comp Metabolic Ovg966 TP RO 7.0 g/dL 06/01/2018 Comp Metabolic Utx050 GL OB 2.7 g/dL 06/01/2018 Comp Metabolic Ywn835 A/ G Ratio 1.6 Ratio 06/01/2018 Comp Metabolic Wyi300 Os mo 284 mOsmo 06/01/2018 Tsh Ord6 hTSH II 2.22 uIU/mL 06/19/2016 Comp Metabolic Nra293 NA 140 mEq/L 06/19/2016 Comp Metabolic Jna206 K 4.1 mEq/L 06/19/2016 Comp Metabolic Qxx006 CL 104 mEq/L 06/19/2016 Comp Metabolic Thg195 CO2 27.0 mEq/L 06/19/2016 Comp Metabolic Dfc536 AN ION GAP 13 06/19/2016 Comp Metabolic Xwj823 GL UCOSE 107 mg/dL 06/19/2016 Comp Metabolic Eig175 Cr eat 0.7 mg/dL 06/19/2016 Comp Metabolic Nok781 eG FR 83 ml/min/1.73m2 06/19 Comp Metabolic Xhb155 BUN 17 mg/dL 06/19/2016 Comp Metabolic Viq091 B/ C Ratio 23.3 Ratio 06/19/2016 Comp Metabolic Qah267 CA LCIUM 9.5 mg/dL 06/19/2016 Comp Metabolic Aua524 AL K PHOS 88 U/L 06/19/2016 Comp Metabolic Ajs492 T(SGOT) 28 U/L 06/19/2016 Comp Metabolic Bbe070 AL T(SGPT) 18 U/L 06/19/2016 Comp Metabolic Ygs806 BI LI T 0.5 mg/dL 06/19/2016 Comp Metabolic Jcr180 AL BUMIN 4.2 g/dL 06/19/2016 Comp Metabolic Wrx956 TP RO 6.7 g/dL 06/19/2016 Comp Metabolic Rkg483 GL OB 2.5 g/dL 06/19/2016 Comp Metabolic Cyh663 A/ G Ratio 1.7 Ratio 06/19/2016 Comp Metabolic Fzp957 Os mo 281 mOsmo 06/19/2016 Cbc With Differential Ord2 WBC 4.96 K/ul 06/19/2016 Cbc With Differential Ord2 RBC 4.38 M/ul 06/19/2016 Cbc With Differential Ord2 HGB 13.3 g/dl 06/19/2016 Cbc With Differential Ord2 HCT 40.8 % 06/19/2016 Cbc With Differential Ord2 Neut% 58.9 % 06/19/2016 Cbc With Differential Ord2 MCV 93.2 fl 06/19/2016 Cbc With Differential Ord2 Lymph% 21.4 % 06/19/2016 Cbc With Differential Ord2 MCH 30.4 pg 06/19/2016 Cbc With Differential Ord2 Caroline% 15.5 % 06/19/2016 Cbc With Differential Ord2 MCHC 32.6 pg 06/19/2016 Cbc With Differential Ord2 Eos% 3.6 % 06/19/2016 Cbc With Differential Ord2 PLT 217 K/ul 06/19/2016 Cbc With Differential Ord2 Baso% 0.6 % 06/19/2016 Cbc With Differential Ord2 RDW 13.7 % 06/19/2016 Cbc With Differential Ord2 Neut ABS# 2.92 K/ul 06/19/2016 Cbc With Differential Ord2 Lymph ABS# 1.06 K/ul 06/19/2016 Cbc With Differential Ord2 Caroline ABS# 0.8 K/ul 06/19/2016 Cbc With Differential Ord2 Eos ABS# 0.2 K/ul 06/19/2016 Cbc With Differential Ord2 Baso ABS# 0.0 K/ul 06/19/2016 Lipid Ord30 CHOL 230 mg/dL 06/19/2016 Lipid Ord30 HDL 68.0 mg/dl 06/19/2016 Lipid Ord30 TRIG 85 mg/dL 06/19/2016 Lipid Ord30 LDL 145 mg/dL 06/19/2016 Lipid Ord30 C/HDL 3.4 Ratio 06/19/2016 Review of Systems System Result Effective Dates Constitutional No recent illness 12/25/2018 Constitutional No chills 12/25/2018 Constitutional No fever 12/25/2018 Eyes No eye erythema Ears/Nose/Throat/Neck No nasal discharge 12/25/2018 Cardiovascular No chest pain/pressure 12/25/2018 Cardiovascular No dyspnea 12/25/2018 Respiratory No cough Respiratory No dyspnea 0 12/25/2018 Neurologic No alteration of consciousness 12/25/2018 Neurologic No mental status change 12/25/2018 Musculoskeletal back pain 12/25/2018 Genitourinary/Nephrology No dysuria 12/25/2018 Constitutional No recent illness 11/26/2018 Constitutional No night sweats 11/26/2018 Constitutional No chills 11/26/2018 Eyes No eyelid pain 11/03 Eyes No eye discharge Ears/Nose/Throat/Neck cerumen 11/26/2018 Ears/Nose/Throat/Neck No dizziness 11/26/2018 Ears/Nose/Throat/Neck No dysphagia 11/26/2018 Cardiovascular No chest pain/pressure 11/26/2018 Cardiovascular No dyspnea 11/26/2018 Respiratory No cigarette smoking 11/26/2018 Respiratory No cough Respiratory No chest congestion 11/26/2018 Respiratory No chest tightness 11/26/2018 Gastrointestinal No abdominal pain 11/26/2018 Genitourinary/Nephrology No dysuria 11/26/2018 Genitourinary/Nephrology nocturia 11/26/2018 Musculoskeletal No swelling 11/26/2018 Musculoskeletal No stiffness 11/26/2018 Musculoskeletal back pain 11/26/2018 Dermatologic No rash Dermatologic No sores Neurologic No dizziness 11/26/2018 Neurologic No headache 0 11/26/2018 Psychiatric No anxiety 0 11/26/2018 Psychiatric No depression 11/26/2018 Endocrine No polydipsia 11/26/2018 Endocrine No polyuria Endocrine No sweating Hematologic/Lymphatic No abnormal ec chymoses 11/26/2018 Hematologic/Lymphatic No petechiae 11/26/2018 Allergy/Immunology No food allergy 11/26/2018 Musculoskeletal arthralgia(s) 11/26/2018 Constitutional No recent illness 08/27/2018 Constitutional No anorexia 08/27/2018 Constitutional No night sweats 08/27/2018 Constitutional No chills 08/27/2018 Constitutional No diaphoresis 08/27/2018 Constitutional No fatigue 08/27/2018 Constitutional No fever 08/27/2018 Constitutional No insomnia 08/27/2018 Constitutional No malaise 08/27/2018 Constitutional No weight loss 08/27/2018 Constitutional No weight gain 08/27/2018 Eyes No eye discharge Eyes No eye erythema Ears/Nose/Throat/Neck No dizziness 08/27/2018 Ears/Nose/Throat/Neck No headache 08/27/2018 Cardiovascular No chest pain/pressure 08/27/2018 Cardiovascular No dyspnea 08/27/2018 Cardiovascular No edema 08/27/2018 Respiratory No cough Gastrointestinal No abdominal pain 08/27/2018 Gastrointestinal No constipation 08/27/2018 Gastrointestinal No diarrhea 08/27/2018 Gastrointestinal dysphagia 08/27/2018 Gastrointestinal gastroesophageal reflux 08/27/2018 Genitourinary/Nephrology No dysuria 08/27/2018 Dermatologic No rash Neurologic No alteration of consciousness 08/27/2018 Psychiatric No anxiety 0 08/27/2018 Endocrine No dry or coarse skin 08/27/2018 Musculoskeletal No joint complaint 08/27/2018 Constitutional No recent illness 07/23/2018 Constitutional No anorexia 07/23/2018 Constitutional No night sweats 07/23/2018 Constitutional No chills 07/23/2018 Constitutional No diaphoresis 07/23/2018 Constitutional No fatigue 07/23/2018 Constitutional No fever 07/23/2018 Constitutional No insomnia 07/23/2018 Constitutional No malaise 07/23/2018 Constitutional No weight loss 07/23/2018 Constitutional No weight gain 07/23/2018 Eyes No eye discharge Eyes No eye erythema Ears/Nose/Throat/Neck No dizziness 07/23/2018 Ears/Nose/Throat/Neck No headache 07/23/2018 Cardiovascular No chest pain/pressure 07/23/2018 Cardiovascular No dyspnea 07/23/2018 Cardiovascular No edema 07/23/2018 Respiratory No cough Gastrointestinal No abdominal pain 07/23/2018 Gastrointestinal No constipation 07/23/2018 Gastrointestinal No diarrhea 07/23/2018 Gastrointestinal dysphagia 07/23/2018 Gastrointestinal gastroesophageal reflux 07/23/2018 Genitourinary/Nephrology No dysuria 07/23/2018 Musculoskeletal joint complaint 07/23/2018 Dermatologic No rash Neurologic No alteration of consciousness 07/23/2018 Psychiatric No anxiety 0 07/23/2018 Endocrine No dry or coarse skin 07/23/2018 Constitutional No recent illness 06/25/2018 Constitutional No anorexia 06/25/2018 Constitutional No night sweats 06/25/2018 Constitutional No chills 06/25/2018 Constitutional No diaphoresis 06/25/2018 Constitutional No fatigue 06/25/2018 Constitutional No fever 06/25/2018 Constitutional No insomnia 06/25/2018 Constitutional No malaise 06/25/2018 Constitutional No weight loss 06/25/2018 Constitutional No weight gain 06/25/2018 Eyes No eye discharge Eyes No eye erythema Ears/Nose/Throat/Neck No dizziness 06/25/2018 Ears/Nose/Throat/Neck No headache 06/25/2018 Cardiovascular No chest pain/pressure 06/25/2018 Cardiovascular No dyspnea 06/25/2018 Cardiovascular No edema 06/25/2018 Respiratory No cough Gastrointestinal No abdominal pain 06/25/2018 Gastrointestinal No constipation 06/25/2018 Gastrointestinal No diarrhea 06/25/2018 Gastrointestinal dysphagia 06/25/2018 Gastrointestinal gastroesophageal reflux 06/25/2018 Genitourinary/Nephrology No dysuria 06/25/2018 Musculoskeletal joint complaint 06/25/2018 Dermatologic No rash Neurologic No alteration of consciousness 06/25/2018 Psychiatric No anxiety 0 06/25/2018 Endocrine No dry or coarse skin 06/25/2018 Constitutional No recent illness 05/25/2018 Constitutional No anorexia 05/25/2018 Constitutional No night sweats 05/25/2018 Constitutional No chills 05/25/2018 Constitutional No diaphoresis 05/25/2018 Constitutional No fatigue 05/25/2018 Constitutional No fever 05/25/2018 Constitutional No insomnia 05/25/2018 Constitutional No malaise 05/25/2018 Constitutional No weight loss 05/25/2018 Constitutional No weight gain 05/25/2018 Eyes No eye erythema Eyes No eye discharge Ears/Nose/Throat/Neck No dizziness 05/25/2018 Ears/Nose/Throat/Neck No headache 05/25/2018 Cardiovascular No chest pain/pressure 05/25/2018 Cardiovascular No dyspnea 05/25/2018 Cardiovascular No edema 05/25/2018 Respiratory No cough Gastrointestinal No abdominal pain 05/25/2018 Gastrointestinal No constipation 05/25/2018 Gastrointestinal No diarrhea 05/25/2018 Gastrointestinal gastroesophageal reflux 05/25/2018 Gastrointestinal dysphagia 05/25/2018 Genitourinary/Nephrology No dysuria 05/25/2018 Musculoskeletal joint complaint 05/25/2018 Dermatologic No rash Neurologic No alteration of consciousness 05/25/2018 Psychiatric No anxiety 0 05/25/2018 Endocrine No dry or coarse skin 05/25/2018 Constitutional No recent illness 07/11/2017 Constitutional No chills 07/11/2017 Constitutional No diaphoresis 07/11/2017 Constitutional No fever 07/11/2017 Eyes No blindness 2017 Ears/Nose/Throat/Neck No nasal allergies 07/11/2017 Ears/Nose/Throat/Neck No nasal discharge 07/11/2017 Cardiovascular No chest pain/pressure 07/11/2017 Cardiovascular No dyspnea 07/11/2017 Respiratory No chest congestion 07/11/2017 Respiratory No cough 01/2018 Respiratory No dyspnea 0 07/11/2017 Gastrointestinal No abdominal pain 07/11/2017 Gastrointestinal No constipation 07/11/2017 Gastrointestinal No diarrhea 07/11/2017 Gastrointestinal No nausea 07/11/2017 Gastrointestinal No vomiting 07/11/2017 Dermatologic No rash 01/2018 Neurologic No alteration of consciousness 07/11/2017 Neurologic No mental status change 07/11/2017 Psychiatric No anxiety 0 07/11/2017 Psychiatric No depression 07/11/2017 Genitourinary/Nephrology No dysuria 07/11/2017 Musculoskeletal arthralgia(s) 07/11/2017 Constitutional No recent illness 04/08/2017 Constitutional No chills 04/08/2017 Constitutional No diaphoresis 04/08/2017 Constitutional No fever 04/08/2017 Eyes No blindness 2016 Ears/Nose/Throat/Neck No nasal allergies 04/08/2017 Ears/Nose/Throat/Neck No nasal discharge 04/08/2017 Cardiovascular No chest pain/pressure 04/08/2017 Cardiovascular No dyspnea 04/08/2017 Respiratory No chest congestion 04/08/2017 Respiratory No cough 09/2016 Respiratory No dyspnea 1 06/09/2016 Gastrointestinal No abdominal pain 04/08/2017 Gastrointestinal No constipation 04/08/2017 Gastrointestinal No diarrhea 04/08/2017 Gastrointestinal No nausea 04/08/2017 Gastrointestinal No vomiting 04/08/2017 Musculoskeletal joint complaint 04/08/2017 Dermatologic No rash 09/2016 Neurologic No alteration of consciousness 04/08/2017 Neurologic No mental status change 04/08/2017 Psychiatric No anxiety 1 06/09/2016 Psychiatric No depression 04/08/2017 Constitutional No recent illness 12/25/2016 Constitutional No chills 12/25/2016 Constitutional No diaphoresis 12/25/2016 Constitutional No fever 12/25/2016 Eyes No blindness 2016 Ears/Nose/Throat/Neck No nasal allergies 12/25/2016 Ears/Nose/Throat/Neck No nasal discharge 12/25/2016 Cardiovascular No chest pain/pressure 12/25/2016 Cardiovascular No dyspnea 12/25/2016 Respiratory No chest congestion 12/25/2016 Respiratory No cough Respiratory No dyspnea 0 12/25/2016 Gastrointestinal No abdominal pain 12/25/2016 Gastrointestinal No constipation 12/25/2016 Gastrointestinal No diarrhea 12/25/2016 Gastrointestinal No nausea 12/25/2016 Gastrointestinal No vomiting 12/25/2016 Musculoskeletal joint complaint 12/25/2016 Neurologic No alteration of consciousness 12/25/2016 Neurologic No mental status change 12/25/2016 Psychiatric No anxiety 0 12/25/2016 Psychiatric No depression 12/25/2016 Ears/Nose/Throat/Neck otalgia 12/25/2016 Constitutional No recent illness 10/31/2016 Constitutional No chills 10/31/2016 Constitutional No diaphoresis 10/31/2016 Constitutional No fever 10/31/2016 Eyes No blindness 2016 Ears/Nose/Throat/Neck No nasal allergies 10/31/2016 Ears/Nose/Throat/Neck No nasal discharge 10/31/2016 Cardiovascular No chest pain/pressure 10/31/2016 Cardiovascular No dyspnea 10/31/2016 Respiratory No chest congestion 10/31/2016 Respiratory No cough Respiratory No dyspnea 0 10/31/2016 Gastrointestinal No abdominal pain 10/31/2016 Gastrointestinal No constipation 10/31/2016 Gastrointestinal No diarrhea 10/31/2016 Gastrointestinal No nausea 10/31/2016 Gastrointestinal No vomiting 10/31/2016 Musculoskeletal joint complaint 10/31/2016 Dermatologic No rash Neurologic No alteration of consciousness 10/31/2016 Neurologic No mental status change 10/31/2016 Musculoskeletal joint complaint 10/11/2016 Constitutional No recent illness 10/11/2016 Constitutional No anorexia 10/11/2016 Constitutional No night sweats 10/11/2016 Constitutional No chills 10/11/2016 Constitutional No diaphoresis 10/11/2016 Constitutional No insomnia 10/11/2016 Constitutional No fever 10/11/2016 Constitutional No fatigue 10/11/2016 Constitutional No malaise 10/11/2016 Constitutional No weight loss 10/11/2016 Constitutional No weight gain 10/11/2016 Constitutional No recent illness 10/03/2016 Constitutional No chills 10/03/2016 Constitutional No diaphoresis 10/03/2016 Constitutional No fever 10/03/2016 Eyes No blindness 2016 Ears/Nose/Throat/Neck No nasal allergies 10/03/2016 Ears/Nose/Throat/Neck No nasal discharge 10/03/2016 Cardiovascular No chest pain/pressure 10/03/2016 Cardiovascular No dyspnea 10/03/2016 Respiratory No chest congestion 10/03/2016 Respiratory No cough 05/2016 Respiratory No dyspnea 0 10/03/2016 Gastrointestinal No abdominal pain 10/03/2016 Gastrointestinal No constipation 10/03/2016 Gastrointestinal No diarrhea 10/03/2016 Gastrointestinal No nausea 10/03/2016 Gastrointestinal No vomiting 10/03/2016 Musculoskeletal joint complaint 10/03/2016 Dermatologic No rash 05/2016 Neurologic No alteration of consciousness 10/03/2016 Neurologic No mental status change 10/03/2016 Constitutional No recent illness 06/12/2016 Constitutional No diaphoresis 06/12/2016 Constitutional No chills 06/12/2016 Constitutional No fever 06/12/2016 Eyes No eye erythema 12/2016 Ears/Nose/Throat/Neck No nasal discharge 06/12/2016 Ears/Nose/Throat/Neck No nasal allergies 06/12/2016 Cardiovascular No chest pain/pressure 06/12/2016 Cardiovascular No dyspnea 06/12/2016 Respiratory No cough 12/2016 Respiratory No dyspnea 0 06/12/2016 Respiratory No chest congestion 06/12/2016 Gastrointestinal No abdominal pain 06/12/2016 Gastrointestinal No constipation 06/12/2016 Gastrointestinal No diarrhea 06/12/2016 Gastrointestinal No vomiting 06/12/2016 Gastrointestinal No nausea 06/12/2016 Musculoskeletal joint complaint 06/12/2016 Dermatologic No rash 12/2016 Neurologic No alteration of consciousness 06/12/2016 Neurologic No mental status change 06/12/2016 Physical Exam Exam Name System Name [...] lips 05/25/2018 None Full Exam - General 1995 [...] 1994 Musculoskeletal lower extremity Palpation - knee: eng's cyst 04/08/2017 None Full Exam - General [...] 1994 Musculoskeletal lower extremity Palpation - knee: eng's cyst 12/25/2016 None Full Exam - General [...] 1994 Musculoskeletal lower extremity Palpation - knee: eng's cyst 10/11/2016 None Full Exam - General [...] 1994 Musculoskeletal lower extremity Palpation - knee: eng's cyst 10/03/2016 None Full Exam - General [...] lips 06/12/2016 None Full Exam - General 1995 [...] - knee: pain with flexion 06/12/2016 None Procedures Procedure Codes Date PPPS, SUBSEQ VISIT CPT- 4: G0439 07/11/2017 DRAIN/INJECT JOINT/B URSA CPT-4: 73870 10/11/2016 Vital Signs Date Vital 12/25/2018 Heart Rate 1: 86 bpm Height: SpO2: 98% Weight: 11/26/2018 Blood Pressure 1: 150/78 Code: 8480-6 Blood Pressure 1: 132/80 Code: 8480-6 BMI: 20.0 Code: 67633-2 Heart Rate 1: 81 bpm Height: 5'1" SpO2: 98% Weight: 106 lbs 08/27/2018 Blood Pressure 1: 148/74 Code: 8480-6 BMI: 20.2 Code: 15001-7 Heart Rate 1: 77 bpm Height: 5'1" SpO2: 94% Weight: 107 lbs 07/23/2018 Blood Pressure 1: 142/80 Code: 8480-6 BMI: 20.2 Code: 92002-2 Heart Rate 1: 70 bpm Height: 5'1" SpO2: 96% Weight: 107 lbs 06/25/2018 Blood Pressure 1: 150/80 Code: 8480-6 BMI: 20.2 Code: 12245-1 Heart Rate 1: 84 bpm Height: 5'1" SpO2: 98% Weight: 107 lbs 05/25/2018 Blood Pressure 1: 152/84 Code: 8480-6 BMI: 20.8 Code: 12831-6 Heart Rate 1: 81 bpm Height: 5'1" SpO2: 98% Weight: 110 lbs 07/11/2017 Blood Pressure 1: 120/76 Code: 8480-6 BMI: 20.6 Code: 75236-3 Heart Rate 1: 72 bpm Height: 5'1" SpO2: 96% Waist Measure (cm): 66 cm Weight: 109 lbs 04/08/2017 Blood Pressure 1: 134/68 Code: 8480-6 BMI: 20.2 Code: 60706-2 Heart Rate 1: 75 bpm Height: 5'1" SpO2: 97% Weight: 107 lbs 03/17/2017 Blood Pressure 1: 156/90 Code: 8480-6 Heart Rate 1: 83 bpm Height: SpO2: 96% Weight: 01/31/2017 Blood Pressure 1: 132/68 Code: 8480-6 Heart Rate 1: 88 bpm SpO2: 98% 12/25/2016 Blood Pressure 1: 154/74 Code: 8480-6 BMI: 20.0 Code: 10042-6 Heart Rate 1: 74 bpm Height: 5'1" SpO2: 96% Weight: 106 lbs 10/31/2016 Blood Pressure 1: 138/82 Code: 8480-6 BMI: 20.2 Code: 45344-1 Heart Rate 1: 76 bpm Height: 5'1" SpO2: 96% Weight: 107 lbs 10/11/2016 Blood Pressure 1: 134/70 Code: 8480-6 Heart Rate 1: 69 bpm Height: 5'1" SpO2: 95% Weight: 10/03/2016 Blood Pressure 1: 164/88 Code: 8480-6 BMI: 20.2 Code: 24712-6 Heart Rate 1: 70 bpm Height: 5'1" SpO2: 97% Weight: 107 lbs 06/12/2016 Blood Pressure 1: 144/88 Code: 8480-6 BMI: 20.6 Code: 57537-5 Heart Rate 1: 79 bpm Height: 5'1" SpO2: 97% Weight: 109 lbs Functional Status No Functional Status data History of Present Illness Symptom Name Status Resu lt Effective Date Notes Location lumbar-sacral spine 12/25/2018 None Quality acute 12/25/2018 None Onset and Resolution g radual in onset 12/25/2018 None Pertinent Findings Den ies fever 12/25/2018 None Location in the [place] 11/26/2018 None Quality difficulty wit h hard solids 11/26/2018 None Quality difficulty wit h thin liquids 11/26/2018 None Onset and Resolution o ngoing 11/26/2018 None Onset of Symptom bella hs ago 11/26/2018 None Severity moderate 11/26/2018 None Frequency of Episodes unchanged 11/26/2018 None Triggers no known asso ciated factors 11/26/2018 None Pertinent Findings Den ies heartburn 11/26/2018 None Quality chronic 11/26/2018 None Quality primary hypert ension 11/26/2018 None Onset and Resolution o ngoing 11/26/2018 None Onset of Symptom durin g adulthood 11/26/2018 None Severity not consisten tly severe symptoms, the symptoms fluctuate from no symptoms to anxiety and headaches 11/26/2018 None Triggers no known asso ciated factors 11/26/2018 None Alleviating Factors me dication 11/26/2018 None Pertinent Findings diz ziness 11/26/2018 "sometimes" Pertinent Findings Den ies dyspnea 11/26/2018 None Pertinent Findings Den ies edema 11/26/2018 None Blood Pressure Values patient checking blood pressure at home - did not bring in readings 11/26/2018 None Location in the [place] 08/27/2018 None Quality difficulty wit h hard solids 08/27/2018 None Quality difficulty wit h thin liquids 08/27/2018 None Onset and Resolution o ngoing 08/27/2018 None Onset of Symptom bella hs ago 08/27/2018 None Severity moderate 08/27/2018 None Frequency of Episodes unchanged 08/27/2018 None Triggers no known asso ciated factors 08/27/2018 None Quality chronic 08/27/2018 None Quality primary hypert ension 08/27/2018 None Onset and Resolution o ngoing 08/27/2018 None Onset of Symptom durin g adulthood 08/27/2018 None Severity not consisten tly severe symptoms, the symptoms fluctuate from no symptoms to anxiety and headaches 08/27/2018 None Triggers no known asso ciated factors 08/27/2018 None Alleviating Factors me dication 08/27/2018 None Pertinent Findings Den ies dizziness 08/27/2018 None Pertinent Findings Den ies dyspnea 08/27/2018 None Pertinent Findings Den ies edema 08/27/2018 None Blood Pressure Values pt checking blood pressure - see scanned document 08/27/2018 None Pertinent Findings Den ies heartburn 08/27/2018 None Location in the [place] 07/23/2018 None Quality difficulty wit h hard solids 07/23/2018 None Quality difficulty wit h thin liquids 07/23/2018 None Onset and Resolution o ngoing 07/23/2018 None Onset of Symptom bella hs ago 07/23/2018 None Severity moderate 07/23/2018 None Frequency of Episodes unchanged 07/23/2018 None Significant Medical Conditions acid reflux 07/23/2018 None Triggers no known asso ciated factors 07/23/2018 None Pertinent Findings hea rtburn 07/23/2018 None Quality chronic 07/23/2018 None Quality primary hypert ension 07/23/2018 None Onset and Resolution o ngoing 07/23/2018 None Onset of Symptom durin g adulthood 07/23/2018 None Blood Pressure Values not checking blood pressure at home 07/23/2018 None Severity not consisten tly severe symptoms, the symptoms fluctuate from no symptoms to anxiety and headaches 07/23/2018 None Triggers no known asso ciated factors 07/23/2018 None Alleviating Factors me dication 07/23/2018 None Pertinent Findings diz ziness 07/23/2018 after she takes coreg Pertinent Findings Den ies dyspnea 07/23/2018 None Pertinent Findings Den ies edema 07/23/2018 None Location in the [place] 06/25/2018 None Quality difficulty wit h hard solids 06/25/2018 None Quality difficulty wit h thin liquids 06/25/2018 None Onset and Resolution o ngoing 06/25/2018 None Onset of Symptom bella hs ago 06/25/2018 None Severity moderate 06/25/2018 None Significant Medical Conditions acid reflux 06/25/2018 None Triggers no known asso ciated factors 06/25/2018 None Pertinent Findings hea rtburn 06/25/2018 None Quality chronic 06/25/2018 None Quality primary hypert ension 06/25/2018 None Onset and Resolution o ngoing 06/25/2018 None Onset of Symptom durin g adulthood 06/25/2018 None Alleviating Factors me dication 06/25/2018 None Blood Pressure Values not checking blood pressure at home 06/25/2018 None Pertinent Findings Den ies dizziness 06/25/2018 None Pertinent Findings Den ies dyspnea 06/25/2018 None Pertinent Findings Den ies edema 06/25/2018 None Frequency of Episodes unchanged 06/25/2018 None Severity not consisten tly severe symptoms, the symptoms fluctuate from no symptoms to anxiety and headaches 06/25/2018 None Frequency of Episodes unchanged 06/25/2018 None Triggers no known asso ciated factors 06/25/2018 None Additional Comments me dication use 05/25/2018 None Location oral intake 05/25/2018 None Location in the [place] 05/25/2018 None Quality difficulty wit h hard solids 05/25/2018 None Quality difficulty wit h thin liquids 05/25/2018 None Quality worsening 05/25/2018 None Onset and Resolution o ngoing 05/25/2018 None Onset of Symptom _ mon ths ago 05/25/2018 None Limitation on Activities does not limit oral intake 05/25/2018 None Severity moderate 05/25/2018 None Significant Medical Conditions acid reflux 05/25/2018 None Triggers no known asso ciated factors 05/25/2018 None Pertinent Findings Den ies dyspnea 05/25/2018 None Pertinent Findings Den ies cough 05/25/2018 None Pertinent Findings Den ies edema 05/25/2018 None Pertinent Findings Den ies facial pain 05/25/2018 None Pertinent Findings Den ies fever 05/25/2018 None Pertinent Findings hea rtburn 05/25/2018 None Annual Medicare Wellness Exam Alcohol Use drinks 7 days per week 07/11/2017 one every night Annual Medicare Wellness Exam Aspirin Use yes 07/11/2017 None Annual Medicare Wellness Exam Blood Glucose (self reported) desireable (below 100) 07/11/2017 None Annual Medicare Wellness Exam Blood Pressure (self reported) borderline (120/80 - 139/89) 018 None Annual Medicare Wellness Exam Choles terol (self reported) borderline high (200-239) 07/11/2017 None Annual Medicare Wellness Exam Depres linda (last 6 months) almost never 07/11/2017 None Annual Medicare Wellness Exam Depres linda or Hopelessness almost never 07/11/2017 None Annual Medicare Wellness Exam Descri be Your Health good 07/11/2017 None Annual Medicare Wellness Exam Exerci se Habits exercises 7 days per week 07/11/2017 None Annual Medicare Wellness Exam Exerci se Habits exercises 10 minutes per day 07/11/2017 None Annual Medicare Wellness Exam Handli ng Stress usually johanny effectively 07/11/2017 None Annual Medicare Wellness Exam Hemagl obin A-1C (self reported) don't know 07/11/2017 No ne Annual Medicare Wellness Exam Hours of Sleep 6 07/11/2017 None Annual Medicare Wellness Exam Intera ction with Friends yes 07/11/2017 None Annual Medicare Wellness Exam Intere sts & Pleasure daily 07/11/2017 None Annual Medicare Wellness Exam Life S atisfaction very satisfied 07/11/2017 None Annual Medicare Wellness Exam Motor Vehicle Safety always fastens seat belt: y 07/12/19 18 None Annual Medicare Wellness Exam Motor Vehicle Safety drives after drinking: n 07/11/2017 None Annual Medicare Wellness Exam Motor Vehicle Safety rides with someone who has been drinking: n 07/11/2017 None Annual Medicare Wellness Exam Nutrition servings of fried food / high fat foods per day: 1 07/11/2017 None Annual Medicare Wellness Exam Nutrition servings of high fiber / whole grain per day: 2 07/11/2017 None Annual Medicare Wellness Exam Nutrition servings of vegetables / fruit per day: 3 07/11/2017 None Annual Medicare Wellness Exam Smokin g and Tobacco Use non smoker 07/11/2017 No ne Annual Medicare Wellness Exam Social & Emotional Support always 07/11/2017 None Annual Medicare Wellness Exam Stress some of the time 07/11/2017 None Annual Medicare Wellness Exam Sun Exposure protects skin when outdoors: y 07/11/2017 None hypertension Onset of Symptom during adulthood 04/08/2017 None hypertension Onset and Resolution ongoing 04/08/2017 None hypertension Triggers no known associated factors 04/08/2017 None hypertension Alleviating Factors medication 04/08/2017 None hypertension Pertinent Findings Denies dizziness 04/08/2017 None hypertension Pertinent Findings Denies edema 04/08/2017 None hypertension Quality chr onic 04/08/2017 None hypertension Severity mi ld 04/08/2017 None earache Location left ear 12/25/2016 None earache Onset and Resolution sudden in onset 12/25/2016 None earache Onset of Symptom 1 months ago 12/25/2016 None earache Frequency of Episodes daily 12/25/2016 None knee pain Location on th e right 12/25/2016 None knee pain Quality dull p ain 12/25/2016 None knee pain Quality worsen ing 12/25/2016 None knee pain Location on th e right 10/31/2016 None knee pain Onset of Symptom _ months ago 10/31/2016 None knee pain Pertinent Findings pain with movement 10/31/2016 None knee pain Pertinent Findings Denies limping 10/31/2016 None knee pain Pertinent Findings Denies sensation of buckling 10/31/2016 None knee pain Pertinent Findings Denies inability to extend 10/31/2016 None knee pain Location on th e right 10/11/2016 None knee pain Location at th e medial pole 10/11/2016 None knee pain Quality dull p ain 10/11/2016 None knee pain Quality throbb ing 10/11/2016 None knee pain Quality consta nt 10/11/2016 None knee pain Onset and Resolution sudden in onset 10/11/2016 None knee pain Onset of Symptom 1 months ago 10/11/2016 None knee pain Frequency of Episodes daily 10/11/2016 None knee pain Pertinent Findings limping 10/11/2016 None knee pain Pertinent Findings pain with movement 10/11/2016 None knee pain Severity mild 10/11/2016 None knee pain Location on th e right 10/03/2016 None knee pain Location at th e medial pole 10/03/2016 None knee pain Quality dull p ain 10/03/2016 None knee pain Quality throbb ing 10/03/2016 None knee pain Quality consta nt 10/03/2016 None knee pain Onset and Resolution sudden in onset 10/03/2016 None knee pain Onset of Symptom 1 months ago 10/03/2016 None knee pain Frequency of Episodes daily 10/03/2016 None knee pain Pertinent Findings limping 10/03/2016 None knee pain Pertinent Findings pain with movement 10/03/2016 None hypertension Onset and Resolution ongoing 10/03/2016 None hypertension Onset of Symptom during adulthood 10/03/2016 None hypertension Pertinent Findings Denies dizziness 10/03/2016 None hypertension Pertinent Findings Denies dyspnea 10/03/2016 None hypertension Pertinent Findings Denies edema 10/03/2016 None hypertension Triggers no known associated factors 10/03/2016 None hypertension Alleviating Factors medication 10/03/2016 None knee pain Location on th e right 06/12/2016 None knee pain Location at th e medial pole 06/12/2016 None knee pain Quality dull p ain 06/12/2016 None knee pain Quality throbb ing 06/12/2016 None knee pain Quality consta nt 06/12/2016 None knee pain Onset and Resolution sudden in onset 06/12/2016 None knee pain Onset of Symptom 1 months ago 06/12/2016 None knee pain Frequency of Episodes daily 06/12/2016 None knee pain Pertinent Findings pain with movement 06/12/2016 None knee pain Pertinent Findings limping 06/12/2016 None Advance Directives No Advance Directive data Encounters Encounter Performer Loca tion Codes Date 00507 EST. PATIENT, LEVEL III Diagnosis: Low back pain[ICD10: M54.5] [facility] CPT-4: 12990 12/25/2018 ([id number]) 86502 EST. P ATIENT, LEVEL III Diagnosis: Essential (primary) hypertension[ICD10: I10] Diagnosis: Pain in left wrist[ICD10: M25.532] [facility] CPT-4: 18095 11/26/2018 ([id number]) 96296 EST. P ATIENT, LEVEL III Diagnosis: Essential (primary) hypertension[ICD10: I10] Diagnosis: Gastro-esophageal reflux disease without esophagitis[ICD10: K21.9] [facility] CPT-4: 71561 08/27/2018 ([id number]) 44336 EST. P ATIENT, LEVEL III Diagnosis: Essential (primary) hypertension[ICD10: I10] Diagnosis: Gastro-esophageal reflux disease without esophagitis[ICD10: K21.9] [facility] CPT-4: 90099 07/23/2018 ([id number]) 66713 EST. P ATIENT, LEVEL III Diagnosis: Essential (primary) hypertension[ICD10: I10] Diagnosis: Dysphagia, oropharyngeal phase[ICD10: R13.12] Heaven Dalal MD, [facility] CPT-4: 51192 06/25/2018 ([id number]) 11343 EST. P ATIENT, LEVEL IV Diagnosis: Essential (primary) hypertension[ICD10: I10] Diagnosis: Dysphagia, oropharyngeal phase[ICD10: R13.12] Diagnosis: Mixed hyperlipidemia[ICD10: E78.2] Heaven Dalal MD, [facility] CPT-4: 40533 05/25/2018 ([id number]) 28576 EST. P ATIENT, LEVEL III Diagnosis: Essential (primary) hypertension[ICD10: I10] Morena Dalal MD, [facility] CPT-4: 98088 04/08/2017 ([id number]) Miscellaneou s no charge Diagnosis: Essential (primary) hypertension[ICD10: I10] Heaven Dalal MD, [facility] CPT-4: 98870 03/17/2017 ([id number]) Miscellaneou s no charge Diagnosis: Essential (primary) hypertension[ICD10: I10] Morena Dalal MD, [facility] CPT-4: 28594 01/31/2017 ([id number]) 18741 EST. P ATIENT, LEVEL III Diagnosis: Essential (primary) hypertension[ICD10: I10] Diagnosis: Otalgia, left ear[ICD10: H92.02] Morena Dalal MD, [facility] CPT-4: 20333 12/25/2016 ([id number]) 99899 EST. P ATIENT, LEVEL III Diagnosis: Pain in right knee[ICD10: M25.561] Morena Dalal MD, [facility] CPT- 4: 41902 10/31/2016 ([id number]) 89886 EST. 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] Diagnosis: Pain in right knee[ICD10: M25.561] [facility] CPT-4: 66995 10/03/2016 OFFICE VISIT, NEW - LEVEL 4 Diagnosis: Essential (primary) hypertension[ICD10: I10] Diagnosis: Pain in right knee[ICD10: M25.561] [facility] CPT-4: 92168 06/12/2016 Plan of Care Planned Activity Notes C odes Status Date Referral: [facility]IA [facility] WPtel: Referral Completed 01/13/2019 Care Plan: Referral Order SNOMED-CT : [id number] Pending 12/28/2018 Visit Plan: Low back pain- the nohemy ent was instructed in appropriate posture. The pt is to use prn antiinflammatories to manage acute pain. The patient is to call the office if the pain is worsening or does not improve. 12/25/2018 Appointment: Janee Casillas WPtel: [facility] (30 min) Complex 12/25/2018 Patient Education: Patient Medication Summary Completed 12/25/2018 Patient Education: Back Pain Completed 12/25/2018 Visit Plan: Hypertension - well con trolled - continue with current medications, continue with no added salt diet. Pt has been encouraged to exercise daily. The pt has been advised to call the office if there are any acute concerns about change in blood pressure readings at home. Left wrist pain -arthritis -recommend wrist brace to see if that helps with discomfort 11/26/2018 Appointment: Heaven Mon [facility]Ptel[phone] (15 min) Moderate 11/26/2018 Patient Education: Patient Medication Summary Completed 11/26/2018 Patient Education: Depression Completed 11/26/2018 Visit Plan: Hypertension - well con trolled - continue with current medications, continue with no added salt diet. Pt has been encouraged to exercise daily. The pt has been advised to call the office if there are any acute concerns about change in blood pressure readings at home. GQBD-mihlawnzm-xaakq dexilant- refer for EGD if symptoms persist 08/27/2018 Appointment: Heaven Mon WPtel: [phone] (15 min) Moderate 08/27/2018 Patient Education: Patient Medication Summary Completed 08/27/2018 Visit Plan: HTN-stop coreg- start b ystolic 10mg daily - monitor blood pressure and pulse and call in 1 week with readings -may need to increase to 20mg daily -continue amlodipine 10mg q am and take bystolic in the m orning -follow up in the office in 1 month, sooner if needed . GERD-samples of dexilant provided and instructed on use 07/23/2018 Appointment: Heaven Mon WPtel: [phone] [phone] (30 min) Complex 07/23/2018 Patient Education: Patient Medication Summary Completed 07/23/2018 Patient Education: Hypertension Completed 07/23/2018 Visit Plan: Hypertension - uncontro lled - the patient's medications have been modified as documented in the visit note. The patient has been counseled to cut back on salt in diet for a no added salt diet, low fat d iet, start an exercise program with low weight bearing exercises and higher aerobic activity for heart health. The patient is to check blood pressure readings as an outpatient and either fax, call, or email the readings to the office next week for practitioner to review. The pt is to call for acute concerns. Dysphagia-schedule swallow study 06/25/2018 Appointment: Heaven Mon WPtel: [phone] (15 min) Moderate 06/25/2018 Patient Education: Patient Medication Summary Completed 06/25/2018 Visit Plan: Hypertension - not well controlled - continue with current medications, [...] swallow study if symptoms do not improve 05/25/2018 Appointment: [phone] ([facility] min) Complex 05/25/2018 Patient Education: Patient Medication Summary Completed 05/25/2018 Patient Education: Cholesterol Management Completed 05/25/2018 Visit Plan: Medicare Exam - today w e discussed the patients past history, immunizations, preventative [...] 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 07/11/2017 Appointment: Heaven Mon WPtel[phone] [facility] - Annual Wellness Visit 07/11/2017 Patient Education: Patient Medication Summary Completed 07/11/2017 Appointment: Janee Casillas [phone] [facility] [facility] - Annual Wellness Visit 07/01/2017 Visit Plan: Hypertension - well con trolled - continue with current medications, continue with no added salt diet. Pt has been encouraged to exercise daily. The pt has been advised to call the office if there are any acute concerns about change in blood pressure readings at home. 04/08/2017 [phone] ([facility] Moderate 04/08/2017 Patient Education: Patient Medication Summary Completed 04/08/2017 Patient Education: Hypertension Completed 04/08/2017 Appointment: Nurse Visit 03/17/2017 Patient Education: Patient Medication Summary Completed 03/17/2017 Patient Education: Hypertension Completed 03/17/2017 Appointment: Nurse Visit 01/31/2017 Patient Education: Patient Medication Summary Completed 01/31/2017 Visit Plan: Hypertension - well con trolled - continue with current medications, continue with no added salt diet. Pt has been encouraged to exercise daily. The pt has been advised to call the office if there are any acute concerns about change in blood pressure readings at home. Skin lesion of ear - rx for mupirocin cream, call if not improving. Knee pain - continue with voltaren gel. 12/25/2016 Appointment: Morena Dalal WPtel: [phone] [facility] [place] (15 min) Moderate 12/25/2016 Patient Education: Patient Medication Summary Completed 12/25/2016 Appointment: Heaven Mon WPtel: [phone] [place] (30 min) Complex 11/07/2016 Visit Plan: Bursitis of knee - Louis mmended voltaren gel on knee - RX sent to pharmacy - also recommended pt to do stretching exercise. 10/31/2016 [facility]ment[phone] [place] (15 min) Moderate 10/31/2016 Patient Education: Patient Medication Summary Completed 10/31/2016 Visit Plan: Joint Injection - Pt wa s given post - injection instructions. The pt has been advised to use anti-inflammatories post injection today, ice to the injected site, call if redness, warmth, or increased pain occurs at the site of injection. 10/11/2016 Appointment: Heaven Mon WPtel: [phone] [phone] [place] (30 min) Complex 10/11/2016 Patient Education: Patient Medication Summary Completed 10/11/2016 Visit Plan: Hypertension - uncontro lled - the patient's medications have been modified as documented in the visit note. The patient has been counseled to cut back on salt in diet for a no added salt diet, low fat d iet, start an exercise program with low weight bearing exercises and higher aerobic activity for heart health. The patient is to check blood pressure readings as an outpatient and either fax, call, or email the readings to the office next week for practitioner to review. The pt is to call for acute concerns. Right knee pain-eng's cyst-xray knee-consider joint injection if symptoms persist Varicose veins-recommend appt with vein specialist/vascular surgeon for evaluation-patient will consider 10/03/2016 Appointment: Elieser Heaven WPtel: [phone] [phone] [place] (15 min) Moderate 10/03/2016 Patient Education: Patient Medication Summary Completed 10/03/2016 Visit Plan: Well Adult - pt was cou nseled about diet, exercise, and encouraged to follow [...] pain is worsening or does not improve. 06/12/2016 Patient Education: Patient Medication Summary Completed 06/12/2016 Patient Education: Hypertension Completed 06/12/2016 Referral: [facility] WPtel: Referral Initiated Instructions Comment set her up with [facility] ibuprofen 600mg twice a day x [...] change in blood pressure readings at home. YZRF-kefclbnlw-ndhjv dexilant- refer for EGD if symptoms persist [...] to call for acute concerns. Right knee pain-eng's cyst-xray knee-consider joint injection if symptoms persist [...]
--- OUTSIDE RECORDS SUMMARY | 2019-11-18 01:27 | XMS REPORT | CCD ---
Author Author Nelly Casillas Organization Morena Dalal MD, [facility] Address [address] [place] [address] Phone Care Team Providers Care Echo Technician Name Role Phone PP Unavailable CCM Unavailable Summary Purpose Interface Exchange Insurance Providers Payer name Policy type / Coverage type Covered democrat ID Effective Begin Date Effective End Date WPS Medicare Part B Medicare Part B [id number] 2018 Unknown [employer] Medicare Part B [id number] 2018 Unknown Family history Father Diagnosis Age At Onset Cancer Unknown Mother Diagnosis Age At Onset Depression Unknown Arthritis Unknown Alcoholism Unknown Hyperlipidemia Unknown Hypertension Unknown Liver Failure Unknown Social History Social History Element Codes Description Effective Dates Marital status Unknown W idowed 06/12/2016 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[address]: 383728756 Never smoker 06/12/2016 Allergies, Adverse Reactions, Alerts [...] Date Stop Date Sta tus Fill Instructions cyclobenzaprine 5 mg tablet RxNorm: 708033 1/2 Tablet(s) PO TID as needed muscle spasms 12/25/2018 12/29/2018 Active metoprolol succinate ER 100 mg tablet,extended release 24 hr RxNorm: 869654 1 Tablet(s) PO daily 10/09/2018 02/05/2019 Active stop bystolic metoprolol succinate ER 100 mg tablet,extended release 24 hr RxNorm: 668764 1 Tablet(s) PO daily 10/09/2018 10/08/2018 Inactive stop bystolic Bystolic 10 mg tablet RxNorm: 763736 1 Tablet(s) PO daily 07/23/2018 10/08/2018 Inactive amlodipine 10 mg tablet RxNorm: 681074 Tablet(s) 1 TABLET(S) PO DAILY 07/03/2018 09/25/2019 Ac tive Coreg 12.5 mg tablet RxNorm: 011161 2 Tablet(s) PO BID TABLET(S) 1 TABLET(S) PO BID 06/25/2018 06/24/2018 Inactive Coreg 12.5 mg tablet RxNorm: 648178 2 Tablet(s) PO UD 06/25/2018 07/22/2018 Inactive 1 q am an 2 q pm pravastatin 10 mg ta blet RxNorm: 095675 1 Tablet(s) PO QHS 06/04/2018 08/26/2018 Inactive pravastatin 10 mg ta blet RxNorm: 892497 1 Tablet(s) PO QHS 06/04/2018 06/03/2018 Inactive Coreg 12.5 mg tablet RxNorm: 225580 1 Tablet(s) PO BID TABLET(S) 1 TABLET(S) PO BID 05/25/2018 06/24/2018 Inactive Replacing atenolol due to availability omeprazole 40 mg cap eloisa,delayed release RxNorm: 364798 1 Capsule(s) PO daily 05/25/2018 08/26/2018 In active Coreg 12.5 mg tablet RxNorm: 644724 TABLET(S) 1 TABLET(S) PO BID 02/19/2018 05/24/2018 Inactive Replacing atenolol due to availability Coreg 12.5 mg tablet RxNorm: 272684 TABLET(S) 1 TABLET(S) PO BID 11/18/2017 02/18/2018 Inactive Replacing atenolol due to availability Coreg 12.5 mg tablet RxNorm: 380381 TABLET(S) 1 TABLET(S) PO BID 08/14/2017 11/17/2017 Inactive Replacing atenolol due to availability amlodipine 10 mg tablet RxNorm: 089108 1 TABLET(S) PO DAILY 05/13/2017 07/02/2018 Inactive Coreg 12.5 mg tablet RxNorm: 901986 TABLET(S) 1 TABLET(S) PO BID 04/17/2017 07/22/2018 Inactive Replacing atenolol due to availability Patient requests 90 days supply Coreg 12.5 mg tablet RxNorm: 270797 Tablet(s) 1 TABLET(S) PO BID 04/16/2017 04/16/2017 Inactive Replacing atenolol due to availability Coreg 12.5 mg tablet RxNorm: 980269 Tablet(s) 1.5 TABLET(S) PO BID 03/17/2017 07/22/2018 In active Replacing atenolol due to availability Patient requests 90 days supply Coreg 12.5 mg tablet RxNorm: 942511 1 TABLET(S) PO BID 02/20/2017 04/15/2017 Inactive Replacing atenolol due to availability Coreg 12.5 mg tablet RxNorm: 658932 1 TABLET(S) PO BID 01/23/2017 03/16/2017 Inactive Replacing atenolol due to availabilityPatient requests 90 days supply Coreg 12.5 mg tablet RxNorm: 281772 1 Tablet(s) PO BID 01/21/2017 01/22/2017 Inactive Replacing atenolol due to availability Coreg 12.5 mg tablet RxNorm: 463553 1 Tablet(s) PO BID 01/21/2017 01/20/2017 Inactive Replacing atenolol due to availability atenolol 100 mg tablet RxNorm: 211025 TAKE 1 TABLET BY MOUTH EVERY DAY 01/20/2017 01/20/2017 In active mupirocin 2 % topica l ointment RxNorm: 274715 1 Application TOP BID 12/25/2016 12/31/2016 Inactive Voltaren 1 % topical gel RxNorm: 188617 2 TOP TID 10/31/2016 11/29/2016 Inactive amlodipine 10 mg tablet RxNorm: 790453 1 Tablet(s) PO daily 10/03/2016 03/31/2017 Inactive amlodipine 5 mg tablet RxNorm: 476824 1 Tablet(s) PO daily 06/12/2016 10/02/2016 Inactive aspirin 81 mg tablet ,delayed release RxNorm: 978762 1 Tablet(s) PO daily No Start Date Active Fish Oil oral RxNorm: 4130140 oral No Start Date Active One A Day Vitamin oral RxNorm: 26272 oral No Start Date Active Co Q-10 oral RxNorm: 56619 oral No Start Date Active atenolol 100 mg tablet RxNorm: 196913 1 Tablet(s) PO daily No Start Date 01/19/2017 Inactive amlodipine 5 mg tablet RxNorm: 148671 1 Tablet(s) PO daily No Start Date [...] 30.2 pg 06/01/2018 Cbc With Differential Ord2 Evangeline% 9.3 % 06/01/2018 Cbc With Differential Ord2 [...] 0.91 K/ul 06/01/2018 Cbc With Differential Ord2 Evangeline ABS# 0.8 K/ul 06/01/2018 Cbc With Differential Ord2 Eos ABS# 0.2 K/ul 06/01/2018 Cbc With Differential Ord2 Baso ABS# 0.0 K/ul 06/01/2018 Tsh Ord6 TSH (3rd IS) 3.50 uIU/mL 06/01/2018 Comp Metabolic Bvg375 NA 142 mEq/L 06/01/2018 Comp Metabolic Esp684 K 4.3 mEq/L 06/01/2018 Comp Metabolic Hrw538 CL 105 mEq/L 06/01/2018 Comp Metabolic Ywm618 CO2 27.0 mEq/L 06/01/2018 Comp Metabolic Opt972 AN ION GAP 14 06/01/2018 Comp Metabolic Luy688 GL UCOSE 102 mg/dL 06/01/2018 Comp Metabolic Sro091 Cr eat 0.9 mg/dL 06/01/2018 Comp Metabolic Lct544 eG FR 66 ml/min/1.73m2 06/01 Comp Metabolic Eoa763 BUN 14 mg/dL 06/01/2018 Comp Metabolic Yyp304 B/ C Ratio 15.9 Ratio 06/01/2018 Comp Metabolic Uqw002 CA LCIUM 9.9 mg/dL 06/01/2018 Comp Metabolic Rng211 AL K PHOS 97 U/L 06/01/2018 Comp Metabolic Cju521 T(SGOT) 24 U/L 06/01/2018 Comp Metabolic Gpe812 AL T(SGPT) 17 U/L 06/01/2018 Comp Metabolic Iex260 BI LI T 0.6 mg/dL 06/01/2018 Comp Metabolic Jrn195 AL BUMIN 4.3 g/dL 06/01/2018 Comp Metabolic Csj306 TP RO 7.0 g/dL 06/01/2018 Comp Metabolic Vey829 GL OB 2.7 g/dL 06/01/2018 Comp Metabolic Dbc754 A/ G Ratio 1.6 Ratio 06/01/2018 Comp Metabolic Vyz184 Os mo 284 mOsmo 06/01/2018 Tsh Ord6 hTSH II 2.22 uIU/mL 06/19/2016 Comp Metabolic Ntq056 NA 140 mEq/L 06/19/2016 Comp Metabolic Lii818 K 4.1 mEq/L 06/19/2016 Comp Metabolic Mpp221 CL 104 mEq/L 06/19/2016 Comp Metabolic Dsg282 CO2 27.0 mEq/L 06/19/2016 Comp Metabolic Vpw699 AN ION GAP 13 06/19/2016 Comp Metabolic Irh225 GL UCOSE 107 mg/dL 06/19/2016 Comp Metabolic Bgz871 Cr eat 0.7 mg/dL 06/19/2016 Comp Metabolic Pas720 eG FR 83 ml/min/1.73m2 06/19 Comp Metabolic Aqt684 BUN 17 mg/dL 06/19/2016 Comp Metabolic Twy345 B/ C Ratio 23.3 Ratio 06/19/2016 Comp Metabolic Fcw233 CA LCIUM 9.5 mg/dL 06/19/2016 Comp Metabolic Itj235 AL K PHOS 88 U/L 06/19/2016 Comp Metabolic Gla899 T(SGOT) 28 U/L 06/19/2016 Comp Metabolic Rix766 AL T(SGPT) 18 U/L 06/19/2016 Comp Metabolic Gkj014 BI LI T 0.5 mg/dL 06/19/2016 Comp Metabolic Qit404 AL BUMIN 4.2 g/dL 06/19/2016 Comp Metabolic Fbt596 TP RO 6.7 g/dL 06/19/2016 Comp Metabolic Xxb050 GL OB 2.5 g/dL 06/19/2016 Comp Metabolic Fkw157 A/ G Ratio 1.7 Ratio 06/19/2016 Comp Metabolic Tge034 Os mo 281 mOsmo 06/19/2016 Cbc With [...] 30.4 pg 06/19/2016 Cbc With Differential Ord2 Evangeline% 15.5 % 06/19/2016 Cbc With Differential Ord2 [...] 1.06 K/ul 06/19/2016 Cbc With Differential Ord2 Evangeline ABS# 0.8 K/ul 06/19/2016 Cbc With Differential [...] accomodation 10/31/2016 None Full Exam - General 1995 Ears/Nose/Throat [...] 4: G0439 07/11/2017 DRAIN/INJECT JOINT/B URSA CPT-4: 17849 10/11/2016 Vital Signs Date Vital 12/25/2018 Heart Rate 1: 86 bpm Height: SpO2: 98% Weight: 11/26/2018 Blood Pressure 1: 150/78 Code: 8480-6 Blood Pressure 1: 132/80 Code: 8480-6 BMI: 20.0 Code: 97734-1 Heart Rate 1: 81 bpm Height: 5'1" SpO2: 98% Weight: 106 lbs 08/27/2018 Blood Pressure 1: 148/74 Code: 8480-6 BMI: 20.2 Code: 85404-5 Heart Rate 1: 77 bpm Height: 5'1" SpO2: 94% Weight: 107 lbs 07/23/2018 Blood Pressure 1: 142/80 Code: 8480-6 BMI: 20.2 Code: 48192-6 Heart Rate 1: 70 bpm Height: 5'1" SpO2: 96% Weight: 107 lbs 06/25/2018 Blood Pressure 1: 150/80 Code: 8480-6 BMI: 20.2 Code: 78738-7 Heart Rate 1: 84 bpm Height: 5'1" SpO2: 98% Weight: 107 lbs 05/25/2018 Blood Pressure 1: 152/84 Code: 8480-6 BMI: 20.8 Code: 21384-7 Heart Rate 1: 81 bpm Height: 5'1" SpO2: 98% Weight: 110 lbs 07/11/2017 Blood Pressure 1: 120/76 Code: 8480-6 BMI: 20.6 Code: 73071-3 Heart Rate 1: 72 bpm Height: 5'1" SpO2: 96% Waist Measure (cm): 66 cm Weight: 109 lbs 04/08/2017 Blood Pressure 1: 134/68 Code: 8480-6 BMI: 20.2 Code: 66753-4 Heart Rate 1: 75 bpm Height: 5'1" SpO2: 97% Weight: 107 lbs 03/17/2017 Blood Pressure 1: 156/90 Code: 8480-6 Heart Rate 1: 83 bpm Height: SpO2: 96% Weight: 01/31/2017 Blood Pressure 1: 132/68 Code: 8480-6 Heart Rate 1: 88 bpm SpO2: 98% 12/25/2016 Blood Pressure 1: 154/74 Code: 8480-6 BMI: 20.0 Code: 83244-3 Heart Rate 1: 74 bpm Height: 5'1" SpO2: 96% Weight: 106 lbs 10/31/2016 Blood Pressure 1: 138/82 Code: 8480-6 BMI: 20.2 Code: 02916-7 Heart Rate 1: 76 bpm Height: 5'1" SpO2: 96% Weight: 107 lbs 10/11/2016 Blood Pressure 1: 134/70 Code: 8480-6 Heart Rate 1: 69 bpm Height: 5'1" SpO2: 95% Weight: 10/03/2016 Blood Pressure 1: 164/88 Code: 8480-6 BMI: 20.2 Code: 86445-4 Heart Rate 1: 70 bpm Height: 5'1" SpO2: 97% Weight: 107 lbs 06/12/2016 Blood Pressure 1: 144/88 Code: 8480-6 BMI: 20.6 Code: 42396-0 Heart Rate 1: 79 bpm Height: 5'1" [...] Encounters Encounter Performer Loca tion Codes Date 27163 EST. PATIENT, LEVEL III Diagnosis: Low back pain[ICD10: M54.5] Janee Dalal MD, [facility] CPT-4: 67054 12/25/2018 ([id number]) 01471 EST. P ATIENT, LEVEL III Diagnosis: Essential (primary) hypertension[ICD10: I10] Diagnosis: Pain in left wrist[ICD10: M25.532] Heaven Dalal MD, [facility] CPT-4: 19881 11/26/2018 ([id number]) 35866 EST. P ATIENT, LEVEL III Diagnosis: Essential (primary) hypertension[ICD10: I10] Diagnosis: Gastro-esophageal reflux disease without esophagitis[ICD10: K21.9] Heaven Dalal MD, [facility] CPT-4: 60627 08/27/2018 [id number]) 17906 EST. P ATIENT, LEVEL III Diagnosis: Essential (primary) hypertension[ICD10: I10] Diagnosis: Gastro-esophageal reflux disease without esophagitis[ICD10: K21.9] Heaven Dalal MD, [facility] CPT-4: 03672 07/23/[id number]) 56608 EST. P ATIENT, LEVEL III Diagnosis: Essential (primary) hypertension[ICD10: I10] Diagnosis: Dysphagia, oropharyngeal phase[ICD10: R13.12] Heaven Dalal MD, [facility] CPT-4: 21214 06/25/2018 ([id number]) 39832 EST. P ATIENT, LEVEL IV Diagnosis: Essential (primary) hypertension[ICD10: I10] Diagnosis: Dysphagia, oropharyngeal phase[ICD10: R13.12] Diagnosis: Mixed hyperlipidemia[ICD10: E78.2] Heaven Dalal MD, [facility] CPT-4: 64452 05/25/2018 ([id number]) 61606 EST. P ATIENT, LEVEL III Diagnosis: Essential (primary) hypertension[ICD10: I10] Morena Dalal MD, C CPT-4: 58054 04/08/2017 ([id number]) Miscellaneou s no charge Diagnosis: Essential (primary) hypertension[ICD10: I10] Heaven Dalal MD, [facility] CPT-4: 01858 03/17/2017 ([id number]) Miscellaneou s no charge Diagnosis: Essential (primary) hypertension[ICD10: I10] Morena Dalal MD, [facility] CPT-4: 54114 01/31/2017 ([id number]) 70414 EST. P ATIENT, LEVEL III Diagnosis: Essential (primary) hypertension[ICD10: I10] Diagnosis: Otalgia, left ear[ICD10: H92.02] Morena Dalal MD, [facility] CPT-4: 75164 12/25/2016 ([id number]) 19164 EST. P ATIENT, LEVEL III Diagnosis: Pain in right knee[ICD10: M25.561] Morena Dalal MD, [facility] CPT- 4: 18506 10/31/2016 ([id number]) 34819 EST. 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] Diagnosis: Pain in right knee[ICD10: M25.561] Heaven Dalal MD, [facility] CPT-4: 70558 10/03/2016 OFFICE VISIT, NEW - LEVEL 4 Diagnosis: Essential (primary) hypertension[ICD10: I10] Diagnosis: Pain in right knee[ICD10: M25.561] [facility] CPT-4: 80256 06/12/2016 Plan of Care Planned Activity Notes C odes Status Date Referral: [facility] WPtel: Referral Completed 01/13/2019 Care Plan: Referral Order SNOMED-CT : [id number] Pending 12/28/2018 Visit Plan: Low back pain- the nohemy ent was instructed in appropriate posture. The pt is to use prn antiinflammatories to manage acute pain. The patient is to call the office if the pain is worsening or does not improve. 12/25/2018 Appointment: Janee Casillas WPtel: [facility]5 [phone] (30 min) Complex 12/25/2018 Patient Education: Patient [...] with discomfort 11/26/2018 Appointment: Heaven Mon WPtel: [facility]3 [phone] (15 min) Moderate 11/26/2018 Patient Education: Patient [...] change in blood pressure readings at home. HRRO-jcqxktybv-jkkew dexilant- refer for EGD if symptoms persist 08/27/2018 Appointment: Heaven Mon WPtel: [phone] [phone] (15 min) Moderate 08/27/2018 Patient Education: Patient [...] use 07/23/2018 Appointment: Heaven Mon WPtel: [phone] [phone] (30 min) Complex 07/23/2018 Patient Education: Patient [...] swallow study 06/25/2018 Appointment: Heaven Mon WPtel: [address] [place] [phone] (15 min) Moderate 06/25/2018 Patient Education: Patient [...] improve 05/25/2018 Appointment: Heaven Mon WPtel: [phone] [phone] (30 min) Complex 05/25/2018 Patient Education: Patient [...] care surrogate. 07/11/2017 Appointment: Heaven Mon WPtel: [facility]5 [phone] [facility] - Annual Wellness Visit 07/11/2017 Patient Education: Patient Medication Summary Completed 07/11/2017 Appointment: Janee Casillas WPtel: [facility]5 [facility] [facility] - Annual Wellness Visit 07/01/2017 Visit Plan: Hypertension - well con trolled - continue with current medications, continue with no added salt diet. Pt has been encouraged to exercise daily. The pt has been advised to call the office if there are any acute concerns about change in blood pressure readings at home. 04/08/2017 Appointment: Morena Dalal [facility]Ptel[phone] (15 min) Moderate 04/08/2017 Patient Education: Patient [...] voltaren gel. 12/25/2016 Appointment: Morena Dalal WPtel: [facility] (15 min) Moderate 12/25/2016 Patient Education: Patient Medication Summary Completed 12/25/2016 Appointment: Heaven Mon WPtel: [facility]3 [address] (30 min) Complex 11/07/2016 Visit Plan: Bursitis of knee - Louis mmended voltaren gel on knee - RX sent to pharmacy - also recommended pt to do stretching exercise. 10/31/2016 Appointment: Morena Dalal WPtel: [facility]3 [facility] (15 min) Moderate 10/31/2016 Patient Education: Patient Medication Summary Completed 10/31/2016 Visit Plan: Joint Injection - Pt wa s given post - injection instructions. The pt has been advised to use anti-inflammatories post injection today, ice to the injected site, call if redness, warmth, or increased pain occurs at the site of injection. 10/11/2016 Appointment: Heaven Mon WPtel: [address] [place], [place] [phone] (30 min) Complex 10/11/2016 Patient Education: Patient [...] surgeon for evaluation-patient will consider 10/03/2016 Appointment: Heaven [facility]el[phone] [place] (15 min) Moderate 10/03/2016 Patient Education: [...] change in blood pressure readings at home. PKAL-zhekbmplt-gjagq dexilant- refer for EGD if symptoms persist [...]
--- OUTSIDE RECORDS SUMMARY | 2019-11-18 01:28 | XMS REPORT | CCD ---
Author Author Nelly Casillas Organization Morena Dalal MD, [facility] Address [address] [place] [address] Phone Care Team Providers Care Reconciling Clerk Name Role Phone PP Unavailable CCM Unavailable Summary Purpose Interface Exchange Insurance Providers Payer name Policy type / Coverage type Covered republican ID Effective Begin Date Effective End Date WPS Medicare Part B Medicare Part B [id number] 2018 Unknown [employer] Medicare Part B [id number] 2018 Unknown Family history Father Diagnosis Age At Onset Cancer Unknown Mother Diagnosis Age At Onset Depression Unknown Arthritis Unknown Alcoholism Unknown Hyperlipidemia Unknown Hypertension Unknown Liver Failure Unknown Social History Social History Element Codes Description Effective Dates Marital status Unknown W idowed 06/12/2016 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[address]: 572708250 Never smoker 06/12/2016 Allergies, Adverse Reactions, Alerts Substance Reaction Codes Entered Date Inactivated Date Status CODEINE RxNorm: 2670 06/12/2016 No Inactive Date Active Past Medical History Illness Codes Condition Status Onset Date Resolved Date Essential (primary) hypertension ICD-9: 401.1 ICD-10: I10 [...] Condition Codes Effectiv e Dates Condition Status Essential (primary) hypertension ICD-9: 401.1 ICD-10: I10 [...] 100 mg tablet,extended release 24 hr RxNorm: 964182 1 Tablet(s) PO daily 10/09/2018 02/05/2019 Active stop bystolic metoprolol succinate ER 100 mg tablet,extended release 24 hr RxNorm: 040677 1 Tablet(s) PO daily 10/09/2018 10/08/2018 Inactive stop bystolic Bystolic 10 mg tablet RxNorm: 784060 1 Tablet(s) PO daily 07/23/2018 10/08/2018 Inactive amlodipine 10 mg tablet RxNorm: 304074 Tablet(s) 1 TABLET(S) PO DAILY 07/03/2018 09/25/2019 Ac tive Coreg 12.5 mg tablet RxNorm: 978785 2 Tablet(s) PO BID TABLET(S) 1 TABLET(S) PO BID 06/25/2018 06/24/2018 Inactive Coreg 12.5 mg tablet RxNorm: 728132 2 Tablet(s) PO UD 06/25/2018 07/22/2018 Inactive 1 q am an 2 q pm pravastatin 10 mg ta blet RxNorm: 379813 1 Tablet(s) PO QHS 06/04/2018 08/26/2018 Inactive pravastatin 10 mg ta blet RxNorm: 556330 1 Tablet(s) PO QHS 06/04/2018 06/03/2018 Inactive Coreg 12.5 mg tablet RxNorm: 552740 1 Tablet(s) PO BID TABLET(S) 1 TABLET(S) PO BID 05/25/2018 06/24/2018 Inactive Replacing atenolol due to availability omeprazole 40 mg cap eloisa,delayed release RxNorm: 862719 1 Capsule(s) PO daily 05/25/2018 08/26/2018 In active Coreg 12.5 mg tablet RxNorm: 410517 TABLET(S) 1 TABLET(S) PO BID 02/19/2018 05/24/2018 Inactive Replacing atenolol due to availability Coreg 12.5 mg tablet RxNorm: 419266 TABLET(S) 1 TABLET(S) PO BID 11/18/2017 02/18/2018 Inactive Replacing atenolol due to availability Coreg 12.5 mg tablet RxNorm: 993846 TABLET(S) 1 TABLET(S) PO BID 08/14/2017 11/17/2017 Inactive Replacing atenolol due to availability amlodipine 10 mg tablet RxNorm: 597608 1 TABLET(S) PO DAILY 05/13/2017 07/02/2018 Inactive Coreg 12.5 mg tablet RxNorm: 865826 TABLET(S) 1 TABLET(S) PO BID 04/17/2017 07/22/2018 Inactive Replacing atenolol due to availability Patient requests 90 days supply Coreg 12.5 mg tablet RxNorm: 292025 Tablet(s) 1 TABLET(S) PO BID 04/16/2017 04/16/2017 Inactive Replacing atenolol due to availability Coreg 12.5 mg tablet RxNorm: 843589 Tablet(s) 1.5 TABLET(S) PO BID 03/17/2017 07/22/2018 In active Replacing atenolol due to availability Patient requests 90 days supply Coreg 12.5 mg tablet RxNorm: 304389 1 TABLET(S) PO BID 02/20/2017 04/15/2017 Inactive Replacing atenolol due to availability Coreg 12.5 mg tablet RxNorm: 314816 1 TABLET(S) PO BID 01/23/2017 03/16/2017 Inactive Replacing atenolol due to availabilityPatient requests 90 days supply Coreg 12.5 mg tablet RxNorm: 192090 1 Tablet(s) PO BID 01/21/2017 01/22/2017 Inactive Replacing atenolol due to availability Coreg 12.5 mg tablet RxNorm: 780951 1 Tablet(s) PO BID 01/21/2017 01/20/2017 Inactive Replacing atenolol due to availability atenolol 100 mg tablet RxNorm: 827896 TAKE 1 TABLET BY MOUTH EVERY DAY 01/20/2017 01/20/2017 In active mupirocin 2 % topica l ointment RxNorm: 243294 1 Application TOP BID 12/25/2016 12/31/2016 Inactive Voltaren 1 % topical gel RxNorm: 014978 2 TOP TID 10/31/2016 11/29/2016 Inactive amlodipine 10 mg tablet RxNorm: 267918 1 Tablet(s) PO daily 10/03/2016 03/31/2017 Inactive amlodipine 5 mg tablet RxNorm: 668747 1 Tablet(s) PO daily 06/12/2016 10/02/2016 Inactive aspirin 81 mg tablet ,delayed release RxNorm: 135121 1 Tablet(s) PO daily No Start Date Active Fish Oil oral RxNorm: 4996041 oral No Start Date Active One A Day Vitamin oral RxNorm: 67487 oral No Start Date Active Co Q-10 oral RxNorm: 57618 oral No Start Date Active atenolol 100 mg tablet RxNorm: 318408 1 Tablet(s) PO daily No Start Date 01/19/2017 Inactive amlodipine 5 mg tablet RxNorm: 285603 1 Tablet(s) PO daily No Start Date 06/11/2016 Inactive Medication Administered No Medication Administered data Immunizations Vaccine Codes Date Status Pneumococcal CVX: 133 completed Assessments Condition Codes Effectiv e Dates Pain in left wrist ICD-10: M25.532 ICD-9: [...] Visit Reason For Visit Effective Dates Notes dysphagia 11/26/2018 dysphagia 08/27/2018 dysphagia 07/23/2018 dysphagia [...] 30.2 pg 06/01/2018 Cbc With Differential Ord2 Titus% 9.3 % 06/01/2018 Cbc With Differential Ord2 [...] 0.91 K/ul 06/01/2018 Cbc With Differential Ord2 Titus ABS# 0.8 K/ul 06/01/2018 Cbc With Differential Ord2 Eos ABS# 0.2 K/ul 06/01/2018 Cbc With Differential Ord2 Baso ABS# 0.0 K/ul 06/01/2018 Tsh Ord6 TSH (3rd IS) 3.50 uIU/mL 06/01/2018 Comp Metabolic Izt394 NA 142 mEq/L 06/01/2018 Comp Metabolic Fjz108 K 4.3 mEq/L 06/01/2018 Comp Metabolic Zsf763 CL 105 mEq/L 06/01/2018 Comp Metabolic Age722 CO2 27.0 mEq/L 06/01/2018 Comp Metabolic Glc656 AN ION GAP 14 06/01/2018 Comp Metabolic Cfq639 GL UCOSE 102 mg/dL 06/01/2018 Comp Metabolic Ndj057 Cr eat 0.9 mg/dL 06/01/2018 Comp Metabolic Ebt298 eG FR 66 ml/min/1.73m2 06/01 Comp Metabolic Dhp765 BUN 14 mg/dL 06/01/2018 Comp Metabolic Ohg460 B/ C Ratio 15.9 Ratio 06/01/2018 Comp Metabolic Nug455 CA LCIUM 9.9 mg/dL 06/01/2018 Comp Metabolic Xmp744 AL K PHOS 97 U/L 06/01/2018 Comp Metabolic Yaj160 T(SGOT) 24 U/L 06/01/2018 Comp Metabolic Ery333 AL T(SGPT) 17 U/L 06/01/2018 Comp Metabolic Cti020 BI LI T 0.6 mg/dL 06/01/2018 Comp Metabolic Hrl078 AL BUMIN 4.3 g/dL 06/01/2018 Comp Metabolic Kzu618 TP RO 7.0 g/dL 06/01/2018 Comp Metabolic Skh992 GL OB 2.7 g/dL 06/01/2018 Comp Metabolic Wvg042 A/ G Ratio 1.6 Ratio 06/01/2018 Comp Metabolic Guo025 Os mo 284 mOsmo 06/01/2018 Tsh Ord6 hTSH II 2.22 uIU/mL 06/19/2016 Comp Metabolic Ruw511 NA 140 mEq/L 06/19/2016 Comp Metabolic Zqh695 K 4.1 mEq/L 06/19/2016 Comp Metabolic Blj350 CL 104 mEq/L 06/19/2016 Comp Metabolic Rma078 CO2 27.0 mEq/L 06/19/2016 Comp Metabolic Qfw012 AN ION GAP 13 06/19/2016 Comp Metabolic Rli144 GL UCOSE 107 mg/dL 06/19/2016 Comp Metabolic Zbu198 Cr eat 0.7 mg/dL 06/19/2016 Comp Metabolic Ckr469 eG FR 83 ml/min/1.73m2 06/19 Comp Metabolic Nzs444 BUN 17 mg/dL 06/19/2016 Comp Metabolic Cff617 B/ C Ratio 23.3 Ratio 06/19/2016 Comp Metabolic Uhm816 CA LCIUM 9.5 mg/dL 06/19/2016 Comp Metabolic Red029 AL K PHOS 88 U/L 06/19/2016 Comp Metabolic Fpt277 T(SGOT) 28 U/L 06/19/2016 Comp Metabolic Vpi466 AL T(SGPT) 18 U/L 06/19/2016 Comp Metabolic Zfj655 BI LI T 0.5 mg/dL 06/19/2016 Comp Metabolic Qlv237 AL BUMIN 4.2 g/dL 06/19/2016 Comp Metabolic Gym042 TP RO 6.7 g/dL 06/19/2016 Comp Metabolic Gtv029 GL OB 2.5 g/dL 06/19/2016 Comp Metabolic Zlq049 A/ G Ratio 1.7 Ratio 06/19/2016 Comp Metabolic Qod842 Os mo 281 mOsmo 06/19/2016 Cbc With [...] 30.4 pg 06/19/2016 Cbc With Differential Ord2 Titus% 15.5 % 06/19/2016 Cbc With Differential Ord2 [...] 1.06 K/ul 06/19/2016 Cbc With Differential Ord2 Titus ABS# 0.8 K/ul 06/19/2016 Cbc With Differential Ord2 Eos ABS# 0.2 K/ul 06/19/2016 Cbc With Differential Ord2 Baso ABS# 0.0 K/ul 06/19/2016 Lipid Ord30 CHOL 230 mg/dL 06/19/2016 Lipid Ord30 HDL 68.0 mg/dl 06/19/2016 Lipid Ord30 TRIG 85 mg/dL 06/19/2016 Lipid Ord30 LDL 145 mg/dL 06/19/2016 Lipid Ord30 C/HDL 3.4 Ratio 06/19/2016 Review of Systems System Result Effective Dates Constitutional No recent illness 11/26/2018 Constitutional No [...] 1995 Ears/Nose/Throat oral cavity/pharynx/larynx Overall: no masses 07/11/2017 [...] 4: G0439 07/11/2017 DRAIN/INJECT JOINT/B URSA CPT-4: 09637 10/11/2016 Vital Signs Date Vital 11/26/2018 Blood Pressure 1: 150/78 Code: 8480-6 Blood Pressure 1: 132/80 Code: 8480-6 BMI: 20.0 Code: 18963-7 Heart Rate 1: 81 bpm Height: 5'1" SpO2: 98% Weight: 106 lbs 08/27/2018 Blood Pressure 1: 148/74 Code: 8480-6 BMI: 20.2 Code: 94717-1 Heart Rate 1: 77 bpm Height: 5'1" SpO2: 94% Weight: 107 lbs 07/23/2018 Blood Pressure 1: 142/80 Code: 8480-6 BMI: 20.2 Code: 91817-3 Heart Rate 1: 70 bpm Height: 5'1" SpO2: 96% Weight: 107 lbs 06/25/2018 Blood Pressure 1: 150/80 Code: 8480-6 BMI: 20.2 Code: 92168-4 Heart Rate 1: 84 bpm Height: 5'1" SpO2: 98% Weight: 107 lbs 05/25/2018 Blood Pressure 1: 152/84 Code: 8480-6 BMI: 20.8 Code: 94516-1 Heart Rate 1: 81 bpm Height: 5'1" SpO2: 98% Weight: 110 lbs 07/11/2017 Blood Pressure 1: 120/76 Code: 8480-6 BMI: 20.6 Code: 77113-4 Heart Rate 1: 72 bpm Height: 5'1" SpO2: 96% Waist Measure (cm): 66 cm Weight: 109 lbs 04/08/2017 Blood Pressure 1: 134/68 Code: 8480-6 BMI: 20.2 Code: 16057-9 Heart Rate 1: 75 bpm Height: 5'1" SpO2: 97% Weight: 107 lbs 03/17/2017 Blood Pressure 1: 156/90 Code: 8480-6 Heart Rate 1: 83 bpm Height: SpO2: 96% Weight: 01/31/2017 Blood Pressure 1: 132/68 Code: 8480-6 Heart Rate 1: 88 bpm SpO2: 98% 12/25/2016 Blood Pressure 1: 154/74 Code: 8480-6 BMI: 20.0 Code: 22828-2 Heart Rate 1: 74 bpm Height: 5'1" SpO2: 96% Weight: 106 lbs 10/31/2016 Blood Pressure 1: 138/82 Code: 8480-6 BMI: 20.2 Code: 56075-1 Heart Rate 1: 76 bpm Height: 5'1" SpO2: 96% Weight: 107 lbs 10/11/2016 Blood Pressure 1: 134/70 Code: 8480-6 Heart Rate 1: 69 bpm Height: 5'1" SpO2: 95% Weight: 10/03/2016 Blood Pressure 1: 164/88 Code: 8480-6 BMI: 20.2 Code: 03969-0 Heart Rate 1: 70 bpm Height: 5'1" SpO2: 97% Weight: 107 lbs 06/12/2016 Blood Pressure 1: 144/88 Code: 8480-6 BMI: 20.6 Code: 48101-9 Heart Rate 1: 79 bpm Height: 5'1" SpO2: 97% Weight: 109 lbs Functional Status No Functional Status data History of Present Illness Symptom Name Status Resu lt Effective Date Notes Location in the [place] 11/26/2018 [...] Factors me dication 07/23/2018 None Pertinent Findings alfonso ziness 07/23/2018 after she takes coreg Pertinent [...] Encounters Encounter Performer Loca tion Codes Date ([id number]) [id number] EST. P ATIENT, LEVEL III Diagnosis: Essential (primary) hypertension[ICD10: I10] Diagnosis: Pain in left wrist[ICD10: M25.532] [facility] CPT-4: 81120 11/26/2018 [id number] [id number] EST. P ATIENT, LEVEL III Diagnosis: Essential (primary) hypertension[ICD10: I10] Diagnosis: Gastro-esophageal reflux disease without esophagitis[ICD10: K21.9] [facility] CPT-4: 11923 08/27/2018 [id number]) [id number] EST. P ATIENT, LEVEL III Diagnosis: Essential (primary) hypertension[ICD10: I10] Diagnosis: Gastro-esophageal reflux disease without esophagitis[ICD10: K21.9] Heaven Dalal MD, [facility] CPT-4: 65726 07/23/2018 ([id number]) 00536 EST. P ATIENT, LEVEL III Diagnosis: Essential (primary) hypertension[ICD10: I10] Diagnosis: Dysphagia, oropharyngeal phase[ICD10: R13.12] Heaven Dalal MD, [facility] CPT-4: 37043 06/25/2018 ([id number]) 16680 EST. P ATIENT, LEVEL IV Diagnosis: Essential (primary) hypertension[ICD10: I10] Diagnosis: Dysphagia, oropharyngeal phase[ICD10: R13.12] Diagnosis: Mixed hyperlipidemia[ICD10: E78.2] Heaven Dalal MD, [facility] CPT-4: 20126 05/25/2018 ([id number]) 30418 EST. P ATIENT, LEVEL III Diagnosis: Essential (primary) hypertension[ICD10: I10] Morena Dalal MD, [facility] CPT-4: 62103 04/08/2017 ([id number]) Miscellaneou s no charge Diagnosis: Essential (primary) hypertension[ICD10: I10] Heaven Dalal MD, [facility] CPT-4: 59728 03/17/2017 ([id number]) Miscellaneou s no charge Diagnosis: Essential (primary) hypertension[ICD10: I10] [facility] CPT-4: 52608 01/31/2017 ([id number]) 51193 EST. P ATIENT, LEVEL III Diagnosis: Essential (primary) hypertension[ICD10: I10] Diagnosis: Otalgia, left ear[ICD10: H92.02] Morena Dalal MD, [facility] CPT-4: 31044 12/25/2016 ([id number]) 89293 EST. P ATIENT, LEVEL III Diagnosis: Pain in right knee[ICD10: M25.561] Morena Dalal MD, [facility] CPT- 4: 11035 10/31/2016 ([id number]) 75053 EST. 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] Diagnosis: Pain in right knee[ICD10: M25.561] [facility] CPT-4: 43511 10/03/2016 OFFICE VISIT, NEW - LEVEL 4 Diagnosis: Essential (primary) hypertension[ICD10: I10] Diagnosis: Pain in right knee[ICD10: M25.561] [facility] CPT-4: 91612 06/12/2016 Plan of Care Planned Activity Notes C odes Status Date Visit Plan: Hypertension - well con trolled [...] with discomfort 11/26/2018 Appointment: Heaven Mon WPtel: [address] [place], [place] [phone] (15 min) Moderate 11/26/2018 Patient Education: Patient [...] change in blood pressure readings at home. FSRT-fujjmzasp-mcyka dexilant- refer for EGD if symptoms persist 08/27/2018 Appointment: Heaven Mon WPtel: [address] [place], [place] [phone] (15 min) Moderate 08/27/2018 Patient Education: Patient [...] on use 07/23/2018 Appointment: Heaven Mon WPtel: [address] [place], [place] [phone] (30 min) Complex 07/23/2018 Patient Education: Patient [...] study 06/25/2018 Appointment: Heaven Mon WPtel: [phone] [phone] (15 min) Moderate 06/25/2018 Patient Education: [...] improve 05/25/2018 Appointment: Heaven Mon WPtel: [phone] [phone] (30 min) Complex 05/25/2018 Patient Education: Patient [...] care surrogate. 07/11/2017 Appointment: Heaven Mon WPtel: [phone] [phone] [facility] - Annual Wellness Visit 07/11/2017 Patient Education: Patient Medication Summary Completed 07/11/2017 Appointment: Janee Casillas WPtel: [phone] [facility] - Annual Wellness Visit 07/01/2017 Visit Plan: Hypertension - well con trolled - continue with current medications, continue with no added salt diet. Pt has been encouraged to exercise daily. The pt has been advised to call the office if there are any acute concerns about change in blood pressure readings at home. 04/08/2017 Appointment: Morena Dalal WPtel: [phone] [phone] (15 min) Moderate 04/08/2017 Patient Education: Patient [...] voltaren gel. 12/25/2016 Appointment: Morena Dalal WPtel: [phone] [phone] (15 min) Moderate 12/25/2016 Patient Education: Patient Medication Summary Completed 12/25/2016 Appointment: Heaven Mon WPtel: [phone] [phone] (30 min) Complex 11/07/2016 Visit Plan: Bursitis of knee - Louis mmended voltaren gel on knee - RX sent to pharmacy - also recommended pt to do stretching exercise. 10/31/2016 Appointment: Morena Dalal WPtel: [facility] (15 min) Moderate 10/31/2016 Patient Education: Patient Medication Summary Completed 10/31/2016 Visit Plan: Joint Injection - Pt wa s given post - injection instructions. The pt has been advised to use anti-inflammatories post injection today, ice to the injected site, call if redness, warmth, or increased pain occurs at the site of injection. 10/11/2016 Appointment: Heaven Mon WPtel: [phone] [phone] (30 min) Complex 10/11/2016 Patient Education: Patient [...] will consider 10/03/2016 Appointment: Heaven Mon WPtel: [phone] (15 min) Moderate 10/03/2016 Patient Education: Patient [...] Completed 06/12/2016 Patient Education: Hypertension Completed 06/12/2016 Instructions Comment CONTINUE BYSTOLIC AN D AMLODIPINE . Hypertension - well controlled - continue with current medications, continue with no added salt diet. Pt has been encouraged to exercise daily. The pt has been advised to call the office if there are any acute concerns about change in blood pressure readings at home. LDLI-smblpfqxz-ktmnc dexilant- refer for EGD if symptoms persist [...]
--- OUTSIDE RECORDS SUMMARY | 2019-11-18 01:28 | XMS REPORT | CCD ---
Author Author Nelly Casillas Organization Morena Dalal MD, [facility] Address [address] [place] [address] Phone Care Team Providers Care Division Manager Name Role Phone PP Unavailable CCM Unavailable Summary Purpose Interface Exchange Insurance Providers Payer name Policy type / Coverage type Covered libertarian ID Effective Begin Date Effective End Date WPS Medicare Part B Medicare Part B [id number] 2018 Unknown [employer] Medicare Part B [id number] 2018 Unknown Family history Father Diagnosis Age At Onset Cancer Unknown Mother Diagnosis Age At Onset Depression Unknown Arthritis Unknown Alcoholism Unknown Hyperlipidemia Unknown Hypertension Unknown Liver Failure Unknown Social History Social History Element Codes Description Effective Dates Marital status Unknown W idowed 06/12/2016 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[address]: 973050783 Never smoker 06/12/2016 Allergies, Adverse Reactions, Alerts [...] Fill Instructions cyclobenzaprine 5 mg tablet RxNorm: 656824 1/2 Tablet(s) PO TID as needed muscle spasms 12/25/2018 12/29/2018 Active metoprolol succinate ER 100 mg tablet,extended release 24 hr RxNorm: 210604 1 Tablet(s) PO daily 10/09/2018 02/05/2019 Active stop bystolic metoprolol succinate ER 100 mg tablet,extended release 24 hr RxNorm: 030190 1 Tablet(s) PO daily 10/09/2018 10/08/2018 Inactive stop bystolic Bystolic 10 mg tablet RxNorm: 861787 1 Tablet(s) PO daily 07/23/2018 10/08/2018 Inactive amlodipine 10 mg tablet RxNorm: 841887 Tablet(s) 1 TABLET(S) PO DAILY 07/03/2018 09/25/2019 Ac tive Coreg 12.5 mg tablet RxNorm: 152699 2 Tablet(s) PO BID TABLET(S) 1 TABLET(S) PO BID 06/25/2018 06/24/2018 Inactive Coreg 12.5 mg tablet RxNorm: 648448 2 Tablet(s) PO UD 06/25/2018 07/22/2018 Inactive 1 q am an 2 q pm pravastatin 10 mg ta blet RxNorm: 740453 1 Tablet(s) PO QHS 06/04/2018 08/26/2018 Inactive pravastatin 10 mg ta blet RxNorm: 640528 1 Tablet(s) PO QHS 06/04/2018 06/03/2018 Inactive Coreg 12.5 mg tablet RxNorm: 306814 1 Tablet(s) PO BID TABLET(S) 1 TABLET(S) PO BID 05/25/2018 06/24/2018 Inactive Replacing atenolol due to availability omeprazole 40 mg cap eloisa,delayed release RxNorm: 356897 1 Capsule(s) PO daily 05/25/2018 08/26/2018 In active Coreg 12.5 mg tablet RxNorm: 578301 TABLET(S) 1 TABLET(S) PO BID 02/19/2018 05/24/2018 Inactive Replacing atenolol due to availability Coreg 12.5 mg tablet RxNorm: 017441 TABLET(S) 1 TABLET(S) PO BID 11/18/2017 02/18/2018 Inactive Replacing atenolol due to availability Coreg 12.5 mg tablet RxNorm: 202590 TABLET(S) 1 TABLET(S) PO BID 08/14/2017 11/17/2017 Inactive Replacing atenolol due to availability amlodipine 10 mg tablet RxNorm: 563196 1 TABLET(S) PO DAILY 05/13/2017 07/02/2018 Inactive Coreg 12.5 mg tablet RxNorm: 846986 TABLET(S) 1 TABLET(S) PO BID 04/17/2017 07/22/2018 Inactive Replacing atenolol due to availability Patient requests 90 days supply Coreg 12.5 mg tablet RxNorm: 497732 Tablet(s) 1 TABLET(S) PO BID 04/16/2017 04/16/2017 Inactive Replacing atenolol due to availability Coreg 12.5 mg tablet RxNorm: 788336 Tablet(s) 1.5 TABLET(S) PO BID 03/17/2017 07/22/2018 In active Replacing atenolol due to availability Patient requests 90 days supply Coreg 12.5 mg tablet RxNorm: 572692 1 TABLET(S) PO BID 02/20/2017 04/15/2017 Inactive Replacing atenolol due to availability Coreg 12.5 mg tablet RxNorm: 482100 1 TABLET(S) PO BID 01/23/2017 03/16/2017 Inactive Replacing atenolol due to availabilityPatient requests 90 days supply Coreg 12.5 mg tablet RxNorm: 189413 1 Tablet(s) PO BID 01/21/2017 01/22/2017 Inactive Replacing atenolol due to availability Coreg 12.5 mg tablet RxNorm: 969982 1 Tablet(s) PO BID 01/21/2017 01/20/2017 Inactive Replacing atenolol due to availability atenolol 100 mg tablet RxNorm: 022228 TAKE 1 TABLET BY MOUTH EVERY DAY 01/20/2017 01/20/2017 In active mupirocin 2 % topica l ointment RxNorm: 053806 1 Application TOP BID 12/25/2016 12/31/2016 Inactive Voltaren 1 % topical gel RxNorm: 306099 2 TOP TID 10/31/2016 11/29/2016 Inactive amlodipine 10 mg tablet RxNorm: 058297 1 Tablet(s) PO daily 10/03/2016 03/31/2017 Inactive amlodipine 5 mg tablet RxNorm: 927933 1 Tablet(s) PO daily 06/12/2016 10/02/2016 Inactive aspirin 81 mg tablet ,delayed release RxNorm: 641567 1 Tablet(s) PO daily No Start Date Active Fish Oil oral RxNorm: 7594133 oral No Start Date Active One A Day Vitamin oral RxNorm: 57171 oral No Start Date Active Co Q-10 oral RxNorm: 70511 oral No Start Date Active atenolol 100 mg tablet RxNorm: 777655 1 Tablet(s) PO daily No Start Date 01/19/2017 Inactive amlodipine 5 mg tablet RxNorm: 580020 1 Tablet(s) PO daily No Start Date [...] 30.2 pg 06/01/2018 Cbc With Differential Ord2 [place]% 9.3 % 06/01/2018 Cbc With Differential Ord2 [...] 0.91 K/ul 06/01/2018 Cbc With Differential Ord2 [place] ABS# 0.8 K/ul 06/01/2018 Cbc With Differential Ord2 Eos ABS# 0.2 K/ul 06/01/2018 Cbc With Differential Ord2 Baso ABS# 0.0 K/ul 06/01/2018 Tsh Ord6 TSH (3rd IS) 3.50 uIU/mL 06/01/2018 Comp Metabolic Xoo783 NA 142 mEq/L 06/01/2018 Comp Metabolic Gnt027 K 4.3 mEq/L 06/01/2018 Comp Metabolic Pji172 CL 105 mEq/L 06/01/2018 Comp Metabolic Eax170 CO2 27.0 mEq/L 06/01/2018 Comp Metabolic Gfz640 AN ION GAP 14 06/01/2018 Comp Metabolic Kgu508 GL UCOSE 102 mg/dL 06/01/2018 Comp Metabolic Sqh654 Cr eat 0.9 mg/dL 06/01/2018 Comp Metabolic Sur380 eG FR 66 ml/min/1.73m2 06/01 Comp Metabolic Xvr179 BUN 14 mg/dL 06/01/2018 Comp Metabolic Nrx461 B/ C Ratio 15.9 Ratio 06/01/2018 Comp Metabolic Ill873 CA LCIUM 9.9 mg/dL 06/01/2018 Comp Metabolic Sma987 AL K PHOS 97 U/L 06/01/2018 Comp Metabolic Bax087 T(SGOT) 24 U/L 06/01/2018 Comp Metabolic Cjq911 AL T(SGPT) 17 U/L 06/01/2018 Comp Metabolic Eat245 BI LI T 0.6 mg/dL 06/01/2018 Comp Metabolic Syl437 AL BUMIN 4.3 g/dL 06/01/2018 Comp Metabolic Fyp921 TP RO 7.0 g/dL 06/01/2018 Comp Metabolic Fgj773 GL OB 2.7 g/dL 06/01/2018 Comp Metabolic Edu197 A/ G Ratio 1.6 Ratio 06/01/2018 Comp Metabolic Irc144 Os mo 284 mOsmo 06/01/2018 Tsh Ord6 hTSH II 2.22 uIU/mL 06/19/2016 Comp Metabolic Fwn276 NA 140 mEq/L 06/19/2016 Comp Metabolic Vbs940 K 4.1 mEq/L 06/19/2016 Comp Metabolic Qfb206 CL 104 mEq/L 06/19/2016 Comp Metabolic Cnj262 CO2 27.0 mEq/L 06/19/2016 Comp Metabolic Iso983 AN ION GAP 13 06/19/2016 Comp Metabolic Vlp828 GL UCOSE 107 mg/dL 06/19/2016 Comp Metabolic Oub542 Cr eat 0.7 mg/dL 06/19/2016 Comp Metabolic Yok966 eG FR 83 ml/min/1.73m2 06/19 Comp Metabolic Zlp747 BUN 17 mg/dL 06/19/2016 Comp Metabolic Yrg738 B/ C Ratio 23.3 Ratio 06/19/2016 Comp Metabolic Agu896 CA LCIUM 9.5 mg/dL 06/19/2016 Comp Metabolic Qcu991 AL K PHOS 88 U/L 06/19/2016 Comp Metabolic Thl390 T(SGOT) 28 U/L 06/19/2016 Comp Metabolic Wvq226 AL T(SGPT) 18 U/L 06/19/2016 Comp Metabolic Nzr709 BI LI T 0.5 mg/dL 06/19/2016 Comp Metabolic Spd134 AL BUMIN 4.2 g/dL 06/19/2016 Comp Metabolic Qqs586 TP RO 6.7 g/dL 06/19/2016 Comp Metabolic Etz549 GL OB 2.5 g/dL 06/19/2016 Comp Metabolic Jly970 A/ G Ratio 1.7 Ratio 06/19/2016 Comp Metabolic Yoy040 Os mo 281 mOsmo 06/19/2016 Cbc With [...] 30.4 pg 06/19/2016 Cbc With Differential Ord2 [place]% 15.5 % 06/19/2016 Cbc With Differential Ord2 [...] 1.06 K/ul 06/19/2016 Cbc With Differential Ord2 [place] ABS# 0.8 K/ul 06/19/2016 Cbc With Differential [...] 4: G0439 07/11/2017 DRAIN/INJECT JOINT/B URSA CPT-4: 09876 10/11/2016 Vital Signs Date Vital 12/25/2018 Heart Rate 1: 86 bpm Height: SpO2: 98% Weight: 11/26/2018 Blood Pressure 1: 150/78 Code: 8480-6 Blood Pressure 1: 132/80 Code: 8480-6 BMI: 20.0 Code: 50311-9 Heart Rate 1: 81 bpm Height: 5'1" SpO2: 98% Weight: 106 lbs 08/27/2018 Blood Pressure 1: 148/74 Code: 8480-6 BMI: 20.2 Code: 44302-8 Heart Rate 1: 77 bpm Height: 5'1" SpO2: 94% Weight: 107 lbs 07/23/2018 Blood Pressure 1: 142/80 Code: 8480-6 BMI: 20.2 Code: 14312-4 Heart Rate 1: 70 bpm Height: 5'1" SpO2: 96% Weight: 107 lbs 06/25/2018 Blood Pressure 1: 150/80 Code: 8480-6 BMI: 20.2 Code: 66724-8 Heart Rate 1: 84 bpm Height: 5'1" SpO2: 98% Weight: 107 lbs 05/25/2018 Blood Pressure 1: 152/84 Code: 8480-6 BMI: 20.8 Code: 46544-7 Heart Rate 1: 81 bpm Height: 5'1" SpO2: 98% Weight: 110 lbs 07/11/2017 Blood Pressure 1: 120/76 Code: 8480-6 BMI: 20.6 Code: 02506-6 Heart Rate 1: 72 bpm Height: 5'1" SpO2: 96% Waist Measure (cm): 66 cm Weight: 109 lbs 04/08/2017 Blood Pressure 1: 134/68 Code: 8480-6 BMI: 20.2 Code: 96757-9 Heart Rate 1: 75 bpm Height: 5'1" SpO2: 97% Weight: 107 lbs 03/17/2017 Blood Pressure 1: 156/90 Code: 8480-6 Heart Rate 1: 83 bpm Height: SpO2: 96% Weight: 01/31/2017 Blood Pressure 1: 132/68 Code: 8480-6 Heart Rate 1: 88 bpm SpO2: 98% 12/25/2016 Blood Pressure 1: 154/74 Code: 8480-6 BMI: 20.0 Code: 39528-6 Heart Rate 1: 74 bpm Height: 5'1" SpO2: 96% Weight: 106 lbs 10/31/2016 Blood Pressure 1: 138/82 Code: 8480-6 BMI: 20.2 Code: 37458-4 Heart Rate 1: 76 bpm Height: 5'1" SpO2: 96% Weight: 107 lbs 10/11/2016 Blood Pressure 1: 134/70 Code: 8480-6 Heart Rate 1: 69 bpm Height: 5'1" SpO2: 95% Weight: 10/03/2016 Blood Pressure 1: 164/88 Code: 8480-6 BMI: 20.2 Code: 89676-8 Heart Rate 1: 70 bpm Height: 5'1" SpO2: 97% Weight: 107 lbs 06/12/2016 Blood Pressure 1: 144/88 Code: 8480-6 BMI: 20.6 Code: 79825-4 Heart Rate 1: 79 bpm Height: 5'1" [...] Encounters Encounter Performer Loca tion Codes Date 53317 EST. PATIENT, LEVEL III Diagnosis: Low back pain[ICD10: M54.5] Janee Dalal MD, [facility] CPT-4: 85049 12/25/2018 ([id number]) 27014 EST. P ATIENT, LEVEL III Diagnosis: Essential (primary) hypertension[ICD10: I10] Diagnosis: Pain in left wrist[ICD10: M25.532] Heaven Dalal MD, [facility] CPT-4: 95252 11/26/2018 ([id number]) 45944 EST. P ATIENT, LEVEL III Diagnosis: Essential (primary) hypertension[ICD10: I10] Diagnosis: Gastro-esophageal reflux disease without esophagitis[ICD10: K21.9] Heaven Dalal MD, [facility] CPT-4: 31159 08/27/2018 [id number]) 94121 EST. P ATIENT, LEVEL III Diagnosis: Essential (primary) hypertension[ICD10: I10] Diagnosis: Gastro-esophageal reflux disease without esophagitis[ICD10: K21.9] Heaven aDlal MD, [facility] CPT-4: 29575 07/23/2018 [id number]) 75617 EST. P ATIENT, LEVEL III Diagnosis: Essential (primary) hypertension[ICD10: I10] Diagnosis: Dysphagia, oropharyngeal phase[ICD10: R13.12] Heaven Dalal MD, [facility] CPT-4: 06427 06/25/2018 ([id number]) 14876 EST. P ATIENT, LEVEL IV Diagnosis: Essential (primary) hypertension[ICD10: I10] Diagnosis: Dysphagia, oropharyngeal phase[ICD10: R13.12] Diagnosis: Mixed hyperlipidemia[ICD10: E78.2] Heaven Dalal MD, [facility] CPT-4: 94595 05/25/2018 ([id number]) 91371 EST. P ATIENT, LEVEL III Diagnosis: Essential (primary) hypertension[ICD10: I10] Morena Dalal MD, C CPT-4: 83582 04/08/2017 ([id number]) Miscellaneou s no charge Diagnosis: Essential (primary) hypertension[ICD10: I10] Heaven Dalal MD, [facility] CPT-4: 97990 03/17/2017 ([id number]) Miscellaneou s no charge Diagnosis: Essential (primary) hypertension[ICD10: I10] Morena Dalal MD, [facility] CPT-4: 28643 01/31/2017 ([id number]) 13558 EST. P ATIENT, LEVEL III Diagnosis: Essential (primary) hypertension[ICD10: I10] Diagnosis: Otalgia, left ear[ICD10: H92.02] Morena Dalal MD, [facility] CPT-4: 90828 12/25/2016 ([id number]) 45511 EST. P ATIENT, LEVEL III Diagnosis: Pain in right knee[ICD10: M25.561] Morena Dalal MD, [facility] CPT- 4: 37128 10/31/2016 ([id number]) 14955 EST. 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] Diagnosis: Pain in right knee[ICD10: M25.561] Heaven Dalal MD, [facility] CPT-4: 50070 10/03/2016 OFFICE VISIT, NEW - LEVEL 4 Diagnosis: Essential (primary) hypertension[ICD10: I10] Diagnosis: Pain in right knee[ICD10: M25.561] [facility] CPT-4: 94313 06/12/2016 Plan of Care Planned Activity Notes C odes Status Date Care Plan: Referral Order SNOMED-CT : [id number] Pending 12/28/2018 Visit Plan: Low back pain- the nohemy ent was instructed in appropriate posture. The pt is to use prn antiinflammatories to manage acute pain. The patient is to call the office if the pain is worsening or does not improve. 12/25/2018 Appointment: Janee Casillas WPtel: [phone] (30 min) Complex 12/25/2018 Patient Education: [...] with discomfort 11/26/2018 Appointment: Heaven Mon WPtel: [phone] (15 min) Moderate 11/26/2018 Patient Education: [...] change in blood pressure readings at home. PSXB-ebtqepzby-cgoyi dexilant- refer for EGD if symptoms persist 08/27/2018 Appointment: Heaven Mon WPtel: [phone] (15 min) Moderate 08/27/2018 Patient Education: [...] use 07/23/2018 Appointment: Heaven Mon WPtel: [phone] [phone] (30 min) Complex 07/23/2018 Patient Education: [...] study 06/25/2018 Appointment: Heaven Mon WPtel: [phone] [phone] (15 min) Moderate 06/25/2018 Patient Education: Patient [...] improve 05/25/2018 Appointment: Heaven Mon WPtel: [phone] [phone] (30 min) Complex 05/25/2018 Patient Education: Patient Medication Summary Completed 05/25/2018 Patient Education: Cholesterol Management Completed 05/25/2018 Visit Plan: Medicare Exam - today julieta li discussed the patients past history, immunizations, preventative [...] care surrogate. 07/11/2017 Appointment: Heaven Mon WPtel: [phone] [phone] - Annual Wellness Visit 07/11/2017 Patient Education: Patient Medication Summary Completed 07/11/2017 Appointment: Janee Casillas WPtel: [phone] [facility] - Annual Wellness Visit 07/01/2017 Visit Plan: Hypertension - well con trolled - continue with current medications, continue with no added salt diet. Pt has been encouraged to exercise daily. The pt has been advised to call the office if there are any acute concerns about change in blood pressure readings at home. 04/08/2017 Appointment: Morena Dalal WPtel: [phone] (15 min) Moderate 04/08/2017 Patient Education: [...] voltaren gel. 12/25/2016 Appointment: Morena Dalal WPtel: [phone] [facility] [place] (15 min) Moderate 12/25/2016 Patient Education: Patient Medication Summary Completed 12/25/2016 Appointment: Heaven Mon WPtel: [phone] [place] (30 min) Complex 11/07/2016 Visit Plan: Bursitis of knee - Louis mmended voltaren gel on knee - RX sent to pharmacy - also recommended pt to do stretching exercise. 10/31/2016 Appointment: Morena Dalal WPtel: [phone] [place] (15 min) Moderate 10/31/2016 Patient Education: Patient Medication Summary Completed 10/31/2016 Visit Plan: Joint Injection - Pt wa s given post - injection instructions. The pt has been advised to use anti-inflammatories post injection today, ice to the injected site, call if redness, warmth, or increased pain occurs at the site of injection. 10/11/2016 Appointment: Hevaen Mon WPtel: [phone] [place] (30 min) Complex 10/11/2016 Patient Education: [...] will consider 10/03/2016 Appointment: Heaven Mon WPtel: [phone] [place] (15 min) Moderate 10/03/2016 Patient Education: [...] change in blood pressure readings at home. LNOK-exdsgejmn-bggtd dexilant- refer for EGD if symptoms persist [...]
--- OUTSIDE RECORDS SUMMARY | 2019-11-18 01:29 | XMS REPORT | CCD ---
Author Author Nelly Casillas Organization Morena Dalal MD, [facility] Address [address] [place] [address] Phone Care Team Providers Care Card Puncher Name Role Phone PP Unavailable CCM Unavailable Summary Purpose Interface Exchange Insurance Providers Payer name Policy type / Coverage type Covered green party ID Effective Begin Date Effective End Date WPS Medicare Part B Medicare Part B [id number] 2018 Unknown [employer] and [employer] Medicare Part B [id number] 2018 Unknown Family history Father Diagnosis Age At Onset Cancer Unknown Mother Diagnosis Age At Onset Depression Unknown Arthritis Unknown Alcoholism Unknown Hyperlipidemia Unknown Hypertension Unknown Liver Failure Unknown Social History Social History Element Codes Description Effective Dates Marital status Unknown W idowed 06/12/2016 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[address]: 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 Never smoker 06/12/2016 Allergies, Adverse Reactions, Alerts [...] 100 mg tablet,extended release 24 hr RxNorm: 300095 1 Tablet(s) PO daily 10/09/2018 02/05/2019 Active stop bystolic metoprolol succinate ER 100 mg tablet,extended release 24 hr RxNorm: 109574 1 Tablet(s) PO daily 10/09/2018 10/08/2018 Inactive stop bystolic Bystolic 10 mg tablet RxNorm: 306850 1 Tablet(s) PO daily 07/23/2018 10/08/2018 Inactive amlodipine 10 mg tablet RxNorm: 424299 Tablet(s) 1 TABLET(S) PO DAILY 07/03/2018 09/25/2019 Ac tive Coreg 12.5 mg tablet RxNorm: 507226 2 Tablet(s) PO BID TABLET(S) 1 TABLET(S) PO BID 06/25/2018 06/24/2018 Inactive Coreg 12.5 mg tablet RxNorm: 361501 2 Tablet(s) PO UD 06/25/2018 07/22/2018 Inactive 1 q am an 2 q pm pravastatin 10 mg ta blet RxNorm: 063413 1 Tablet(s) PO QHS 06/04/2018 08/26/2018 Inactive pravastatin 10 mg ta blet RxNorm: 258583 1 Tablet(s) PO QHS 06/04/2018 06/03/2018 Inactive Coreg 12.5 mg tablet RxNorm: 912414 1 Tablet(s) PO BID TABLET(S) 1 TABLET(S) PO BID 05/25/2018 06/24/2018 Inactive Replacing atenolol due to availability omeprazole 40 mg cap eloisa,delayed release RxNorm: 128983 1 Capsule(s) PO daily 05/25/2018 08/26/2018 In active Coreg 12.5 mg tablet RxNorm: 899464 TABLET(S) 1 TABLET(S) PO BID 02/19/2018 05/24/2018 Inactive Replacing atenolol due to availability Coreg 12.5 mg tablet RxNorm: 593179 TABLET(S) 1 TABLET(S) PO BID 11/18/2017 02/18/2018 Inactive Replacing atenolol due to availability Coreg 12.5 mg tablet RxNorm: 983111 TABLET(S) 1 TABLET(S) PO BID 08/14/2017 11/17/2017 Inactive Replacing atenolol due to availability amlodipine 10 mg tablet RxNorm: 527021 1 TABLET(S) PO DAILY 05/13/2017 07/02/2018 Inactive Coreg 12.5 mg tablet RxNorm: 441694 TABLET(S) 1 TABLET(S) PO BID 04/17/2017 07/22/2018 Inactive Replacing atenolol due to availability Patient requests 90 days supply Coreg 12.5 mg tablet RxNorm: 291439 Tablet(s) 1 TABLET(S) PO BID 04/16/2017 04/16/2017 Inactive Replacing atenolol due to availability Coreg 12.5 mg tablet RxNorm: 181006 Tablet(s) 1.5 TABLET(S) PO BID 03/17/2017 07/22/2018 In active Replacing atenolol due to availability Patient requests 90 days supply Coreg 12.5 mg tablet RxNorm: 015244 1 TABLET(S) PO BID 02/20/2017 04/15/2017 Inactive Replacing atenolol due to availability Coreg 12.5 mg tablet RxNorm: 280644 1 TABLET(S) PO BID 01/23/2017 03/16/2017 Inactive Replacing atenolol due to availabilityPatient requests 90 days supply Coreg 12.5 mg tablet RxNorm: 340116 1 Tablet(s) PO BID 01/21/2017 01/22/2017 Inactive Replacing atenolol due to availability Coreg 12.5 mg tablet RxNorm: 925341 1 Tablet(s) PO BID 01/21/2017 01/20/2017 Inactive Replacing atenolol due to availability atenolol 100 mg tablet RxNorm: 996168 TAKE 1 TABLET BY MOUTH EVERY DAY 01/20/2017 01/20/2017 In active mupirocin 2 % topica l ointment RxNorm: 415870 1 Application TOP BID 12/25/2016 12/31/2016 Inactive Voltaren 1 % topical gel RxNorm: 864092 2 TOP TID 10/31/2016 11/29/2016 Inactive amlodipine 10 mg tablet RxNorm: 552536 1 Tablet(s) PO daily 10/03/2016 03/31/2017 Inactive amlodipine 5 mg tablet RxNorm: 753757 1 Tablet(s) PO daily 06/12/2016 10/02/2016 Inactive aspirin 81 mg tablet ,delayed release RxNorm: 973295 1 Tablet(s) PO daily No Start Date Active Fish Oil oral RxNorm: 6626918 oral No Start Date Active One A Day Vitamin oral RxNorm: 62244 oral No Start Date Active Co Q-10 oral RxNorm: 77239 oral No Start Date Active atenolol 100 mg tablet RxNorm: 019784 1 Tablet(s) PO daily No Start Date 01/19/2017 Inactive amlodipine 5 mg tablet RxNorm: 727470 1 Tablet(s) PO daily No Start Date [...] 30.2 pg 06/01/2018 Cbc With Differential Ord2 [place]% 9.3 % 06/01/2018 Cbc With Differential Ord2 [...] 0.91 K/ul 06/01/2018 Cbc With Differential Ord2 [place] ABS# 0.8 K/ul 06/01/2018 Cbc With Differential Ord2 Eos ABS# 0.2 K/ul 06/01/2018 Cbc With Differential Ord2 Baso ABS# 0.0 K/ul 06/01/2018 Tsh Ord6 TSH (3rd IS) 3.50 uIU/mL 06/01/2018 Comp Metabolic Kzo476 NA 142 mEq/L 06/01/2018 Comp Metabolic Qwv318 K 4.3 mEq/L 06/01/2018 Comp Metabolic Sbf925 CL 105 mEq/L 06/01/2018 Comp Metabolic Jil968 CO2 27.0 mEq/L 06/01/2018 Comp Metabolic Bql208 AN ION GAP 14 06/01/2018 Comp Metabolic Naq079 GL UCOSE 102 mg/dL 06/01/2018 Comp Metabolic Xyw354 Cr eat 0.9 mg/dL 06/01/2018 Comp Metabolic Nic593 eG FR 66 ml/min/1.73m2 06/01 Comp Metabolic Rjn637 BUN 14 mg/dL 06/01/2018 Comp Metabolic Shb226 B/ C Ratio 15.9 Ratio 06/01/2018 Comp Metabolic Auu845 CA LCIUM 9.9 mg/dL 06/01/2018 Comp Metabolic Kej155 AL K PHOS 97 U/L 06/01/2018 Comp Metabolic Npv703 T(SGOT) 24 U/L 06/01/2018 Comp Metabolic Pea876 AL T(SGPT) 17 U/L 06/01/2018 Comp Metabolic Yhi478 BI LI T 0.6 mg/dL 06/01/2018 Comp Metabolic Ykr641 AL BUMIN 4.3 g/dL 06/01/2018 Comp Metabolic Evr584 TP RO 7.0 g/dL 06/01/2018 Comp Metabolic Dwe625 GL OB 2.7 g/dL 06/01/2018 Comp Metabolic Sra761 A/ G Ratio 1.6 Ratio 06/01/2018 Comp Metabolic Oek253 Os mo 284 mOsmo 06/01/2018 Tsh Ord6 hTSH II 2.22 uIU/mL 06/19/2016 Comp Metabolic Xjr005 NA 140 mEq/L 06/19/2016 Comp Metabolic Kuw199 K 4.1 mEq/L 06/19/2016 Comp Metabolic Nuy671 CL 104 mEq/L 06/19/2016 Comp Metabolic Day325 CO2 27.0 mEq/L 06/19/2016 Comp Metabolic Nxl761 AN ION GAP 13 06/19/2016 Comp Metabolic Pco210 GL UCOSE 107 mg/dL 06/19/2016 Comp Metabolic Bqd891 Cr eat 0.7 mg/dL 06/19/2016 Comp Metabolic Gsk244 eG FR 83 ml/min/1.73m2 06/19 Comp Metabolic Fby445 BUN 17 mg/dL 06/19/2016 Comp Metabolic Fld923 B/ C Ratio 23.3 Ratio 06/19/2016 Comp Metabolic Rnv039 CA LCIUM 9.5 mg/dL 06/19/2016 Comp Metabolic Ykz586 AL K PHOS 88 U/L 06/19/2016 Comp Metabolic Vdo600 T(SGOT) 28 U/L 06/19/2016 Comp Metabolic Yzr171 AL T(SGPT) 18 U/L 06/19/2016 Comp Metabolic Qqh674 BI LI T 0.5 mg/dL 06/19/2016 Comp Metabolic Cgw181 AL BUMIN 4.2 g/dL 06/19/2016 Comp Metabolic Gjf260 TP RO 6.7 g/dL 06/19/2016 Comp Metabolic Tks865 GL OB 2.5 g/dL 06/19/2016 Comp Metabolic Und847 A/ G Ratio 1.7 Ratio 06/19/2016 Comp Metabolic Wbr747 Os mo 281 mOsmo 06/19/2016 Cbc With [...] 30.4 pg 06/19/2016 Cbc With Differential Ord2 [place]% 15.5 % 06/19/2016 Cbc With Differential Ord2 [...] 1.06 K/ul 06/19/2016 Cbc With Differential Ord2 [place] ABS# 0.8 K/ul 06/19/2016 Cbc With Differential [...] 4: G0439 07/11/2017 DRAIN/INJECT JOINT/B URSA CPT-4: 81229 10/11/2016 Vital Signs Date Vital 11/26/2018 Blood Pressure 1: 150/78 Code: 8480-6 Blood Pressure 1: 132/80 Code: 8480-6 BMI: 20.0 Code: 64226-3 Heart Rate 1: 81 bpm Height: 5'1" SpO2: 98% Weight: 106 lbs 08/27/2018 Blood Pressure 1: 148/74 Code: 8480-6 BMI: 20.2 Code: 95512-5 Heart Rate 1: 77 bpm Height: 5'1" SpO2: 94% Weight: 107 lbs 07/23/2018 Blood Pressure 1: 142/80 Code: 8480-6 BMI: 20.2 Code: 19857-7 Heart Rate 1: 70 bpm Height: 5'1" SpO2: 96% Weight: 107 lbs 06/25/2018 Blood Pressure 1: 150/80 Code: 8480-6 BMI: 20.2 Code: 65233-6 Heart Rate 1: 84 bpm Height: 5'1" SpO2: 98% Weight: 107 lbs 05/25/2018 Blood Pressure 1: 152/84 Code: 8480-6 BMI: 20.8 Code: 07002-0 Heart Rate 1: 81 bpm Height: 5'1" SpO2: 98% Weight: 110 lbs 07/11/2017 Blood Pressure 1: 120/76 Code: 8480-6 BMI: 20.6 Code: 33126-6 Heart Rate 1: 72 bpm Height: 5'1" SpO2: 96% Waist Measure (cm): 66 cm Weight: 109 lbs 04/08/2017 Blood Pressure 1: 134/68 Code: 8480-6 BMI: 20.2 Code: 48860-4 Heart Rate 1: 75 bpm Height: 5'1" SpO2: 97% Weight: 107 lbs 03/17/2017 Blood Pressure 1: 156/90 Code: 8480-6 Heart Rate 1: 83 bpm Height: SpO2: 96% Weight: 01/31/2017 Blood Pressure 1: 132/68 Code: 8480-6 Heart Rate 1: 88 bpm SpO2: 98% 12/25/2016 Blood Pressure 1: 154/74 Code: 8480-6 BMI: 20.0 Code: 89870-3 Heart Rate 1: 74 bpm Height: 5'1" SpO2: 96% Weight: 106 lbs 10/31/2016 Blood Pressure 1: 138/82 Code: 8480-6 BMI: 20.2 Code: 02106-5 Heart Rate 1: 76 bpm Height: 5'1" SpO2: 96% Weight: 107 lbs 10/11/2016 Blood Pressure 1: 134/70 Code: 8480-6 Heart Rate 1: 69 bpm Height: 5'1" SpO2: 95% Weight: 10/03/2016 Blood Pressure 1: 164/88 Code: 8480-6 BMI: 20.2 Code: 76750-1 Heart Rate 1: 70 bpm Height: 5'1" SpO2: 97% Weight: 107 lbs 06/12/2016 Blood Pressure 1: 144/88 Code: 8480-6 BMI: 20.6 Code: 53877-8 Heart Rate 1: 79 bpm Height: 5'1" [...] Encounters Encounter Performer Loca tion Codes Date ([id number]) 38805 EST. P ATIENT, LEVEL III Diagnosis: Essential (primary) hypertension[ICD10: I10] Diagnosis: Pain in left wrist[ICD10: M25.532] [facility] CPT-4: 82155 11/26/2018 [id number] 94830 EST. P ATIENT, LEVEL III Diagnosis: Essential (primary) hypertension[ICD10: I10] Diagnosis: Gastro-esophageal reflux disease without esophagitis[ICD10: K21.9] [facility] CPT-4: 14350 08/27/2018 [id number]) 13955 EST. P ATIENT, LEVEL III Diagnosis: Essential (primary) hypertension[ICD10: I10] Diagnosis: Gastro-esophageal reflux disease without esophagitis[ICD10: K21.9] Heaven Dalal MD, [facility] CPT-4: 94593 07/23/2018 ([id number]) 06617 EST. P ATIENT, LEVEL III Diagnosis: Essential (primary) hypertension[ICD10: I10] Diagnosis: Dysphagia, oropharyngeal phase[ICD10: R13.12] Heaven Dalal MD, [facility] CPT-4: 68509 06/25/2018 ([id number]) 92521 EST. P ATIENT, LEVEL IV Diagnosis: Essential (primary) hypertension[ICD10: I10] Diagnosis: Dysphagia, oropharyngeal phase[ICD10: R13.12] Diagnosis: Mixed hyperlipidemia[ICD10: E78.2] Heaven Dalal MD, [facility] CPT-4: 90669 05/25/2018 ([id number]) 31394 EST. P ATIENT, LEVEL III Diagnosis: Essential (primary) hypertension[ICD10: I10] Morena Dalal MD, [facility] CPT-4: 45603 04/08/2017 ([id number]) Miscellaneou s no charge Diagnosis: Essential (primary) hypertension[ICD10: I10] Heaven Dalal MD, [facility] CPT-4: 18458 03/17/2017 ([id number]) Miscellaneou s no charge Diagnosis: Essential (primary) hypertension[ICD10: I10] [facility] CPT-4: 07374 01/31/2017 ([id number]) 75080 EST. P ATIENT, LEVEL III Diagnosis: Essential (primary) hypertension[ICD10: I10] Diagnosis: Otalgia, left ear[ICD10: H92.02] Morena Dalal MD, [facility] CPT-4: 56893 12/25/2016 ([id number]) 42191 EST. P ATIENT, LEVEL III Diagnosis: Pain in right knee[ICD10: M25.561] Morena Dalal MD, [facility] CPT- 4: 44523 10/31/2016 ([id number]) 91022 EST. 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] Diagnosis: Pain in right knee[ICD10: M25.561] [facility] CPT-4: 13795 10/03/2016 OFFICE VISIT, NEW - LEVEL 4 Diagnosis: Essential (primary) hypertension[ICD10: I10] Diagnosis: Pain in right knee[ICD10: M25.561] [facility] CPT-4: 07155 06/12/2016 Plan of Care Planned Activity Notes [...] see if that helps with discomfort 11/26/2018 Patient Education: Patient Medication Summary Completed 11/26/2018 Patient Education: Depression Completed 11/26/2018 Visit Plan: Hypertension - well con trolled - continue with current medications, continue with no added salt diet. Pt has been encouraged to exercise daily. The pt has been advised to call the office if there are any acute concerns about change in blood pressure readings at home. GNPB-mcnlcsspf-yhhiu dexilant- refer for EGD if symptoms persist 08/27/2018 Appointment: Heaven Mon WPtel: [address] [place], [place] [phone] (15 min) Moderate 08/27/2018 Patient Education: Patient [...] on use 07/23/2018 Appointment: Heaven Mon WPtel: [address] [place], [place] [phone] (30 min) Complex 07/23/2018 Patient Education: Patient [...] swallow study 06/25/2018 Appointment: [facility] Mon WPtel: [phone] [phone] (15 min) Moderate 06/25/2018 Patient Education: [...] improve 05/25/2018 Appointment: Heaven Mon WPtel: [phone] [phone] (30 min) Complex 05/25/2018 Patient Education: [...] care surrogate. 07/11/2017 Appointment: Heaven Mon WPtel: [phone] [phone] [facility] - Annual Wellness Visit 07/11/2017 Patient Education: Patient Medication Summary Completed 07/11/2017 Appointment: Janee Casillas WPtel: [facility] [facility] - Annual Wellness Visit 07/01/2017 Visit Plan: Hypertension - well con trolled - continue with current medications, continue with no added salt diet. Pt has been encouraged to exercise daily. The pt has been advised to call the office if there are any acute concerns about change in blood pressure readings at home. 04/08/2017 Appointment: Morena Dalal WPtel: [phone] (15 min) Moderate 04/08/2017 Patient Education: Patient [...] voltaren gel. 12/25/2016 Appointment: Morena Dalal WPtel: [facility] [place] (15 min) Moderate 12/25/2016 Patient Education: Patient Medication Summary Completed 12/25/2016 Appointment: Heaven Mon WPtel[phone] [place] (30 min) Complex 11/07/2016 Visit Plan: Bursitis of knee - Louis mmended voltaren gel on knee - RX sent to pharmacy - also recommended pt to do stretching exercise. 10/31/2016 Appointment: Morena Dalal WPtel: [phone] [place] [phone] (15 min) Moderate 10/31/2016 Patient Education: Patient Medication Summary Completed 10/31/2016 Visit Plan: Joint Injection - Pt wa s given post - injection instructions. The pt has been advised to use anti-inflammatories post injection today, ice to the injected site, call if redness, warmth, or increased pain occurs at the site of injection. 10/11/2016 Appointment: Heaven Mon WPtel: [phone] [place] [phone] (30 min) Complex 10/11/2016 Patient Education: Patient [...] will consider 10/03/2016 Appointment: Heaven Mon WPtel: [facility] [phone] [place] (15 min) Moderate 10/03/2016 Patient [...] change in blood pressure readings at home. LNIS-cflfqwkbx-pxfpv dexilant- refer for EGD if symptoms persist [...]
--- OUTSIDE RECORDS SUMMARY | 2019-11-18 01:30 | XMS REPORT | CCD ---
Author Author Nelly Casillas Organization Morena Dalal MD, [facility] Address [address] [place] [address] Phone Care Team Providers Care Manager Council Name Role Phone PP Unavailable CCM Unavailable Summary Purpose Interface Exchange Insurance Providers Payer name Policy type / Coverage type Covered alliance party ID Effective Begin Date Effective End Date WPS Medicare Part B Medicare Part B [id number] Unknown Unknown [employer] Medicare Part B [id number] Unknown Unknown Family history Father Diagnosis Age At Onset Cancer Unknown Mother Diagnosis Age At Onset Depression Unknown Arthritis Unknown Alcoholism Unknown Hyperlipidemia Unknown Hypertension Unknown Liver Failure Unknown Social History Social History Element Codes Description Effective Dates Marital status Unknown W idowed 06/12/2016 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 Never smoker 06/12/2016 Allergies, Adverse Reactions, Alerts Allergies, Adverse Reactions, Alerts data not found Past Medical History Illness Codes Condition Status Onset Date Resolved Date Hypertension Unknown Active 10/03/2016 Unknow n Essential (primary) hypertension ICD-9: 401.9 ICD-10: I10 Active 06/12/2016 Unknown Pain in right knee ICD- 9: 719.46 ICD-10: M25.561 Active 06/12/2016 Unknown 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 ICD-9: 454.8 ICD-10: I83.813 Active 10/03/2016 Unknown Problems Condition Codes Effectiv e Dates Condition Status Hypertension Unknown 10/03/2016 Active Essential (primary) hypertension ICD-9: 401.9 ICD-10: I10 06/12/2016 Active Pain in right knee ICD- 9: 719.46 ICD-10: M25.561 06/12/2016 Active 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 ICD-9: 454.8 ICD-10: I83.813 10/03/2016 Active Medications Medication Codes Instruc tions Start Date Stop Date Sta tus Fill Instructions amlodipine 10 mg tablet RxNorm: 665478 1 Tablet(s) PO daily 10/03/2016 03/31/2017 Active amlodipine 5 mg tablet RxNorm: 453581 1 Tablet(s) PO daily 06/12/2016 10/02/2016 Inactive atenolol 100 mg tablet RxNorm: 970540 1 Tablet(s) PO daily No Start Date Active aspirin 81 mg tablet ,delayed release RxNorm: 043616 1 Tablet(s) PO daily No Start Date Active amlodipine 5 mg tablet RxNorm: 804275 1 Tablet(s) PO daily No Start Date 06/11/2016 Inactive Medication Administered No Medication Administered data Immunizations No Immunization data Assessments Condition Codes Effectiv e Dates Essential (primary) hypertension ICD -10: I10 ICD-9: 401.9 10/03/2016 Pain in right knee ICD-10: M25.561 ICD-9: 719.46 10/03/2016 Varicose veins of bilateral lower extremities with july n ICD- 10: I83.813 ICD-9: 454.8 10/03/2016 Reason For Visit Reason For Visit Effective Dates Notes knee pain 10/03/2016 knee pain 06/12/2016 Results Observation Observation Code Item Item Code Result Date Tsh Ord6 hTSH II 2.22 uIU/mL 06/19/2016 Comp Metabolic Nxn968 NA 140 mEq/L 06/19/2016 Comp Metabolic Pig983 K 4.1 mEq/L 06/19/2016 Comp Metabolic Ltx780 CL 104 mEq/L 06/19/2016 Comp Metabolic Nlr408 CO2 27.0 mEq/L 06/19/2016 Comp Metabolic Vtn617 AN ION GAP 13 06/19/2016 Comp Metabolic Mcx082 GL UCOSE 107 mg/dL 06/19/2016 Comp Metabolic Cwn570 Cr eat 0.7 mg/dL 06/19/2016 Comp Metabolic Ecn025 eG FR 83 ml/min/1.73m2 06/19 Comp Metabolic Pgw706 BUN 17 mg/dL 06/19/2016 Comp Metabolic Axf832 B/ C Ratio 23.3 Ratio 06/19/2016 Comp Metabolic Fbu249 CA LCIUM 9.5 mg/dL 06/19/2016 Comp Metabolic Zts607 AL K PHOS 88 U/L 06/19/2016 Comp Metabolic Abu329 T(SGOT) 28 U/L 06/19/2016 Comp Metabolic Adm015 AL T(SGPT) 18 U/L 06/19/2016 Comp Metabolic Ytk311 BI LI T 0.5 mg/dL 06/19/2016 Comp Metabolic Bdz145 AL BUMIN 4.2 g/dL 06/19/2016 Comp Metabolic Fnb985 TP RO 6.7 g/dL 06/19/2016 Comp Metabolic Nqr077 GL OB 2.5 g/dL 06/19/2016 Comp Metabolic Arg760 A/ G Ratio 1.7 Ratio 06/19/2016 Comp Metabolic Kil433 Os mo 281 mOsmo 06/19/2016 Cbc With [...] 21.4 % 06/19/2016 Cbc With Differential Ord2 [place]% 15.5 % 06/19/2016 Cbc With Differential Ord2 MCH 30.4 pg 06/19/2016 Cbc With Differential Ord2 MCHC 32.6 pg 06/19/2016 Cbc With Differential Ord2 Eos% 3.6 % 06/19/2016 Cbc With Differential Ord2 Baso% 0.6 % 06/19/2016 Cbc With Differential Ord2 PLT 217 K/ul 06/19/2016 Cbc With Differential Ord2 Neut ABS# 2.92 K/ul 06/19/2016 Cbc With Differential Ord2 RDW 13.7 % 06/19/2016 Cbc With Differential Ord2 Lymph ABS# 1.06 K/ul 06/19/2016 Cbc With Differential Ord2 [place] ABS# 0.8 K/ul 06/19/2016 Cbc With Differential Ord2 Eos ABS# 0.2 K/ul 06/19/2016 Cbc With Differential Ord2 Baso ABS# 0.0 K/ul 06/19/2016 Lipid Ord30 CHOL 230 mg/dL 06/19/2016 Lipid Ord30 HDL 68.0 mg/dl 06/19/2016 Lipid Ord30 TRIG 85 mg/dL 06/19/2016 Lipid Ord30 LDL 145 mg/dL 06/19/2016 Lipid Ord30 C/HDL 3.4 Ratio 06/19/2016 Review of Systems System Result Effective Dates Constitutional No recent illness 10/03/2016 Constitutional No [...] knee: pain with flexion 06/12/2016 None Procedures No Procedures data Vital Signs Date Vital 10/03/2016 Blood Pressure 1: 164/88 Code: 8480-6 BMI: 20.2 Code: 11751-0 Heart Rate 1: 70 bpm Height: 5'1" SpO2: 97% Weight: 107 lbs 06/12/2016 Blood Pressure 1: 144/88 Code: 8480-6 BMI: 20.6 Code: 06652-2 Heart Rate 1: 79 bpm Height: 5'1" SpO2: 97% Weight: 109 lbs Functional Status No Functional Status data History of Present Illness Symptom Name Status Resu lt Effective Date Notes knee pain Location on th e right [...] Encounters Encounter Performer Loca tion Codes Date ([id number]) 57119 EST. 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] Diagnosis: Pain in right knee[ICD10: M25.561] [facility] CPT-4: 10436 10/03/2016 OFFICE VISIT, NEW - LEVEL 4 Diagnosis: Essential (primary) hypertension[ICD10: I10] Diagnosis: Pain in right knee[ICD10: M25.561] [facility] CPT-4: 81738 06/12/2016 Plan of Care Planned Activity Notes C odes Status Date Visit Plan: Hypertension - uncontrolled - the patient's medications have been modified [...] review.The pt is to call for acute concerns.Right knee pain-eng's cyst-xray knee-consider joint injection if symptoms persist Varicose veins-recommend appt with vein specialist/vascular surgeon for evaluation-patient will consider 10/03/2016 Appointment: [facility] [address] [phone] [place] (15 min) Moderate 10/03/2016 Patient Education: Patient Medication Summary Completed 10/03/2016 Visit Plan: Well Adult - pt was counsele d about diet, exercise, and encouraged to follow a heart healthy diet and increase activity level. The patient was instructed to RTC yearly for well adult exams and PRN for acute illnesses. The pt was also instructed to have yearly labs for check of cholesterol, thyroid, chem panel, CBC, and renal functioning.right knee pain - The pt is to use RICE - rest, ice, compression, elevation - The pt is to use prn antiinflammatories to manage acute pain. The patient is to call the office if the pain is worsening or does not improve. 06/12/2016 Patient Education: Patient Medication Summary Completed 06/12/2016 Patient Education: Hypertension Completed 06/12/2016 Instructions Comment . Well Adult - pt wa [...]
--- OUTSIDE RECORDS SUMMARY | 2019-11-18 01:30 | XMS REPORT | CCD ---
Author Author Nelly Casillas Organization Morena Dalal MD, [facility] Address [address] [place] [address] Phone Care Team Providers Care Founder / Ceo Name Role Phone PP Unavailable CCM Unavailable Summary Purpose Interface Exchange Insurance Providers Payer name Policy type / Coverage type Covered constitution party ID Effective Begin Date Effective End Date WPS Medicare Part B Medicare Part B [id number] 2018 Unknown [employer] Medicare Part B [id number] 2018 Unknown Family history Father Diagnosis Age At Onset Cancer Unknown Mother Diagnosis Age At Onset Depression Unknown Arthritis Unknown Alcoholism Unknown Hyperlipidemia Unknown Hypertension Unknown Liver Failure Unknown Social History Social History Element Codes Description Effective Dates Marital status Unknown W idowed 06/12/2016 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[address]: 346106699 Never smoker 06/12/2016 Allergies, Adverse Reactions, Alerts Substance Reaction Codes Entered Date Inactivated Date Status CODEINE RxNorm: 2670 06/12/2016 No Inactive Date Active Past Medical History Illness Codes Condition Status Onset Date Resolved Date Essential (primary) hypertension ICD-9: 401.1 ICD-10: I10 Active 01/31/2017 Unknown Gastro-esophageal re flux disease without esophagitis [...] hypertension ICD-9: 401.1 ICD-10: I10 01/31/2017 Active Gastro-esophageal re flux disease without esophagitis ICD-9: 530.81 ICD-10: K21.9 07/23/2018 Active Essential (primary) hypertension ICD-9: 401.9 ICD-10: I10 06/12/2016 Active Dysphagia, oropharyn geal phase ICD-9: 787.22 ICD-10: R13.12 05/25/2018 Active Mixed hyperlipidemia ICD-9: 272.2 ICD-10: E78.2 05/25/2018 Active Encounter for [facility] adult medical examination without abnormal findings ICD-9: [...] 100 mg tablet,extended release 24 hr RxNorm: 124612 1 Tablet(s) PO daily 10/09/2018 02/05/2019 Active stop bystolic metoprolol succinate ER 100 mg tablet,extended release 24 hr RxNorm: 680021 1 Tablet(s) PO daily 10/09/2018 10/08/2018 Inactive stop bystolic Bystolic 10 mg tablet RxNorm: 093193 1 Tablet(s) PO daily 07/23/2018 10/08/2018 Inactive amlodipine 10 mg tablet RxNorm: 818403 Tablet(s) 1 TABLET(S) PO DAILY 07/03/2018 09/25/2019 Ac tive Coreg 12.5 mg tablet RxNorm: 329874 2 Tablet(s) PO BID TABLET(S) 1 TABLET(S) PO BID 06/25/2018 06/24/2018 Inactive Coreg 12.5 mg tablet RxNorm: 504028 2 Tablet(s) PO UD 06/25/2018 07/22/2018 Inactive 1 q am an 2 q pm pravastatin 10 mg ta blet RxNorm: 033764 1 Tablet(s) PO QHS 06/04/2018 08/26/2018 Inactive pravastatin 10 mg ta blet RxNorm: 012479 1 Tablet(s) PO QHS 06/04/2018 06/03/2018 Inactive Coreg 12.5 mg tablet RxNorm: 125389 1 Tablet(s) PO BID TABLET(S) 1 TABLET(S) PO BID 05/25/2018 06/24/2018 Inactive Replacing atenolol due to availability omeprazole 40 mg cap eloisa,delayed release RxNorm: 837326 1 Capsule(s) PO daily 05/25/2018 08/26/2018 In active Coreg 12.5 mg tablet RxNorm: 665165 TABLET(S) 1 TABLET(S) PO BID 02/19/2018 05/24/2018 Inactive Replacing atenolol due to availability Coreg 12.5 mg tablet RxNorm: 693490 TABLET(S) 1 TABLET(S) PO BID 11/18/2017 02/18/2018 Inactive Replacing atenolol due to availability Coreg 12.5 mg tablet RxNorm: 593178 TABLET(S) 1 TABLET(S) PO BID 08/14/2017 11/17/2017 Inactive Replacing atenolol due to availability amlodipine 10 mg tablet RxNorm: 856577 1 TABLET(S) PO DAILY 05/13/2017 07/02/2018 Inactive Coreg 12.5 mg tablet RxNorm: 101531 TABLET(S) 1 TABLET(S) PO BID 04/17/2017 07/22/2018 Inactive Replacing atenolol due to availability Patient requests 90 days supply Coreg 12.5 mg tablet RxNorm: 141335 Tablet(s) 1 TABLET(S) PO BID 04/16/2017 04/16/2017 Inactive Replacing atenolol due to availability Coreg 12.5 mg tablet RxNorm: 031187 Tablet(s) 1.5 TABLET(S) PO BID 03/17/2017 07/22/2018 In active Replacing atenolol due to availability Patient requests 90 days supply Coreg 12.5 mg tablet RxNorm: 643055 1 TABLET(S) PO BID 02/20/2017 04/15/2017 Inactive Replacing atenolol due to availability Coreg 12.5 mg tablet RxNorm: 421857 1 TABLET(S) PO BID 01/23/2017 03/16/2017 Inactive Replacing atenolol due to availabilityPatient requests 90 days supply Coreg 12.5 mg tablet RxNorm: 743418 1 Tablet(s) PO BID 01/21/2017 01/22/2017 Inactive Replacing atenolol due to availability Coreg 12.5 mg tablet RxNorm: 799742 1 Tablet(s) PO BID 01/21/2017 01/20/2017 Inactive Replacing atenolol due to availability atenolol 100 mg tablet RxNorm: 683092 TAKE 1 TABLET BY MOUTH EVERY DAY 01/20/2017 01/20/2017 In active mupirocin 2 % topica l ointment RxNorm: 442909 1 Application TOP BID 12/25/2016 12/31/2016 Inactive Voltaren 1 % topical gel RxNorm: 388118 2 TOP TID 10/31/2016 11/29/2016 Inactive amlodipine 10 mg tablet RxNorm: 385470 1 Tablet(s) PO daily 10/03/2016 03/31/2017 Inactive amlodipine 5 mg tablet RxNorm: 059262 1 Tablet(s) PO daily 06/12/2016 10/02/2016 Inactive aspirin 81 mg tablet ,delayed release RxNorm: 823688 1 Tablet(s) PO daily No Start Date Active Fish Oil oral RxNorm: 0959936 oral No Start Date Active Co Q-10 oral RxNorm: 27553 oral No Start Date Active atenolol 100 mg tablet RxNorm: 454426 1 Tablet(s) PO daily No Start Date 01/19/2017 Inactive amlodipine 5 mg tablet RxNorm: 099308 1 Tablet(s) PO daily No Start Date 06/11/2016 Inactive Medication Administered No Medication Administered data Immunizations Vaccine Codes Date Status Pneumococcal CVX: 133 completed Assessments Condition Codes Effectiv e Dates Gastro-esophageal reflux disease without esophagitis ICD-10: K21.9 ICD-9: 530.81 08/27/2018 Essential (primary) hypertension ICD -10: I10 ICD-9: 401.1 08/27/2018 Essential (primary) hypertension ICD -10: I10 [...] 30.2 pg 06/01/2018 Cbc With Differential Ord2 [place]% 9.3 % 06/01/2018 Cbc With Differential Ord2 [...] 0.91 K/ul 06/01/2018 Cbc With Differential Ord2 [place] ABS# 0.8 K/ul 06/01/2018 Cbc With Differential Ord2 Eos ABS# 0.2 K/ul 06/01/2018 Cbc With Differential Ord2 Baso ABS# 0.0 K/ul 06/01/2018 Tsh Ord6 TSH (3rd IS) 3.50 uIU/mL 06/01/2018 Comp Metabolic Gau062 NA 142 mEq/L 06/01/2018 Comp Metabolic Vpj593 K 4.3 mEq/L 06/01/2018 Comp Metabolic Xwt255 CL 105 mEq/L 06/01/2018 Comp Metabolic Luq721 CO2 27.0 mEq/L 06/01/2018 Comp Metabolic Gou800 AN ION GAP 14 06/01/2018 Comp Metabolic Oei591 GL UCOSE 102 mg/dL 06/01/2018 Comp Metabolic Qil422 Cr eat 0.9 mg/dL 06/01/2018 Comp Metabolic Lzf442 eG FR 66 ml/min/1.73m2 06/01 Comp Metabolic Vpz324 BUN 14 mg/dL 06/01/2018 Comp Metabolic Qgk535 B/ C Ratio 15.9 Ratio 06/01/2018 Comp Metabolic Xyx146 CA LCIUM 9.9 mg/dL 06/01/2018 Comp Metabolic Ztk242 AL K PHOS 97 U/L 06/01/2018 Comp Metabolic Bmc758 T(SGOT) 24 U/L 06/01/2018 Comp Metabolic Psk494 AL T(SGPT) 17 U/L 06/01/2018 Comp Metabolic Pcw817 BI LI T 0.6 mg/dL 06/01/2018 Comp Metabolic Txw001 AL BUMIN 4.3 g/dL 06/01/2018 Comp Metabolic Cig604 TP RO 7.0 g/dL 06/01/2018 Comp Metabolic Pqa275 GL OB 2.7 g/dL 06/01/2018 Comp Metabolic Lfx840 A/ G Ratio 1.6 Ratio 06/01/2018 Comp Metabolic Rrl963 Os mo 284 mOsmo 06/01/2018 Tsh Ord6 hTSH II 2.22 uIU/mL 06/19/2016 Comp Metabolic Xah344 NA 140 mEq/L 06/19/2016 Comp Metabolic Nzr783 K 4.1 mEq/L 06/19/2016 Comp Metabolic Jcn349 CL 104 mEq/L 06/19/2016 Comp Metabolic Jyq288 CO2 27.0 mEq/L 06/19/2016 Comp Metabolic Uxw955 AN ION GAP 13 06/19/2016 Comp Metabolic Bpy345 GL UCOSE 107 mg/dL 06/19/2016 Comp Metabolic Ewo767 Cr eat 0.7 mg/dL 06/19/2016 Comp Metabolic Spd299 eG FR 83 ml/min/1.73m2 06/19 Comp Metabolic Vwz211 BUN 17 mg/dL 06/19/2016 Comp Metabolic Emz432 B/ C Ratio 23.3 Ratio 06/19/2016 Comp Metabolic Laq638 CA LCIUM 9.5 mg/dL 06/19/2016 Comp Metabolic Ago792 AL K PHOS 88 U/L 06/19/2016 Comp Metabolic Qss710 T(SGOT) 28 U/L 06/19/2016 Comp Metabolic Xot138 AL T(SGPT) 18 U/L 06/19/2016 Comp Metabolic Cji200 BI LI T 0.5 mg/dL 06/19/2016 Comp Metabolic Lty849 AL BUMIN 4.2 g/dL 06/19/2016 Comp Metabolic Ywx481 TP RO 6.7 g/dL 06/19/2016 Comp Metabolic Xwp885 GL OB 2.5 g/dL 06/19/2016 Comp Metabolic Yjt832 A/ G Ratio 1.7 Ratio 06/19/2016 Comp Metabolic Jab919 Os mo 281 mOsmo 06/19/2016 Cbc With [...] 30.4 pg 06/19/2016 Cbc With Differential Ord2 [place]% 15.5 % 06/19/2016 Cbc With Differential Ord2 [...] 1.06 K/ul 06/19/2016 Cbc With Differential Ord2 [place] ABS# 0.8 K/ul 06/19/2016 Cbc With Differential Ord2 Eos ABS# 0.2 K/ul 06/19/2016 Cbc With Differential Ord2 Baso ABS# 0.0 K/ul 06/19/2016 Lipid Ord30 CHOL 230 mg/dL 06/19/2016 Lipid Ord30 HDL 68.0 mg/dl 06/19/2016 Lipid Ord30 TRIG 85 mg/dL 06/19/2016 Lipid Ord30 LDL 145 mg/dL 06/19/2016 Lipid Ord30 C/HDL 3.4 Ratio 06/19/2016 Review of Systems System Result Effective Dates Constitutional No recent illness 08/27/2018 Constitutional No [...] General 1995 Ears/Nose/Throat lips/teeth/gingiva Overall: benign lips 06/12/2016 None [...] 4: G0439 07/11/2017 DRAIN/INJECT JOINT/B URSA CPT-4: 72322 10/11/2016 Vital Signs Date Vital 08/27/2018 Blood Pressure 1: 148/74 Code: 8480-6 BMI: 20.2 Code: 72966-1 Heart Rate 1: 77 bpm Height: 5'1" SpO2: 94% Weight: 107 lbs 07/23/2018 Blood Pressure 1: 142/80 Code: 8480-6 BMI: 20.2 Code: 08597-8 Heart Rate 1: 70 bpm Height: 5'1" SpO2: 96% Weight: 107 lbs 06/25/2018 Blood Pressure 1: 150/80 Code: 8480-6 BMI: 20.2 Code: 19659-6 Heart Rate 1: 84 bpm Height: 5'1" SpO2: 98% Weight: 107 lbs 05/25/2018 Blood Pressure 1: 152/84 Code: 8480-6 BMI: 20.8 Code: 20389-4 Heart Rate 1: 81 bpm Height: 5'1" SpO2: 98% Weight: 110 lbs 07/11/2017 Blood Pressure 1: 120/76 Code: 8480-6 BMI: 20.6 Code: 37292-1 Heart Rate 1: 72 bpm Height: 5'1" SpO2: 96% Waist Measure (cm): 66 cm Weight: 109 lbs 04/08/2017 Blood Pressure 1: 134/68 Code: 8480-6 BMI: 20.2 Code: 98722-7 Heart Rate 1: 75 bpm Height: 5'1" SpO2: 97% Weight: 107 lbs 03/17/2017 Blood Pressure 1: 156/90 Code: 8480-6 Heart Rate 1: 83 bpm Height: SpO2: 96% Weight: 01/31/2017 Blood Pressure 1: 132/68 Code: 8480-6 Heart Rate 1: 88 bpm SpO2: 98% 12/25/2016 Blood Pressure 1: 154/74 Code: 8480-6 BMI: 20.0 Code: 22977-9 Heart Rate 1: 74 bpm Height: 5'1" SpO2: 96% Weight: 106 lbs 10/31/2016 Blood Pressure 1: 138/82 Code: 8480-6 BMI: 20.2 Code: 93492-0 Heart Rate 1: 76 bpm Height: 5'1" SpO2: 96% Weight: 107 lbs 10/11/2016 Blood Pressure 1: 134/70 Code: 8480-6 Heart Rate 1: 69 bpm Height: 5'1" SpO2: 95% Weight: 10/03/2016 Blood Pressure 1: 164/88 Code: 8480-6 BMI: 20.2 Code: 14319-0 Heart Rate 1: 70 bpm Height: 5'1" SpO2: 97% Weight: 107 lbs 06/12/2016 Blood Pressure 1: 144/88 Code: 8480-6 BMI: 20.6 Code: 40150-5 Heart Rate 1: 79 bpm Height: 5'1" SpO2: 97% Weight: 109 lbs Functional Status No Functional Status data History of Present Illness Symptom Name Status Resu lt Effective Date Notes Location in [place] 08/27/2018 [...] me dication 07/23/2018 None Pertinent Findings alfonso valderramaness 07/23/2018 after she takes coreg Pertinent Findings [...] Encounters Encounter Performer Loca tion Codes Date ([id number]) 73463 EST. P ATIENT, LEVEL III Diagnosis: Essential (primary) hypertension[ICD10: I10] Diagnosis: Gastro-esophageal reflux disease without esophagitis[ICD10: K21.9] Heaven Dalal MD, [facility] CPT-4: 32974 08/27/2018 ([id number]) 12260 EST. P ATIENT, LEVEL III Diagnosis: Essential (primary) hypertension[ICD10: I10] Diagnosis: Gastro-esophageal reflux disease without esophagitis[ICD10: K21.9] Heaven Dalal MD, [facility] CPT-4: 58244 07/23/2018 ([id number]) 28042 EST. P ATIENT, LEVEL III Diagnosis: Essential (primary) hypertension[ICD10: I10] Diagnosis: Dysphagia, oropharyngeal phase[ICD10: R13.12] Heaven Dalal MD, [facility] CPT-4: 97327 06/25/2018 ([id number]) 86259 EST. P ATIENT, LEVEL IV Diagnosis: Essential (primary) hypertension[ICD10: I10] Diagnosis: Dysphagia, oropharyngeal phase[ICD10: R13.12] Diagnosis: Mixed hyperlipidemia[ICD10: E78.2] Heaven Dalal MD, [facility] CPT-4: 55520 05/25/2018 ([id number]) 77334 EST. P ATIENT, LEVEL III Diagnosis: Essential (primary) hypertension[ICD10: I10] Morena Dalal MD, [facility] CPT-4: 14539 04/08/2017 ([id number]) Miscellaneou s no charge Diagnosis: Essential (primary) hypertension[ICD10: I10] Heaven Dalal MD, [facility] CPT-4: 79172 03/17/2017 ([id number]) Miscellaneou s no charge Diagnosis: Essential (primary) hypertension[ICD10: I10] Morena Dalal MD[facility] CPT-4: 57372 01/31/2017 ([id number]) 17728 EST. P ATIENT, LEVEL III Diagnosis: Essential (primary) hypertension[ICD10: I10] Diagnosis: Otalgia, left ear[ICD10: H92.02] Morena Dalal MD, [facility] CPT-4: 15461 12/25/2016 ([id number]) 50390 EST. P ATIENT, LEVEL III Diagnosis: Pain in right knee[ICD10: M25.561] Morena Dalal MD, [facility] CPT- 4: 97157 10/31/2016 ([id number]) 41153 EST. 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] Diagnosis: Pain in right knee[ICD10: M25.561] [facility] CPT-4: 13842 10/03/2016 OFFICE VISIT, NEW - LEVEL 4 Diagnosis: Essential (primary) hypertension[ICD10: I10] Diagnosis: Pain in right knee[ICD10: M25.561] [facility] CPT-4: 73885 06/12/2016 Plan of Care Planned Activity Notes C odes Status Date Visit Plan: Hypertension - well con trolled - continue with current medications, continue with no added salt diet. Pt has been encouraged to exercise daily. The pt has been advised to call the office if there are any acute concerns about change in blood pressure readings at home. GNAL-gablrzzml-paluh dexilant- refer for EGD if symptoms persist 08/27/2018 Appointment: Heaven Mon WPtel: [address] [place], [place] [phone] (15 min) Moderate 08/27/2018 Patient Education: Patient [...] on use 07/23/2018 Appointment: Heaven Mon WPtel: [address] [place], [place] [phone] (30 min) Complex 07/23/2018 Patient Education: Patient [...] acute concerns. Dysphagia-schedule swallow study 06/25/2018 Appointment: Heaevn Mon WPtel: [address] (15 min) Moderate 06/25/2018 Patient Education: Patient [...] not improve 05/25/2018 Appointment: Heaven Mon WPtel: [facility] [address] (30 min) Complex 05/25/2018 Patient Education: Patient [...] care surrogate. 07/11/2017 Appointment: Heaven Mon WPtel: [address] [place] [phone] [facility] - Annual Wellness Visit 07/11/2017 Patient Education: Patient Medication Summary Completed 07/11/2017 Appointment: Janee Casillas WPtel: [phone] [facility] [facility] - Annual Wellness Visit 07/01/2017 Visit Plan: Hypertension - well con trolled - continue with current medications, continue with no added salt diet. Pt has been encouraged to exercise daily. The pt has been advised to call the office if there are any acute concerns about change in blood pressure readings at home. 04/08/2017 Appointment: Morena Dalal WPtel: [address] [facility] (15 min) Moderate 04/08/2017 Patient Education: Patient [...] gel. 12/25/2016 [facility] ([facility] min) Moderate 12/25/2016 Patient Education: Patient Medication Summary Completed 12/25/2016 Appointment: Heaven Mon WPtel: [address] [phone] [place] (30 min) Complex 11/07/2016 Visit Plan: Bursitis of knee - Louis mmended voltaren gel on knee - RX sent to pharmacy - also recommended pt to do stretching exercise. 10/31/2016 Appointment: Morena Dalal WPtel: [address] [facility] (15 min) Moderate 10/31/2016 Patient Education: Patient Medication Summary Completed 10/31/2016 Visit Plan: Joint Injection - Pt wa s given post - injection instructions. The pt has been advised to use anti-inflammatories post injection today, ice to the injected site, call if redness, warmth, or increased pain occurs at the site of injection. 10/11/2016 Appointment: Heaven Mon WPtel: [phone] (30 min) Complex 10/11/2016 Patient Education: Patient [...] will consider 10/03/2016 Appointment: Heaven Mon WPtel: [phone] (15 min) Moderate 10/03/2016 Patient Education: Patient [...] change in blood pressure readings at home. ZKYO-zbhubspvv-rmzwb dexilant- refer for EGD if symptoms persist [...]
--- OUTSIDE RECORDS SUMMARY | 2019-11-18 01:30 | XMS REPORT | CCD ---
Author Author Nelly Casillas Organization Morena Dalal MD, [facility] Address [address] [place] [address] Phone Care Team Providers Care Meter Calibrator Name Role Phone PP Unavailable CCM Unavailable Summary Purpose Interface Exchange Insurance Providers Payer name Policy type / Coverage type Covered constitution party ID Effective Begin Date Effective End Date WPS Medicare Part B Medicare Part B [id number] Unknown Unknown [employer] Medicare Part B [id number] Unknown Unknown Family history Father Diagnosis Age At Onset Cancer Unknown Mother Diagnosis Age At Onset Depression Unknown Arthritis Unknown Alcoholism Unknown Hyperlipidemia Unknown Hypertension Unknown Liver Failure Unknown Social History Social History Element Codes Description Effective Dates Marital status Unknown W idowed 06/12/2016 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/[address]: 919228659 Never smoker 06/12/2016 Allergies, Adverse Reactions, Alerts Allergies, Adverse Reactions, Alerts data not found Past Medical History Illness Codes Condition Status Onset Date Resolved Date Pain in right knee ICD- 9: 719.46 ICD-10: M25.561 Active 06/12/2016 Unknown Hypertension Unknown Active 10/03/2016 Unknow n Essential (primary) hypertension ICD-9: 401.9 ICD-10: I10 Active 06/12/2016 Unknown 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 ICD-9: 454.8 ICD-10: I83.813 Active 10/03/2016 Unknown Problems Condition Codes Effectiv e Dates Condition Status Pain in right knee ICD- 9: 719.46 ICD-10: M25.561 06/12/2016 Active Hypertension Unknown 10/03/2016 Active Essential (primary) hypertension ICD-9: 401.9 ICD-10: I10 06/12/2016 Active 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 ICD-9: 454.8 ICD-10: I83.813 10/03/2016 Active Medications Medication Codes Instruc tions Start Date Stop Date Sta tus Fill Instructions Voltaren 1 % topical gel RxNorm: 255561 2 TOP TID 10/31/2016 11/29/2016 Active amlodipine 10 mg tablet RxNorm: 831893 1 Tablet(s) PO daily 10/03/2016 03/31/2017 Active amlodipine 5 mg tablet RxNorm: 650137 1 Tablet(s) PO daily 06/12/2016 10/02/2016 Inactive atenolol 100 mg tablet RxNorm: 026416 1 Tablet(s) PO daily No Start Date Active aspirin 81 mg tablet ,delayed release RxNorm: 498146 1 Tablet(s) PO daily No Start Date Active amlodipine 5 mg tablet RxNorm: 280805 1 Tablet(s) PO daily No Start Date 06/11/2016 Inactive Medication Administered No Medication Administered data Immunizations No Immunization data Assessments Condition Codes Effectiv e Dates Pain in right knee ICD-10: M25.561 ICD-9: 719.46 10/31/2016 Essential (primary) hypertension ICD -10: I10 ICD-9: 401.9 10/03/2016 Varicose veins of bilateral lower extremities with july n ICD- 10: I83.813 ICD-9: 454.8 10/03/2016 Reason For Visit Reason For Visit Effective Dates Notes knee pain 10/31/2016 knee pain 10/11/2016 knee pain 10/03/2016 knee pain 06/12/2016 Results Observation Observation Code Item Item Code Result Date Tsh Ord6 hTSH II 2.22 uIU/mL 06/19/2016 Comp Metabolic Vzv347 NA 140 mEq/L 06/19/2016 Comp Metabolic Uqm616 K 4.1 mEq/L 06/19/2016 Comp Metabolic Dxn807 CL 104 mEq/L 06/19/2016 Comp Metabolic Sxo276 CO2 27.0 mEq/L 06/19/2016 Comp Metabolic Jrz271 AN ION GAP 13 06/19/2016 Comp Metabolic Zht955 GL UCOSE 107 mg/dL 06/19/2016 Comp Metabolic Hst740 Cr eat 0.7 mg/dL 06/19/2016 Comp Metabolic Lay643 eG FR 83 ml/min/1.73m2 06/19 Comp Metabolic Nlo711 BUN 17 mg/dL 06/19/2016 Comp Metabolic Nyh858 B/ C Ratio 23.3 Ratio 06/19/2016 Comp Metabolic Ggu551 CA LCIUM 9.5 mg/dL 06/19/2016 Comp Metabolic Qss139 AL K PHOS 88 U/L 06/19/2016 Comp Metabolic Mqx349 T(SGOT) 28 U/L 06/19/2016 Comp Metabolic Ezh539 AL T(SGPT) 18 U/L 06/19/2016 Comp Metabolic Tze026 BI LI T 0.5 mg/dL 06/19/2016 Comp Metabolic Kpw545 AL BUMIN 4.2 g/dL 06/19/2016 Comp Metabolic Nvy415 TP RO 6.7 g/dL 06/19/2016 Comp Metabolic Xal248 GL OB 2.5 g/dL 06/19/2016 Comp Metabolic Rrd220 A/ G Ratio 1.7 Ratio 06/19/2016 Comp Metabolic Kco225 Os mo 281 mOsmo 06/19/2016 Cbc With [...] 30.4 pg 06/19/2016 Cbc With Differential Ord2 [place]% 15.5 % 06/19/2016 Cbc With Differential Ord2 [...] 1.06 K/ul 06/19/2016 Cbc With Differential Ord2 [place] ABS# 0.8 K/ul 06/19/2016 Cbc With Differential Ord2 Eos ABS# 0.2 K/ul 06/19/2016 Cbc With Differential Ord2 Baso ABS# 0.0 K/ul 06/19/2016 Lipid Ord30 CHOL 230 mg/dL 06/19/2016 Lipid Ord30 HDL 68.0 mg/dl 06/19/2016 Lipid Ord30 TRIG 85 mg/dL 06/19/2016 Lipid Ord30 LDL 145 mg/dL 06/19/2016 Lipid Ord30 C/HDL 3.4 Ratio 06/19/2016 Review of Systems System Result Effective Dates Constitutional No recent illness 10/31/2016 Constitutional No [...] cyst 10/03/2016 None Full Exam - General 1995 Musculoskeletal lower extremity Palpation - knee: tender [...] flexion 06/12/2016 None Procedures Procedure Codes Date DRAIN/INJECT JOINT/B URSA CPT-4: 61183Qoruzio 10/11/2016 Vital Signs Date Vital 10/31/2016 Blood Pressure 1: 138/82 Code: 8480-6 BMI: 20.2 Code: 09083-3 Heart Rate 1: 76 bpm Height: 5'1" SpO2: 96% Weight: 107 lbs 10/11/2016 Blood Pressure 1: 134/70 Code: 8480-6 Heart Rate 1: 69 bpm Height: 5'1" SpO2: 95% Weight: 10/03/2016 Blood Pressure 1: 164/88 Code: 8480-6 BMI: 20.2 Code: 97669-8 Heart Rate 1: 70 bpm Height: 5'1" SpO2: 97% Weight: 107 lbs 06/12/2016 Blood Pressure 1: 144/88 Code: 8480-6 BMI: 20.6 Code: 60117-6 Heart Rate 1: 79 bpm Height: 5'1" [...] Encounters Encounter Performer Loca tion Codes Date ([id number]) 52525 EST. P ATIENT, LEVEL III Diagnosis: Pain in right knee[ICD10: M25.561] [facility] CPT- 4: 04498 10/31/2016 ([id number]) 89735 EST. 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] Diagnosis: Pain in right knee[ICD10: M25.561] [facility] CPT-4: 39217 10/03/2016 OFFICE VISIT, NEW - LEVEL 4 Diagnosis: Essential (primary) hypertension[ICD10: I10] Diagnosis: Pain in right knee[ICD10: M25.561] [facility] CPT-4: 75581 06/12/2016 Plan of Care Planned Activity Notes C odes Status Date Visit Plan: Bursitis of knee - Recommend ed voltaren gel on knee - RX sent to pharmacy - also recommended pt to do stretching exercise. 10/31/2016 Patient Education: Patient Medication Summary Completed 10/31/2016 Visit Plan: Joint Injection - Pt was giv en post - injection instructions. The pt has been advised to use anti-inflammatories post injection today, ice to the injected site, call if redness, warmth, or increased pain occurs at the site of injection. 10/11/2016 Appointment: Heaven Mon WPtel: [address] [place], [place] [phone] (30 min) [facility] 10/11/2016 Patient Education: Patient Medication Summary Completed 10/11/2016 Visit Plan: Hypertension - uncontrolled - the [...] will consider 10/03/2016 Appointment: Heaven Mon WPtel: [phone] (15 min) Moderate 10/03/2016 Patient Education: Patient [...] Education: Hypertension Completed 06/12/2016 Instructions Comment . Bursitis of knee - Recommended [...]
--- OUTSIDE RECORDS SUMMARY | 2019-11-18 01:30 | XMS REPORT | CCD ---
Author Author Nelly Casillas Organization Morena Dalal MD, [facility] Address [address] [place] [address] Phone Care Team Providers Care Direct Care Supervisor Name Role Phone PP Unavailable CCM Unavailable Summary Purpose Interface Exchange Insurance Providers Payer name Policy type / Coverage type Covered alliance party ID Effective Begin Date Effective End Date WPS Medicare Part B Medicare Part B [id number] Unknown Unknown A[employer] and Life Medicare Part B [id number] Unknown Unknown Family history Father Diagnosis Age At Onset Cancer Unknown Mother Diagnosis Age At Onset Depression Unknown Arthritis Unknown Alcoholism Unknown Hyperlipidemia Unknown Hypertension Unknown Liver Failure Unknown Social History Social History Element Codes Description Effective Dates Marital status Unknown W idowed 06/12/2016 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/[address]: 043902233 Never smoker 06/12/2016 Allergies, Adverse Reactions, Alerts [...] Fill Instructions amlodipine 10 mg tablet RxNorm: 592286 1 Tablet(s) PO daily 10/03/2016 03/31/2017 Active amlodipine 5 mg tablet RxNorm: 297340 1 Tablet(s) PO daily 06/12/2016 10/02/2016 Inactive atenolol 100 mg tablet RxNorm: 025315 1 Tablet(s) PO daily No Start Date Active aspirin 81 mg tablet ,delayed release RxNorm: 329527 1 Tablet(s) PO daily No Start Date Active amlodipine 5 mg tablet RxNorm: 982951 1 Tablet(s) PO daily No Start Date 06/11/2016 Inactive Medication Administered No Medication Administered data Immunizations No Immunization data Assessments Condition Codes Effectiv e Dates Pain in right knee ICD-10: M25.561 ICD-9: 719.46 10/11/2016 Essential (primary) hypertension ICD -10: I10 ICD-9: 401.9 10/03/2016 Varicose veins of bilateral lower extremities with july n ICD- 10: I83.813 ICD-9: 454.8 10/03/2016 Reason For Visit Reason For Visit Effective Dates Notes knee pain 10/11/2016 knee pain 10/03/2016 knee pain 06/12/2016 Results Observation Observation Code Item Item Code Result Date Tsh Ord6 hTSH II 2.22 uIU/mL 06/19/2016 Comp Metabolic Bab874 NA 140 mEq/L 06/19/2016 Comp Metabolic Cwx606 K 4.1 mEq/L 06/19/2016 Comp Metabolic Ryh157 CL 104 mEq/L 06/19/2016 Comp Metabolic Eym860 CO2 27.0 mEq/L 06/19/2016 Comp Metabolic Nep111 AN ION GAP 13 06/19/2016 Comp Metabolic Msd028 GL UCOSE 107 mg/dL 06/19/2016 Comp Metabolic Rji922 Cr eat 0.7 mg/dL 06/19/2016 Comp Metabolic Sog338 eG FR 83 ml/min/1.73m2 06/19 Comp Metabolic Ruk707 BUN 17 mg/dL 06/19/2016 Comp Metabolic Fvo335 B/ C Ratio 23.3 Ratio 06/19/2016 Comp Metabolic Krk551 CA LCIUM 9.5 mg/dL 06/19/2016 Comp Metabolic Jjg475 AL K PHOS 88 U/L 06/19/2016 Comp Metabolic Xuo179 T(SGOT) 28 U/L 06/19/2016 Comp Metabolic Dsk755 AL T(SGPT) 18 U/L 06/19/2016 Comp Metabolic Pdv895 BI LI T 0.5 mg/dL 06/19/2016 Comp Metabolic Elp548 AL BUMIN 4.2 g/dL 06/19/2016 Comp Metabolic Pwm149 TP RO 6.7 g/dL 06/19/2016 Comp Metabolic Dwg995 GL OB 2.5 g/dL 06/19/2016 Comp Metabolic Ydb977 A/ G Ratio 1.7 Ratio 06/19/2016 Comp Metabolic Iub488 Os mo 281 mOsmo 06/19/2016 Cbc With [...] 21.4 % 06/19/2016 Cbc With Differential Ord2 [place]% 15.5 % 06/19/2016 Cbc With Differential Ord2 [...] 1.06 K/ul 06/19/2016 Cbc With Differential Ord2 [place] ABS# 0.8 K/ul 06/19/2016 Cbc With Differential Ord2 Eos ABS# 0.2 K/ul 06/19/2016 Cbc With Differential Ord2 Baso ABS# 0.0 K/ul 06/19/2016 Lipid Ord30 CHOL 230 mg/dL 06/19/2016 Lipid Ord30 HDL 68.0 mg/dl 06/19/2016 Lipid Ord30 TRIG 85 mg/dL 06/19/2016 Lipid Ord30 LDL 145 mg/dL 06/19/2016 Lipid Ord30 C/HDL 3.4 Ratio 06/19/2016 Review of Systems System Result Effective Dates Musculoskeletal joint complaint 10/11/2016 Constitutional No recent [...] Procedure Codes Date DRAIN/INJECT JOINT/B URSA CPT-4: 23411Btfhotg 10/11/2016 Vital Signs Date Vital 10/11/2016 Blood Pressure 1: 134/70 Code: 8480-6 Heart Rate 1: 69 bpm Height: 5'1" SpO2: 95% Weight: 10/03/2016 Blood Pressure 1: 164/88 Code: 8480-6 BMI: 20.2 Code: 66448-6 Heart Rate 1: 70 bpm Height: 5'1" SpO2: 97% Weight: 107 lbs 06/12/2016 Blood Pressure 1: 144/88 Code: 8480-6 BMI: 20.6 Code: 65880-1 Heart Rate 1: 79 bpm Height: 5'1" [...] Encounters Encounter Performer Loca tion Codes Date EST. 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] Diagnosis: Pain in right knee[ICD10: M25.561] [facility] CPT-4: 94536 10/03/2016 OFFICE VISIT, NEW - LEVEL 4 Diagnosis: Essential (primary) hypertension[ICD10: I10] Diagnosis: Pain in right knee[ICD10: M25.561] [facility] CPT-4: 69284 06/12/2016 Plan of Care Planned Activity Notes C odes Status Date Visit Plan: Joint Injection - Pt was giv en post - injection instructions. The pt has been advised to use anti-inflammatories post injection today, ice to the injected site, call if redness, warmth, or increased pain occurs at the site of injection. 10/11/2016 Patient Education: Patient Medication Summary Completed [...] will consider 10/03/2016 App[facility]ment: [phone] [place] (15 min) Moderate 10/03/2016 Patient [...]
--- OUTSIDE RECORDS SUMMARY | 2019-11-18 01:30 | XMS REPORT | CCD ---
Author Author Nelly Casillas Organization Morena Dalal MD, [facility] Address [address] [place] [address] Phone Care Team Providers Care Concrete Pourer Name Role Phone PP Unavailable CCM Unavailable Summary Purpose Interface Exchange Insurance Providers Payer name Policy type / Coverage type Covered green party ID Effective Begin Date Effective End Date WPS Medicare Part B Medicare Part B [id number] Unknown Unknown A[employer] and Life Medicare Part B [id number] Unknown Unknown Family history Father Diagnosis Age At Onset Cancer Unknown Mother Diagnosis Age At Onset Depression Unknown Arthritis Unknown Alcoholism Unknown Hyperlipidemia Unknown Hypertension Unknown Liver Failure Unknown Social History Social History Element Codes Description Effective Dates Marital status Unknown W idowed 06/12/2016 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/[address]: 569318302 Never smoker 06/12/2016 Allergies, Adverse Reactions, Alerts [...] Fill Instructions amlodipine 10 mg tablet RxNorm: 370723 1 Tablet(s) PO daily 10/03/2016 03/31/2017 Active amlodipine 5 mg tablet RxNorm: 274857 1 Tablet(s) PO daily 06/12/2016 10/02/2016 Inactive atenolol 100 mg tablet RxNorm: 378172 1 Tablet(s) PO daily No Start Date Active aspirin 81 mg tablet ,delayed release RxNorm: 585137 1 Tablet(s) PO daily No Start Date Active amlodipine 5 mg tablet RxNorm: 514076 1 Tablet(s) PO daily No Start Date [...] hTSH II 2.22 uIU/mL 06/19/2016 Comp Metabolic Ekr572 NA 140 mEq/L 06/19/2016 Comp Metabolic Hpl896 K 4.1 mEq/L 06/19/2016 Comp Metabolic Jws563 CL 104 mEq/L 06/19/2016 Comp Metabolic Mvs680 CO2 27.0 mEq/L 06/19/2016 Comp Metabolic Fya669 AN ION GAP 13 06/19/2016 Comp Metabolic Lnf083 GL UCOSE 107 mg/dL 06/19/2016 Comp Metabolic Juj837 Cr eat 0.7 mg/dL 06/19/2016 Comp Metabolic Odu232 eG FR 83 ml/min/1.73m2 06/19 Comp Metabolic Wjn344 BUN 17 mg/dL 06/19/2016 Comp Metabolic Joc994 B/ C Ratio 23.3 Ratio 06/19/2016 Comp Metabolic Ujz979 CA LCIUM 9.5 mg/dL 06/19/2016 Comp Metabolic Apv597 AL K PHOS 88 U/L 06/19/2016 Comp Metabolic Czt823 T(SGOT) 28 U/L 06/19/2016 Comp Metabolic Nge876 AL T(SGPT) 18 U/L 06/19/2016 Comp Metabolic Dwd270 BI LI T 0.5 mg/dL 06/19/2016 Comp Metabolic Hru862 AL BUMIN 4.2 g/dL 06/19/2016 Comp Metabolic Rjc668 TP RO 6.7 g/dL 06/19/2016 Comp Metabolic Vcn267 GL OB 2.5 g/dL 06/19/2016 Comp Metabolic Acv615 A/ G Ratio 1.7 Ratio 06/19/2016 Comp Metabolic Ezi499 Os mo 281 mOsmo 06/19/2016 Cbc With [...] 21.4 % 06/19/2016 Cbc With Differential Ord2 [place]% 15.5 % 06/19/2016 Cbc With Differential Ord2 [...] 1.06 K/ul 06/19/2016 Cbc With Differential Ord2 [place] ABS# 0.8 K/ul 06/19/2016 Cbc With Differential [...] Procedure Codes Date DRAIN/INJECT JOINT/B URSA CPT-4: 17791Miilatd 10/11/2016 Vital Signs Date Vital 10/11/2016 Blood Pressure 1: 134/70 Code: 8480-6 Heart Rate 1: 69 bpm Height: 5'1" SpO2: 95% Weight: 10/03/2016 Blood Pressure 1: 164/88 Code: 8480-6 BMI: 20.2 Code: 56936-6 Heart Rate 1: 70 bpm Height: 5'1" SpO2: 97% Weight: 107 lbs 06/12/2016 Blood Pressure 1: 144/88 Code: 8480-6 BMI: 20.6 Code: 70715-4 Heart Rate 1: 79 bpm Height: 5'1" [...] knee[ICD10: M25.561] [facility] CPT-4: 31501 10/03/2016 OFFICE VISIT, NEW - LEVEL 4 Diagnosis: Essential (primary) hypertension[ICD10: I10] Diagnosis: Pain in right knee[ICD10: M25.561] [facility] CPT-4: 50557 06/12/2016 Plan of Care Planned Activity Notes C odes Status Date Visit Plan: Joint Injection - Pt was giv en post - injection instructions. The pt has been advised to use anti-inflammatories post injection today, ice to the injected site, call if redness, warmth, or increased pain occurs at the site of injection. 10/11/2016 Appointment: Heaven Mon WPtel: [address] [place], [place] [phone] (30 min) Complex 10/11/2016 Patient Education: Patient [...] will consider 10/03/2016 Appointment: Heaven Mon WPtel: [address] [place], [place] [phone] (15 min) Moderate 10/03/2016 Patient Education: Patient [...]
--- OUTSIDE RECORDS SUMMARY | 2019-11-18 01:31 | XMS REPORT | CCD ---
Author Author Nelly Casillas Organization Morena Dalal MD, [facility] Address [address] [place] [address] Phone Care Team Providers Care Viscosity Tester Name Role Phone PP Unavailable CCM Unavailable Summary Purpose Interface Exchange Insurance Providers Payer name Policy type / Coverage type Covered constitution party ID Effective Begin Date Effective End Date WPS Medicare Part B Medicare Part B [id number] 2018 Unknown A[employer]na [employer] and Life Medicare Part B [id number] 2018 Unknown Family history Father Diagnosis Age At Onset Cancer Unknown Mother Diagnosis Age At Onset Depression Unknown Arthritis Unknown Alcoholism Unknown Hyperlipidemia Unknown Hypertension Unknown Liver Failure Unknown Social History Social History Element Codes Description Effective Dates Marital status Unknown W idowed 06/12/2016 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[address]: 618709260 Never smoker 06/12/2016 Allergies, Adverse Reactions, Alerts [...] 272.2 ICD-10: E78.2 05/25/2018 Active Encounter for [facility] adult medical examination without abnormal findings ICD-9: [...] Date Stop Date Sta tus Fill Instructions Bystolic 10 mg tablet RxNorm: 503699 1 Tablet(s) PO daily 07/23/2018 No Stop Date Active amlodipine 10 mg tablet RxNorm: 769386 Tablet(s) 1 TABLET(S) PO DAILY 07/03/2018 09/25/2019 Ac tive Coreg 12.5 mg tablet RxNorm: 376231 2 Tablet(s) PO BID TABLET(S) 1 TABLET(S) PO BID 06/25/2018 06/24/2018 Inactive Coreg 12.5 mg tablet RxNorm: 073698 2 Tablet(s) PO UD 06/25/2018 07/22/2018 Inactive 1 q am an 2 q pm pravastatin 10 mg ta blet RxNorm: 073247 1 Tablet(s) PO QHS 06/04/2018 08/26/2018 Inactive pravastatin 10 mg ta blet RxNorm: 577298 1 Tablet(s) PO QHS 06/04/2018 06/03/2018 Inactive Coreg 12.5 mg tablet RxNorm: 570158 1 Tablet(s) PO BID TABLET(S) 1 TABLET(S) PO BID 05/25/2018 06/24/2018 Inactive Replacing atenolol due to availability omeprazole 40 mg cap eloisa,delayed release RxNorm: 499050 1 Capsule(s) PO daily 05/25/2018 08/26/2018 In active Coreg 12.5 mg tablet RxNorm: 723137 TABLET(S) 1 TABLET(S) PO BID 02/19/2018 05/24/2018 Inactive Replacing atenolol due to availability Coreg 12.5 mg tablet RxNorm: 382946 TABLET(S) 1 TABLET(S) PO BID 11/18/2017 02/18/2018 Inactive Replacing atenolol due to availability Coreg 12.5 mg tablet RxNorm: 767475 TABLET(S) 1 TABLET(S) PO BID 08/14/2017 11/17/2017 Inactive Replacing atenolol due to availability amlodipine 10 mg tablet RxNorm: 977588 1 TABLET(S) PO DAILY 05/13/2017 07/02/2018 Inactive Coreg 12.5 mg tablet RxNorm: 450379 TABLET(S) 1 TABLET(S) PO BID 04/17/2017 07/22/2018 Inactive Replacing atenolol due to availability Patient requests 90 days supply Coreg 12.5 mg tablet RxNorm: 771134 Tablet(s) 1 TABLET(S) PO BID 04/16/2017 04/16/2017 Inactive Replacing atenolol due to availability Coreg 12.5 mg tablet RxNorm: 107657 Tablet(s) 1.5 TABLET(S) PO BID 03/17/2017 07/22/2018 In active Replacing atenolol due to availability Patient requests 90 days supply Coreg 12.5 mg tablet RxNorm: 715080 1 TABLET(S) PO BID 02/20/2017 04/15/2017 Inactive Replacing atenolol due to availability Coreg 12.5 mg tablet RxNorm: 081806 1 TABLET(S) PO BID 01/23/2017 03/16/2017 Inactive Replacing atenolol due to availabilityPatient requests 90 days supply Coreg 12.5 mg tablet RxNorm: 731486 1 Tablet(s) PO BID 01/21/2017 01/22/2017 Inactive Replacing atenolol due to availability Coreg 12.5 mg tablet RxNorm: 074667 1 Tablet(s) PO BID 01/21/2017 01/20/2017 Inactive Replacing atenolol due to availability atenolol 100 mg tablet RxNorm: 226152 TAKE 1 TABLET BY MOUTH EVERY DAY 01/20/2017 01/20/2017 In active mupirocin 2 % topica l ointment RxNorm: 772647 1 Application TOP BID 12/25/2016 12/31/2016 Inactive Voltaren 1 % topical gel RxNorm: 670195 2 TOP TID 10/31/2016 11/29/2016 Inactive amlodipine 10 mg tablet RxNorm: 476584 1 Tablet(s) PO daily 10/03/2016 03/31/2017 Inactive amlodipine 5 mg tablet RxNorm: 720177 1 Tablet(s) PO daily 06/12/2016 10/02/2016 Inactive aspirin 81 mg tablet ,delayed release RxNorm: 205271 1 Tablet(s) PO daily No Start Date Active Fish Oil oral RxNorm: 4076835 oral No Start Date Active Co Q-10 oral RxNorm: 34726 oral No Start Date Active atenolol 100 mg tablet RxNorm: 450980 1 Tablet(s) PO daily No Start Date 01/19/2017 Inactive amlodipine 5 mg tablet RxNorm: 642053 1 Tablet(s) PO daily No Start Date [...] 30.2 pg 06/01/2018 Cbc With Differential Ord2 [place]% 9.3 % 06/01/2018 Cbc With Differential Ord2 [...] 0.91 K/ul 06/01/2018 Cbc With Differential Ord2 [place] ABS# 0.8 K/ul 06/01/2018 Cbc With Differential Ord2 Eos ABS# 0.2 K/ul 06/01/2018 Cbc With Differential Ord2 Baso ABS# 0.0 K/ul 06/01/2018 Tsh Ord6 TSH (3rd IS) 3.50 uIU/mL 06/01/2018 Comp Metabolic Tpz057 NA 142 mEq/L 06/01/2018 Comp Metabolic Hpp909 K 4.3 mEq/L 06/01/2018 Comp Metabolic Bwx080 CL 105 mEq/L 06/01/2018 Comp Metabolic Doq961 CO2 27.0 mEq/L 06/01/2018 Comp Metabolic Mxl727 AN ION GAP 14 06/01/2018 Comp Metabolic Lfg048 GL UCOSE 102 mg/dL 06/01/2018 Comp Metabolic Rqa950 Cr eat 0.9 mg/dL 06/01/2018 Comp Metabolic Dcc553 eG FR 66 ml/min/1.73m2 06/01 Comp Metabolic Tri835 BUN 14 mg/dL 06/01/2018 Comp Metabolic Kwp373 B/ C Ratio 15.9 Ratio 06/01/2018 Comp Metabolic Arh910 CA LCIUM 9.9 mg/dL 06/01/2018 Comp Metabolic Cgx011 AL K PHOS 97 U/L 06/01/2018 Comp Metabolic Fpf952 T(SGOT) 24 U/L 06/01/2018 Comp Metabolic Ffa839 AL T(SGPT) 17 U/L 06/01/2018 Comp Metabolic Ejr107 BI LI T 0.6 mg/dL 06/01/2018 Comp Metabolic Qnb209 AL BUMIN 4.3 g/dL 06/01/2018 Comp Metabolic Epg337 TP RO 7.0 g/dL 06/01/2018 Comp Metabolic Wcq421 GL OB 2.7 g/dL 06/01/2018 Comp Metabolic Ygt113 A/ G Ratio 1.6 Ratio 06/01/2018 Comp Metabolic Lnd250 Os mo 284 mOsmo 06/01/2018 Tsh Ord6 hTSH II 2.22 uIU/mL 06/19/2016 Comp Metabolic Fsa824 NA 140 mEq/L 06/19/2016 Comp Metabolic Uxg286 K 4.1 mEq/L 06/19/2016 Comp Metabolic Now955 CL 104 mEq/L 06/19/2016 Comp Metabolic Icm411 CO2 27.0 mEq/L 06/19/2016 Comp Metabolic Vxd981 AN ION GAP 13 06/19/2016 Comp Metabolic Mbo922 GL UCOSE 107 mg/dL 06/19/2016 Comp Metabolic Waa694 Cr eat 0.7 mg/dL 06/19/2016 Comp Metabolic Dyj767 eG FR 83 ml/min/1.73m2 06/19 Comp Metabolic Qtz367 BUN 17 mg/dL 06/19/2016 Comp Metabolic Iyr586 B/ C Ratio 23.3 Ratio 06/19/2016 Comp Metabolic Qwq819 CA LCIUM 9.5 mg/dL 06/19/2016 Comp Metabolic Zvg751 AL K PHOS 88 U/L 06/19/2016 Comp Metabolic Sic631 T(SGOT) 28 U/L 06/19/2016 Comp Metabolic Jgs254 AL T(SGPT) 18 U/L 06/19/2016 Comp Metabolic Dmn170 BI LI T 0.5 mg/dL 06/19/2016 Comp Metabolic Obo331 AL BUMIN 4.2 g/dL 06/19/2016 Comp Metabolic Wlw583 TP RO 6.7 g/dL 06/19/2016 Comp Metabolic Wic354 GL OB 2.5 g/dL 06/19/2016 Comp Metabolic Peb202 A/ G Ratio 1.7 Ratio 06/19/2016 Comp Metabolic Vof047 Os mo 281 mOsmo 06/19/2016 Cbc With [...] 30.4 pg 06/19/2016 Cbc With Differential Ord2 [place]% 15.5 % 06/19/2016 Cbc With Differential Ord2 [...] 1.06 K/ul 06/19/2016 Cbc With Differential Ord2 [place] ABS# 0.8 K/ul 06/19/2016 Cbc With Differential [...] clear 10/31/2016 None Full Exam - General 1995 [...] 4: G0439 07/11/2017 DRAIN/INJECT JOINT/B URSA CPT-4: 95281 10/11/2016 Vital Signs Date Vital 08/27/2018 Blood Pressure 1: 148/74 Code: 8480-6 BMI: 20.2 Code: 00831-7 Heart Rate 1: 77 bpm Height: 5'1" SpO2: 94% Weight: 107 lbs 07/23/2018 Blood Pressure 1: 142/80 Code: 8480-6 BMI: 20.2 Code: 73097-6 Heart Rate 1: 70 bpm Height: 5'1" SpO2: 96% Weight: 107 lbs 06/25/2018 Blood Pressure 1: 150/80 Code: 8480-6 BMI: 20.2 Code: 25612-1 Heart Rate 1: 84 bpm Height: 5'1" SpO2: 98% Weight: 107 lbs 05/25/2018 Blood Pressure 1: 152/84 Code: 8480-6 BMI: 20.8 Code: 19803-7 Heart Rate 1: 81 bpm Height: 5'1" SpO2: 98% Weight: 110 lbs 07/11/2017 Blood Pressure 1: 120/76 Code: 8480-6 BMI: 20.6 Code: 46950-8 Heart Rate 1: 72 bpm Height: 5'1" SpO2: 96% Waist Measure (cm): 66 cm Weight: 109 lbs 04/08/2017 Blood Pressure 1: 134/68 Code: 8480-6 BMI: 20.2 Code: 92206-2 Heart Rate 1: 75 bpm Height: 5'1" SpO2: 97% Weight: 107 lbs 03/17/2017 Blood Pressure 1: 156/90 Code: 8480-6 Heart Rate 1: 83 bpm Height: SpO2: 96% Weight: 01/31/2017 Blood Pressure 1: 132/68 Code: 8480-6 Heart Rate 1: 88 bpm SpO2: 98% 12/25/2016 Blood Pressure 1: 154/74 Code: 8480-6 BMI: 20.0 Code: 77249-1 Heart Rate 1: 74 bpm Height: 5'1" SpO2: 96% Weight: 106 lbs 10/31/2016 Blood Pressure 1: 138/82 Code: 8480-6 BMI: 20.2 Code: 46891-8 Heart Rate 1: 76 bpm Height: 5'1" SpO2: 96% Weight: 107 lbs 10/11/2016 Blood Pressure 1: 134/70 Code: 8480-6 Heart Rate 1: 69 bpm Height: 5'1" SpO2: 95% Weight: 10/03/2016 Blood Pressure 1: 164/88 Code: 8480-6 BMI: 20.2 Code: 68787-1 Heart Rate 1: 70 bpm Height: 5'1" SpO2: 97% Weight: 107 lbs 06/12/2016 Blood Pressure 1: 144/88 Code: 8480-6 BMI: 20.6 Code: 73184-0 Heart Rate 1: 79 bpm Height: 5'1" [...] Encounters Encounter Performer Loca tion Codes Date [id number]) 08757 EST. P ATIENT, LEVEL III Diagnosis: Essential (primary) hypertension[ICD10: I10] Diagnosis: Gastro-esophageal reflux disease without esophagitis[ICD10: K21.9] [facility] CPT-4: 49540 08/27/2018 [id number] 30600 EST. P ATIENT, LEVEL III Diagnosis: Essential (primary) hypertension[ICD10: I10] Diagnosis: Gastro-esophageal reflux disease without esophagitis[ICD10: K21.9] [facility] CPT-4: 51874 07/23/2018 [id number] 94956 EST. P ATIENT, LEVEL III Diagnosis: Essential (primary) hypertension[ICD10: I10] Diagnosis: Dysphagia, oropharyngeal phase[ICD10: R13.12] [facility] CPT-4: 59286 06/25/2018 ([id number]) 87642 EST. P ATIENT, LEVEL IV Diagnosis: Essential (primary) hypertension[ICD10: I10] Diagnosis: Dysphagia, oropharyngeal phase[ICD10: R13.12] Diagnosis: Mixed hyperlipidemia[ICD10: E78.2] Heaven Dalal MD, [facility] CPT-4: 63064 05/25/2018 ([id number]) 08858 EST. P ATIENT, LEVEL III Diagnosis: Essential (primary) hypertension[ICD10: I10] [facility] CPT-4: 41599 04/08/2017 ([id number]) Miscellaneou s no charge Diagnosis: Essential (primary) hypertension[ICD10: I10] Heaven Dalal MD, [facility] CPT-4: 56609 03/17/2017 ([id number]) Miscellaneou s no charge Diagnosis: Essential (primary) hypertension[ICD10: I10] [facility] CPT-4: 54902 01/31/2017 ([id number]) 72334 EST. P ATIENT, LEVEL III Diagnosis: Essential (primary) hypertension[ICD10: I10] Diagnosis: Otalgia, left ear[ICD10: H92.02] Morena Dalal MD, [facility] CPT-4: 23259 12/25/2016 ([id number]) 68513 EST. P ATIENT, LEVEL III Diagnosis: Pain in right knee[ICD10: M25.561] Morena Dalal MD, [facility] CPT- 4: 48873 10/31/2016 ([id number]) 42502 EST. 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] Diagnosis: Pain in right knee[ICD10: M25.561] Heaven Dalal MD, [facility] CPT-4: 76037 10/03/2016 OFFICE VISIT, NEW - LEVEL 4 Diagnosis: Essential (primary) hypertension[ICD10: I10] Diagnosis: Pain in right knee[ICD10: M25.561] [facility] CPT-4: 41592 06/12/2016 Plan of Care Planned Activity Notes C odes Status Date Visit Plan: Hypertension - well con trolled - continue with current medications, continue with no added salt diet. Pt has been encouraged to exercise daily. The pt has been advised to call the office if there are any acute concerns about change in blood pressure readings at home. TELL-hrdrtgbnm-kljmi dexilant- refer for EGD if symptoms persist 08/27/2018 Patient Education: Patient Medication Summary Completed [...] use 07/23/2018 Appointment: Heaven Mon WPtel: [phone] [phone] (30 min) Complex 07/23/2018 Patient Education: Patient [...] study 06/25/2018 Appointment: [phone] (15 min) Moderate 06/25/2018 Patient Education: Patient [...] improve 05/25/2018 Appointment: Heaven Mon WPtel: [address] [phone] (30 min) Complex 05/25/2018 Patient Education: Patient [...] surrogate. 07/11/2017 Appointment: Heaven Mon WPtel: [address] [phone] [facility] - Annual Wellness Visit 07/11/2017 Patient Education: Patient Medication Summary Completed 07/11/2017 Appointment: Janee Casillas WPtel: [address] [facility] [facility] - Annual Wellness Visit 07/01/2017 Visit Plan: Hypertension - well con trolled - continue with current medications, continue with no added salt diet. Pt has been encouraged to exercise daily. The pt has been advised to call the office if there are any acute concerns about change in blood pressure readings at home. 04/08/2017 [facility] [place] (15 min) Moderate 04/08/2017 Patient Education: Patient [...] gel. 12/25/2016 Appointment: Morena Dalal WPtel: [facility] [place] (15 min) Moderate 12/25/2016 Patient Education: Patient Medication Summary Completed 12/25/2016 Appointment: Heaven Mon WPtel: [phone] [place] (30 min) Complex 11/07/2016 Visit Plan: Bursitis of knee - Louis mmended voltaren gel on knee - RX sent to pharmacy - also recommended pt to do stretching exercise. 10/31/2016 Appointment: Morena Dalal WPtel: [facility] [place] (15 min) Moderate 10/31/2016 Patient Education: Patient Medication Summary Completed 10/31/2016 Visit Plan: Joint Injection - Pt wa s given post - injection instructions. The pt has been advised to use anti-inflammatories post injection today, ice to the injected site, call if redness, warmth, or increased pain occurs at the site of injection. 10/11/2016 Appointment: Heaven Mon WPtel: [phone] [place] (30 min) Complex 10/11/2016 Patient Education: [...] will consider 10/03/2016 Appointment: Heaven Mon WPtel: [address] [place] [phone] (15 min) Moderate 10/03/2016 Patient Education: Patient [...] change in blood pressure readings at home. CCJM-jzdrfwmoa-uvkul dexilant- refer for EGD if symptoms persist [...] BEST . Hypertension - uncontrolled - the onhemy ent's medications have been modified as documented [...]
--- OUTSIDE RECORDS SUMMARY | 2019-11-18 01:31 | XMS REPORT | CCD ---
Author Author Nelly Casillas Organization Morena Dalal MD, [facility] Address [address] [place] [address] Phone Care Team Providers Care Tennis Court Attendant Name Role Phone PP Unavailable CCM Unavailable Summary Purpose Interface Exchange Insurance Providers Payer name Policy type / Coverage type Covered alliance party ID Effective Begin Date Effective End Date WPS Medicare Part B Medicare Part B [id number] Unknown Unknown A[employer] and Life Medicare Part B [id number] Unknown Unknown Family history Father Diagnosis Age At Onset Cancer Unknown Mother Diagnosis Age At Onset Depression Unknown Arthritis Unknown Alcoholism Unknown Hyperlipidemia Unknown Hypertension Unknown Liver Failure Unknown Social History Social History Element Codes Description Effective Dates Marital status Unknown W idowed 06/12/2016 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[address]: 343989547 Never smoker 06/12/2016 Allergies, Adverse Reactions, Alerts [...] Fill Instructions amlodipine 10 mg tablet RxNorm: 700439 1 Tablet(s) PO daily 10/03/2016 03/31/2017 Active amlodipine 5 mg tablet RxNorm: 664490 1 Tablet(s) PO daily 06/12/2016 10/02/2016 Inactive atenolol 100 mg tablet RxNorm: 874154 1 Tablet(s) PO daily No Start Date Active aspirin 81 mg tablet ,delayed release RxNorm: 486361 1 Tablet(s) PO daily No Start Date Active amlodipine 5 mg tablet RxNorm: 737989 1 Tablet(s) PO daily No Start Date [...] hTSH II 2.22 uIU/mL 06/19/2016 Comp Metabolic Pxv203 NA 140 mEq/L 06/19/2016 Comp Metabolic Akc336 K 4.1 mEq/L 06/19/2016 Comp Metabolic Qvk670 CL 104 mEq/L 06/19/2016 Comp Metabolic Hfp997 CO2 27.0 mEq/L 06/19/2016 Comp Metabolic Anb579 AN ION GAP 13 06/19/2016 Comp Metabolic Ifq027 GL UCOSE 107 mg/dL 06/19/2016 Comp Metabolic Kzi373 Cr eat 0.7 mg/dL 06/19/2016 Comp Metabolic Ivt721 eG FR 83 ml/min/1.73m2 06/19 Comp Metabolic Qsl752 BUN 17 mg/dL 06/19/2016 Comp Metabolic Pxm839 B/ C Ratio 23.3 Ratio 06/19/2016 Comp Metabolic Zlq223 CA LCIUM 9.5 mg/dL 06/19/2016 Comp Metabolic Izm360 AL K PHOS 88 U/L 06/19/2016 Comp Metabolic Xmp404 T(SGOT) 28 U/L 06/19/2016 Comp Metabolic Cwe772 AL T(SGPT) 18 U/L 06/19/2016 Comp Metabolic Qhw461 BI LI T 0.5 mg/dL 06/19/2016 Comp Metabolic Roq404 AL BUMIN 4.2 g/dL 06/19/2016 Comp Metabolic Ibd993 TP RO 6.7 g/dL 06/19/2016 Comp Metabolic Ucq674 GL OB 2.5 g/dL 06/19/2016 Comp Metabolic Njc676 A/ G Ratio 1.7 Ratio 06/19/2016 Comp Metabolic Jky784 Os mo 281 mOsmo 06/19/2016 Cbc With Differential Ord2 WBC 4.96 K/ul 06/19/2016 Cbc With Differential Ord2 RBC 4.38 M/ul 06/19/2016 Cbc With Differential Ord2 HGB 13.3 g/dl 06/19/2016 Cbc With Differential Ord2 Neut% 58.9 % 06/19/2016 Cbc With Differential Ord2 HCT 40.8 % 06/19/2016 Cbc With Differential Ord2 MCV 93.2 fl 06/19/2016 Cbc With Differential Ord2 Lymph% 21.4 % 06/19/2016 Cbc With Differential Ord2 Stanley% 15.5 % 06/19/2016 Cbc With Differential Ord2 MCH 30.4 pg 06/19/2016 Cbc With Differential Ord2 Eos% 3.6 % 06/19/2016 Cbc With Differential Ord2 MCHC 32.6 pg 06/19/2016 Cbc With Differential Ord2 PLT 217 K/ul 06/19/2016 Cbc With Differential Ord2 Baso% 0.6 % 06/19/2016 Cbc With Differential Ord2 Neut ABS# 2.92 K/ul 06/19/2016 Cbc With Differential Ord2 RDW 13.7 % 06/19/2016 Cbc With Differential Ord2 Lymph ABS# 1.06 K/ul 06/19/2016 Cbc With Differential Ord2 Stanley ABS# 0.8 K/ul 06/19/2016 Cbc With Differential [...] 1: 164/88 Code: 8480-6 BMI: 20.2 Code: 29371-1 Heart Rate 1: 70 bpm Height: 5'1" SpO2: 97% Weight: 107 lbs 06/12/2016 Blood Pressure 1: 144/88 Code: 8480-6 BMI: 20.6 Code: 54139-9 Heart Rate 1: 79 bpm Height: 5'1" [...] Encounters Encounter Performer Loca tion Codes Date ([id number]) 11903 EST. 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] Diagnosis: Pain in right knee[ICD10: M25.561] [facility] CPT-4: 46431 10/03/2016 OFFICE VISIT, NEW - LEVEL 4 Diagnosis: Essential (primary) hypertension[ICD10: I10] Diagnosis: Pain in right knee[ICD10: M25.561] [facility] CPT-4: 49089 06/12/2016 Plan of Care Planned Activity Notes [...] specialist/vascular surgeon for evaluation-patient will consider 10/03/2016 Patient Education: Patient Medication Summary Completed [...]
--- OUTSIDE RECORDS SUMMARY | 2019-11-18 01:32 | XMS REPORT | CCD ---
Author Author Nelly Casillas Organization Morena Dalal MD, [facility] Address [address] [place] [address] Phone Care Team Providers Care Associate Buyer Name Role Phone PP Unavailable CCM Unavailable Summary Purpose Interface Exchange Insurance Providers Payer name Policy type / Coverage type Covered alliance party ID Effective Begin Date Effective End Date WPS Medicare Part B Medicare Part B [id number] 2018 Unknown [employer] and Life Medicare Part B [id number] 2018 Unknown Family history Father Diagnosis Age At Onset Cancer Unknown Mother Diagnosis Age At Onset Depression Unknown Arthritis Unknown Alcoholism Unknown Hyperlipidemia Unknown Hypertension Unknown Liver Failure Unknown Social History Social History Element Codes Description Effective Dates Marital status Unknown W idowed 06/12/2016 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[address]: 975976348 Never smoker 06/12/2016 Allergies, Adverse Reactions, Alerts [...] 272.2 ICD-10: E78.2 05/25/2018 Active Encounter for [facility] adult medical examination without abnormal findings [...] Fill Instructions Bystolic 10 mg tablet RxNorm: 502336 1 Tablet(s) PO daily 07/23/2018 No Stop Date Active amlodipine 10 mg tablet RxNorm: 503818 Tablet(s) 1 TABLET(S) PO DAILY 07/03/2018 09/25/2019 Ac tive Coreg 12.5 mg tablet RxNorm: 959805 2 Tablet(s) PO BID TABLET(S) 1 TABLET(S) PO BID 06/25/2018 06/24/2018 Inactive Coreg 12.5 mg tablet RxNorm: 977936 2 Tablet(s) PO UD 06/25/2018 07/22/2018 Inactive 1 q am an 2 q pm pravastatin 10 mg ta blet RxNorm: 770524 1 Tablet(s) PO QHS 06/04/2018 08/26/2018 Inactive pravastatin 10 mg ta blet RxNorm: 547386 1 Tablet(s) PO QHS 06/04/2018 06/03/2018 Inactive Coreg 12.5 mg tablet RxNorm: 165057 1 Tablet(s) PO BID TABLET(S) 1 TABLET(S) PO BID 05/25/2018 06/24/2018 Inactive Replacing atenolol due to availability omeprazole 40 mg cap eloisa,delayed release RxNorm: 708983 1 Capsule(s) PO daily 05/25/2018 08/26/2018 In active Coreg 12.5 mg tablet RxNorm: 450042 TABLET(S) 1 TABLET(S) PO BID 02/19/2018 05/24/2018 Inactive Replacing atenolol due to availability Coreg 12.5 mg tablet RxNorm: 357505 TABLET(S) 1 TABLET(S) PO BID 11/18/2017 02/18/2018 Inactive Replacing atenolol due to availability Coreg 12.5 mg tablet RxNorm: 945252 TABLET(S) 1 TABLET(S) PO BID 08/14/2017 11/17/2017 Inactive Replacing atenolol due to availability amlodipine 10 mg tablet RxNorm: 803787 1 TABLET(S) PO DAILY 05/13/2017 07/02/2018 Inactive Coreg 12.5 mg tablet RxNorm: 882608 TABLET(S) 1 TABLET(S) PO BID 04/17/2017 07/22/2018 Inactive Replacing atenolol due to availability Patient requests 90 days supply Coreg 12.5 mg tablet RxNorm: 303775 Tablet(s) 1 TABLET(S) PO BID 04/16/2017 04/16/2017 Inactive Replacing atenolol due to availability Coreg 12.5 mg tablet RxNorm: 938429 Tablet(s) 1.5 TABLET(S) PO BID 03/17/2017 07/22/2018 In active Replacing atenolol due to availability Patient requests 90 days supply Coreg 12.5 mg tablet RxNorm: 366645 1 TABLET(S) PO BID 02/20/2017 04/15/2017 Inactive Replacing atenolol due to availability Coreg 12.5 mg tablet RxNorm: 482906 1 TABLET(S) PO BID 01/23/2017 03/16/2017 Inactive Replacing atenolol due to availabilityPatient requests 90 days supply Coreg 12.5 mg tablet RxNorm: 051688 1 Tablet(s) PO BID 01/21/2017 01/22/2017 Inactive Replacing atenolol due to availability Coreg 12.5 mg tablet RxNorm: 203990 1 Tablet(s) PO BID 01/21/2017 01/20/2017 Inactive Replacing atenolol due to availability atenolol 100 mg tablet RxNorm: 936401 TAKE 1 TABLET BY MOUTH EVERY DAY 01/20/2017 01/20/2017 In active mupirocin 2 % topica l ointment RxNorm: 944694 1 Application TOP BID 12/25/2016 12/31/2016 Inactive Voltaren 1 % topical gel RxNorm: 618347 2 TOP TID 10/31/2016 11/29/2016 Inactive amlodipine 10 mg tablet RxNorm: 701818 1 Tablet(s) PO daily 10/03/2016 03/31/2017 Inactive amlodipine 5 mg tablet RxNorm: 933939 1 Tablet(s) PO daily 06/12/2016 10/02/2016 Inactive aspirin 81 mg tablet ,delayed release RxNorm: 145433 1 Tablet(s) PO daily No Start Date Active Fish Oil oral RxNorm: 9848086 oral No Start Date Active Co Q-10 oral RxNorm: 75266 oral No Start Date Active atenolol 100 mg tablet RxNorm: 606998 1 Tablet(s) PO daily No Start Date 01/19/2017 Inactive amlodipine 5 mg tablet RxNorm: 651972 1 Tablet(s) PO daily No Start Date [...] 30.2 pg 06/01/2018 Cbc With Differential Ord2 Dupage% 9.3 % 06/01/2018 Cbc With Differential Ord2 [...] 0.91 K/ul 06/01/2018 Cbc With Differential Ord2 Dupage ABS# 0.8 K/ul 06/01/2018 Cbc With Differential Ord2 Eos ABS# 0.2 K/ul 06/01/2018 Cbc With Differential Ord2 Baso ABS# 0.0 K/ul 06/01/2018 Tsh Ord6 TSH (3rd IS) 3.50 uIU/mL 06/01/2018 Comp Metabolic Ear370 NA 142 mEq/L 06/01/2018 Comp Metabolic Sft902 K 4.3 mEq/L 06/01/2018 Comp Metabolic Rcd394 CL 105 mEq/L 06/01/2018 Comp Metabolic Qlu001 CO2 27.0 mEq/L 06/01/2018 Comp Metabolic Kpl557 AN ION GAP 14 06/01/2018 Comp Metabolic Okg597 GL UCOSE 102 mg/dL 06/01/2018 Comp Metabolic Kul051 Cr eat 0.9 mg/dL 06/01/2018 Comp Metabolic Uqi543 eG FR 66 ml/min/1.73m2 06/01 Comp Metabolic Dqb929 BUN 14 mg/dL 06/01/2018 Comp Metabolic Szh128 B/ C Ratio 15.9 Ratio 06/01/2018 Comp Metabolic Sdv677 CA LCIUM 9.9 mg/dL 06/01/2018 Comp Metabolic Obf168 AL K PHOS 97 U/L 06/01/2018 Comp Metabolic Quw542 T(SGOT) 24 U/L 06/01/2018 Comp Metabolic Gdo768 AL T(SGPT) 17 U/L 06/01/2018 Comp Metabolic Ntt718 BI LI T 0.6 mg/dL 06/01/2018 Comp Metabolic Znd881 AL BUMIN 4.3 g/dL 06/01/2018 Comp Metabolic Nno849 TP RO 7.0 g/dL 06/01/2018 Comp Metabolic Ctr057 GL OB 2.7 g/dL 06/01/2018 Comp Metabolic Ojo915 A/ G Ratio 1.6 Ratio 06/01/2018 Comp Metabolic Jhi343 Os mo 284 mOsmo 06/01/2018 Tsh Ord6 hTSH II 2.22 uIU/mL 06/19/2016 Comp Metabolic Dfu526 NA 140 mEq/L 06/19/2016 Comp Metabolic Qpa179 K 4.1 mEq/L 06/19/2016 Comp Metabolic Wgl756 CL 104 mEq/L 06/19/2016 Comp Metabolic Ift803 CO2 27.0 mEq/L 06/19/2016 Comp Metabolic Fkr039 AN ION GAP 13 06/19/2016 Comp Metabolic Omv830 GL UCOSE 107 mg/dL 06/19/2016 Comp Metabolic Ztw673 Cr eat 0.7 mg/dL 06/19/2016 Comp Metabolic Xhw546 eG FR 83 ml/min/1.73m2 06/19 Comp Metabolic Xxn256 BUN 17 mg/dL 06/19/2016 Comp Metabolic Zln672 B/ C Ratio 23.3 Ratio 06/19/2016 Comp Metabolic Cbi958 CA LCIUM 9.5 mg/dL 06/19/2016 Comp Metabolic Poj642 AL K PHOS 88 U/L 06/19/2016 Comp Metabolic Ayi411 T(SGOT) 28 U/L 06/19/2016 Comp Metabolic Ezm633 AL T(SGPT) 18 U/L 06/19/2016 Comp Metabolic Kgx660 BI LI T 0.5 mg/dL 06/19/2016 Comp Metabolic Cml274 AL BUMIN 4.2 g/dL 06/19/2016 Comp Metabolic Fjd390 TP RO 6.7 g/dL 06/19/2016 Comp Metabolic Wol159 GL OB 2.5 g/dL 06/19/2016 Comp Metabolic Drg739 A/ G Ratio 1.7 Ratio 06/19/2016 Comp Metabolic Bmx803 Os mo 281 mOsmo 06/19/2016 Cbc With [...] 30.4 pg 06/19/2016 Cbc With Differential Ord2 Dupage% 15.5 % 06/19/2016 Cbc With Differential Ord2 [...] 1.06 K/ul 06/19/2016 Cbc With Differential Ord2 Dupage ABS# 0.8 K/ul 06/19/2016 Cbc With Differential [...] 4: G0439 07/11/2017 DRAIN/INJECT JOINT/B URSA CPT-4: 73244 10/11/2016 Vital Signs Date Vital 08/27/2018 Blood Pressure 1: 148/74 Code: 8480-6 BMI: 20.2 Code: 49288-4 Heart Rate 1: 77 bpm Height: 5'1" SpO2: 94% Weight: 107 lbs 07/23/2018 Blood Pressure 1: 142/80 Code: 8480-6 BMI: 20.2 Code: 97865-2 Heart Rate 1: 70 bpm Height: 5'1" SpO2: 96% Weight: 107 lbs 06/25/2018 Blood Pressure 1: 150/80 Code: 8480-6 BMI: 20.2 Code: 93687-6 Heart Rate 1: 84 bpm Height: 5'1" SpO2: 98% Weight: 107 lbs 05/25/2018 Blood Pressure 1: 152/84 Code: 8480-6 BMI: 20.8 Code: 27224-6 Heart Rate 1: 81 bpm Height: 5'1" SpO2: 98% Weight: 110 lbs 07/11/2017 Blood Pressure 1: 120/76 Code: 8480-6 BMI: 20.6 Code: 22114-1 Heart Rate 1: 72 bpm Height: 5'1" SpO2: 96% Waist Measure (cm): 66 cm Weight: 109 lbs 04/08/2017 Blood Pressure 1: 134/68 Code: 8480-6 BMI: 20.2 Code: 12076-4 Heart Rate 1: 75 bpm Height: 5'1" SpO2: 97% Weight: 107 lbs 03/17/2017 Blood Pressure 1: 156/90 Code: 8480-6 Heart Rate 1: 83 bpm Height: SpO2: 96% Weight: 01/31/2017 Blood Pressure 1: 132/68 Code: 8480-6 Heart Rate 1: 88 bpm SpO2: 98% 12/25/2016 Blood Pressure 1: 154/74 Code: 8480-6 BMI: 20.0 Code: 36064-3 Heart Rate 1: 74 bpm Height: 5'1" SpO2: 96% Weight: 106 lbs 10/31/2016 Blood Pressure 1: 138/82 Code: 8480-6 BMI: 20.2 Code: 30370-9 Heart Rate 1: 76 bpm Height: 5'1" SpO2: 96% Weight: 107 lbs 10/11/2016 Blood Pressure 1: 134/70 Code: 8480-6 Heart Rate 1: 69 bpm Height: 5'1" SpO2: 95% Weight: 10/03/2016 Blood Pressure 1: 164/88 Code: 8480-6 BMI: 20.2 Code: 50830-2 Heart Rate 1: 70 bpm Height: 5'1" SpO2: 97% Weight: 107 lbs 06/12/2016 Blood Pressure 1: 144/88 Code: 8480-6 BMI: 20.6 Code: 84287-1 Heart Rate 1: 79 bpm Height: 5'1" [...] Encounters Encounter Performer Loca tion Codes Date 26859) 30721 EST. P ATIENT, LEVEL III Diagnosis: Essential (primary) hypertension[ICD10: I10] Diagnosis: Gastro-esophageal reflux disease without esophagitis[ICD10: K21.9] [facility] CPT-4: 57142 08/27/2018 [id number] [id number] EST. P ATIENT, LEVEL III Diagnosis: Essential (primary) hypertension[ICD10: I10] Diagnosis: Gastro-esophageal reflux disease without esophagitis[ICD10: K21.9] [facility] CPT-4: 48301 07/23/2018 [id number] 85927 EST. P ATIENT, LEVEL III Diagnosis: Essential (primary) hypertension[ICD10: I10] Diagnosis: Dysphagia, oropharyngeal phase[ICD10: R13.12] [facility] CPT-4: 77711 06/25/2018 ([id number]) 37393 EST. P ATIENT, LEVEL IV Diagnosis: Essential (primary) hypertension[ICD10: I10] Diagnosis: Dysphagia, oropharyngeal phase[ICD10: R13.12] Diagnosis: Mixed hyperlipidemia[ICD10: E78.2] Heaven Dalal MD, [facility] CPT-4: 84824 05/25/2018 ([id number]) 57019 EST. P ATIENT, LEVEL III Diagnosis: Essential (primary) hypertension[ICD10: I10] [facility] CPT-4: 81565 04/08/2017 ([id number]) Miscellaneou s no charge Diagnosis: Essential (primary) hypertension[ICD10: I10] Heaven Dalal MD, [facility] CPT-4: 87581 03/17/2017 ([id number]) Miscellaneou s no charge Diagnosis: Essential (primary) hypertension[ICD10: I10] [facility] CPT-4: 02138 01/31/2017 ([id number]) 64101 EST. P ATIENT, LEVEL III Diagnosis: Essential (primary) hypertension[ICD10: I10] Diagnosis: Otalgia, left ear[ICD10: H92.02] Morena Dalal MD, [facility] CPT-4: 80802 12/25/2016 ([id number]) 80250 EST. P ATIENT, LEVEL III Diagnosis: Pain in right knee[ICD10: M25.561] Morena Dalal MD, [facility] CPT- 4: 42178 10/31/2016 ([id number]) 85390 EST. 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] Diagnosis: Pain in right knee[ICD10: M25.561] Heaven Dalal MD, [facility] CPT-4: 67689 10/03/2016 OFFICE VISIT, NEW - LEVEL 4 Diagnosis: Essential (primary) hypertension[ICD10: I10] Diagnosis: Pain in right knee[ICD10: M25.561] [facility] CPT-4: 08385 06/12/2016 Plan of Care Planned Activity Notes C odes Status Date Visit Plan: Hypertension - well con trolled - continue with current medications, continue with no added salt diet. Pt has been encouraged to exercise daily. The pt has been advised to call the office if there are any acute concerns about change in blood pressure readings at home. MCPR-uliljhhnj-lzcsf dexilant- refer for EGD if symptoms persist [...] use 07/23/2018 Appointment: Heaven Mon WPtel: [address] [facility] [phone] (30 min) Complex 07/23/2018 Patient Education: Patient [...] study 06/25/2018 [facility] [phone] (15 min) Moderate 06/25/2018 Patient Education: Patient [...] improve 05/25/2018 Appointment: Heaven Mon WPtel: [address] [facility] [phone] (30 min) Complex 05/25/2018 Patient Education: Patient [...] surrogate. 07/11/2017 Appointment: Heaven Mon WPtel: [address] [facility] [phone] [facility] - Annual Wellness Visit 07/11/2017 Patient Education: Patient Medication Summary Completed 07/11/2017 Appointment: Janee Casillas WPtel: [address] [facility] [phone] [facility] - Annual Wellness Visit 07/01/2017 Visit Plan: Hypertension - well con trolled - continue with current medications, continue with no added salt diet. Pt has been encouraged to exercise daily. The pt has been advised to call the office if there are any acute concerns about change in blood pressure readings at home. 04/08/2017 [facility] [facility] [place] (15 min) Moderate 04/08/2017 Patient Education: [...] voltaren gel. 12/25/2016 Appointment: Morena Dalal WPtel: [facility] [place] (15 min) Moderate 12/25/2016 Patient Education: Patient Medication Summary Completed 12/25/2016 Appointment: Heaven Mon WPtel: [phone] [place] (30 min) Complex 11/07/2016 Visit Plan: Bursitis of knee - Louis mmended voltaren gel on knee - RX sent to pharmacy - also recommended pt to do stretching exercise. 10/31/2016 Appointment: Morena Dalal WPtel[facility] [place] (15 min) Moderate 10/31/2016 Patient Education: Patient Medication Summary Completed 10/31/2016 Visit Plan: Joint Injection - Pt wa s given post - injection instructions. The pt has been advised to use anti-inflammatories post injection today, ice to the injected site, call if redness, warmth, or increased pain occurs at the site of injection. 10/11/2016 Appointment: Heaven Mon WPtel: [phone] [place] (30 min) Complex 10/11/2016 Patient Education: [...] will consider 10/03/2016 Appointment: Heaven Mon WPtel: [address] [place], [place] [phone] (15 min) Moderate 10/03/2016 Patient Education: Patient [...] change in blood pressure readings at home. SXRH-agafyjais-tekxh dexilant- refer for EGD if symptoms persist [...]
--- OUTSIDE RECORDS SUMMARY | 2019-11-18 01:32 | XMS REPORT | CCD ---
Author Author Nelly Casillas Organization Morena Dalal MD, [facility] Address [address] [place] [address] Phone Care Team Providers Care Marketing Project Manager Name Role Phone PP Unavailable CCM Unavailable Summary Purpose Interface Exchange Insurance Providers Payer name Policy type / Coverage type Covered libertarian ID Effective Begin Date Effective End Date WPS Medicare Part B Medicare Part B [id number] 2018 Unknown [employer] Medicare Part B [id number] 2018 Unknown Family history Father Diagnosis Age At Onset Cancer Unknown Mother Diagnosis Age At Onset Depression Unknown Arthritis Unknown Alcoholism Unknown Hyperlipidemia Unknown Hypertension Unknown Liver Failure Unknown Social History Social History Element Codes Description Effective Dates Marital status Unknown W idowed 06/12/2016 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[address]: 200526780 Never smoker 06/12/2016 Allergies, Adverse Reactions, Alerts Substance Reaction Codes Entered Date Inactivated Date Status CODEINE RxNorm: 2670 06/12/2016 No Inactive Date Active Past Medical History Illness Codes Condition Status Onset Date Resolved Date Essential (primary) hypertension ICD-9: 401.9 ICD-10: I10 Active 06/12/2016 Unknown Gastro-esophageal re flux disease without esophagitis ICD-9: 530.81 ICD-10: K21.9 Active 07/23/2018 Unknown Dysphagia, oropharyn geal phase ICD-9: 787.22 ICD-10: R13.12 Active 05/25/2018 Unknown Essential (primary) hypertension ICD-9: 401.1 ICD-10: I10 Active 01/31/2017 Unknown Mixed hyperlipidemia ICD-9: 272.2 ICD-10: E78.2 [...] Dates Condition Status Essential (primary) hypertension ICD-9: 401.9 ICD-10: I10 06/12/2016 Active Gastro-esophageal re flux disease without esophagitis ICD-9: 530.81 ICD-10: K21.9 07/23/2018 Active Dysphagia, oropharyn geal phase ICD-9: 787.22 ICD-10: R13.12 05/25/2018 Active Essential (primary) hypertension ICD-9: 401.1 ICD-10: I10 01/31/2017 Active Mixed hyperlipidemia ICD-9: 272.2 ICD-10: E78.2 05/25/2018 Active Encounter for [facility] adult medical examination without abnormal [...] Fill Instructions Bystolic 10 mg tablet RxNorm: 326067 1 Tablet(s) PO daily 07/23/2018 No Stop Date Active amlodipine 10 mg tablet RxNorm: 413743 Tablet(s) 1 TABLET(S) PO DAILY 07/03/2018 09/25/2019 Ac tive Coreg 12.5 mg tablet RxNorm: 695606 2 Tablet(s) PO BID TABLET(S) 1 TABLET(S) PO BID 06/25/2018 06/24/2018 Inactive Coreg 12.5 mg tablet RxNorm: 005743 2 Tablet(s) PO UD 06/25/2018 07/22/2018 Inactive 1 q am an 2 q pm pravastatin 10 mg ta blet RxNorm: 280280 1 Tablet(s) PO QHS 06/04/2018 10/01/2018 Active pravastatin 10 mg ta blet RxNorm: 909081 1 Tablet(s) PO QHS 06/04/2018 06/03/2018 Inactive omeprazole 40 mg cap eloisa,delayed release RxNorm: 647662 1 Capsule(s) PO daily 05/25/2018 09/21/2018 Ac tive Coreg 12.5 mg tablet RxNorm: 208358 1 Tablet(s) PO BID TABLET(S) 1 TABLET(S) PO BID 05/25/2018 06/24/2018 Inactive Replacing atenolol due to availability Coreg 12.5 mg tablet RxNorm: 983662 TABLET(S) 1 TABLET(S) PO BID 02/19/2018 05/24/2018 Inactive Replacing atenolol due to availability Coreg 12.5 mg tablet RxNorm: 544770 TABLET(S) 1 TABLET(S) PO BID 11/18/2017 02/18/2018 Inactive Replacing atenolol due to availability Coreg 12.5 mg tablet RxNorm: 041451 TABLET(S) 1 TABLET(S) PO BID 08/14/2017 11/17/2017 Inactive Replacing atenolol due to availability amlodipine 10 mg tablet RxNorm: 417154 1 TABLET(S) PO DAILY 05/13/2017 07/02/2018 Inactive Coreg 12.5 mg tablet RxNorm: 139186 TABLET(S) 1 TABLET(S) PO BID 04/17/2017 07/22/2018 Inactive Replacing atenolol due to availability Patient requests 90 days supply Coreg 12.5 mg tablet RxNorm: 092386 Tablet(s) 1 TABLET(S) PO BID 04/16/2017 04/16/2017 Inactive Replacing atenolol due to availability Coreg 12.5 mg tablet RxNorm: 683177 Tablet(s) 1.5 TABLET(S) PO BID 03/17/2017 07/22/2018 In active Replacing atenolol due to availability Patient requests 90 days supply Coreg 12.5 mg tablet RxNorm: 686958 1 TABLET(S) PO BID 02/20/2017 04/15/2017 Inactive Replacing atenolol due to availability Coreg 12.5 mg tablet RxNorm: 176872 1 TABLET(S) PO BID 01/23/2017 03/16/2017 Inactive Replacing atenolol due to availabilityPatient requests 90 days supply Coreg 12.5 mg tablet RxNorm: 885553 1 Tablet(s) PO BID 01/21/2017 01/22/2017 Inactive Replacing atenolol due to availability Coreg 12.5 mg tablet RxNorm: 402398 1 Tablet(s) PO BID 01/21/2017 01/20/2017 Inactive Replacing atenolol due to availability atenolol 100 mg tablet RxNorm: 504325 TAKE 1 TABLET BY MOUTH EVERY DAY 01/20/2017 01/20/2017 In active mupirocin 2 % topica l ointment RxNorm: 501855 1 Application TOP BID 12/25/2016 12/31/2016 Inactive Voltaren 1 % topical gel RxNorm: 823537 2 TOP TID 10/31/2016 11/29/2016 Inactive amlodipine 10 mg tablet RxNorm: 922381 1 Tablet(s) PO daily 10/03/2016 03/31/2017 Inactive amlodipine 5 mg tablet RxNorm: 720559 1 Tablet(s) PO daily 06/12/2016 10/02/2016 Inactive aspirin 81 mg tablet ,delayed release RxNorm: 405716 1 Tablet(s) PO daily No Start Date Active Co Q-10 oral RxNorm: 79563 oral No Start Date Active atenolol 100 mg tablet RxNorm: 872325 1 Tablet(s) PO daily No Start Date 01/19/2017 Inactive amlodipine 5 mg tablet RxNorm: 129387 1 Tablet(s) PO daily No Start Date 06/11/2016 Inactive Medication Administered No Medication Administered data Immunizations Vaccine Codes Date Status Pneumococcal CVX: 133 completed Assessments Condition Codes Effectiv e Dates Gastro-esophageal reflux disease without esophagitis ICD-10: K21.9 ICD-9: 530.81 07/23/2018 Essential (primary) hypertension ICD -10: I10 ICD-9: 401.9 07/23/2018 Dysphagia, oropharyngeal phase ICD-1 0: R13.12 ICD-9: 787.22 06/25/2018 Essential (primary) hypertension ICD -10: I10 ICD-9: 401.1 06/25/2018 Mixed hyperlipidemia ICD-10: E78.2 ICD-9: 272.2 [...] 30.2 pg 06/01/2018 Cbc With Differential Ord2 Ceiba% 9.3 % 06/01/2018 Cbc With Differential Ord2 [...] 0.91 K/ul 06/01/2018 Cbc With Differential Ord2 Ceiba ABS# 0.8 K/ul 06/01/2018 Cbc With Differential Ord2 Eos ABS# 0.2 K/ul 06/01/2018 Cbc With Differential Ord2 Baso ABS# 0.0 K/ul 06/01/2018 Tsh Ord6 TSH (3rd IS) 3.50 uIU/mL 06/01/2018 Comp Metabolic Glz426 NA 142 mEq/L 06/01/2018 Comp Metabolic Wxi809 K 4.3 mEq/L 06/01/2018 Comp Metabolic Vnj564 CL 105 mEq/L 06/01/2018 Comp Metabolic Rei261 CO2 27.0 mEq/L 06/01/2018 Comp Metabolic Yax389 AN ION GAP 14 06/01/2018 Comp Metabolic Rri430 GL UCOSE 102 mg/dL 06/01/2018 Comp Metabolic Eds295 Cr eat 0.9 mg/dL 06/01/2018 Comp Metabolic Gna488 eG FR 66 ml/min/1.73m2 06/01 Comp Metabolic Aex449 BUN 14 mg/dL 06/01/2018 Comp Metabolic Xyo834 B/ C Ratio 15.9 Ratio 06/01/2018 Comp Metabolic Gnk060 CA LCIUM 9.9 mg/dL 06/01/2018 Comp Metabolic Swg378 AL K PHOS 97 U/L 06/01/2018 Comp Metabolic Ivo695 T(SGOT) 24 U/L 06/01/2018 Comp Metabolic Iiv085 AL T(SGPT) 17 U/L 06/01/2018 Comp Metabolic Bcs698 BI LI T 0.6 mg/dL 06/01/2018 Comp Metabolic Lno809 AL BUMIN 4.3 g/dL 06/01/2018 Comp Metabolic Uav067 TP RO 7.0 g/dL 06/01/2018 Comp Metabolic Orb879 GL OB 2.7 g/dL 06/01/2018 Comp Metabolic Sbo052 A/ G Ratio 1.6 Ratio 06/01/2018 Comp Metabolic Zsl187 Os mo 284 mOsmo 06/01/2018 Tsh Ord6 hTSH II 2.22 uIU/mL 06/19/2016 Comp Metabolic Fca404 NA 140 mEq/L 06/19/2016 Comp Metabolic Urp210 K 4.1 mEq/L 06/19/2016 Comp Metabolic Tvy463 CL 104 mEq/L 06/19/2016 Comp Metabolic Vmc366 CO2 27.0 mEq/L 06/19/2016 Comp Metabolic Fzb926 AN ION GAP 13 06/19/2016 Comp Metabolic Ueq576 GL UCOSE 107 mg/dL 06/19/2016 Comp Metabolic Bnf710 Cr eat 0.7 mg/dL 06/19/2016 Comp Metabolic Kbm618 eG FR 83 ml/min/1.73m2 06/19 Comp Metabolic Nsf575 BUN 17 mg/dL 06/19/2016 Comp Metabolic Trc606 B/ C Ratio 23.3 Ratio 06/19/2016 Comp Metabolic Ivj852 CA LCIUM 9.5 mg/dL 06/19/2016 Comp Metabolic Thn360 AL K PHOS 88 U/L 06/19/2016 Comp Metabolic Usm821 T(SGOT) 28 U/L 06/19/2016 Comp Metabolic Wfc418 AL T(SGPT) 18 U/L 06/19/2016 Comp Metabolic Mok080 BI LI T 0.5 mg/dL 06/19/2016 Comp Metabolic Pyj724 AL BUMIN 4.2 g/dL 06/19/2016 Comp Metabolic Ncl549 TP RO 6.7 g/dL 06/19/2016 Comp Metabolic Jus023 GL OB 2.5 g/dL 06/19/2016 Comp Metabolic Hiq127 A/ G Ratio 1.7 Ratio 06/19/2016 Comp Metabolic Azy330 Os mo 281 mOsmo 06/19/2016 Cbc With [...] 30.4 pg 06/19/2016 Cbc With Differential Ord2 Ceiba% 15.5 % 06/19/2016 Cbc With Differential Ord2 [...] 1.06 K/ul 06/19/2016 Cbc With Differential Ord2 Ceiba ABS# 0.8 K/ul 06/19/2016 Cbc With Differential Ord2 Eos ABS# 0.2 K/ul 06/19/2016 Cbc With Differential Ord2 Baso ABS# 0.0 K/ul 06/19/2016 Lipid Ord30 CHOL 230 mg/dL 06/19/2016 Lipid Ord30 HDL 68.0 mg/dl 06/19/2016 Lipid Ord30 TRIG 85 mg/dL 06/19/2016 Lipid Ord30 LDL 145 mg/dL 06/19/2016 Lipid Ord30 C/HDL 3.4 Ratio 06/19/2016 Review of Systems System Result Effective Dates Constitutional No recent illness 07/23/2018 Constitutional No [...] - General 1995 Ears/Nose/Throat otoscopic exam Overall: tympanic membranes clear [...] 4: G0439 07/11/2017 DRAIN/INJECT JOINT/B URSA CPT-4: 56745 10/11/2016 Vital Signs Date Vital 07/23/2018 Blood Pressure 1: 142/80 Code: 8480-6 BMI: 20.2 Code: 11465-8 Heart Rate 1: 70 bpm Height: 5'1" SpO2: 96% Weight: 107 lbs 06/25/2018 Blood Pressure 1: 150/80 Code: 8480-6 BMI: 20.2 Code: 18287-8 Heart Rate 1: 84 bpm Height: 5'1" SpO2: 98% Weight: 107 lbs 05/25/2018 Blood Pressure 1: 152/84 Code: 8480-6 BMI: 20.8 Code: 71533-7 Heart Rate 1: 81 bpm Height: 5'1" SpO2: 98% Weight: 110 lbs 07/11/2017 Blood Pressure 1: 120/76 Code: 8480-6 BMI: 20.6 Code: 81134-5 Heart Rate 1: 72 bpm Height: 5'1" SpO2: 96% Waist Measure (cm): 66 cm Weight: 109 lbs 04/08/2017 Blood Pressure 1: 134/68 Code: 8480-6 BMI: 20.2 Code: 49178-5 Heart Rate 1: 75 bpm Height: 5'1" SpO2: 97% Weight: 107 lbs 03/17/2017 Blood Pressure 1: 156/90 Code: 8480-6 Heart Rate 1: 83 bpm Height: SpO2: 96% Weight: 01/31/2017 Blood Pressure 1: 132/68 Code: 8480-6 Heart Rate 1: 88 bpm SpO2: 98% 12/25/2016 Blood Pressure 1: 154/74 Code: 8480-6 BMI: 20.0 Code: 73746-7 Heart Rate 1: 74 bpm Height: 5'1" SpO2: 96% Weight: 106 lbs 10/31/2016 Blood Pressure 1: 138/82 Code: 8480-6 BMI: 20.2 Code: 64191-3 Heart Rate 1: 76 bpm Height: 5'1" SpO2: 96% Weight: 107 lbs 10/11/2016 Blood Pressure 1: 134/70 Code: 8480-6 Heart Rate 1: 69 bpm Height: 5'1" SpO2: 95% Weight: 10/03/2016 Blood Pressure 1: 164/88 Code: 8480-6 BMI: 20.2 Code: 38046-3 Heart Rate 1: 70 bpm Height: 5'1" SpO2: 97% Weight: 107 lbs 06/12/2016 Blood Pressure 1: 144/88 Code: 8480-6 BMI: 20.6 Code: 37686-8 Heart Rate 1: 79 bpm Height: 5'1" SpO2: 97% Weight: 109 lbs Functional Status No Functional Status data History of Present Illness Symptom Name Status Resu lt Effective Date Notes [place] 07/23/2018 [...] Encounters Encounter Performer Loca tion Codes Date () 30686 EST. P ATIENT, LEVEL III Diagnosis: Essential (primary) hypertension[ICD10: I10] Diagnosis: Gastro-esophageal reflux disease without esophagitis[ICD10: K21.9] Heaven Dalal MD, [facility] CPT-4: 55791 07/23/2018 ([id number]) 31936 EST. P ATIENT, LEVEL III Diagnosis: Essential (primary) hypertension[ICD10: I10] Diagnosis: Dysphagia, oropharyngeal phase[ICD10: R13.12] Heaven Dalal MD, [facility] CPT-4: 00090 06/25/2018 ([id number]) 11367 EST. P ATIENT, LEVEL IV Diagnosis: Essential (primary) hypertension[ICD10: I10] Diagnosis: Dysphagia, oropharyngeal phase[ICD10: R13.12] Diagnosis: Mixed hyperlipidemia[ICD10: E78.2] Heaven Dalal MD, [facility] CPT-4: 28636 05/25/2018 ([id number]) 76426 EST. P ATIENT, LEVEL III Diagnosis: Essential (primary) hypertension[ICD10: I10] Morena Dalal MD[facility] CPT-4: 86452 04/08/2017 ([id number]) Miscellaneou s no charge Diagnosis: Essential (primary) hypertension[ICD10: I10] Heaven Dalal MD, [facility] CPT-4: 79705 03/17/2017 ([id number]) Miscellaneou s no charge Diagnosis: Essential (primary) hypertension[ICD10: I10] Morena Dalal MD[facility] CPT-4: 49945 01/31/2017 ([id number]) 40989 EST. P ATIENT, LEVEL III Diagnosis: Essential (primary) hypertension[ICD10: I10] Diagnosis: Otalgia, left ear[ICD10: H92.02] Morena Dalal MD, [facility] CPT-4: 75824 12/25/2016 ([id number]) 61419 EST. P ATIENT, LEVEL III Diagnosis: Pain in right knee[ICD10: M25.561] [facility] CPT- 4: 43474 10/31/2016 ([id number]) 24931 EST. 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] Diagnosis: Pain in right knee[ICD10: M25.561] [facility] CPT-4: 02952 10/03/2016 OFFICE VISIT, NEW - LEVEL 4 Diagnosis: Essential (primary) hypertension[ICD10: I10] Diagnosis: Pain in right knee[ICD10: M25.561] [facility] CPT-4: 64183 06/12/2016 Plan of Care Planned Activity Notes C odes Status Date Visit Plan: HTN-stop coreg- start b ystolic [...] on use 07/23/2018 Appointment: Heaven Mon WPtel: [address] [place], [place] [phone] (30 min) Complex 07/23/2018 Patient Education: Patient [...] swallow study 06/25/2018 Appointment: Heaven Mon WPtel: [facility] [place] [address] (15 min) Moderate 06/25/2018 Patient Education: [...] not improve 05/25/2018 Appointment: Heaven Mon WPtel: [address] [place] [address] (30 min) Complex 05/25/2018 Patient Education: Patient [...] care surrogate. 07/11/2017 Appointment: Heaven Mon WPtel: [address] [place] [address] - Annual Wellness Visit 07/11/2017 Patient Education: Patient Medication Summary Completed 07/11/2017 Appointment: Janee Casillas WPtel: [facility] - Annual Wellness Visit 07/01/2017 Visit Plan: Hypertension - well con trolled - continue with current medications, continue with no added salt diet. Pt has been encouraged to exercise daily. The pt has been advised to call the office if there are any acute concerns about change in blood pressure readings at home. 04/08/2017 Appointment: Morena Dalal WPtel: [facility] (15 min) Moderate 04/08/2017 Patient Education: Patient [...] voltaren gel. 12/25/2016 Appointment: Morena Dalal WPtel: [facility] (15 min) Moderate 12/25/2016 Patient Education: Patient Medication Summary Completed 12/25/2016 Appointment: Heaven Mon WPtel: [phone] [place] (30 min) Complex 11/07/2016 Visit Plan: Bursitis of knee - Louis mmended voltaren gel on knee - RX sent to pharmacy - also recommended pt to do stretching exercise. 10/31/2016 Appointment: Morena Dalal WPtel: [facility] [place] (15 min) Moderate 10/31/2016 Patient Education: Patient Medication Summary Completed 10/31/2016 Visit Plan: Joint Injection - Pt wa s given post - injection instructions. The pt has been advised to use anti-inflammatories post injection today, ice to the injected site, call if redness, warmth, or increased pain occurs at the site of injection. 10/11/2016 Appointment: Heaven Mon WPtel: [phone] [phone] (30 min) Complex 10/11/2016 Patient Education: Patient [...] consider 10/03/2016 [facility]ment[phone] (15 min) Moderate 10/03/2016 Patient Education: [...] Patient Education: Hypertension Completed 06/12/2016 Instructions Comment FASTING LABS OMEPRAZOLE DAILY -CONSIDER [...]
--- OUTSIDE RECORDS SUMMARY | 2019-11-18 01:33 | XMS REPORT | CCD ---
Author Author Nelly Casillas Organization Morena Dalal MD, [facility] Address [address] [place] [address] Phone Care Team Providers Care Rough Carpenter Name Role Phone PP Unavailable CCM Unavailable Summary Purpose Interface Exchange Insurance Providers Payer name Policy type / Coverage type Covered libertarian ID Effective Begin Date Effective End Date WPS Medicare Part B Medicare Part B [id number] 2018 Unknown [employer] Medicare Part B [id number] 2018 Unknown Family history Father Diagnosis Age At Onset Cancer Unknown Mother Diagnosis Age At Onset Depression Unknown Arthritis Unknown Alcoholism Unknown Hyperlipidemia Unknown Hypertension Unknown Liver Failure Unknown Social History Social History Element Codes Description Effective Dates Marital status Unknown W idowed 06/12/2016 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[address]: 772276144 Never smoker 06/12/2016 Allergies, Adverse Reactions, Alerts Substance Reaction Codes Entered Date Inactivated Date Status CODEINE RxNorm: 2670 06/12/2016 No Inactive Date Active Past Medical History Illness Codes Condition Status Onset Date Resolved Date Dysphagia, oropharyn geal phase ICD-9: 787.22 ICD-10: R13.12 Active 05/25/2018 Unknown Essential (primary) hypertension ICD-9: 401.1 ICD-10: I10 Active 01/31/2017 Unknown Mixed hyperlipidemia ICD-9: 272.2 ICD-10: E78.2 Active 05/25/2018 Unknown Encounter for genera l adult medical examination without abnormal findings ICD-9: V70.0 ICD-10: Z00.00 Active 07/11/2017 Unknown Essential (primary) hypertension ICD-9: 401.9 ICD-10: I10 Active 06/12/2016 Unknown Otalgia, left ear ICD-9: 388.70 ICD-10: H92.02 Active 12/25/2016 Unknown Pain in right knee ICD- 9: 719.46 ICD-10: M25.561 Active 06/12/2016 Unknown Hypertension Unknown Active 10/03/2016 Unknow n 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 ICD-9: 454.8 ICD-10: I83.813 Active 10/03/2016 Unknown Problems Condition Codes Effectiv e Dates Condition Status Dysphagia, oropharyn geal phase ICD-9: 787.22 ICD-10: R13.12 05/25/2018 Active Essential (primary) hypertension ICD-9: 401.1 ICD-10: I10 01/31/2017 Active Mixed hyperlipidemia ICD-9: 272.2 ICD-10: E78.2 05/25/2018 Active Encounter for genera l adult medical examination without abnormal findings ICD-9: V70.0 ICD-10: Z00.00 07/11/2017 Active Essential (primary) hypertension ICD-9: 401.9 ICD-10: I10 06/12/2016 Active Otalgia, left ear ICD-9: 388.70 ICD-10: H92.02 12/25/2016 Active Pain in right knee ICD- 9: 719.46 ICD-10: M25.561 06/12/2016 Active Hypertension Unknown 10/03/2016 Active 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 ICD-9: 454.8 ICD-10: I83.813 10/03/2016 Active Medications Medication Codes Instruc tions Start Date Stop Date Sta tus Fill Instructions Coreg 12.5 mg tablet RxNorm: 908011 2 Tablet(s) PO UD 06/25/2018 03/21/2019 Active 1 q am an 2 q pm Coreg 12.5 mg tablet RxNorm: 090888 2 Tablet(s) PO BID TABLET(S) 1 TABLET(S) PO BID 06/25/2018 06/24/2018 Inactive pravastatin 10 mg ta blet RxNorm: 299870 1 Tablet(s) PO QHS 06/04/2018 10/01/2018 Active pravastatin 10 mg ta blet RxNorm: 491709 1 Tablet(s) PO QHS 06/04/2018 06/03/2018 Inactive omeprazole 40 mg cap eloisa,delayed release RxNorm: 563258 1 Capsule(s) PO daily 05/25/2018 09/21/2018 Ac tive Coreg 12.5 mg tablet RxNorm: 147883 1 Tablet(s) PO BID TABLET(S) 1 TABLET(S) PO BID 05/25/2018 06/24/2018 Inactive Replacing atenolol due to availability Coreg 12.5 mg tablet RxNorm: 858217 TABLET(S) 1 TABLET(S) PO BID 02/19/2018 05/24/2018 Inactive Replacing atenolol due to availability Coreg 12.5 mg tablet RxNorm: 018715 TABLET(S) 1 TABLET(S) PO BID 11/18/2017 02/18/2018 Inactive Replacing atenolol due to availability Coreg 12.5 mg tablet RxNorm: 917068 TABLET(S) 1 TABLET(S) PO BID 08/14/2017 11/17/2017 Inactive Replacing atenolol due to availability amlodipine 10 mg tablet RxNorm: 134749 1 TABLET(S) PO DAILY 05/13/2017 08/05/2018 Active Coreg 12.5 mg tablet RxNorm: 206215 TABLET(S) 1 TABLET(S) PO BID 04/17/2017 01/11/2018 Inactive Replacing atenolol due to availability Patient requests 90 days supply Coreg 12.5 mg tablet RxNorm: 852970 Tablet(s) 1 TABLET(S) PO BID 04/16/2017 04/16/2017 Inactive Replacing atenolol due to availability Coreg 12.5 mg tablet RxNorm: 799635 Tablet(s) 1.5 TABLET(S) PO BID 03/17/2017 No Stop Date Active Replacing atenolol due to availability Patient requests 90 days supply Coreg 12.5 mg tablet RxNorm: 606263 1 TABLET(S) PO BID 02/20/2017 04/15/2017 Inactive Replacing atenolol due to availability Coreg 12.5 mg tablet RxNorm: 682499 1 TABLET(S) PO BID 01/23/2017 03/16/2017 Inactive Replacing atenolol due to availabilityPatient requests 90 days supply Coreg 12.5 mg tablet RxNorm: 534299 1 Tablet(s) PO BID 01/21/2017 01/22/2017 Inactive Replacing atenolol due to availability Coreg 12.5 mg tablet RxNorm: 087780 1 Tablet(s) PO BID 01/21/2017 01/20/2017 Inactive Replacing atenolol due to availability atenolol 100 mg tablet RxNorm: 895759 TAKE 1 TABLET BY MOUTH EVERY DAY 01/20/2017 01/20/2017 In active mupirocin 2 % topica l ointment RxNorm: 243267 1 Application TOP BID 12/25/2016 12/31/2016 Inactive Voltaren 1 % topical gel RxNorm: 414846 2 TOP TID 10/31/2016 11/29/2016 Inactive amlodipine 10 mg tablet RxNorm: 635222 1 Tablet(s) PO daily 10/03/2016 03/31/2017 Inactive amlodipine 5 mg tablet RxNorm: 705480 1 Tablet(s) PO daily 06/12/2016 10/02/2016 Inactive aspirin 81 mg tablet ,delayed release RxNorm: 665559 1 Tablet(s) PO daily No Start Date Active atenolol 100 mg tablet RxNorm: 347683 1 Tablet(s) PO daily No Start Date 01/19/2017 Inactive amlodipine 5 mg tablet RxNorm: 651318 1 Tablet(s) PO daily No Start Date 06/11/2016 Inactive Medication Administered No Medication Administered data Immunizations Vaccine Codes Date Status Pneumococcal CVX: 133 completed Assessments Condition Codes Effectiv e Dates Dysphagia, oropharyngeal phase ICD-1 0: R13.12 ICD-9: 787.22 06/25/2018 Essential (primary) hypertension ICD -10: I10 ICD-9: 401.1 06/25/2018 Mixed hyperlipidemia ICD-10: E78.2 ICD-9: 272.2 05/25/2018 Encounter for general adult medical exam ination without abnormal findings ICD-10: Z00.00 ICD-9: V70.0 07/11/2017 Essential (primary) hypertension ICD -10: I10 ICD-9: 401.9 04/08/2017 Otalgia, left ear [...] 30.2 pg 06/01/2018 Cbc With Differential Ord2 Terry% 9.3 % 06/01/2018 Cbc With Differential Ord2 [...] 0.91 K/ul 06/01/2018 Cbc With Differential Ord2 Terry ABS# 0.8 K/ul 06/01/2018 Cbc With Differential Ord2 Eos ABS# 0.2 K/ul 06/01/2018 Cbc With Differential Ord2 Baso ABS# 0.0 K/ul 06/01/2018 Tsh Ord6 TSH (3rd IS) 3.50 uIU/mL 06/01/2018 Comp Metabolic Fzi369 NA 142 mEq/L 06/01/2018 Comp Metabolic Low037 K 4.3 mEq/L 06/01/2018 Comp Metabolic Jxl714 CL 105 mEq/L 06/01/2018 Comp Metabolic Oyx957 CO2 27.0 mEq/L 06/01/2018 Comp Metabolic Lmk178 AN ION GAP 14 06/01/2018 Comp Metabolic Iqp666 GL UCOSE 102 mg/dL 06/01/2018 Comp Metabolic Znz761 Cr eat 0.9 mg/dL 06/01/2018 Comp Metabolic Ayc429 eG FR 66 ml/min/1.73m2 06/01 Comp Metabolic Trq291 BUN 14 mg/dL 06/01/2018 Comp Metabolic Lrf161 B/ C Ratio 15.9 Ratio 06/01/2018 Comp Metabolic Wwf712 CA LCIUM 9.9 mg/dL 06/01/2018 Comp Metabolic Qgz264 AL K PHOS 97 U/L 06/01/2018 Comp Metabolic Yom673 T(SGOT) 24 U/L 06/01/2018 Comp Metabolic Fmv697 AL T(SGPT) 17 U/L 06/01/2018 Comp Metabolic Ejw324 BI LI T 0.6 mg/dL 06/01/2018 Comp Metabolic Syv680 AL BUMIN 4.3 g/dL 06/01/2018 Comp Metabolic Lix600 TP RO 7.0 g/dL 06/01/2018 Comp Metabolic Vcq802 GL OB 2.7 g/dL 06/01/2018 Comp Metabolic Mtu047 A/ G Ratio 1.6 Ratio 06/01/2018 Comp Metabolic Yrh223 Os mo 284 mOsmo 06/01/2018 Tsh Ord6 hTSH II 2.22 uIU/mL 06/19/2016 Comp Metabolic Rml361 NA 140 mEq/L 06/19/2016 Comp Metabolic Ewc647 K 4.1 mEq/L 06/19/2016 Comp Metabolic Jlp181 CL 104 mEq/L 06/19/2016 Comp Metabolic Cfm099 CO2 27.0 mEq/L 06/19/2016 Comp Metabolic Jjk611 AN ION GAP 13 06/19/2016 Comp Metabolic Dxe728 GL UCOSE 107 mg/dL 06/19/2016 Comp Metabolic Vww623 Cr eat 0.7 mg/dL 06/19/2016 Comp Metabolic Blg040 eG FR 83 ml/min/1.73m2 06/19 Comp Metabolic Fvi555 BUN 17 mg/dL 06/19/2016 Comp Metabolic Izj076 B/ C Ratio 23.3 Ratio 06/19/2016 Comp Metabolic Mug092 CA LCIUM 9.5 mg/dL 06/19/2016 Comp Metabolic Xgy107 AL K PHOS 88 U/L 06/19/2016 Comp Metabolic Ozp724 T(SGOT) 28 U/L 06/19/2016 Comp Metabolic Cco425 AL T(SGPT) 18 U/L 06/19/2016 Comp Metabolic Zip087 BI LI T 0.5 mg/dL 06/19/2016 Comp Metabolic Kko830 AL BUMIN 4.2 g/dL 06/19/2016 Comp Metabolic Wyo108 TP RO 6.7 g/dL 06/19/2016 Comp Metabolic Czb579 GL OB 2.5 g/dL 06/19/2016 Comp Metabolic Zfv608 A/ G Ratio 1.7 Ratio 06/19/2016 Comp Metabolic Ikh039 Os mo 281 mOsmo 06/19/2016 Cbc With [...] 21.4 % 06/19/2016 Cbc With Differential Ord2 Terry% 15.5 % 06/19/2016 Cbc With Differential Ord2 MCH 30.4 pg 06/19/2016 Cbc With Differential Ord2 Eos% 3.6 % 06/19/2016 Cbc With Differential Ord2 MCHC 32.6 pg 06/19/2016 Cbc With Differential Ord2 Baso% 0.6 % 06/19/2016 Cbc With Differential Ord2 PLT 217 K/ul 06/19/2016 Cbc With Differential Ord2 RDW 13.7 % 06/19/2016 Cbc With Differential Ord2 Neut ABS# 2.92 K/ul 06/19/2016 Cbc With Differential Ord2 Lymph ABS# 1.06 K/ul 06/19/2016 Cbc With Differential Ord2 Terry ABS# 0.8 K/ul 06/19/2016 Cbc With Differential Ord2 Eos ABS# 0.2 K/ul 06/19/2016 Cbc With Differential Ord2 Baso ABS# 0.0 K/ul 06/19/2016 Lipid Ord30 CHOL 230 mg/dL 06/19/2016 Lipid Ord30 HDL 68.0 mg/dl 06/19/2016 Lipid Ord30 TRIG 85 mg/dL 06/19/2016 Lipid Ord30 LDL 145 mg/dL 06/19/2016 Lipid Ord30 C/HDL 3.4 Ratio 06/19/2016 Review of Systems System Result Effective Dates Constitutional No recent illness 06/25/2018 Constitutional No [...] 4: G0439 07/11/2017 DRAIN/INJECT JOINT/B URSA CPT-4: 49593 10/11/2016 Vital Signs Date Vital 06/25/2018 Blood Pressure 1: 150/80 Code: 8480-6 BMI: 20.2 Code: 11751-7 Heart Rate 1: 84 bpm Height: 5'1" SpO2: 98% Weight: 107 lbs 05/25/2018 Blood Pressure 1: 152/84 Code: 8480-6 BMI: 20.8 Code: 64350-7 Heart Rate 1: 81 bpm Height: 5'1" SpO2: 98% Weight: 110 lbs 07/11/2017 Blood Pressure 1: 120/76 Code: 8480-6 BMI: 20.6 Code: 45035-1 Heart Rate 1: 72 bpm Height: 5'1" SpO2: 96% Waist Measure (cm): 66 cm Weight: 109 lbs 04/08/2017 Blood Pressure 1: 134/68 Code: 8480-6 BMI: 20.2 Code: 99349-1 Heart Rate 1: 75 bpm Height: 5'1" SpO2: 97% Weight: 107 lbs 03/17/2017 Blood Pressure 1: 156/90 Code: 8480-6 Heart Rate 1: 83 bpm Height: SpO2: 96% Weight: 01/31/2017 Blood Pressure 1: 132/68 Code: 8480-6 Heart Rate 1: 88 bpm SpO2: 98% 12/25/2016 Blood Pressure 1: 154/74 Code: 8480-6 BMI: 20.0 Code: 09318-3 Heart Rate 1: 74 bpm Height: 5'1" SpO2: 96% Weight: 106 lbs 10/31/2016 Blood Pressure 1: 138/82 Code: 8480-6 BMI: 20.2 Code: 58752-3 Heart Rate 1: 76 bpm Height: 5'1" SpO2: 96% Weight: 107 lbs 10/11/2016 Blood Pressure 1: 134/70 Code: 8480-6 Heart Rate 1: 69 bpm Height: 5'1" SpO2: 95% Weight: 10/03/2016 Blood Pressure 1: 164/88 Code: 8480-6 BMI: 20.2 Code: 64969-3 Heart Rate 1: 70 bpm Height: 5'1" SpO2: 97% Weight: 107 lbs 06/12/2016 Blood Pressure 1: 144/88 Code: 8480-6 BMI: 20.6 Code: 19636-0 Heart Rate 1: 79 bpm Height: 5'1" SpO2: 97% Weight: 109 lbs Functional Status No Functional Status data History of Present Illness Symptom Name Status Resu lt Effective Date Notes Location in [place] 06/25/2018 [...] day 07/11/2017 None Annual Medicare Wellness Exam Richard jorge Stress usually johanny effectively 07/11/2017 None Annual [...] Encounters Encounter Performer Loca tion Codes Date ([id number]) [id number] EST. P ATIENT, LEVEL III Diagnosis: Essential (primary) hypertension[ICD10: I10] Diagnosis: Dysphagia, oropharyngeal phase[ICD10: R13.12] Heaven Dalal MD, [facility] CPT-4: 56553 06/25/2018 ([id number]) 48310 EST. P ATIENT, LEVEL IV Diagnosis: Essential (primary) hypertension[ICD10: I10] Diagnosis: Dysphagia, oropharyngeal phase[ICD10: R13.12] Diagnosis: Mixed hyperlipidemia[ICD10: E78.2] Heaven Dalal MD, [facility] CPT-4: 94085 05/25/2018 ([id number]) 12082 EST. P ATIENT, LEVEL III Diagnosis: Essential (primary) hypertension[ICD10: I10] Morena Dalal MD, [facility] CPT-4: 99879 04/08/2017 ([id number]) Miscellaneou s no charge Diagnosis: Essential (primary) hypertension[ICD10: I10] Heaven Dalal MD, [facility] CPT-4: 48475 03/17/2017 ([id number]) Miscellaneou s no charge Diagnosis: Essential (primary) hypertension[ICD10: I10] Morena Dalal MD[facility] CPT-4: 23582 01/31/2017 ([id number]) 84577 EST. P ATIENT, LEVEL III Diagnosis: Essential (primary) hypertension[ICD10: I10] Diagnosis: Otalgia, left ear[ICD10: H92.02] Morena Dalal MD, [facility] CPT-4: 77166 12/25/2016 ([id number]) 07869 EST. P ATIENT, LEVEL III Diagnosis: Pain in right knee[ICD10: M25.561] [facility] CPT- 4: 04825 10/31/2016 ([id number]) 89591 EST. 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] Diagnosis: Pain in right knee[ICD10: M25.561] [facility] CPT-4: 91928 10/03/2016 OFFICE VISIT, NEW - LEVEL 4 Diagnosis: Essential (primary) hypertension[ICD10: I10] Diagnosis: Pain in right knee[ICD10: M25.561] [facility] CPT-4: 51212 06/12/2016 Plan of Care Planned Activity Notes C odes Status Date Visit Plan: Hypertension - uncontro lled - [...] for acute concerns. Dysphagia-schedule swallow study 06/25/2018 Patient Education: Patient Medication Summary Completed [...] not improve 05/25/2018 Appointment: Heaven Mon WPtel: [address] [place], [place] [phone] [place] (30 min) Complex 05/25/2018 Patient Education: Patient Medication Summary Completed 05/25/2018 Patient Education: Cholesterol Management Completed 05/25/2018 Visit Plan: Medicare Exam - today julieta jen discussed the patients past history, immunizations, preventative [...] care surrogate. 07/11/2017 Appointment: Heaven Mon WPtel: [phone] [facility] [place] [address] - Annual Wellness Visit 07/11/2017 Patient Education: Patient Medication Summary Completed 07/11/2017 Appointment: Janee Casillas WPtel: [facility] [facility] - Annual Wellness Visit 07/01/2017 Visit Plan: Hypertension - well con trolled - continue with current medications, continue with no added salt diet. Pt has been encouraged to exercise daily. The pt has been advised to call the office if there are any acute concerns about change in blood pressure readings at home. 04/08/2017 [phone] (15 min) Moderate 04/08/2017 Patient Education: Patient [...] gel. 12/25/2016 Appointment: Morena Dalal WPtel: [phone] [facility] (15 min) Moderate 12/25/2016 Patient Education: Patient Medication Summary Completed 12/25/2016 Appointment: Heaven Mon WPtel: [phone] [phone] (30 min) Complex 11/07/2016 Visit Plan: Bursitis of knee - Louis mmended voltaren gel on knee - RX sent to pharmacy - also recommended pt to do stretching exercise. 10/31/2016 Appointment: Morena Dalal WPtel: [facility] (15 min) Moderate 10/31/2016 Patient Education: Patient Medication Summary Completed 10/31/2016 Visit Plan: Joint Injection - Pt wa s given post - injection instructions. The pt has been advised to use anti-inflammatories post injection today, ice to the injected site, call if redness, warmth, or increased pain occurs at the site of injection. 10/11/2016 Appointment: Heaven Mon WPtel: [phone] (30 min) Complex 10/11/2016 Patient [...] consider 10/03/2016 [facility]ment[phone] [place] (15 min) Moderate 10/03/2016 Patient Education: [...]
--- OUTSIDE RECORDS SUMMARY | 2019-11-18 01:33 | XMS REPORT | CCD ---
Author Author Nelly Casillas Organization Morena Dalal MD, [facility] Address [address] [place] [address] Phone Care Team Providers Care Master Fisher Name Role Phone PP Unavailable CCM Unavailable Summary Purpose Interface Exchange Insurance Providers Payer name Policy type / Coverage type Covered republican ID Effective Begin Date Effective End Date WPS Medicare Part B Medicare Part B [id number] 2018 Unknown [employer] Medicare Part B [id number] 2018 Unknown Family history Father Diagnosis Age At Onset Cancer Unknown Mother Diagnosis Age At Onset Depression Unknown Arthritis Unknown Alcoholism Unknown Hyperlipidemia Unknown Hypertension Unknown Liver Failure Unknown Social History Social History Element Codes Description Effective Dates Marital status Unknown W idowed 06/12/2016 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[address]: 826172104 Never smoker 06/12/2016 Allergies, Adverse Reactions, Alerts [...] Fill Instructions amlodipine 10 mg tablet RxNorm: 926018 Tablet(s) 1 TABLET(S) PO DAILY 07/03/2018 09/25/2019 Ac tive Coreg 12.5 mg tablet RxNorm: 573041 2 Tablet(s) PO UD 06/25/2018 03/21/2019 Active 1 q am an 2 q pm Coreg 12.5 mg tablet RxNorm: 382607 2 Tablet(s) PO BID TABLET(S) 1 TABLET(S) PO BID 06/25/2018 06/24/2018 Inactive pravastatin 10 mg ta blet RxNorm: 605518 1 Tablet(s) PO QHS 06/04/2018 10/01/2018 Active pravastatin 10 mg ta blet RxNorm: 618826 1 Tablet(s) PO QHS 06/04/2018 06/03/2018 Inactive omeprazole 40 mg cap eloisa,delayed release RxNorm: 802224 1 Capsule(s) PO daily 05/25/2018 09/21/2018 Ac tive Coreg 12.5 mg tablet RxNorm: 899594 1 Tablet(s) PO BID TABLET(S) 1 TABLET(S) PO BID 05/25/2018 06/24/2018 Inactive Replacing atenolol due to availability Coreg 12.5 mg tablet RxNorm: 971116 TABLET(S) 1 TABLET(S) PO BID 02/19/2018 05/24/2018 Inactive Replacing atenolol due to availability Coreg 12.5 mg tablet RxNorm: 393991 TABLET(S) 1 TABLET(S) PO BID 11/18/2017 02/18/2018 Inactive Replacing atenolol due to availability Coreg 12.5 mg tablet RxNorm: 855809 TABLET(S) 1 TABLET(S) PO BID 08/14/2017 11/17/2017 Inactive Replacing atenolol due to availability amlodipine 10 mg tablet RxNorm: 291883 1 TABLET(S) PO DAILY 05/13/2017 07/02/2018 Inactive Coreg 12.5 mg tablet RxNorm: 843399 TABLET(S) 1 TABLET(S) PO BID 04/17/2017 01/11/2018 Inactive Replacing atenolol due to availability Patient requests 90 days supply Coreg 12.5 mg tablet RxNorm: 847354 Tablet(s) 1 TABLET(S) PO BID 04/16/2017 04/16/2017 Inactive Replacing atenolol due to availability Coreg 12.5 mg tablet RxNorm: 249702 Tablet(s) 1.5 TABLET(S) PO BID 03/17/2017 No Stop Date Active Replacing atenolol due to availability Patient requests 90 days supply Coreg 12.5 mg tablet RxNorm: 790461 1 TABLET(S) PO BID 02/20/2017 04/15/2017 Inactive Replacing atenolol due to availability Coreg 12.5 mg tablet RxNorm: 891615 1 TABLET(S) PO BID 01/23/2017 03/16/2017 Inactive Replacing atenolol due to availabilityPatient requests 90 days supply Coreg 12.5 mg tablet RxNorm: 311602 1 Tablet(s) PO BID 01/21/2017 01/22/2017 Inactive Replacing atenolol due to availability Coreg 12.5 mg tablet RxNorm: 080341 1 Tablet(s) PO BID 01/21/2017 01/20/2017 Inactive Replacing atenolol due to availability atenolol 100 mg tablet RxNorm: 683612 TAKE 1 TABLET BY MOUTH EVERY DAY 01/20/2017 01/20/2017 In active mupirocin 2 % topica l ointment RxNorm: 042338 1 Application TOP BID 12/25/2016 12/31/2016 Inactive Voltaren 1 % topical gel RxNorm: 269093 2 TOP TID 10/31/2016 11/29/2016 Inactive amlodipine 10 mg tablet RxNorm: 639932 1 Tablet(s) PO daily 10/03/2016 03/31/2017 Inactive amlodipine 5 mg tablet RxNorm: 988380 1 Tablet(s) PO daily 06/12/2016 10/02/2016 Inactive aspirin 81 mg tablet ,delayed release RxNorm: 421457 1 Tablet(s) PO daily No Start Date Active atenolol 100 mg tablet RxNorm: 239873 1 Tablet(s) PO daily No Start Date 01/19/2017 Inactive amlodipine 5 mg tablet RxNorm: 159498 1 Tablet(s) PO daily No Start Date 06/11/2016 Inactive Medication Administered No Medication Administered data Immunizations Vaccine Codes Date Status Pneumococcal CVX: 133 completed Assessments Condition Codes Effectiv e Dates Essential (primary) hypertension ICD -10: I10 ICD-9: 401.1 06/25/2018 Dysphagia, oropharyngeal phase ICD-1 0: R13.12 ICD-9: [...] 06/01/2018 Lipid Ord30 C/HDL 3.4 Ratio 06/01/2018 Tsh Ord6 TSH (3rd IS) 3.50 uIU/mL 06/01/2018 Comp Metabolic Lqa294 NA 142 mEq/L 06/01/2018 Comp Metabolic Wcs033 K 4.3 mEq/L 06/01/2018 Comp Metabolic Czt952 CL 105 mEq/L 06/01/2018 Comp Metabolic Hgk499 CO2 27.0 mEq/L 06/01/2018 Comp Metabolic Yec218 AN ION GAP 14 06/01/2018 Comp Metabolic Usw830 GL UCOSE 102 mg/dL 06/01/2018 Comp Metabolic Ttt097 Cr eat 0.9 mg/dL 06/01/2018 Comp Metabolic Pdf715 eG FR 66 ml/min/1.73m2 06/01 Comp Metabolic Iia545 BUN 14 mg/dL 06/01/2018 Comp Metabolic Pfi107 B/ C Ratio 15.9 Ratio 06/01/2018 Comp Metabolic Ddc726 CA LCIUM 9.9 mg/dL 06/01/2018 Comp Metabolic Lmq610 AL K PHOS 97 U/L 06/01/2018 Comp Metabolic Xsh834 T(SGOT) 24 U/L 06/01/2018 Comp Metabolic Gab656 AL T(SGPT) 17 U/L 06/01/2018 Comp Metabolic Lgz601 BI LI T 0.6 mg/dL 06/01/2018 Comp Metabolic Lhb647 AL BUMIN 4.3 g/dL 06/01/2018 Comp Metabolic Uvf604 TP RO 7.0 g/dL 06/01/2018 Comp Metabolic Lfh912 GL OB 2.7 g/dL 06/01/2018 Comp Metabolic Qkj026 A/ G Ratio 1.6 Ratio 06/01/2018 Comp Metabolic Ool181 Os mo 284 mOsmo 06/01/2018 Cbc With Differential Ord2 WBC 8.06 [...] 30.2 pg 06/01/2018 Cbc With Differential Ord2 Haralson% 9.3 % 06/01/2018 Cbc With Differential Ord2 MCHC 32.2 pg 06/01/2018 Cbc With Differential Ord2 Eos% 2.4 % 06/01/2018 Cbc With Differential Ord2 Baso% 0.5 % 06/01/2018 Cbc With Differential Ord2 PLT 291 K/ul 06/01/2018 Cbc With Differential Ord2 RDW 13.6 % 06/01/2018 Cbc With Differential Ord2 Neut ABS# 6.17 K/ul 06/01/2018 Cbc With Differential Ord2 Lymph ABS# 0.91 K/ul 06/01/2018 Cbc With Differential Ord2 Haralson ABS# 0.8 K/ul 06/01/2018 Cbc With Differential Ord2 Eos ABS# 0.2 K/ul 06/01/2018 Cbc With Differential Ord2 Baso ABS# 0.0 K/ul 06/01/2018 Comp Metabolic Vaz996 NA 140 mEq/L 06/19/2016 Comp Metabolic Ixp776 K 4.1 mEq/L 06/19/2016 Comp Metabolic Zsi008 CL 104 mEq/L 06/19/2016 Comp Metabolic Wjc450 CO2 27.0 mEq/L 06/19/2016 Comp Metabolic Pql024 AN ION GAP 13 06/19/2016 Comp Metabolic Qvg977 GL UCOSE 107 mg/dL 06/19/2016 Comp Metabolic Hqi229 Cr eat 0.7 mg/dL 06/19/2016 Comp Metabolic Etx580 eG FR 83 ml/min/1.73m2 06/19 Comp Metabolic Lrb129 BUN 17 mg/dL 06/19/2016 Comp Metabolic Hdy081 B/ C Ratio 23.3 Ratio 06/19/2016 Comp Metabolic Kos730 CA LCIUM 9.5 mg/dL 06/19/2016 Comp Metabolic Xkg659 AL K PHOS 88 U/L 06/19/2016 Comp Metabolic Gqk418 T(SGOT) 28 U/L 06/19/2016 Comp Metabolic Usb613 AL T(SGPT) 18 U/L 06/19/2016 Comp Metabolic Svh019 BI LI T 0.5 mg/dL 06/19/2016 Comp Metabolic Xib597 AL BUMIN 4.2 g/dL 06/19/2016 Comp Metabolic Tui799 TP RO 6.7 g/dL 06/19/2016 Comp Metabolic Tgl677 GL OB 2.5 g/dL 06/19/2016 Comp Metabolic Gpd861 A/ G Ratio 1.7 Ratio 06/19/2016 Comp Metabolic Twm636 Os mo 281 mOsmo 06/19/2016 Lipid Ord30 CHOL 230 mg/dL 06/19/2016 Lipid Ord30 HDL 68.0 mg/dl 06/19/2016 Lipid Ord30 TRIG 85 mg/dL 06/19/2016 Lipid Ord30 LDL 145 mg/dL 06/19/2016 Lipid Ord30 C/HDL 3.4 Ratio 06/19/2016 Cbc With Differential Ord2 WBC 4.96 [...] 30.4 pg 06/19/2016 Cbc With Differential Ord2 Haralson% 15.5 % 06/19/2016 Cbc With Differential Ord2 [...] 1.06 K/ul 06/19/2016 Cbc With Differential Ord2 Haralson ABS# 0.8 K/ul 06/19/2016 Cbc With Differential Ord2 Eos ABS# 0.2 K/ul 06/19/2016 Cbc With Differential Ord2 Baso ABS# 0.0 K/ul 06/19/2016 Tsh Ord6 hTSH II 2.22 uIU/mL 06/19/2016 Review of Systems System Result Effective [...] lips 07/11/2017 None Full Exam - General 1995 [...] 4: G0439 07/11/2017 DRAIN/INJECT JOINT/B URSA CPT-4: 14407 10/11/2016 Vital Signs Date Vital 06/25/2018 Blood Pressure 1: 150/80 Code: 8480-6 BMI: 20.2 Code: 66534-0 Heart Rate 1: 84 bpm Height: 5'1" SpO2: 98% Weight: 107 lbs 05/25/2018 Blood Pressure 1: 152/84 Code: 8480-6 BMI: 20.8 Code: 30290-0 Heart Rate 1: 81 bpm Height: 5'1" SpO2: 98% Weight: 110 lbs 07/11/2017 Blood Pressure 1: 120/76 Code: 8480-6 BMI: 20.6 Code: 00117-8 Heart Rate 1: 72 bpm Height: 5'1" SpO2: 96% Waist Measure (cm): 66 cm Weight: 109 lbs 04/08/2017 Blood Pressure 1: 134/68 Code: 8480-6 BMI: 20.2 Code: 86613-1 Heart Rate 1: 75 bpm Height: 5'1" SpO2: 97% Weight: 107 lbs 03/17/2017 Blood Pressure 1: 156/90 Code: 8480-6 Heart Rate 1: 83 bpm Height: SpO2: 96% Weight: 01/31/2017 Blood Pressure 1: 132/68 Code: 8480-6 Heart Rate 1: 88 bpm SpO2: 98% 12/25/2016 Blood Pressure 1: 154/74 Code: 8480-6 BMI: 20.0 Code: 91008-9 Heart Rate 1: 74 bpm Height: 5'1" SpO2: 96% Weight: 106 lbs 10/31/2016 Blood Pressure 1: 138/82 Code: 8480-6 BMI: 20.2 Code: 35106-5 Heart Rate 1: 76 bpm Height: 5'1" SpO2: 96% Weight: 107 lbs 10/11/2016 Blood Pressure 1: 134/70 Code: 8480-6 Heart Rate 1: 69 bpm Height: 5'1" SpO2: 95% Weight: 10/03/2016 Blood Pressure 1: 164/88 Code: 8480-6 BMI: 20.2 Code: 63629-6 Heart Rate 1: 70 bpm Height: 5'1" SpO2: 97% Weight: 107 lbs 06/12/2016 Blood Pressure 1: 144/88 Code: 8480-6 BMI: 20.6 Code: 78347-2 Heart Rate 1: 79 bpm Height: 5'1" [...] Encounters Encounter Performer Loca tion Codes Date ([id number]) 61973 EST. P ATIENT, LEVEL III Diagnosis: Essential (primary) hypertension[ICD10: I10] Diagnosis: Dysphagia, oropharyngeal phase[ICD10: R13.12] Heaven Dalal MD, [facility] CPT-4: 58048 06/25/2018 ([id number]) 09367 EST. P ATIENT, LEVEL IV Diagnosis: Essential (primary) hypertension[ICD10: I10] Diagnosis: Dysphagia, oropharyngeal phase[ICD10: R13.12] Diagnosis: Mixed hyperlipidemia[ICD10: E78.2] Heaven Dalal MD, [facility] CPT-4: 08035 05/25/2018 ([id number]) 90278 EST. P ATIENT, LEVEL III Diagnosis: Essential (primary) hypertension[ICD10: I10] Morena Dalal MD, [facility] CPT-4: 45621 04/08/2017 ([id number]) Miscellaneou s no charge Diagnosis: Essential (primary) hypertension[ICD10: I10] Heaven Dalal MD, [facility] CPT-4: 67303 03/17/2017 ([id number]) Miscellaneou s no charge Diagnosis: Essential (primary) hypertension[ICD10: I10] Morena Dalal MD, [facility] CPT-4: 62027 01/31/2017 ([id number]) 47031 EST. P ATIENT, LEVEL III Diagnosis: Essential (primary) hypertension[ICD10: I10] Diagnosis: Otalgia, left ear[ICD10: H92.02] [facility] CPT-4: 24055 12/25/2016 ([id number]) 15597 EST. P ATIENT, LEVEL III Diagnosis: Pain in right knee[ICD10: M25.561] [facility] CPT- 4: 30244 10/31/2016 ([id number]) 70531 EST. 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] Diagnosis: Pain in right knee[ICD10: M25.561] [facility] CPT-4: 13501 10/03/2016 OFFICE VISIT, NEW - LEVEL 4 Diagnosis: Essential (primary) hypertension[ICD10: I10] Diagnosis: Pain in right knee[ICD10: M25.561] [facility] CPT-4: 88255 06/12/2016 Plan of Care Planned Activity Notes [...] swallow study 06/25/2018 Appointment: Heaven Mon WPtel: [address] [place], [place] [phone] (15 min) Moderate 06/25/2018 Patient Education: Patient [...] not improve 05/25/2018 Appointment: Heaven Mon WPtel: [facility] [phone] (30 min) Complex 05/25/2018 Patient Education: Patient [...] care surrogate. 07/11/2017 Appointment: Heaven Mon WPtel: [address] [place], [place] [phone] [facility] - Annual Wellness Visit 07/11/2017 Patient Education: Patient Medication Summary Completed 07/11/2017 Appointment: Janee Casillas WPtel: [address] [place], [place] [phone] [facility] - Annual Wellness Visit 07/01/2017 Visit Plan: Hypertension - well con trolled - continue with current medications, continue with no added salt diet. Pt has been encouraged to exercise daily. The pt has been advised to call the office if there are any acute concerns about change in blood pressure readings at home. 04/08/2017 Appointment: Morena Dalal WPtel: [address] [place], [place] [phone] (15 min) Moderate 04/08/2017 Patient Education: Patient [...] voltaren gel. 12/25/2016 Appointment: Morena Dalal WPtel: [facility] [place] (15 min) Moderate 12/25/2016 Patient Education: Patient Medication Summary Completed 12/25/2016 Appointment: Heaven Mon WPtel: [address] [place], [place] [phone] [place] (30 min) Complex 11/07/2016 Visit Plan: Bursitis of knee - Louis mmended voltaren gel on knee - RX sent to pharmacy - also recommended pt to do stretching exercise. 10/31/2016 Appointment: Morena Dalal WPtel: [facility] [place] (15 min) Moderate 10/31/2016 Patient Education: Patient Medication Summary Completed 10/31/2016 Visit Plan: Joint Injection - Pt wa s given post - injection instructions. The pt has been advised to use anti-inflammatories post injection today, ice to the injected site, call if redness, warmth, or increased pain occurs at the site of injection. 10/11/2016 Appointment: Heaven Mon WPtel: [facility] [phone] [place] (30 min) Complex 10/11/2016 Patient Education: [...] will consider 10/03/2016 Appointment: Heaven Mon WPtel[facility] [phone] [place] (15 min) Moderate 10/03/2016 Patient [...]
--- OUTSIDE RECORDS SUMMARY | 2019-11-18 01:34 | XMS REPORT | CCD ---
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 Role Phone PP Unavailable CCM Unavailable Summary Purpose Interface Exchange Insurance Providers Payer name Policy type / Coverage type Covered green party ID Effective Begin Date Effective End Date WPS Medicare Part B Medicare Part B [id number] 2018 Unknown [employer] Medicare Part B [id number] 2018 Unknown Family history Father Diagnosis Age At Onset Cancer Unknown Mother Diagnosis Age At Onset Depression Unknown Arthritis Unknown Alcoholism Unknown Hyperlipidemia Unknown Hypertension Unknown Liver Failure Unknown Social History Social History Element Codes Description Effective Dates Marital status Unknown W idowed 06/12/2016 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[address]: 350571025 Never smoker 06/12/2016 Allergies, Adverse Reactions, Alerts [...] Date Stop Date Sta tus Fill Instructions pravastatin 10 mg ta blet RxNorm: 537615 1 Tablet(s) PO QHS 06/04/2018 10/01/2018 Active pravastatin 10 mg ta blet RxNorm: 519824 1 Tablet(s) PO QHS 06/04/2018 06/03/2018 Inactive Coreg 12.5 mg tablet RxNorm: 103157 1 Tablet(s) PO BID TABLET(S) 1 TABLET(S) PO BID 05/25/2018 02/18/2019 Active Replacing atenolol due to availability omeprazole 40 mg cap eloisa,delayed release RxNorm: 225382 1 Capsule(s) PO daily 05/25/2018 09/21/2018 Ac tive Coreg 12.5 mg tablet RxNorm: 056612 TABLET(S) 1 TABLET(S) PO BID 02/19/2018 05/24/2018 Inactive Replacing atenolol due to availability Coreg 12.5 mg tablet RxNorm: 705965 TABLET(S) 1 TABLET(S) PO BID 11/18/2017 02/18/2018 Inactive Replacing atenolol due to availability Coreg 12.5 mg tablet RxNorm: 739044 TABLET(S) 1 TABLET(S) PO BID 08/14/2017 11/17/2017 Inactive Replacing atenolol due to availability amlodipine 10 mg tablet RxNorm: 165952 1 TABLET(S) PO DAILY 05/13/2017 08/05/2018 Active Coreg 12.5 mg tablet RxNorm: 694161 TABLET(S) 1 TABLET(S) PO BID 04/17/2017 01/11/2018 Inactive Replacing atenolol due to availability Patient requests 90 days supply Coreg 12.5 mg tablet RxNorm: 101087 Tablet(s) 1 TABLET(S) PO BID 04/16/2017 04/16/2017 Inactive Replacing atenolol due to availability Coreg 12.5 mg tablet RxNorm: 906696 Tablet(s) 1.5 TABLET(S) PO BID 03/17/2017 No Stop Date Active Replacing atenolol due to availability Patient requests 90 days supply Coreg 12.5 mg tablet RxNorm: 665215 1 TABLET(S) PO BID 02/20/2017 04/15/2017 Inactive Replacing atenolol due to availability Coreg 12.5 mg tablet RxNorm: 226791 1 TABLET(S) PO BID 01/23/2017 03/16/2017 Inactive Replacing atenolol due to availabilityPatient requests 90 days supply Coreg 12.5 mg tablet RxNorm: 117581 1 Tablet(s) PO BID 01/21/2017 01/22/2017 Inactive Replacing atenolol due to availability Coreg 12.5 mg tablet RxNorm: 810300 1 Tablet(s) PO BID 01/21/2017 01/20/2017 Inactive Replacing atenolol due to availability atenolol 100 mg tablet RxNorm: 202577 TAKE 1 TABLET BY MOUTH EVERY DAY 01/20/2017 01/20/2017 In active mupirocin 2 % topica l ointment RxNorm: 527455 1 Application TOP BID 12/25/2016 12/31/2016 Inactive Voltaren 1 % topical gel RxNorm: 926513 2 TOP TID 10/31/2016 11/29/2016 Inactive amlodipine 10 mg tablet RxNorm: 767109 1 Tablet(s) PO daily 10/03/2016 03/31/2017 Inactive amlodipine 5 mg tablet RxNorm: 851254 1 Tablet(s) PO daily 06/12/2016 10/02/2016 Inactive aspirin 81 mg tablet ,delayed release RxNorm: 746301 1 Tablet(s) PO daily No Start Date Active atenolol 100 mg tablet RxNorm: 722344 1 Tablet(s) PO daily No Start Date 01/19/2017 Inactive amlodipine 5 mg tablet RxNorm: 675668 1 Tablet(s) PO daily No Start Date 06/11/2016 Inactive Medication Administered No Medication Administered data Immunizations Vaccine Codes Date Status Pneumococcal CVX: 133 completed Assessments Condition Codes Effectiv e Dates Essential (primary) hypertension ICD -10: I10 ICD-9: 401.1 05/25/2018 Dysphagia, oropharyngeal phase ICD-1 0: R13.12 ICD-9: 787.22 05/25/2018 Mixed hyperlipidemia ICD-10: E78.2 ICD-9: 272.2 05/25/2018 [...] Visit Reason For Visit Effective Dates Notes medication [...] 30.2 pg 06/01/2018 Cbc With Differential Ord2 [place]% 9.3 % 06/01/2018 Cbc With Differential Ord2 [...] 0.91 K/ul 06/01/2018 Cbc With Differential Ord2 [place] ABS# 0.8 K/ul 06/01/2018 Cbc With Differential Ord2 Eos ABS# 0.2 K/ul 06/01/2018 Cbc With Differential Ord2 Baso ABS# 0.0 K/ul 06/01/2018 Tsh Ord6 TSH (3rd IS) 3.50 uIU/mL 06/01/2018 Comp Metabolic Ujw097 NA 142 mEq/L 06/01/2018 Comp Metabolic Bvu598 K 4.3 mEq/L 06/01/2018 Comp Metabolic Ghh621 CL 105 mEq/L 06/01/2018 Comp Metabolic Cgy736 CO2 27.0 mEq/L 06/01/2018 Comp Metabolic Rgd991 AN ION GAP 14 06/01/2018 Comp Metabolic Jci904 GL UCOSE 102 mg/dL 06/01/2018 Comp Metabolic Cgt741 Cr eat 0.9 mg/dL 06/01/2018 Comp Metabolic Egj294 eG FR 66 ml/min/1.73m2 06/01 Comp Metabolic Wcz618 BUN 14 mg/dL 06/01/2018 Comp Metabolic Wcv770 B/ C Ratio 15.9 Ratio 06/01/2018 Comp Metabolic Btg811 CA LCIUM 9.9 mg/dL 06/01/2018 Comp Metabolic Xpv415 AL K PHOS 97 U/L 06/01/2018 Comp Metabolic Qje747 T(SGOT) 24 U/L 06/01/2018 Comp Metabolic Qoc044 AL T(SGPT) 17 U/L 06/01/2018 Comp Metabolic Yvt093 BI LI T 0.6 mg/dL 06/01/2018 Comp Metabolic Ysa245 AL BUMIN 4.3 g/dL 06/01/2018 Comp Metabolic Nfe929 TP RO 7.0 g/dL 06/01/2018 Comp Metabolic Zqh267 GL OB 2.7 g/dL 06/01/2018 Comp Metabolic Fzw903 A/ G Ratio 1.6 Ratio 06/01/2018 Comp Metabolic Ojd910 Os mo 284 mOsmo 06/01/2018 Tsh Ord6 hTSH II 2.22 uIU/mL 06/19/2016 Comp Metabolic Ugd420 NA 140 mEq/L 06/19/2016 Comp Metabolic Cxk515 K 4.1 mEq/L 06/19/2016 Comp Metabolic Ejb997 CL 104 mEq/L 06/19/2016 Comp Metabolic Vuf048 CO2 27.0 mEq/L 06/19/2016 Comp Metabolic Tko755 AN ION GAP 13 06/19/2016 Comp Metabolic Ehv663 GL UCOSE 107 mg/dL 06/19/2016 Comp Metabolic Wyh685 Cr eat 0.7 mg/dL 06/19/2016 Comp Metabolic Pos751 eG FR 83 ml/min/1.73m2 06/19 Comp Metabolic Bso498 BUN 17 mg/dL 06/19/2016 Comp Metabolic Ezl564 B/ C Ratio 23.3 Ratio 06/19/2016 Comp Metabolic Ors971 CA LCIUM 9.5 mg/dL 06/19/2016 Comp Metabolic Zyf714 AL K PHOS 88 U/L 06/19/2016 Comp Metabolic Crv801 T(SGOT) 28 U/L 06/19/2016 Comp Metabolic Xpe655 AL T(SGPT) 18 U/L 06/19/2016 Comp Metabolic Wid195 BI LI T 0.5 mg/dL 06/19/2016 Comp Metabolic Nhj555 AL BUMIN 4.2 g/dL 06/19/2016 Comp Metabolic Usb251 TP RO 6.7 g/dL 06/19/2016 Comp Metabolic Qoh024 GL OB 2.5 g/dL 06/19/2016 Comp Metabolic Wjw983 A/ G Ratio 1.7 Ratio 06/19/2016 Comp Metabolic Zfn809 Os mo 281 mOsmo 06/19/2016 Cbc With [...] 21.4 % 06/19/2016 Cbc With Differential Ord2 [place]% 15.5 % 06/19/2016 Cbc With Differential Ord2 [...] 1.06 K/ul 06/19/2016 Cbc With Differential Ord2 [place] ABS# 0.8 K/ul 06/19/2016 Cbc With Differential Ord2 Eos ABS# 0.2 K/ul 06/19/2016 Cbc With Differential Ord2 Baso ABS# 0.0 K/ul 06/19/2016 Lipid Ord30 CHOL 230 mg/dL 06/19/2016 Lipid Ord30 HDL 68.0 mg/dl 06/19/2016 Lipid Ord30 TRIG 85 mg/dL 06/19/2016 Lipid Ord30 LDL 145 mg/dL 06/19/2016 Lipid Ord30 C/HDL 3.4 Ratio 06/19/2016 Review of Systems System Result Effective Dates Constitutional No recent illness 05/25/2018 Constitutional No [...] 4: G0439 07/11/2017 DRAIN/INJECT JOINT/B URSA CPT-4: 23833 10/11/2016 Vital Signs Date Vital 05/25/2018 Blood Pressure 1: 152/84 Code: 8480-6 BMI: 20.8 Code: 00668-9 Heart Rate 1: 81 bpm Height: 5'1" SpO2: 98% Weight: 110 lbs 07/11/2017 Blood Pressure 1: 120/76 Code: 8480-6 BMI: 20.6 Code: 73823-5 Heart Rate 1: 72 bpm Height: 5'1" SpO2: 96% Waist Measure (cm): 66 cm Weight: 109 lbs 04/08/2017 Blood Pressure 1: 134/68 Code: 8480-6 BMI: 20.2 Code: 17826-8 Heart Rate 1: 75 bpm Height: 5'1" SpO2: 97% Weight: 107 lbs 03/17/2017 Blood Pressure 1: 156/90 Code: 8480-6 Heart Rate 1: 83 bpm Height: SpO2: 96% Weight: 01/31/2017 Blood Pressure 1: 132/68 Code: 8480-6 Heart Rate 1: 88 bpm SpO2: 98% 12/25/2016 Blood Pressure 1: 154/74 Code: 8480-6 BMI: 20.0 Code: 28579-1 Heart Rate 1: 74 bpm Height: 5'1" SpO2: 96% Weight: 106 lbs 10/31/2016 Blood Pressure 1: 138/82 Code: 8480-6 BMI: 20.2 Code: 99508-1 Heart Rate 1: 76 bpm Height: 5'1" SpO2: 96% Weight: 107 lbs 10/11/2016 Blood Pressure 1: 134/70 Code: 8480-6 Heart Rate 1: 69 bpm Height: 5'1" SpO2: 95% Weight: 10/03/2016 Blood Pressure 1: 164/88 Code: 8480-6 BMI: 20.2 Code: 96908-0 Heart Rate 1: 70 bpm Height: 5'1" SpO2: 97% Weight: 107 lbs 06/12/2016 Blood Pressure 1: 144/88 Code: 8480-6 BMI: 20.6 Code: 07939-5 Heart Rate 1: 79 bpm Height: 5'1" SpO2: 97% Weight: 109 lbs Functional Status No Functional Status data History of Present Illness Symptom Name Status Resu lt Effective Date Notes Additional Comments me dication use 05/25/2018 None [...] Encounters Encounter Performer Loca tion Codes Date ([id number]) 19323 EST. [facility] Diagnosis: Essential (primary) hypertension[ICD10: I10] Diagnosis: Dysphagia, oropharyngeal phase[ICD10: R13.12] Diagnosis: Mixed hyperlipidemia[ICD10: E78.2] Heaven Dalal MD, [facility] CPT-4: 01449 05/25/2018 ([id number]) 67024 EST. [facility] Diagnosis: Essential (primary) hypertension[ICD10: I10] Morena Dalal MD, C CPT-4: 40185 04/08/2017 ([id number]) Miscellaneou s no charge Diagnosis: Essential (primary) hypertension[ICD10: I10] Heaven Dalal MD, [facility] CPT-4: 86543 03/17/2017 ([id number]) Miscellaneou s no charge Diagnosis: Essential (primary) hypertension[ICD10: I10] Morena Dalal MD, LL C CPT-4: 41707 01/31/2017 ([id number]) 95740 EST. P ATIENT, LEVEL III Diagnosis: Essential (primary) hypertension[ICD10: I10] Diagnosis: Otalgia, left ear[ICD10: H92.02] Morena Dalal MD, [facility] CPT-4: 08810 12/25/2016 ([id number]) 62528 EST. P ATIENT, LEVEL III Diagnosis: Pain in right knee[ICD10: M25.561] Morena Dalal MD, [facility] CPT- 4: 32887 10/31/2016 ([id number]) 72376 EST. 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] Diagnosis: Pain in right knee[ICD10: M25.561] Heaven Dalal MD, [facility] CPT-4: 43758 10/03/2016 OFFICE VISIT, NEW - LEVEL 4 Diagnosis: Essential (primary) hypertension[ICD10: I10] Diagnosis: Pain in right knee[ICD10: M25.561] Janee Dalal MD, [facility] CPT-4: 35367 06/12/2016 Plan of Care Planned Activity Notes C odes Status Date Visit Plan: Hypertension - not well controlled [...] not improve 05/25/2018 Appointment: Heaven Mon WPtel: [address] [place], [place] [phone] (30 min) [facility] 05/25/2018 Patient Education: Patient Medication Summary Completed [...] care surrogate. 07/11/2017 Appointment: Heaven Mon WPtel: [phone] [phone] [place] [address] - Annual Wellness Visit 07/11/2017 Patient Education: Patient Medication Summary Completed 07/11/2017 Appointment: Janee Casillas WPtel: [facility]9 [facility] [facility] - Annual Wellness Visit 07/01/2017 Visit Plan: Hypertension - well con trolled - continue with current medications, continue with no added salt diet. Pt has been encouraged to exercise daily. The pt has been advised to call the office if there are any acute concerns about change in blood pressure readings at home. 04/08/2017 Appointment: Morena Dalal WPtel: [facility]5 [facility] (15 min) Moderate 04/08/2017 Patient Education: [...] voltaren gel. 12/25/2016 Appointment: Morena Dalal WPtel: [address] [place], [place] [id number] (15 min) Moderate 12/25/2016 Patient Education: Patient Medication Summary Completed 12/25/2016 Appointment: Heaven Mon WPtel: [facility]6 [phone] [place] (30 min) Complex 11/07/2016 Visit Plan: Bursitis of knee - Louis mmended voltaren gel on knee - RX sent to pharmacy - also recommended pt to do stretching exercise. 10/31/2016 Appointment: Morena Dalal WPtel: [facility]0 [facility]66[facility] (15 min) Moderate 10/31/2016 Patient Education: Patient Medication Summary Completed 10/31/2016 Visit Plan: Joint Injection - Pt wa s given post - injection instructions. The pt has been advised to use anti-inflammatories post injection today, ice to the injected site, call if redness, warmth, or increased pain occurs at the site of injection. 10/11/2016 Appointment: Heaven Mon WPtel: [facility]1 [phone] [place] (30 min) Complex 10/11/2016 Patient Education: [...] will consider 10/03/2016 Appointment: Heaven Mon WPtel[phone] [place] (15 min) Moderate 10/03/2016 Patient Education: [...]
--- OUTSIDE RECORDS SUMMARY | 2019-11-18 01:34 | XMS REPORT | CCD ---
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 Role Phone PP Unavailable CCM Unavailable Summary Purpose Interface Exchange Insurance Providers Payer name Policy type / Coverage type Covered republican ID Effective Begin Date Effective End Date WPS Medicare Part B Medicare Part B [id number] 2018 Unknown [employer] and Life Medicare Part B [id number] 2018 Unknown Family history Father Diagnosis Age At Onset Cancer Unknown Mother Diagnosis Age At Onset Depression Unknown Arthritis Unknown Alcoholism Unknown Hyperlipidemia Unknown Hypertension Unknown Liver Failure Unknown Social History Social History Element Codes Description Effective Dates Marital status Unknown W idowed 06/12/2016 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[address]: 248625773 Never smoker 06/12/2016 Allergies, Adverse Reactions, Alerts [...] Fill Instructions Coreg 12.5 mg tablet RxNorm: 628068 2 Tablet(s) PO UD 06/25/2018 03/21/2019 Active 1 q am an 2 q pm Coreg 12.5 mg tablet RxNorm: 351541 2 Tablet(s) PO BID TABLET(S) 1 TABLET(S) PO BID 06/25/2018 06/24/2018 Inactive pravastatin 10 mg ta blet RxNorm: 588589 1 Tablet(s) PO QHS 06/04/2018 10/01/2018 Active pravastatin 10 mg ta blet RxNorm: 567062 1 Tablet(s) PO QHS 06/04/2018 06/03/2018 Inactive omeprazole 40 mg cap eloisa,delayed release RxNorm: 242240 1 Capsule(s) PO daily 05/25/2018 09/21/2018 Ac tive Coreg 12.5 mg tablet RxNorm: 387929 1 Tablet(s) PO BID TABLET(S) 1 TABLET(S) PO BID 05/25/2018 06/24/2018 Inactive Replacing atenolol due to availability Coreg 12.5 mg tablet RxNorm: 587502 TABLET(S) 1 TABLET(S) PO BID 02/19/2018 05/24/2018 Inactive Replacing atenolol due to availability Coreg 12.5 mg tablet RxNorm: 106791 TABLET(S) 1 TABLET(S) PO BID 11/18/2017 02/18/2018 Inactive Replacing atenolol due to availability Coreg 12.5 mg tablet RxNorm: 294853 TABLET(S) 1 TABLET(S) PO BID 08/14/2017 11/17/2017 Inactive Replacing atenolol due to availability amlodipine 10 mg tablet RxNorm: 736941 1 TABLET(S) PO DAILY 05/13/2017 08/05/2018 Active Coreg 12.5 mg tablet RxNorm: 824683 TABLET(S) 1 TABLET(S) PO BID 04/17/2017 01/11/2018 Inactive Replacing atenolol due to availability Patient requests 90 days supply Coreg 12.5 mg tablet RxNorm: 318072 Tablet(s) 1 TABLET(S) PO BID 04/16/2017 04/16/2017 Inactive Replacing atenolol due to availability Coreg 12.5 mg tablet RxNorm: 808211 Tablet(s) 1.5 TABLET(S) PO BID 03/17/2017 No Stop Date Active Replacing atenolol due to availability Patient requests 90 days supply Coreg 12.5 mg tablet RxNorm: 372493 1 TABLET(S) PO BID 02/20/2017 04/15/2017 Inactive Replacing atenolol due to availability Coreg 12.5 mg tablet RxNorm: 194397 1 TABLET(S) PO BID 01/23/2017 03/16/2017 Inactive Replacing atenolol due to availabilityPatient requests 90 days supply Coreg 12.5 mg tablet RxNorm: 660928 1 Tablet(s) PO BID 01/21/2017 01/22/2017 Inactive Replacing atenolol due to availability Coreg 12.5 mg tablet RxNorm: 053147 1 Tablet(s) PO BID 01/21/2017 01/20/2017 Inactive Replacing atenolol due to availability atenolol 100 mg tablet RxNorm: 195024 TAKE 1 TABLET BY MOUTH EVERY DAY 01/20/2017 01/20/2017 In active mupirocin 2 % topica l ointment RxNorm: 837924 1 Application TOP BID 12/25/2016 12/31/2016 Inactive Voltaren 1 % topical gel RxNorm: 582985 2 TOP TID 10/31/2016 11/29/2016 Inactive amlodipine 10 mg tablet RxNorm: 978250 1 Tablet(s) PO daily 10/03/2016 03/31/2017 Inactive amlodipine 5 mg tablet RxNorm: 719670 1 Tablet(s) PO daily 06/12/2016 10/02/2016 Inactive aspirin 81 mg tablet ,delayed release RxNorm: 045990 1 Tablet(s) PO daily No Start Date Active atenolol 100 mg tablet RxNorm: 584341 1 Tablet(s) PO daily No Start Date 01/19/2017 Inactive amlodipine 5 mg tablet RxNorm: 552042 1 Tablet(s) PO daily No Start Date [...] 30.2 pg 06/01/2018 Cbc With Differential Ord2 [place]% 9.3 % 06/01/2018 Cbc With Differential Ord2 [...] 0.91 K/ul 06/01/2018 Cbc With Differential Ord2 [place] ABS# 0.8 K/ul 06/01/2018 Cbc With Differential Ord2 Eos ABS# 0.2 K/ul 06/01/2018 Cbc With Differential Ord2 Baso ABS# 0.0 K/ul 06/01/2018 Tsh Ord6 TSH (3rd IS) 3.50 uIU/mL 06/01/2018 Comp Metabolic Znc095 NA 142 mEq/L 06/01/2018 Comp Metabolic Ifg008 K 4.3 mEq/L 06/01/2018 Comp Metabolic Gaz411 CL 105 mEq/L 06/01/2018 Comp Metabolic Pyj648 CO2 27.0 mEq/L 06/01/2018 Comp Metabolic Kjf584 AN ION GAP 14 06/01/2018 Comp Metabolic Pxe341 GL UCOSE 102 mg/dL 06/01/2018 Comp Metabolic Fap454 Cr eat 0.9 mg/dL 06/01/2018 Comp Metabolic Zge648 eG FR 66 ml/min/1.73m2 06/01 Comp Metabolic Jdg522 BUN 14 mg/dL 06/01/2018 Comp Metabolic Nke752 B/ C Ratio 15.9 Ratio 06/01/2018 Comp Metabolic Iro338 CA LCIUM 9.9 mg/dL 06/01/2018 Comp Metabolic Nqi360 AL K PHOS 97 U/L 06/01/2018 Comp Metabolic Mse414 T(SGOT) 24 U/L 06/01/2018 Comp Metabolic Krz113 AL T(SGPT) 17 U/L 06/01/2018 Comp Metabolic Dso066 BI LI T 0.6 mg/dL 06/01/2018 Comp Metabolic Vxh411 AL BUMIN 4.3 g/dL 06/01/2018 Comp Metabolic Eaq376 TP RO 7.0 g/dL 06/01/2018 Comp Metabolic Vof348 GL OB 2.7 g/dL 06/01/2018 Comp Metabolic Xbk633 A/ G Ratio 1.6 Ratio 06/01/2018 Comp Metabolic Twk066 Os mo 284 mOsmo 06/01/2018 Tsh Ord6 hTSH II 2.22 uIU/mL 06/19/2016 Comp Metabolic Xto523 NA 140 mEq/L 06/19/2016 Comp Metabolic Hwg180 K 4.1 mEq/L 06/19/2016 Comp Metabolic Smc743 CL 104 mEq/L 06/19/2016 Comp Metabolic Plv661 CO2 27.0 mEq/L 06/19/2016 Comp Metabolic Tsg216 AN ION GAP 13 06/19/2016 Comp Metabolic Tao992 GL UCOSE 107 mg/dL 06/19/2016 Comp Metabolic Vad726 Cr eat 0.7 mg/dL 06/19/2016 Comp Metabolic Nrm825 eG FR 83 ml/min/1.73m2 06/19 Comp Metabolic Fbb227 BUN 17 mg/dL 06/19/2016 Comp Metabolic Ime545 B/ C Ratio 23.3 Ratio 06/19/2016 Comp Metabolic Jxl890 CA LCIUM 9.5 mg/dL 06/19/2016 Comp Metabolic Aba928 AL K PHOS 88 U/L 06/19/2016 Comp Metabolic Dbg400 T(SGOT) 28 U/L 06/19/2016 Comp Metabolic Jvv645 AL T(SGPT) 18 U/L 06/19/2016 Comp Metabolic Zbe443 BI LI T 0.5 mg/dL 06/19/2016 Comp Metabolic Tga622 AL BUMIN 4.2 g/dL 06/19/2016 Comp Metabolic Ubi477 TP RO 6.7 g/dL 06/19/2016 Comp Metabolic Iep870 GL OB 2.5 g/dL 06/19/2016 Comp Metabolic Jar667 A/ G Ratio 1.7 Ratio 06/19/2016 Comp Metabolic Tte752 Os mo 281 mOsmo 06/19/2016 Cbc With [...] 21.4 % 06/19/2016 Cbc With Differential Ord2 [place]% 15.5 % 06/19/2016 Cbc With Differential Ord2 [...] 1.06 K/ul 06/19/2016 Cbc With Differential Ord2 [place] ABS# 0.8 K/ul 06/19/2016 Cbc With Differential [...] 4: G0439 07/11/2017 DRAIN/INJECT JOINT/B URSA CPT-4: 11576 10/11/2016 Vital Signs Date Vital 06/25/2018 Blood Pressure 1: 150/80 Code: 8480-6 BMI: 20.2 Code: 19565-6 Heart Rate 1: 84 bpm Height: 5'1" SpO2: 98% Weight: 107 lbs 05/25/2018 Blood Pressure 1: 152/84 Code: 8480-6 BMI: 20.8 Code: 30787-8 Heart Rate 1: 81 bpm Height: 5'1" SpO2: 98% Weight: 110 lbs 07/11/2017 Blood Pressure 1: 120/76 Code: 8480-6 BMI: 20.6 Code: 18078-0 Heart Rate 1: 72 bpm Height: 5'1" SpO2: 96% Waist Measure (cm): 66 cm Weight: 109 lbs 04/08/2017 Blood Pressure 1: 134/68 Code: 8480-6 BMI: 20.2 Code: 75006-3 Heart Rate 1: 75 bpm Height: 5'1" SpO2: 97% Weight: 107 lbs 03/17/2017 Blood Pressure 1: 156/90 Code: 8480-6 Heart Rate 1: 83 bpm Height: SpO2: 96% Weight: 01/31/2017 Blood Pressure 1: 132/68 Code: 8480-6 Heart Rate 1: 88 bpm SpO2: 98% 12/25/2016 Blood Pressure 1: 154/74 Code: 8480-6 BMI: 20.0 Code: 59941-0 Heart Rate 1: 74 bpm Height: 5'1" SpO2: 96% Weight: 106 lbs 10/31/2016 Blood Pressure 1: 138/82 Code: 8480-6 BMI: 20.2 Code: 85300-3 Heart Rate 1: 76 bpm Height: 5'1" SpO2: 96% Weight: 107 lbs 10/11/2016 Blood Pressure 1: 134/70 Code: 8480-6 Heart Rate 1: 69 bpm Height: 5'1" SpO2: 95% Weight: 10/03/2016 Blood Pressure 1: 164/88 Code: 8480-6 BMI: 20.2 Code: 25763-2 Heart Rate 1: 70 bpm Height: 5'1" SpO2: 97% Weight: 107 lbs 06/12/2016 Blood Pressure 1: 144/88 Code: 8480-6 BMI: 20.6 Code: 26473-5 Heart Rate 1: 79 bpm Height: 5'1" [...] Encounters Encounter Performer Loca tion Codes Date ([id number]) 66680 EST. P ATIENT, LEVEL III Diagnosis: Essential (primary) hypertension[ICD10: I10] Diagnosis: Dysphagia, oropharyngeal phase[ICD10: R13.12] Heaven Dalal MD, [facility] CPT-4: 74239 06/25/2018 ([id number]) 90762 EST. P ATIENT, LEVEL IV Diagnosis: Essential (primary) hypertension[ICD10: I10] Diagnosis: Dysphagia, oropharyngeal phase[ICD10: R13.12] Diagnosis: Mixed hyperlipidemia[ICD10: E78.2] Heaven Dalal MD, [facility] CPT-4: 98184 05/25/2018 ([id number]) 26932 EST. P ATIENT, LEVEL III Diagnosis: Essential (primary) hypertension[ICD10: I10] Morena Dalal MD, [facility] CPT-4: 71269 04/08/2017 ([id number]) Miscellaneou s no charge Diagnosis: Essential (primary) hypertension[ICD10: I10] Heaven Dalal MD, [facility] CPT-4: 28971 03/17/2017 ([id number]) Miscellaneou s no charge Diagnosis: Essential (primary) hypertension[ICD10: I10] Morena Dalal MD, [facility] CPT-4: 01578 01/31/2017 ([id number]) 42535 EST. P ATIENT, LEVEL III Diagnosis: Essential (primary) hypertension[ICD10: I10] Diagnosis: Otalgia, left ear[ICD10: H92.02] Morena Dalal MD, [facility] CPT-4: 63885 12/25/2016 ([id number]) 02606 EST. P ATIENT, LEVEL III Diagnosis: Pain in right knee[ICD10: M25.561] [facility] CPT- 4: 58701 10/31/2016 ([id number]) 21800 EST. 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] Diagnosis: Pain in right knee[ICD10: M25.561] [facility] CPT-4: 06143 10/03/2016 OFFICE VISIT, NEW - LEVEL 4 Diagnosis: Essential (primary) hypertension[ICD10: I10] Diagnosis: Pain in right knee[ICD10: M25.561] [facility] CPT-4: 71090 06/12/2016 Plan of Care Planned Activity Notes [...] not improve 05/25/2018 Appointment: Heaven Mon WPtel: [address] [place], [place] [phone] [place] (30 min) Complex 05/25/2018 Patient Education: [...] care surrogate. 07/11/2017 Appointment: Heaven Mon WPtel: [phone] [phone] [place] [address] - Annual Wellness Visit 07/11/2017 Patient Education: Patient Medication Summary Completed 07/11/2017 Appointment: Janee Casillas WPtel: [facility]5 [facility] [facility] - Annual Wellness Visit 07/01/2017 Visit Plan: Hypertension - well con trolled - continue with current medications, continue with no added salt diet. Pt has been encouraged to exercise daily. The pt has been advised to call the office if there are any acute concerns about change in blood pressure readings at home. 04/08/2017 Appointment: [facility] [phone] [facility] (15 min) Moderate 04/08/2017 Patient [...] gel. 12/25/2016 Appointment: Morena Dalal WPtel: [phone] [facility] (15 min) Moderate 12/25/2016 Patient Education: Patient Medication Summary Completed 12/25/2016 Appointment: Heaven Mon WPtel: [phone] [phone] (30 min) Complex 11/07/2016 Visit Plan: Bursitis of knee - Louis mmended voltaren gel on knee - RX sent to pharmacy - also recommended pt to do stretching exercise. 10/31/2016 Appointment: Morena Dalal WPtel: [facility] (15 min) Moderate 10/31/2016 Patient Education: Patient Medication Summary Completed 10/31/2016 Visit Plan: Joint Injection - Pt wa s given post - injection instructions. The pt has been advised to use anti-inflammatories post injection today, ice to the injected site, call if redness, warmth, or increased pain occurs at the site of injection. 10/11/2016 Appointment: Heaven Mon WPtel: [facility]8 [phone] (30 min) Complex 10/11/2016 Patient Education: [...] consider 10/03/2016 Appointment: Heaven Mon [facility]el[phone] [phone] [place] (15 min) Moderate 10/03/2016 Patient Education: [...]
--- OUTSIDE RECORDS SUMMARY | 2019-11-18 01:35 | XMS REPORT | CCD ---
Author Author Nelly Casillas Organization Morena Dalal MD, [facility] Address [address] [place] [address] Phone Care Team Providers Care Job Placement Specialist Name Role Phone PP Unavailable CCM Unavailable Summary Purpose Interface Exchange Insurance Providers Payer name Policy type / Coverage type Covered green party ID Effective Begin Date Effective End Date WPS Medicare Part B Medicare Part B [id number] 2018 Unknown [employer] and Life Medicare Part B [id number] 2018 Unknown Family history Father Diagnosis Age At Onset Cancer Unknown Mother Diagnosis Age At Onset Depression Unknown Arthritis Unknown Alcoholism Unknown Hyperlipidemia Unknown Hypertension Unknown Liver Failure Unknown Social History Social History Element Codes Description Effective Dates Marital status Unknown W idowed 06/12/2016 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[address]: 610900684 Never smoker 06/12/2016 Allergies, Adverse Reactions, Alerts [...] Fill Instructions Coreg 12.5 mg tablet RxNorm: 330793 1 Tablet(s) PO BID TABLET(S) 1 TABLET(S) PO BID 05/25/2018 02/18/2019 Active Replacing atenolol due to availability omeprazole 40 mg cap eloisa,delayed release RxNorm: 984035 1 Capsule(s) PO daily 05/25/2018 09/21/2018 Ac tive Coreg 12.5 mg tablet RxNorm: 929863 TABLET(S) 1 TABLET(S) PO BID 02/19/2018 05/24/2018 Inactive Replacing atenolol due to availability Coreg 12.5 mg tablet RxNorm: 136095 TABLET(S) 1 TABLET(S) PO BID 11/18/2017 02/18/2018 Inactive Replacing atenolol due to availability Coreg 12.5 mg tablet RxNorm: 513328 TABLET(S) 1 TABLET(S) PO BID 08/14/2017 11/17/2017 Inactive Replacing atenolol due to availability amlodipine 10 mg tablet RxNorm: 146465 1 TABLET(S) PO DAILY 05/13/2017 08/05/2018 Active Coreg 12.5 mg tablet RxNorm: 272552 TABLET(S) 1 TABLET(S) PO BID 04/17/2017 01/11/2018 Inactive Replacing atenolol due to availability Patient requests 90 days supply Coreg 12.5 mg tablet RxNorm: 274948 Tablet(s) 1 TABLET(S) PO BID 04/16/2017 04/16/2017 Inactive Replacing atenolol due to availability Coreg 12.5 mg tablet RxNorm: 957512 Tablet(s) 1.5 TABLET(S) PO BID 03/17/2017 No Stop Date Active Replacing atenolol due to availability Patient requests 90 days supply Coreg 12.5 mg tablet RxNorm: 445225 1 TABLET(S) PO BID 02/20/2017 04/15/2017 Inactive Replacing atenolol due to availability Coreg 12.5 mg tablet RxNorm: 747109 1 TABLET(S) PO BID 01/23/2017 03/16/2017 Inactive Replacing atenolol due to availabilityPatient requests 90 days supply Coreg 12.5 mg tablet RxNorm: 592629 1 Tablet(s) PO BID 01/21/2017 01/22/2017 Inactive Replacing atenolol due to availability Coreg 12.5 mg tablet RxNorm: 585495 1 Tablet(s) PO BID 01/21/2017 01/20/2017 Inactive Replacing atenolol due to availability atenolol 100 mg tablet RxNorm: 951957 TAKE 1 TABLET BY MOUTH EVERY DAY 01/20/2017 01/20/2017 In active mupirocin 2 % topica l ointment RxNorm: 894957 1 Application TOP BID 12/25/2016 12/31/2016 Inactive Voltaren 1 % topical gel RxNorm: 337654 2 TOP TID 10/31/2016 11/29/2016 Inactive amlodipine 10 mg tablet RxNorm: 173067 1 Tablet(s) PO daily 10/03/2016 03/31/2017 Inactive amlodipine 5 mg tablet RxNorm: 345484 1 Tablet(s) PO daily 06/12/2016 10/02/2016 Inactive aspirin 81 mg tablet ,delayed release RxNorm: 426654 1 Tablet(s) PO daily No Start Date Active atenolol 100 mg tablet RxNorm: 180652 1 Tablet(s) PO daily No Start Date 01/19/2017 Inactive amlodipine 5 mg tablet RxNorm: 002977 1 Tablet(s) PO daily No Start Date [...] hTSH II 2.22 uIU/mL 06/19/2016 Comp Metabolic Fon801 NA 140 mEq/L 06/19/2016 Comp Metabolic Rzp223 K 4.1 mEq/L 06/19/2016 Comp Metabolic Bah293 CL 104 mEq/L 06/19/2016 Comp Metabolic Sdc256 CO2 27.0 mEq/L 06/19/2016 Comp Metabolic Cyk134 AN ION GAP 13 06/19/2016 Comp Metabolic Rtn581 GL UCOSE 107 mg/dL 06/19/2016 Comp Metabolic Bik556 Cr eat 0.7 mg/dL 06/19/2016 Comp Metabolic Lkj993 eG FR 83 ml/min/1.73m2 06/19 Comp Metabolic Kcr716 BUN 17 mg/dL 06/19/2016 Comp Metabolic Eof347 B/ C Ratio 23.3 Ratio 06/19/2016 Comp Metabolic Rxz940 CA LCIUM 9.5 mg/dL 06/19/2016 Comp Metabolic Fio406 AL K PHOS 88 U/L 06/19/2016 Comp Metabolic Maj327 T(SGOT) 28 U/L 06/19/2016 Comp Metabolic Hgu268 AL T(SGPT) 18 U/L 06/19/2016 Comp Metabolic Lxx304 BI LI T 0.5 mg/dL 06/19/2016 Comp Metabolic Vwx604 AL BUMIN 4.2 g/dL 06/19/2016 Comp Metabolic Blw750 TP RO 6.7 g/dL 06/19/2016 Comp Metabolic Hvt310 GL OB 2.5 g/dL 06/19/2016 Comp Metabolic Fhz055 A/ G Ratio 1.7 Ratio 06/19/2016 Comp Metabolic Jai129 Os mo 281 mOsmo 06/19/2016 Cbc With [...] 30.4 pg 06/19/2016 Cbc With Differential Ord2 [place]% 15.5 % 06/19/2016 Cbc With Differential Ord2 [...] 1.06 K/ul 06/19/2016 Cbc With Differential Ord2 [place] ABS# 0.8 K/ul 06/19/2016 Cbc With Differential [...] 4: G0439 07/11/2017 DRAIN/INJECT JOINT/B URSA CPT-4: 64922 10/11/2016 Vital Signs Date Vital 05/25/2018 Blood Pressure 1: 152/84 Code: 8480-6 BMI: 20.8 Code: 59731-6 Heart Rate 1: 81 bpm Height: 5'1" SpO2: 98% Weight: 110 lbs 07/11/2017 Blood Pressure 1: 120/76 Code: 8480-6 BMI: 20.6 Code: 34723-4 Heart Rate 1: 72 bpm Height: 5'1" SpO2: 96% Waist Measure (cm): 66 cm Weight: 109 lbs 04/08/2017 Blood Pressure 1: 134/68 Code: 8480-6 BMI: 20.2 Code: 98090-8 Heart Rate 1: 75 bpm Height: 5'1" SpO2: 97% Weight: 107 lbs 03/17/2017 Blood Pressure 1: 156/90 Code: 8480-6 Heart Rate 1: 83 bpm Height: SpO2: 96% Weight: 01/31/2017 Blood Pressure 1: 132/68 Code: 8480-6 Heart Rate 1: 88 bpm SpO2: 98% 12/25/2016 Blood Pressure 1: 154/74 Code: 8480-6 BMI: 20.0 Code: 87743-4 Heart Rate 1: 74 bpm Height: 5'1" SpO2: 96% Weight: 106 lbs 10/31/2016 Blood Pressure 1: 138/82 Code: 8480-6 BMI: 20.2 Code: 47953-6 Heart Rate 1: 76 bpm Height: 5'1" SpO2: 96% Weight: 107 lbs 10/11/2016 Blood Pressure 1: 134/70 Code: 8480-6 Heart Rate 1: 69 bpm Height: 5'1" SpO2: 95% Weight: 10/03/2016 Blood Pressure 1: 164/88 Code: 8480-6 BMI: 20.2 Code: 37987-0 Heart Rate 1: 70 bpm Height: 5'1" SpO2: 97% Weight: 107 lbs 06/12/2016 Blood Pressure 1: 144/88 Code: 8480-6 BMI: 20.6 Code: 60211-5 Heart Rate 1: 79 bpm Height: 5'1" [...] Encounters Encounter Performer Loca tion Codes Date ([id number]) 72139 EST. P ATIENT, LEVEL IV Diagnosis: Essential (primary) hypertension[ICD10: I10] Diagnosis: Dysphagia, oropharyngeal phase[ICD10: R13.12] Diagnosis: Mixed hyperlipidemia[ICD10: E78.2] Heaven Dalal MD, [facility] CPT-4: 30884 05/25/2018 ([id number]) 14549 EST. P ATIENT, LEVEL III Diagnosis: Essential (primary) hypertension[ICD10: I10] Morena Dalal MD, C CPT-4: 21620 04/08/2017 ([id number]) Miscellaneou s no charge Diagnosis: Essential (primary) hypertension[ICD10: I10] Heaven Dalal MD, [facility] CPT-4: 70760 03/17/2017 ([id number]) Miscellaneou s no charge Diagnosis: Essential (primary) hypertension[ICD10: I10] Morena Dalal MD, C CPT-4: 35678 01/31/2017 ([id number]) 19503 EST. P ATIENT, LEVEL III Diagnosis: Essential (primary) hypertension[ICD10: I10] Diagnosis: Otalgia, left ear[ICD10: H92.02] Morena Dalal MD, [facility] CPT-4: 73837 12/25/2016 ([id number]) 88871 EST. P ATIENT, LEVEL III Diagnosis: Pain in right knee[ICD10: M25.561] Morena Dalal MD, [facility] CPT- 4: 99491 10/31/2016 ([id number]) 59774 EST. 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] Diagnosis: Pain in right knee[ICD10: M25.561] Heaven Dalal MD, [facility] CPT-4: 62144 10/03/2016 OFFICE VISIT, NEW - LEVEL 4 Diagnosis: Essential (primary) hypertension[ICD10: I10] Diagnosis: Pain in right knee[ICD10: M25.561] Janee Dalal MD, [facility] CPT-4: 94397 06/12/2016 Plan of Care Planned Activity Notes [...] study if symptoms do not improve 05/25/2018 Patient Education: Patient Medication Summary Completed 05/25/2018 Patient Education: Cholesterol Management Completed 05/25/2018 Care Plan: Comp Metabolic Pending 05/25/2018 Care Plan: Cbc With Differential Pending 05/25/2018 Care Plan: Lipid Pending 05/25/2018 Care Plan: Tsh Pending 05/25/2018 Visit Plan: Medicare Exam - today [...] surrogate. 07/11/2017 Appointment: Heaven [phone] [phone] [facility] - Annual Wellness Visit 07/11/2017 Patient Education: Patient Medication Summary Completed 07/11/2017 Appointment: Janee Casillas WPtel[phone] [facility] [facility] - Annual Wellness Visit 07/01/2017 Visit Plan: Hypertension - well con trolled - continue with current medications, continue with no added salt diet. Pt has been encouraged to exercise daily. The pt has been advised to call the office if there are any acute concerns about change in blood pressure readings at home. 04/08/2017 Appointment: Morena Dalal WPtel: [facility] [place] 2[place]6 [facility] (15 min) Moderate 04/08/2017 Patient Education: Patient [...] 12/25/2016 Appointment: Morena Dalal WPtel: [facility] [place][note 2]6 [facility] [place] (15 min) Moderate 12/25/2016 Patient Education: Patient Medication Summary Completed 12/25/2016 Appointment: Heaven Mon WPtel: [facility] [place][note 2]0 [phone] [place] (30 min) Complex 11/07/2016 Visit Plan: Bursitis of knee - Louis mmended voltaren gel on knee - RX sent to pharmacy - also recommended pt to do stretching exercise. 10/31/2016 Appointment: Morena Dalal WPtel: [facility] [place]note 2] [facility] [place] (15 min) Moderate 10/31/2016 Patient Education: Patient Medication Summary Completed 10/31/2016 Visit Plan: Joint Injection - Pt wa s given post - injection instructions. The pt has been advised to use anti-inflammatories post injection today, ice to the injected site, call if redness, warmth, or increased pain occurs at the site of injection. 10/11/2016 Appointment: Heaven Mon [facility]Ptel[facility] [phone] [phone] (30 min) Complex 10/11/2016 Patient Education: Patient [...] will consider 10/03/2016 Appointment: Heaven Mon [facility]Ptel[phone] (15 min) Moderate 10/03/2016 Patient Education: Patient [...]
--- OUTSIDE RECORDS SUMMARY | 2019-11-18 01:35 | XMS REPORT | Continuity of Care Document ---
Author Organization Unknown Address Unknown Phone Unavailable Allergies Active Description Code Type Severity Reaction Onset Reported/Identified Relationship to Patient Clinical Status Yes No Allergy Information Available [id number] Drug Allergy Unknown N/A 019 Medications There is no data. Problems Date Dx Coded Attending Type Code Diagnosis Diagnosed By 11/08/2015 Ot 272.4 HYPE RLIPIDEMIA NEC/NOS 11/08/2015 Ot 790.4 ELEV TRANSAMINASE/LDH 11/08/2015 Ot V58.69 OTH MED,LT,CURRENT USE 11/08/2015 Ot 272.4 HYPE RLIPIDEMIA NEC/NOS 11/08/2015 Ot 401.9 HYPE RTENSION NOS 11/08/2015 Ot V58.69 OTH MED,LT,CURRENT USE 11/08/2015 Ot 272.4 HYPE RLIPIDEMIA NEC/NOS 11/08/2015 Ot V58.69 OTH MED,LT,CURRENT USE 11/08/2015 BAIMA, JENNIFER L STORM DOOR MAKER Ot 401.9 HYPERTENSION NOS 11/08/2015 BAIMA, JENNIFER L STORM DOOR MAKER Ot 447.9 ARTERIAL DISEASE NOS 11/08/2015 BAIMA, JENNIFER L STORM DOOR MAKER Ot 786.50 CHEST PAIN NOS 11/08/2015 BAIMA, JENNIFER L STORM DOOR MAKER Ot 787.20 DYSPHAGIA, UNSPECIFIED 11/10/2015 NICOLAS ALCANTARA DC Ot M54.1 5 RADICULOPATHY, THORACOLUMBAR REGION 11/10/2015 NICOLAS ALCANTARA DC Ot M54.5 LOW BACK PAIN 11/10/2015 NICOLAS ALCANTARA DC Ot R29.3 ABNORMAL POSTURE 11/14/2015 NICOLAS ALCANTARA DC Ot M54.1 5 RADICULOPATHY, THORACOLUMBAR REGION 11/14/2015 NICOLAS ALCANTARA DC Ot M54.5 LOW BACK PAIN 11/14/2015 NICOLAS ALCANTARA DC Ot R29.3 ABNORMAL POSTURE 12/14/2015 NICOLAS ALCANTARA DC Ot M54.1 5 RADICULOPATHY, THORACOLUMBAR REGION 12/14/2015 NICOLAS ALCANTARA DC Ot M54.5 LOW BACK PAIN 12/14/2015 NICOLAS ALCANTARA DC Ot R29.3 ABNORMAL POSTURE 10/03/2016 Ot 272.4 HYPE RLIPIDEMIA NEC/NOS 10/03/2016 Ot V58.69 OTH MED,LT,CURRENT USE 10/03/2016 BAIMA, JENNIFER L [employer]ORM DOOR MAKER Ot 401.9 HYPERTENSION NOS 10/03/2016 BAIMA, JENNIFER L STORM DOOR MAKER Ot 447.9 ARTERIAL DISEASE NOS 10/03/2016 BAIMA, JENNIFER L STORM DOOR MAKER Ot 786.50 CHEST PAIN NOS 10/03/2016 BAIMA, JENNIFER L STORM DOOR MAKER Ot 787.20 DYSPHAGIA, UNSPECIFIED 10/03/2016 NICOLAS ALCANTARA DC Ot M54.1 5 RADICULOPATHY, THORACOLUMBAR REGION 10/03/2016 NICOLAS ALCANTARA DC Ot M54.5 LOW BACK PAIN 10/03/2016 NICOLAS ALCANTARA DC Ot R29.3 ABNORMAL POSTURE 10/05/2016 HEAVEN MON [employer]ORM DOOR MAKER Ot M25.561 PAIN IN RIGHT KNEE 10/25/2016 HEAVEN MON [employer]OR MAKER Ot M25.561 PAIN IN RIGHT KNEE 06/30/2018 BAIMA, JENNIFER L STORM DOOR MAKER Ot 401.9 HYPERTENSION NOS 06/30/2018 BAIMA, JENNIFER L STORM DOOR MAKER Ot 447.9 ARTERIAL DISEASE NOS 06/30/2018 BAIMA, JENNIFER L STORM DOOR MAKER Ot 786.50 CHEST PAIN NOS 06/30/2018 BAIMA, JENNIFER L STORM DOOR MAKER Ot 787.20 DYSPHAGIA, UNSPECIFIED 06/30/2018 NICOLAS ALCANTARA DC Ot M54.1 5 RADICULOPATHY, THORACOLUMBAR REGION 06/30/2018 NICOLAS ALCANTARA DC Ot M54.5 LOW BACK PAIN 06/30/2018 NICOLAS ALCANTARA DC Ot R29.3 ABNORMAL POSTURE 06/30/2018 HEAVEN MON [employer]OR MAKER Ot M25.561 PAIN IN RIGHT KNEE 07/03/2018 HEAVEN MON [employer]OR MAKER Ot R13.12 DYSPHAGIA, OROPHARYNGEAL PHASE 07/27/2018 HEAVEN MON [employer] DOOR MAKER Ot R13.12 DYSPHAGIA, OROPHARYNGEAL PHASE 07/02/2019 W Z00.00 Enc ounter for general adult medical examination without abnormal findings Heaven 07/02/2019 W I10 Essent ial (primary) hypertension Heaven 11/03/2019 W I83.891 Va ricose veins of right leg with edema Julisa Casillas 11/03/2019 W M79.661 Pa in in right lower leg Julisa Casillas 11/03/2019 JULISA CASILLAS DIRECTOR OF EXTENSION WORK Ot R22.43 LOCALIZED SWELLING, MASS AND LUMP, LOWER 11/03/2019 JULISA CASILLAS DIRECTOR OF EXTENSION WORK Ot R22.43 LOCALIZED SWELLING, MASS AND LUMP, LOWER 11/03/2019 W I83.891 Va ricose veins of right leg with edema Julisa Casillas 11/03/2019 W M79.661 Pa in in right lower leg Julisa Casillas 11/08/2019 JULISA CASILLAS APRN Ot 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 Results Test Result Range Complete urinalysis with reflex to cultu re - 11/17/19 21:40 Urine color determination ORANGE NRG Urine clarity determination SL CLOUDY N RG Urine pH measurement by test strip 6.0 5-9 Specific gravity of urine by test strip 1.020 1.016-1.022 Urine protein assay by test strip, semi-quantitative 2+ NEGATIVE Urine glucose detection by automated test strip TR KAROLINE NEGATIVE Erythrocytes detection in urine sediment by light micr oscopy NEGATIVE NEGATIVE Urine ketones detection by automated test strip NE GATIVE NEGATIVE Urine nitrite detection by test strip NEGATIVE NEGATIVE Urine total bilirubin detection by test strip 1+ NEGATIVE Urine urobilinogen measurement by automated test strip (mass/volume) 4.0 mg/dL < = 1.0 Urine leukocyte esterase detection by dipstick NEG ATIVE NEGATIVE Automated urine sediment erythrocyte cou nt by microscopy (number/high power field) NONE NRG Automated urine sediment leukocyte count by microscopy (number/high power field) NONE NRG Bacteria detection in urine sediment by light microsco py TRACE NRG Squamous epithelial cells detection in u rine sediment by light microscopy 2-5 NRG Crystals detection in urine sediment by light microsco py PRESENT NRG Casts detection in urine sediment by light microscopy PRESENT NRG Mucus detection in urine sediment by light microscopy NEGATIVE NRG Complete urinalysis with reflex to culture NO NRG Hyaline casts detection in urine sediment by light pb roscopy 2-5 NRG Calcium oxalate crystals detection in ur ine sediment by light microscopy RARE NRG Complete blood count (CBC) with automate d white blood cell (WBC) differential - 11/17/19 22:00 Blood leukocytes automated count (number/volume) 11.7 10*3/uL 4.3-11.0 Blood erythrocytes automated count (number/volume) 4.13 10*6/uL 4.35-5.85 Venous blood hemoglobin measurement (mass/volume) 12.5 g/dL 11.5-16.0 Blood hematocrit (volume fraction) 37 % 35-52 Automated erythrocyte mean corpuscular volume 90 [ foz_us] 80-99 Automated erythrocyte mean corpuscular h emoglobin (mass per erythrocyte) 30 pg 25-34 Automated erythrocyte mean corpuscular h emoglobin concentration measurement (mass/volume) 34 g/dL 32-36 Automated erythrocyte distribution width ratio 12. 6 % 10.0- 14.5 Automated blood platelet count (count/volume) 286 10*3/uL 130-400 Automated blood platelet mean volume measurement 10.0 [foz_us] 7.4-10.4 Automated blood neutrophils/100 leukocytes 78 % 42-75 Automated blood lymphocytes/100 leukocytes 10 % 12-44 Blood monocytes/100 leukocytes 12 % 0-12 Automated blood eosinophils/100 leukocytes 1 % 0-10 Automated blood basophils/100 leukocytes 0 % 0-10 Blood neutrophils automated count (number/volume) 9.1 10*3 1.8-7.8 Blood lymphocytes automated count (number/volume) 1.1 10*3 1.0-4.0 Blood monocytes automated count (number/volume) 1. 3 10*3 0.0-1.0 Automated eosinophil count 0.1 10*3/uL 0 .0-0.3 Automated blood basophil count (count/volume) 0.0 10*3/uL 0.0-0.1 Comprehensive metabolic panel - 11/17/19 22:00 Serum or plasma sodium measurement (moles/volume) 137 mmol/L 135-145 Serum or plasma potassium measurement (moles/volume) 3.4 mmol/L 3.6-5.0 Serum or plasma chloride measurement (moles/volume) 104 mmol/L 98-107 Carbon dioxide 19 mmol/L 21-32 Serum or plasma anion gap determination (moles/volume) 14 mmol/L 5-14 Serum or plasma urea nitrogen measurement (mass/volume ) 14 mg/dL 7-18 Serum or plasma creatinine measurement (mass/volume) 1.19 mg/dL 0.60-1.30 Serum or plasma urea nitrogen/creatinine mass ratio 12 NRG Serum or plasma creatinine measurement w ith calculation of estimated glomerular filtration rate 44 NRG Serum or plasma glucose measurement (mass/volume) 127 mg/dL 70-105 Serum or plasma calcium measurement (mass/volume) 9.6 mg/dL 8.5-10.1 Serum or plasma total bilirubin measurement (mass/volu me) 0.5 mg/dL 0.1-1.0 Serum or plasma alkaline phosphatase julieth surement (enzymatic activity/volume) 78 U/L 40-136 Serum or plasma aspartate aminotransfera se measurement (enzymatic activity/volume) 25 U/L 5-34 Serum or plasma alanine aminotransferase measurement (enzymatic activity/volume) 20 U/L 0-55 Serum or plasma protein measurement (mass/volume) 7.2 g/dL 6.4-8.2 Serum or plasma albumin measurement (mass/volume) 4.1 g/dL 3.2-4.5 CALCIUM CORRECTED 9.5 mg/dL 8.5-10.1 Encounters ACCT No. Visit Date/Time Discharge Status Pt. Type Provider Facility Loc./Unit Complaint [id number] 03/17/2017 15:09:27 03/17/2017 23:59:5 9 CLS Outpatient [id number] 11/03/2019 08:43:00 020 23:59:59 CLS Outpatient JULISA CASILLAS APRN [facility] RAD RT LEG PAIN/SWELLING [id number] 01/13/2019 14:08:00 019 23:59:59 CLS Preadmit JULISA CASILLAS APRN [facility] REHAB BACK PAIN [id number] 07/02/2018 09:26:00 019 23:59:59 CLS Outpatient HEAVEN MON [employer] DOOR MAKER [facility] RAD R13.12 DUSPHAGI A [id number] 10/03/2016 11:24:00 017 23:59:59 CLS Outpatient HEAVEN MON [employer]ORM DOOR MAKER [facility] RAD R KNEE PAIN [id number] 11/08/2015 11:30:00 016 23:59:59 CLS Outpatient QUINTON DIXON, NICOLAS Cardenas [facility] RAD M54.5,M54.15,R29.3 [id number] 01/05/2014 10:08:00 014 23:59:59 CLS Outpatient JENNIFER ENG [facility] LAB CHEST PAIN,LEROY TID ARTERIAL DISEASE [id number] 11/17/2019 21:19:[address] Emergency MAXIM GUNDERSON, BRADLEY Cardenas [facility] ER N/V, ABD PAIN [id number] 07/22/2012 09:40:00 Document Registration [id number] 09/19/2010 08:46:00 Document Registration [id number] 05/23/2010 08:41:00 Document Registration
--- OUTSIDE RECORDS SUMMARY | 2019-11-18 01:35 | XMS REPORT | CCD ---
Author Author Nelly Casillas Organization Morena Dalal MD, [facility] Address [address] [place] [address] Phone Care Team Providers Care Plans Examiner Name Role Phone PP Unavailable CCM Unavailable Summary Purpose Interface Exchange Insurance Providers Payer name Policy type / Coverage type Covered democrat ID Effective Begin Date Effective End Date WPS Medicare Part B Medicare Part B [id number] 2018 Unknown [employer] Medicare Part B [id number] 2018 Unknown Family history Father Diagnosis Age At Onset Cancer Unknown Mother Diagnosis Age At Onset Depression Unknown Arthritis Unknown Alcoholism Unknown Hyperlipidemia Unknown Hypertension Unknown Liver Failure Unknown Social History Social History Element Codes Description Effective Dates Marital status Unknown W idowed 06/12/2016 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[address]: [id number] Never smoker 06/12/2016 Allergies, Adverse Reactions, Alerts [...] Fill Instructions Coreg 12.5 mg tablet RxNorm: 729505 1 Tablet(s) PO BID TABLET(S) 1 TABLET(S) PO BID 05/25/2018 02/18/2019 Active Replacing atenolol due to availability omeprazole 40 mg cap eloisa,delayed release RxNorm: 385381 1 Capsule(s) PO daily 05/25/2018 09/21/2018 Ac tive Coreg 12.5 mg tablet RxNorm: 543496 TABLET(S) 1 TABLET(S) PO BID 02/19/2018 05/24/2018 Inactive Replacing atenolol due to availability Coreg 12.5 mg tablet RxNorm: 083313 TABLET(S) 1 TABLET(S) PO BID 11/18/2017 02/18/2018 Inactive Replacing atenolol due to availability Coreg 12.5 mg tablet RxNorm: 875088 TABLET(S) 1 TABLET(S) PO BID 08/14/2017 11/17/2017 Inactive Replacing atenolol due to availability amlodipine 10 mg tablet RxNorm: 941142 1 TABLET(S) PO DAILY 05/13/2017 08/05/2018 Active Coreg 12.5 mg tablet RxNorm: 525434 TABLET(S) 1 TABLET(S) PO BID 04/17/2017 01/11/2018 Inactive Replacing atenolol due to availability Patient requests 90 days supply Coreg 12.5 mg tablet RxNorm: 953643 Tablet(s) 1 TABLET(S) PO BID 04/16/2017 04/16/2017 Inactive Replacing atenolol due to availability Coreg 12.5 mg tablet RxNorm: 227499 Tablet(s) 1.5 TABLET(S) PO BID 03/17/2017 No Stop Date Active Replacing atenolol due to availability Patient requests 90 days supply Coreg 12.5 mg tablet RxNorm: 644141 1 TABLET(S) PO BID 02/20/2017 04/15/2017 Inactive Replacing atenolol due to availability Coreg 12.5 mg tablet RxNorm: 432756 1 TABLET(S) PO BID 01/23/2017 03/16/2017 Inactive Replacing atenolol due to availabilityPatient requests 90 days supply Coreg 12.5 mg tablet RxNorm: 381030 1 Tablet(s) PO BID 01/21/2017 01/22/2017 Inactive Replacing atenolol due to availability Coreg 12.5 mg tablet RxNorm: 980989 1 Tablet(s) PO BID 01/21/2017 01/20/2017 Inactive Replacing atenolol due to availability atenolol 100 mg tablet RxNorm: 635021 TAKE 1 TABLET BY MOUTH EVERY DAY 01/20/2017 01/20/2017 In active mupirocin 2 % topica l ointment RxNorm: 134178 1 Application TOP BID 12/25/2016 12/31/2016 Inactive Voltaren 1 % topical gel RxNorm: 445919 2 TOP TID 10/31/2016 11/29/2016 Inactive amlodipine 10 mg tablet RxNorm: 331394 1 Tablet(s) PO daily 10/03/2016 03/31/2017 Inactive amlodipine 5 mg tablet RxNorm: 387147 1 Tablet(s) PO daily 06/12/2016 10/02/2016 Inactive aspirin 81 mg tablet ,delayed release RxNorm: 182189 1 Tablet(s) PO daily No Start Date Active atenolol 100 mg tablet RxNorm: 619329 1 Tablet(s) PO daily No Start Date 01/19/2017 Inactive amlodipine 5 mg tablet RxNorm: 040723 1 Tablet(s) PO daily No Start Date [...] hTSH II 2.22 uIU/mL 06/19/2016 Comp Metabolic Wdv704 NA 140 mEq/L 06/19/2016 Comp Metabolic Smx497 K 4.1 mEq/L 06/19/2016 Comp Metabolic Hza921 CL 104 mEq/L 06/19/2016 Comp Metabolic Iza939 CO2 27.0 mEq/L 06/19/2016 Comp Metabolic Bbd947 AN ION GAP 13 06/19/2016 Comp Metabolic Tas580 GL UCOSE 107 mg/dL 06/19/2016 Comp Metabolic Qrg547 Cr eat 0.7 mg/dL 06/19/2016 Comp Metabolic Ikk551 eG FR 83 ml/min/1.73m2 06/19 Comp Metabolic Lbw964 BUN 17 mg/dL 06/19/2016 Comp Metabolic Qcd969 B/ C Ratio 23.3 Ratio 06/19/2016 Comp Metabolic Vtm922 CA LCIUM 9.5 mg/dL 06/19/2016 Comp Metabolic Jah887 AL K PHOS 88 U/L 06/19/2016 Comp Metabolic Jso085 T(SGOT) 28 U/L 06/19/2016 Comp Metabolic Ppu150 AL T(SGPT) 18 U/L 06/19/2016 Comp Metabolic Com777 BI LI T 0.5 mg/dL 06/19/2016 Comp Metabolic Rno476 AL BUMIN 4.2 g/dL 06/19/2016 Comp Metabolic Aff455 TP RO 6.7 g/dL 06/19/2016 Comp Metabolic Aww773 GL OB 2.5 g/dL 06/19/2016 Comp Metabolic Lvu543 A/ G Ratio 1.7 Ratio 06/19/2016 Comp Metabolic Ksy463 Os mo 281 mOsmo 06/19/2016 Cbc With [...] 21.4 % 06/19/2016 Cbc With Differential Ord2 Hernando% 15.5 % 06/19/2016 Cbc With Differential Ord2 [...] 1.06 K/ul 06/19/2016 Cbc With Differential Ord2 Hernando ABS# 0.8 K/ul 06/19/2016 Cbc With Differential [...] 4: G0439 07/11/2017 DRAIN/INJECT JOINT/B URSA CPT-4: 50434 10/11/2016 Vital Signs Date Vital 05/25/2018 Blood Pressure 1: 152/84 Code: 8480-6 BMI: 20.8 Code: 76603-2 Heart Rate 1: 81 bpm Height: 5'1" SpO2: 98% Weight: 110 lbs 07/11/2017 Blood Pressure 1: 120/76 Code: 8480-6 BMI: 20.6 Code: 81091-2 Heart Rate 1: 72 bpm Height: 5'1" SpO2: 96% Waist Measure (cm): 66 cm Weight: 109 lbs 04/08/2017 Blood Pressure 1: 134/68 Code: 8480-6 BMI: 20.2 Code: 19974-9 Heart Rate 1: 75 bpm Height: 5'1" SpO2: 97% Weight: 107 lbs 03/17/2017 Blood Pressure 1: 156/90 Code: 8480-6 Heart Rate 1: 83 bpm Height: SpO2: 96% Weight: 01/31/2017 Blood Pressure 1: 132/68 Code: 8480-6 Heart Rate 1: 88 bpm SpO2: 98% 12/25/2016 Blood Pressure 1: 154/74 Code: 8480-6 BMI: 20.0 Code: 55268-8 Heart Rate 1: 74 bpm Height: 5'1" SpO2: 96% Weight: 106 lbs 10/31/2016 Blood Pressure 1: 138/82 Code: 8480-6 BMI: 20.2 Code: 44831-5 Heart Rate 1: 76 bpm Height: 5'1" SpO2: 96% Weight: 107 lbs 10/11/2016 Blood Pressure 1: 134/70 Code: 8480-6 Heart Rate 1: 69 bpm Height: 5'1" SpO2: 95% Weight: 10/03/2016 Blood Pressure 1: 164/88 Code: 8480-6 BMI: 20.2 Code: 41330-3 Heart Rate 1: 70 bpm Height: 5'1" SpO2: 97% Weight: 107 lbs 06/12/2016 Blood Pressure 1: 144/88 Code: 8480-6 BMI: 20.6 Code: 24627-9 Heart Rate 1: 79 bpm Height: 5'1" [...] Encounters Encounter Performer Loca tion Codes Date ([id number]) 26697 EST. P ATIENT, LEVEL IV Diagnosis: Essential (primary) hypertension[ICD10: I10] Diagnosis: Dysphagia, oropharyngeal phase[ICD10: R13.12] Diagnosis: Mixed hyperlipidemia[ICD10: E78.2] Heaven Dalal MD, [facility] CPT-4: 70013 05/25/2018 ([id number]) 05245 EST. P ATIENT, LEVEL III Diagnosis: Essential (primary) hypertension[ICD10: I10] Morena Dalal MD, C CPT-4: 96155 04/08/2017 ([id number]) Miscellaneou s no charge Diagnosis: Essential (primary) hypertension[ICD10: I10] Heaven Dalal MD, [facility] CPT-4: 93810 03/17/2017 ([id number]) Miscellaneou s no charge Diagnosis: Essential (primary) hypertension[ICD10: I10] Morena Dalal MD, C CPT-4: 72907 01/31/2017 ([id number]) 53050 EST. P ATIENT, LEVEL III Diagnosis: Essential (primary) hypertension[ICD10: I10] Diagnosis: Otalgia, left ear[ICD10: H92.02] Morena Dalal MD, [facility] CPT-4: 03730 12/25/2016 ([id number]) 16989 EST. P ATIENT, LEVEL III Diagnosis: Pain in right knee[ICD10: M25.561] Morena Dalal MD, [facility] CPT- 4: 61326 10/31/2016 ([id number]) 67775 EST. 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] Diagnosis: Pain in right knee[ICD10: M25.561] Heaven Dalal MD, [facility] CPT-4: 72385 10/03/2016 OFFICE VISIT, NEW - LEVEL 4 Diagnosis: Essential (primary) hypertension[ICD10: I10] Diagnosis: Pain in right knee[ICD10: M25.561] Janee Dalal MD, [facility] CPT-4: 92499 06/12/2016 Plan of Care Planned Activity Notes [...] improve 05/25/2018 Appointment: Heaven Mon WPtel: [address] [facility] [place] [address] (30 min) Complex 05/25/2018 Patient Education: Patient [...] care surrogate. 07/11/2017 Appointment: Heaven Mon WPtel: [phone] [facility] [place] Wellness [place] 07/11/2017 Patient Education: Patient Medication Summary Completed 07/11/2017 Appointment: Janee Casillas WPtel: [facility] [place] [address] - Annual Wellness Visit 07/01/2017 Visit Plan: Hypertension - well con trolled - continue with current medications, continue with no added salt diet. Pt has been encouraged to exercise daily. The pt has been advised to call the office if there are any acute concerns about change in blood pressure readings at home. 04/08/2017 Appointment: Morena Dalal WPtel: [facility] (15 min) Moderate 04/08/2017 Patient Education: Patient [...] voltaren gel. 12/25/2016 Appointment: Morena Dalal WPtel: [facility] (15 min) Moderate 12/25/2016 Patient Education: Patient Medication Summary Completed 12/25/2016 Appointment: Heaven Mon WPtel: [address] [place], [place] [phone] [place] (30 min) Complex 11/07/2016 Visit Plan: Bursitis of knee - Louis mmended voltaren gel on knee - RX sent to pharmacy - also recommended pt to do stretching exercise. 10/31/2016 Appointment: Morena Dalal WPtel: [address] [place], [place] [id number] (15 min) Moderate 10/31/2016 Patient Education: Patient Medication Summary Completed 10/31/2016 Visit Plan: Joint Injection - Pt wa s given post - injection instructions. The pt has been advised to use anti-inflammatories post injection today, ice to the injected site, call if redness, warmth, or increased pain occurs at the site of injection. 10/11/2016 [facility]ment[phone] (30 min) Complex 10/11/2016 Patient Education: Patient [...] consider 10/03/2016 Appointment: [facility] [phone] (15 min) Moderate 10/03/2016 Patient Education: [...]
== END 2019-11-17 22:56 | disposition home or self-care (01) ==
LOC: EDUNIT# 21:17 → ER 21:19
DX: N39.0 Urinary tract infection, site not specified (principal); Z88.5 Allergy status to narcotic agent
CPT/HCPCS: 36415; 80053; 81000; 85025

== ENCOUNTER → 2020-03-06 | Outpatient (CLI) | payer MEDICARE, OTHER ==
[~2020-03-06] MED LIST changes: -BARIUM SUSPENSION 105% (LIQUID POLIBAR PLUS) 240 ML/DOSE PO ONE; -BARIUM SUSPENSION 60% (LIQUID EZ PAQUE) 240 ML DOSE PO ONE; +CIPR500T4 PO; +ONDA4TAB11 PO
--- NOTE | 2020-03-06 16:14 | Diagnostic Imaging Report ---
INDICATION: Left hip pain. FINDINGS: Two views of the left hip show no fracture, dislocation, or other acute abnormalities. IMPRESSION: Negative left hip. Dictated by: Dictated on workstation # [id number]
--- NOTE | 2020-03-06 16:15 | Diagnostic Imaging Report ---
INDICATION: Back pain. EXAMINATION: Lumbar spine. FINDINGS: AP and lateral views of the lumbar spine show scoliotic curvature of the lumbar spine, convex to the right. There are no compression fractures. There is narrowing of the intervertebral disc spaces on the left side at L1-L2 and L2-L3 and on the right at L4-L5 and L5-S1. There are also some associated hypertrophic changes of the facets at those same areas of stress. IMPRESSION: Scoliosis with reactive hypertrophic stress changes of the lumbar spine involving the discs spaces and facets. There is no acute abnormality seen. Dictated by: Dictated on workstation # [id number]
== END ==
LOC: RAD 14:41
PROVIDERS: ATTEND Nurse Practitioner Family
DX: M41.86 Other forms of scoliosis, lumbar region (principal); M48.061 Spinal stenosis, lumbar region without neurogenic claudication; M48.07 Spinal stenosis, lumbosacral region
CPT/HCPCS: 72100; 73502

== ENCOUNTER 2021-04-30 16:12 | Emergency (ER) | payer MEDICARE, OTHER ==
[~2021-04-30] VITALS: Ht 157 cm; Wt 52.0 kg
[~2021-04-30 16:12] MED LIST changes: -CIPR500T4 PO; +CIPR500T5 PO
--- NOTE | 2021-04-30 16:24 | ED General ---
General Stated Complaint: FALL/R ANKLE PAIN Source of Information: Patient Exam Limitations: No Limitations History of Present Illness Date Seen by Provider: Apr 30, 2021 Time Seen by Provider: 16:22 Initial Comments To ER with fall right ankle pain. No other injury. She initially had some right distal thigh and knee pain but that pain is now gone persistent pain over the right lateral malleolus. Timing/Duration: 1-2 Days Severity: Moderate Associated Systoms: Denies Symptoms Allergies and Home Medications Allergies Coded Allergies: codeine (Verified Adverse Reaction, Unknown, Vomiting, 11/17/19) Patient Home Medication List Home Medication List Reviewed: Yes Ciprofloxacin HCl (Ciprofloxacin HCl) 500 Mg Tablet, 500 MG PO BID Prescribed by: BRADLEY PAN on 11/17/192247 Ondansetron (Ondansetron Odt) 4 Mg Tab.rapdis, 4 MG PO Q6H PRN for NAUSEA/VOMITING Prescribed by: BRADLEY PAN on 11/17/192247 Review of Systems Review of Systems Constitutional: see HPI EENTM: see HPI Respiratory: no symptoms reported Cardiovascular: no symptoms reported Genitourinary: no symptoms reported Musculoskeletal: no symptoms reported Skin: no symptoms reported Psychiatric/Neurological: No Symptoms Reported Hematologic/Lymphatic: No Symptoms Reported Immunological/Allergic: no symptoms reported Past Zytiqsh-Xnetfu-Tsxtys Hx Seasonal Allergies Seasonal Allergies: No Past Medical History Surgeries: Yes Orthopedic Respiratory: No Cardiac: No Neurological: No Genitourinary: No Gastrointestinal: No Musculoskeletal: No Endocrine: No HEENT: No Cancer: No Psychosocial: No Integumentary: No Physical Exam Vital Signs Vital Signs - First Documented 04/30/21 16:16 Temp 36.0 Pulse 98 Resp 18 B/P (MAP) 157/88 (111) Pulse Ox 98 O2 Delivery Room Air Capillary Refill : Height, Weight, BMI Height: '" Weight: lbs. oz. kg; 20.00 BMI Method: General Appearance: No Apparent Distress, WD/WN Eyes: Bilateral Eye Normal Inspection, Bilateral Eye PERRL, Bilateral Eye EOMI Neck: Full Range of Motion, Normal Inspection Respiratory: No Accessory Muscle Use, No Respiratory Distress Cardiovascular: Regular Rate, Rhythm, Normal Peripheral Pulses Gastrointestinal: Normal Bowel Sounds, Non Tender, Soft Extremity: Normal Capillary Refill, Normal Inspection Neurologic/Psychiatric: Alert, Oriented x3 Skin: Normal Color, Warm/Dry Progress/Results/Core Measures Suspected Sepsis SIRS Temperature: Pulse: Respiratory Rate: Blood Pressure / Mean: Results/Orders My Orders Orders - JERED VILLA APRN Ankle, Right, 3 Views (04/30/21 16:21) Femur, Right, 2 Views (04/30/21 16:24) Vital Signs/I&O 04/30/21 16:16 Temp 36.0 Pulse 98 Resp 18 B/P (MAP) 157/88 (111) Pulse Ox 98 O2 Delivery Room Air Capillary Refill : Departure Impression Primary Impression: Sprain and strain of ankle Disposition: HOME, SELF-CARE Condition: Stable Departure-Patient Inst. Decision time for Depature: 16:55 Referrals: MEL VERDUZCO MD (PCP/Family) Primary Care Physician Patient Instructions: Ankle Sprain Add. Discharge Instructions: 1. Elevate this as much as you can for the next 2 to 3 days. Ice pack to the area for 30 minutes every couple of hours. Wear the Rowdy wrap for the next week and the ankle brace for the next week. Return to ER for any worsening. You may take the brace off when the ankle feels stable and without significant pain. JERED VILLA APRN Apr 30, 2021 16:24
--- NOTE | 2021-04-30 16:51 | Diagnostic Imaging Report ---
INDICATION: Right thigh pain AP and lateral views of the right femur are obtained. No fracture or acute bony abnormality is seen. IMPRESSION: Negative right femur. Dictated by: Dictated on workstation # [id number]
--- NOTE | 2021-04-30 16:52 | Diagnostic Imaging Report ---
INDICATION: Right ankle pain post injury AP, oblique, and lateral views of the right ankle are obtained. No fracture or acute bony abnormality is seen. IMPRESSION: Negative right ankle. Dictated by: Dictated on workstation # [id number]
[2021-04-30 17:46] VITALS: BP 157/88
== END 2021-04-30 17:26 | disposition home or self-care (01) ==
LOC: EDUNIT# 16:12 → ER 16:14
DX: S93.401A Sprain of unspecified ligament of right ankle, initial encounter (principal); S96.911A Strain of unspecified muscle and tendon at ankle and foot level, right foot, initial encounter; X58.XXXA Exposure to other specified factors, initial encounter
CPT/HCPCS: 73552; 73610; 99283; L4350

== ENCOUNTER → 2022-01-18 | Outpatient (CLI) | payer MEDICARE, OTHER ==
--- NOTE | 2022-01-18 10:44 | Diagnostic Imaging Report ---
EXAMINATION: US Abdomen limited. TECHNIQUE: Multiple real-time grayscale images were obtained over the right upper quadrant in various projections. REASON FOR EXAM: Right upper quadrant pain. COMPARISON: None. FINDINGS: The liver is normal in size and shape. The liver echogenicity is within normal limits. There are no focal lesions. No intrahepatic biliary dilatation is present. The common bile duct is not dilated and measures 2 mm. The main portal vein is hepatopedal. No ascites is seen in the upper abdomen. There is no evidence of cholelithiasis, gallbladder wall thickening or pericholecystic fluid. Sonographic Martinez's sign is negative. The visualized portion of the head of the pancreas are within normal limits. The body and tail of the pancreas are not well visualized due to overlying bowel gas. The visualized portions of the IVC and aorta appear normal. The right kidney measures approximately 7.8 cm in length and has a normal appearance. IMPRESSION: 1. No cholelithiasis or acute cholecystitis. No liver or gallbladder abnormality detected. Dictated by: Dictated on workstation # [id number]
== END ==
LOC: RAD 07:43
PROVIDERS: ATTEND Nurse Practitioner Family
DX: R10.11 Right upper quadrant pain (principal)
CPT/HCPCS: 76705